=== PATIENT | female | born 1940 | race Caucasian/White ===

== ENCOUNTER 2017-03-03 19:13 | Inpatient (IN) ==
[2017-03-03] MEDS ORDERED: ZOFRAN IV ONE (20:58)
[2017-03-03] MEDS ORDERED: DILAUDID IV ONE ×2 (20:58→22:47)
[2017-03-03] MEDS ORDERED: DILAUDID IV PRN (21:50)
[2017-03-03 21:58] LABS: MANUAL DIFF NEEDED? NO
[2017-03-03 22:00] LABS: BASO% 0.3 % (0.0-0.8); EOS# 0.22 X1000 (0.0-0.7); HEMATOCRIT 33.3 % (37.0-47.0); IMM GRAN# 0.02 X1000 (0.0-0.04); IMM GRAN% 0.3 % (0.0-0.5); LYMPH# 1.36 X1000 (1.2-3.4); LYMPH% 18.6 % (20.5-51.1); MCH 27.1 PG (27-31); MONO# 0.53 X1000 (0.11-0.59); MONO% 7.2 % (1.7-9.3); MPV 10.9 FL (7.4-10.4); NEUT% 70.6 % (42.2-75.2); PLT 218 X1000 (130-400); RBC 4.06 XMIL (4.2-5.4)
[2017-03-03 22:29] LABS: URINE SOURCE CATH
[2017-03-03 22:31] LABS: ALBUMIN 3.7 g/dL (3.5-5.0); CALCIUM 9.9 mg/dL (8.8-10.2); POTASSIUM 3.3 mmol/L (3.5-5.1); TOTAL BILIRUBIN 0.19 mg/dL (0.20-1.00); TOTAL PROTEIN 6.2 g/dL (6.3-8.3)
[2017-03-03 22:43] LABS: BILIRUBIN URINE SMALL (NEGATIVE); BLOOD URINE NEGATIVE (NEGATIVE); COLOR YELLOW; GLUCOSE URINE NEGATIVE (NEGATIVE); LEUKOCYTES URINE SMALL (NEGATIVE); NITRITE URINE NEGATIVE (NEGATIVE); PROTEIN URINE 50 mg/dL (NEGATIVE); SP GRAVITY URINE 1.027; TURBIDITY URINE TURBID (CLEAR); UROBILINOGEN URINE 3 mg/dL (NORMAL)
[2017-03-03 22:54] LABS: UR EPITHELIAL CELLS <10 /HPF (<10); URINE MICRO REVIEW NEEDED? YES; URINE RBC <10 /HPF (<10); URINE WBC <10 /HPF (<10)
[2017-03-03 23:12] LABS: URINE BACTERIA 4+ /HPF; URINE CASTS NONE SEEN; URINE CRYSTALS CA OXALATE PRESENT; URINE CULTURE NEEDED? YES
[2017-03-04] MEDS ORDERED: TORADOL IM ONE (00:27)
[2017-03-04] MEDS ORDERED: LASIX PO PRN (00:27)
[2017-03-04] MEDS ORDERED: KLOR-CON PO ONE (00:33)
[2017-03-04] MEDS: ZOFRAN IV PRN ×2 (01:03→06:56)
[2017-03-04] MEDS: INDERAL PO SCH ×3 (01:04→20:28)
[2017-03-04] MEDS: OFIRMEV 1000 MG/ISOTONIC SOLN 1,000 MG/100 ML BOTTLE IV SCH ×4 (01:04→18:44)
--- NOTE | 2017-03-04 01:52 | HISTORY AND PHYSICAL ---
REASON FOR ADMISSION: Right ankle pain. PRIMARY CARE PHYSICIAN: Dr. Camara. HISTORY OF PRESENT ILLNESS: Ms. Mimi Metz is a 76-year-old lady with a past medical history of pernicious anemia, rheumatoid arthritis, lupus, Sjogren syndrome, hypertension, dyslipidemia, CVA, chronic pain syndrome, reflux disease, and rheumatoid lung. She was recently seen in the ER in the early hours of this morning because she was in a lot of pain in her back. She was given a Dilaudid shot and sent home. A few hours later, when she woke up, she tried to picker/puller a piece of paper, and she keeled forward, fell, and twisted her right ankle. Her noticed that she was on the floor, unable to get up, and in lot of pain. Called her neighbor, but neither of them could get her up, and they called 911 to bring her in. The patient tells me that when she keeled over, she did not hit her head, did not lose any consciousness. No antecedent, shortness of breath, or cardiorespiratory symptoms. Currently, her only complaint is pain in the right ankle, which is nonradiating, sharp, and intense. She has received a total of just over 1 mg of Dilaudid, and her pain is still at 8/10. REVIEW OF SYSTEMS: Twelve system review is negative. Positive findings only notable for heartburn and constipation. She also has chronic dyspnea, which has not worsened however. ALLERGIES: Hydrocodone, baclofen, Levaquin, sulfa, Neurontin, morphine, Lyrica, Imuran. HOME MEDICATIONS: She takes albuterol ProAir 2 puffs b.i.d., amitriptyline 25 mg at bedtime, ascorbic acid 250 mg daily, Symbicort 2 puffs b.i.d., Zyrtec 10 mg t.i.d., vitamin D3 5000 units daily, Colace t.i.d., folic acid 1 mg daily, Lasix 40 mg daily, hydrocodone 4 mg q.6 p.r.n., multivitamin tablets once a day, Ativan 1 mg t.i.d. p.r.n., meclizine 25 mg p.r.n., Prilosec 25 mg daily, oxycodone 10 mg q.6 p.r.n., MiraLAX 17 g daily, propranolol 40 mg b.i.d., ranitidine 75 mg daily, Senokot 8.6 mg b.i.d., Zoloft 200 mg at bedtime, Zocor 20 mg at bedtime. PAST SURGICAL HISTORY: Notable for 6 shoulder surgeries, bilateral knee surgery, C-spine surgery, enterocele repair, hysterectomy, and vaginal prolapse repair. SOCIAL HISTORY: Denies any drugs or illicit drugs. Lives in [place]. Lives with her spouse. FAMILY HISTORY: Notable for heart disease and diabetes. LABORATORY WORK: The patient has a right distal fracture of the tibia. Urinalysis: 4+ bacteria., Otherwise nil of note. Glucose 146, BUN 17, creatinine 1.0. White count 7000, hemoglobin 11, hematocrit 33, platelets 218,000, with normal differential. EKG shows normal sinus, with left axis deviation, LVH. PHYSICAL EXAMINATION: GENERAL: Chronically ill elderly woman, who is not in acute respiratory distress. She is A and O x 3. Normal mood and affect. She is in distress, however, from pain in her right ankle. Mood: She is slightly anxious, with a normal mood and affect. HEENT: Head is normocephalic, atraumatic. Eyes DIMAS, EOMI. Anicteric and not pale. ENT and oropharynx exam is grossly normal. No central cyanosis. VITAL SIGNS: Blood pressure is 134/74, heart rate 97, respirations 18, temperature 97.9. She is 97% on 3 L. NECK: Supple. No JVD or carotid bruit. CHEST: Decreased air entry in both lung che, with expiratory wheezes. CARDIOVASCULAR: First and second heart sounds heard. No gallops, murmurs, or rubs. Rhythm is regular. ABDOMEN: Slightly protuberant, soft. No focal areas of tenderness. No mass or organomegaly. Bowel sounds are hypoactive. RECTAL: Deferred at this time. EXTREMITIES: Patient has her right leg in an Checo bandage up to the knee for [id number]. She is able to wiggle her toes, but with extreme pain. Good capillary refill. Toes are not cold. Pulses are barely felt through the heavy Checo dressing. On the left lower extremity, she has good pulses. No edema. No clubbing or peripheral cyanosis. The patient has an intention tremor, consistent with essential tremor. NEUROLOGICAL: No focal deficits. SKIN: Intact. No breakdown, lesions, or erythema. MUSCULOSKELETAL: Exam is grossly normal, other than the aforementioned heavily bandaged right lower extremity. The patient has bilateral valgus hallux deformities of both feet. ASSESSMENT: 1. Right distal tibia fracture. 2. Rheumatoid lung. 3. Chronic respiratory failure, secondary to rheumatoid lung. 4. Sjogren syndrome. 5. Hypertension. 6. Dyslipidemia. 7. Chronic low back pain. 8. Osteoporosis. 9. Pernicious anemia. 10. Anemia. PLAN: At this time, Dr. Quintana of orthopedics has been consulted, and will see the patient in the a.m. for probable surgical intervention tomorrow. In the interim, we will control patient's pain the best we can, without inducing any heavy sedation. Continue with nebulizer treatments, O2 support. Otherwise, we will continue with patient's current home medications. No dramatic intervention from my standpoint, other than showing the patient is clinically stable for surgery. We will also treat the patient with Ofirmev for better pain control without heavy dependence on opiates, in this patient who has marginal respiratory reserve. cc: MD Samra Eckert MD
[2017-03-04] MEDS: PERCOCET-5 PO PRN ×3 (03:11→21:33)
[2017-03-04] MEDS: DUONEB (A & A) INH SCH ×5 (03:33→19:12)
[2017-03-04] MEDS: DILAUDID IV PRN ×4 (04:52→20:17)
--- NOTE | 2017-03-04 05:05 | EKG Report ---
Test Performed on : 03/03/2017 9:15:33 PM Test Reason : ankle fx Blood Pressure : / mmHG Vent. Rate : 086 BPM Atrial Rate : 086 BPM P-R Int : 148 ms QRS Dur : 078 ms QT Int : 354 ms P-R-T Axes : 047 -28 127 degrees QTc Int : 423 ms Normal sinus rhythm. Cannot rule out Anterior infarct , age undetermined ST \T\ T wave abnormality, consider lateral ischemia Abnormal ECG When compared with ECG of 20-FEB-2016 16:06, T wave inversion now evident in Lateral leads Unconfirmed Result
[2017-03-04] MEDS: PRILOSEC PO SCH (06:03)
[2017-03-04 06:36] LABS: MANUAL DIFF NEEDED? NO
[2017-03-04 06:40] LABS: BASO% 0.2 % (0.0-0.8); EOS# 0.32 X1000 (0.0-0.7); EOS% 5.2 % (0.0-10.0); HEMATOCRIT 31.7 % (37.0-47.0); HEMOGLOBIN 10.3 g/dL (12.0-16.0); LYMPH# 1.74 X1000 (1.2-3.4); MCH 26.9 PG (27-31); MCHC 32.5 g/dL (33-37); MCV 82.8 FL (81-99); MONO# 0.56 X1000 (0.11-0.59); MPV 11.4 FL (7.4-10.4); NEUT% 57.6 % (42.2-75.2); PLT 217 X1000 (130-400); RBC 3.83 XMIL (4.2-5.4)
[2017-03-04 06:52] LABS: AGAP 11; ALBUMIN 3.3 g/dL (3.5-5.0); ALKALINE PHOSPHATASE 70 U/L (32-104); BUN 18 mg/dL (8-22); CALCIUM 9.5 mg/dL (8.8-10.2); CHLORIDE 99 mmol/L (98-107); COSMO 280; GOT 11 U/L (10-30); GPT 14 U/L (10-36); POTASSIUM 3.3 mmol/L (3.5-5.1); SODIUM 139 mmol/L (136-145); TCO2 29 mmol/L (25-35); TOTAL BILIRUBIN 0.27 mg/dL (0.20-1.00); TOTAL PROTEIN 6.5 g/dL (6.3-8.3)
[2017-03-04] MEDS: MIRALAX PO SCH (08:32)
--- NOTE | 2017-03-04 08:32 | Diag Imaging Result Document ---
PROCEDURE NAME: ANKLE COMPLETE RIGHT - 03/03/2017 RIGHT ANKLE THREE VIEWS: FINDINGS: There is a spiral fracture through the distal shaft of the tibia with several millimeters of displacement. There are 1 or 2 fracture fragments. There is also a nondisplaced fracture to the distal fibula extending into the lateral malleolus. There is only mild soft tissue swelling. IMPRESSION: Fractures to the distal tibia and fibula.
[2017-03-04] MEDS: LIORESAL PO SCH ×3 (08:34→18:44)
[2017-03-04] MEDS: SENOKOT PO SCH ×2 (08:34→20:20)
[2017-03-04] MEDS: ATIVAN PO PRN ×2 (09:22→21:28)
[2017-03-04] MEDS: SYMBICORT 160/4.5 MICROGM INHALER INH SCH ×2 (09:39→19:12)
--- NOTE | 2017-03-04 12:32 | PROGRESS NOTE ---
DATE: 03/04/2017 SUBJECTIVE: Ms. Metz is a 76-year-old who was brought in. She is a patient of Dr. Samra Camara. PAST MEDICAL HISTORY: Pernicious anemia, rheumatoid arthritis, lupus, Sjogren's syndrome, hypertension, dyslipidemia, CVA, chronic pain syndrome. Reflux disease, rheumatoid lung. Recently seen in the emergency room early this morning because she was in lot of pain in her back. Given Dilaudid shot and sent home. A few hours later she woke up, tried to cloth picker a piece of paper and she fell forward, twisted her right ankle and suffered a fracture. So she has a right distal tibial fracture. EXAM: General: Today, she is awake, but quite a bit of pain still. Vital Signs: Temperature 98.2, pulse 74, respirations 18, blood pressure 96/52. Lungs: Clear in all lung che. Cardiovascular: Exam regular rate without murmur or S3. Abdomen: Soft. Skin: Warm and dry. LAB: White count 6210, hematocrit 31, platelet count 217,000. Sodium 139, potassium 3.3, chloride 99, bicarb 29, BUN 18, creatinine 0.9, blood sugar 107. Urinalysis, there are 4+ crystals. Calcium oxalate present. ASSESSMENT AND PLAN: 1. Right distal tibia fracture. 2. Rheumatoid lung history. 3. Chronic respiratory failure secondary to rheumatoid lung. 4. Sjogren syndrome. 5. Hypertension. 6. Dyslipidemia. 7. Chronic low back pain. 8. Osteoporosis. 9. Pernicious anemia. 10. Anemia. PLAN: I think for surgery today for internal fixation. Review of the orders. I do not see any changes at this point. cc: Neto Lincoln MD
--- NOTE | 2017-03-04 14:08 | CONSULTATION ---
DATE OF CONSULTATION: 03/04/2017 CHIEF COMPLAINT: Right ankle pain. HISTORY OF PRESENT ILLNESS: Ms. Mimi Metz is a 76-year-old female, who has recently undergone some back surgeries from [place]. She ended up falling at her house, twisting the ankle, and was brought to the emergency department. She was found to have a distal tibia fracture that was displaced. She was placed in a splint and then admitted to the floor per the hospitalist service. Most of her pain is at the right ankle; it is worse if she tries to move it at all, better with keeping it still. PAST MEDICAL HISTORY: Anemia, rheumatoid arthritis, lupus, Sjogren syndrome, hypertension, dyslipidemia, cerebrovascular accident, chronic pain syndrome, reflux. PAST SURGICAL HISTORY: Six shoulder surgeries, bilateral knee surgeries, cervical spine surgery, hysterectomy, and vaginal prolapse surgery. SOCIAL HISTORY: She denies any alcohol or drug use. FAMILY HISTORY: Notable for diabetes and heart problems. HOME MEDICATIONS: Per the medical record. ALLERGIES: Hydrocodone, baclofen, Levaquin, sulfa, Neurontin, morphine, Lyrica, and Imuran. REVIEW OF SYSTEMS: Positive for this right ankle pain and back pain. All other systems are essentially negative. PHYSICAL EXAMINATION: General: Ms. Metz is lying in bed in no acute distress this morning. Head and neck: Normocephalic, atraumatic. Respirations: Nonlabored. Cardiovascular: Regular rate. Abdomen: Nondistended. Extremities: Right lower extremity exam: Splint is clean, dry, and intact. She is able to move her toes very well in dorsiflexion and plantar flexion. She has good sensation to light touch to the toes and good capillary refill to the toes. RADIOGRAPHS: Right ankle radiograph shows displaced distal tibia fracture and looks like a nondisplaced distal fibula fracture. ASSESSMENT: Right distal tibia fracture and fibula fracture. PLAN: I did discuss with Ms. Metz that will need to fix this surgically. The tibia is not well aligned at this point. I went over with her the procedure, risks, benefits, potential complications. Risks include, but are not limited to, infection, wound healing problems, damage to nerves, arteries, veins, numbness, malunion, nonunion, hardware-related issues, continued pain, DVT and anesthesia-related risks. After discussing these with the patient, she expressed understanding and wished to proceed. We will plan on doing this tomorrow, so she will need to be n.p.o. after midnight tonight, and we will put her on the schedule for tomorrow to get this done. cc: Jj Martinez MD
--- NOTE | 2017-03-04 18:11 | Diag Imaging Result Document ---
PROCEDURE NAME: CHEST-PORTABLE - 03/04/2017 AP PORTABLE CHEST: There is a calcified node in the left hilum. There is a hiatal hernia. There has been no apparent change since 12/22/2016. IMPRESSION: Stable chest.
[2017-03-04] MEDS: ZOCOR PO SCH (20:20)
[2017-03-04] MEDS: ZOLOFT PO SCH (20:20)
[2017-03-05] MEDS: DUONEB (A & A) INH SCH ×5 (02:13→21:20)
--- NOTE | 2017-03-05 04:41 | PROVIDER DOCUMENTATION ---
This chart was entered by Gato Lockett Scribe, acting as scribe for Huy Padilla MD. HPI-Musculoskeletal Pain/Inj - GENERAL Stated Complaint: fall Time Seen by Provider: 03/03/17 19:19 Source: patient - HX OF PRESENT ILLNESS-MUSKULOSKELTAL Nature of Presenting Problem: Pt is a 76 yof who presents to ER via EMS after falling out of bed while trying to get up to throw away a piece of paper that was lying on the floor. Pt reports that she recently had back surgery and when she was getting out of bed, her RLE gave out on her. Pt complains of R ankle pain. 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 denies: fainted, lightheaded, slipped, tripped Symptoms prior to fall:: denies: fever/chills/sweaty, chest pain, rapid heart rate, cough, diarrhea, vomiting, GI bleed, dizzy/lightheaded, headache, seizure Loss of Consciousness: no loss of consciousness Injury Associated Symptoms: reports: joint pain, muscle aches, unable to bear weight, weakness, trouble walking. denies: arm pain, back/neck pain, chest pain , diaphoresis, dizziness, headaches, nausea, puncture wound, shortness of breath , sensory/motor loss, snap/crack/pop sensation, pain with inspiration, vomiting Review of Systems - Adult - REVIEW OF SYSTEMS - ADULT Constitutional: denies: chills, fever, fatique, night sweats, weight gain, weight loss Eyes: reports: no symptoms reported Ears, Nose, Mouth & Throat: reports: no symptoms reported Cardiovascular: reports: no symptoms reported Respiratory: reports: no symptoms reported Gastrointestinal: reports: no symptoms reported Genitourinary: reports: no symptoms reported Musculoskeletal: reports: bone pain, back pain (Chronic; Recent surgery), joint pain, joint swelling, muscle aches, muscle weakness. denies: frequent leg cramps, neck pain Integumentary: reports: no symptoms reported Neurological: denies: ataxia, dizziness/vertigo, headache/migraines, loss of balance, numbness, paresthesia, seizure, slurred speech, syncope, tremors Psychiatric: reports: no symptoms reported Endocrine: reports: no symptoms reported Hematologic/Lymphatic: reports: no symptoms reported Allergic/Immunologic: reports: no symptoms reported All Other Systems: Reviewed and Negative Past History - Adult - PAST MEDICAL HISTORY-ADULT Review of Records: reports: Nursing Assessment Review, Medications Reviewed Cardiovascular: reports: HTN, hyperlipidemia Respiratory: reports: asthma Gastrointestinal: reports: GERD Musculoskeletal: reports: arthritis, neck/back injury Neurological: reports: CVA Endocrine/Immune: reports: anemia, lupus - PRIOR SURGERIES/PROCEDURES Surgical/Procedure History: reports: hysterectomy, tonsillectomy, orthopedic ( extremity) (total knee replacement), back/neck - PRIOR HOSPITALIZATIONS Prior Hospitalizations: reports: none - IMMUNIZATION STATUS Childhood Immunizations: See Nurse Assessment Flu Vaccine: See Nurse Assessment - FAMILY HISTORY Family History: reviewed, not pertinent Physical Exam-Injury Related - Physical Exam-Injury Related Initial Vital Signs Reviewed: Yes General Appearance: appears well, alert, mild distress. negative: no apparent distress Eyes: PERRL/EOMI, pink conjunctivae, fundi clear, no AV nicking, pale conjunctivae, photophobia, sclera injected, scleral icterus Neck: non-tender, full range of motion, supple, normal inspection. negative: C- spine tenderness, decresed ROM, ecchymosis, limited range of motion, muscle spasm, pain on movement, swelling Respiratory: chest non-tender, lungs clear, normal breath sounds, no pleuratic chest pain, no respiratory distress, no accessory muscle use. negative: decreased breath sounds, accessory muscle use, wheezing Cardiovascular: normal peripheral pulses, regular rate, rhythm. negative: bradycardia, tachycardia, irregularly irregular Abdominal Exam: normal bowel sounds, non tender, soft, no organomegaly, no pulsatile mass. negative: tenderness Back Exam: normal inspection, no CVA tenderness, no vertebral tenderness. negative: CVA tenderness, decreased range of motion, ecchymosis, muscle spasm, swelling, vertebral tenderness Extremity: normal inspection, no pedal edema, no calf tenderness, normal capillary refill, swelling (Mild swelling to R ankle), tenderness (Tender ROM(R ankle); Tender R ankle on palpation). negative: normal range of motion, non- tender, normal gait, deformity, erythema, inflammation Integumentary: normal color, warm/dry. 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 negative: facial droop, focal weakness, motor weakness, sensory deficit Psych/Mental Status: normal mood/affect, normal thought content, normal thought process, oriented x 3 Progress - PLAN OF CARE/RESULTS Progress/Plan/Lab Results: Orders Category Date Time Status Admit - [facility] Routine AdmDCTranf 03/03/17 21:50 Ordered Activity - Strict Bedrest ORDERED Care 03/03/17 21:52 Active Tran Cath Insertion ORDERED Care 03/03/17 20:59 Active Saline Loc DIRECTED Care 03/03/17 21:50 Active Vital Signs Order ARRIVAL TO ROOM Care 03/03/17 21:50 Active Regular Diet Diet 03/03/17 21:53 Completed ANKLE COMPLETE RIGHT [RAD] Stat Exams 03/03/17 19:25 Completed CBC WITH ELECTRONIC DIFF [HEME] Stat Lab 03/03/17 21:50 Completed CMP [COMPREHENSIVE METABOLIC PANEL] [CHEM] Stat Lab 03/03/17 21:50 Completed UA NIMS W/REFLEX CULT [URINALYSIS] Stat Lab 03/03/17 22:20 Completed URINE CULTURE [RM] Routine Lab 03/03/17 23:12 Results URINE MANUAL MICROSCOPIC [URINALYSIS] Stat Lab 03/03/17 22:20 Completed Hydromorphone [Dilaudid] Med 03/03/17 22:47 Discontinued 0.5 mg IV NOW ONE Hydromorphone [Dilaudid] Med 03/03/17 20:58 Discontinued 1 mg IV NOW ONE Hydromorphone [Dilaudid] Med 03/03/17 21:50 Discontinued 1 mg IV Q2HR PRN Ondansetron [Zofran] Med 03/03/17 20:58 Discontinued 4 mg IV NOW ONE Ondansetron [Zofran] Med 03/03/17 21:50 Active 4 mg IV Q4H PRN PRN EKG [EKG] Stat Ther 03/03/17 20:58 Draft Transfer/Admit Order [TRANSFER] Routine Transfer 03/03/17 21:53 Completed 2045: Dr. Quintana (Ortho) paged Result Diagrams: 03/04/17 06:25 03/04/17 06:25 - EKG 1 Time of EKG reading by physician:: 21:15 EKG Read and Signed by:: Huy Padilla EKG Interpretation (*Must complete 3 of following elements*): Abnormal (Cannot rule out Anterior infarct, age undetermined; ST & T wave abnormality, consider lateral ischemia) - XRAY 1 XRAY: Right XRAY Study: Ankle Impression: See EMR Report XRAY Interpretation: Bimalleolar Fx - CONSULTS/PCP/HOSPITALIST Notification #1 *Consult/PCP/Hospitalist*: Dr. Quintana (Ortho) Time Discussed: 20:55 Consult Disposition: Will see in ED, Admit #2 Consult: Dr. Quintana Time Discussed: 21:41 Consult Disposition: other (Dr. Quintana called Dr. Padilla to sya he could not take pt, but Dr. Martinez (Ortho) will.) #3 Consult: Dr. Webber (Hospitalist) Time Discussed: 21:45 Consult Disposition: Admit Procedures - SPLINTING Right Lower Extremity Pre-Procedure Neurovascular Exam: Intact Pre-Fabricated Splint: Checo Wrap Splint Application (Hand-Made): Long (long leg (RLE)), Orthoglass, Stir-Up Applied By: skin diving teacher Assisted By: ED Nurse Post Procedure Neurovascular Exam: Intact (x2) Departure - Departure Time of Disposition Decision: 20:48 DIAGNOSIS: Bimalleolar fracture of right ankle Disposition: ADMITTED INPATIENT 09 Certified Medical Emergency: Emergent Condition: Stable - Critical Care Note This patient required my direct personal management.: Yes This chart was documented by the indicated scribe, (Gato Lockett Scribe) and accurately reflects the services I performed and decisions made by me, Huy Albarran MD, as attested by the provider's signature.
[2017-03-05] MEDS: PRILOSEC PO SCH (06:08)
[2017-03-05] MEDS ORDERED: MIRALAX PO SCH (09:00)
[2017-03-05] MEDS: SYMBICORT 160/4.5 MICROGM INHALER INH SCH ×2 (09:41→21:21)
[2017-03-05] MEDS: DILAUDID IV PRN ×3 (10:12→21:23)
--- NOTE | 2017-03-05 10:21 | PROGRESS NOTE ---
DATE: 03/05/2017 SUBJECTIVE: She is very lethargic able arouse just for a short time so I think we need to back down on sedation. She is breathing comfortably. OBJECTIVE: Vital Signs: Temperature 97.8 degrees, pulse 82. Respirations 16. Blood pressure 141/73. HEENT: The pupils are equal and round, CVP less than 6 cm. Lungs: Clear in all lung che. Cardiovascular: Regular rhythm and rate without murmur or S3. Good urine output. LABORATORY DATA: From yesterday, potassium 3.3, creatinine 0.9. ASSESSMENT AND PLAN: 1. Right distal tibia fracture. Pain control is very good. We are going to back down on her sedation. 2. Rheumatoid lung disease. Aware. 3. Chronic respiratory dysfunction secondary to a rheumatoid lung. 4. Sjogren's syndrome. 5. Hypertension. 6. Hyperlipidemia. 7. Chronic lower back pain. 8. Osteoporosis. 9. Pernicious anemia. REVIEW OF ORDERS: We need to cut down on the Dilaudid. I will give her 0.5 q.4 hours at the most. cc: Neto Lincoln MD
[2017-03-05] MEDS ORDERED: XYLOCAINE 1% ONE (10:48)
[2017-03-05] MEDS ORDERED: MARCAINE 0.5% ONE (10:48)
[2017-03-05] MEDS ORDERED: KEFZOL 1 GM/D5W 1 GM/50 ML IVPB ONE (10:55)
[2017-03-05] MEDS ORDERED: CLAVE SECONDARY SET 11953 ONE (10:55)
--- NOTE | 2017-03-05 11:32 | PROGRESS NOTE ---
DATE: 03/05/2017 SUBJECTIVE: Ms. Metz is lying in bed this morning. She says that she has been cold. She is covered up with a lot of blankets. OBJECTIVE: Right lower extremity exam, she is still able to move the toes very well. Good sensation to light touch to the toes. Splint is clean, dry, and intact. ASSESSMENT: Right distal tibia fracture. PLAN: We will plan on taking Ms Metz to the OR today for open reduction internal fixation right tibia and fibula. She is NPO now. She will be nonweightbearing right lower extremity. cc: Jj Martinez MD
[2017-03-05] MEDS ORDERED: DIPRIVAN 1% ONE (13:12)
[2017-03-05] MEDS ORDERED: EPHEDRINE ONE (14:38)
[2017-03-05] MEDS ORDERED: ZOFRAN ONE (14:38)
[2017-03-05] MEDS ORDERED: NEO-SYNEPHRINE ONE (14:38)
[2017-03-05] MEDS ORDERED: PIGGYBACK SET 7393 ONE (14:39)
[2017-03-05] MEDS ORDERED: LR 2,000 ML ONE (14:39)
[2017-03-05] MEDS ORDERED: XYLOCAINE-MPF 2% ONE (14:39)
[2017-03-05] MEDS ORDERED: ANESTHESIA PB SET 88 IN 5742 ONE (14:39)
[2017-03-05] MEDS ORDERED: NS 250 ML ONE (14:39)
[2017-03-05] MEDS ORDERED: EXTENSION SET 32 IN 4522 ONE (14:39)
[2017-03-05] MEDS: LIORESAL PO SCH ×3 (14:41→16:34)
[2017-03-05] MEDS: INDERAL PO SCH ×3 (14:41→21:24)
[2017-03-05] MEDS: MIRALAX PO SCH (14:41)
[2017-03-05] MEDS: SENOKOT PO SCH ×2 (14:42→21:23)
--- NOTE | 2017-03-05 16:38 | OPERATIVE NOTE ---
PROCEDURE DATE: 03/05/2017 PREOPERATIVE DIAGNOSES: 1. Right distal tibia fracture. 2. Right distal fibula fracture. POSTOPERATIVE DIAGNOSES: 1. Right distal tibia fracture. 2. Right distal fibula fracture. PROCEDURES: 1. Right open reduction internal fixation of distal tibial shaft fracture. 2. Right closed reduction treatment distal fibula fracture. SURGEON: Jj Martinez MD. HEAT TREATER APPRENTICE: BARRERA Rodriguez. ANESTHESIA: Spinal. TOURNIQUET TIME: 70 minute. BLOOD LOSS: About 10 mL. IMPLANT: Biomet medial locking plate for the distal tibia. DISPOSITION: To PACU, hemodynamically stable. INDICATION FOR PROCEDURE: Ms. Mimi Metz is a 76-year-old female who presented to the emergency department on 03/03/2019 and was diagnosed with a distal tibia fracture that is displaced. I discussed with her about surgical intervention. I went over with her and her and they expressed understanding and wished to proceed. DESCRIPTION OF THE PROCEDURE: Ms. Metz was identified in the preop holding area. The right leg was marked as the correct surgical site. She was then wheeled to the operating room, placed supine on the operating table. All bony prominences well padded. She was induced under spinal anesthesia and a little bit of MAC. Tourniquet was placed to the right thigh. Right lower extremity was then prepped with chlorhexidine, gluconate scrub, and then ChloraPrep, and draped in normal sterile fashion. Surgical pause was performed. We identified the correct patient, the correct side, and the correct procedure. Preop antibiotics were given which was IV Ancef. I started with an anteromedial incision. Dissection was carried down. The saphenous vein and nerve were retracted posteriorly out of the way. Easily came down on the fracture site and there was a very large cortical piece that was pretty much free on that medial segment and it was crushed down into the medullary canal area. So I reduced that out of there and then reduced my fracture with traction and some internal rotation and then provisionally fixed it with K-wires. Fluoroscopic imaging showed that we had a good reduction, AP and lateral views. So then placed a long medial plate submuscularly through that incision, up the shaft of the tibia, and provisionally pinned that in place as well. Fluoroscopic imaging was used to again which showed we had good reduction overall, good alignment, and good position of our plate, even on that lateral view. Then I placed locking screws distally and then some locking and nonlocking screws proximally. I had to make a separate incision a little bit higher so I could get the 4 screws on the very proximal end of the plate. Final images were taken which showed that we had good reduction of our fractures, good alignment, and good position of our plate and screws. I stressed it on that mortise view to look at the fibular fracture and nothing really gapped or widened on external rotation and stress test. I then closed the deep layer with 0 Vicryl, subcutaneous with 2-0 Vicryl, and the skin with nylon. Adaptic, 4 x 4s, ABD, soft roll, and posterior splint was applied. Tourniquet was let down. Patient had good capillary refill return to the toes. Splint will help hold that fibula in place with our closed reduction. The patient was then awoke from general anesthesia, moved to her own bed, and taken to the PACU in stable condition. Postoperatively patient will be nonweightbearing right lower extremity. She will be admitted back to the floor. cc: Jj Martinez MD
[2017-03-05] MEDS: PERCOCET-5 PO PRN ×2 (16:48→22:56)
[2017-03-05] MEDS: ZOFRAN IV PRN ×2 (16:48→21:31)
[2017-03-05] MEDS: ZOCOR PO SCH (21:23)
[2017-03-05] MEDS: ZOLOFT PO SCH (21:23)
[2017-03-05] MEDS: KEFZOL 1 GM/D5W 1 GM/50 ML IVPB IV SCH (22:48)
[2017-03-06] MEDS: DILAUDID IV PRN ×4 (01:39→17:22)
[2017-03-06] MEDS: DUONEB (A & A) INH SCH ×4 (02:39→21:01)
[2017-03-06] MEDS: ATIVAN PO PRN (03:13)
[2017-03-06] MEDS: PERCOCET-5 PO PRN ×2 (04:56→20:13)
[2017-03-06] MEDS: LOVENOX SUBQ SCH (05:05)
[2017-03-06] MEDS: KEFZOL 1 GM/D5W 1 GM/50 ML IVPB IV SCH (05:05)
[2017-03-06] MEDS: PRILOSEC PO SCH (06:51)
[2017-03-06] MEDS: ATIVAN IV PRN ×3 (09:10→18:55)
--- NOTE | 2017-03-06 09:10 | PROGRESS NOTE ---
DATE: 03/06/2017 SUBJECTIVE: Ms. Metz is postop day 1 from a right distal tibia ORIF. She is having some pain this morning. OBJECTIVE: Right Lower Extremity Examination: Splint is clean, dry, and intact. She is able to move her toes, dorsiflexion and plantarflexion. Good sensation to light touch to the toes. ASSESSMENT: Status post right open reduction and internal fixation of distal tibia. PLAN: It is going to be a little bit of a fine line of giving her narcotics for her pain but then also balancing her so that her dementia does not get worse. Discussed with the nurse. She is going to try to control her pain as best we can. We are going to continue to ice and elevate right lower extremity. She is nonweightbearing to the right lower extremity for 2 months. She will probably need rehab set up for her. I am okay with therapy getting her up but she is nonweightbearing to the right lower extremity. cc: Jj Martinez MD
--- NOTE | 2017-03-06 10:50 | PROGRESS NOTE ---
DATE: 03/06/2017 SUBJECTIVE: She has been complaining of pain. She states that she did not sleep much. She feels uncomfortable. She did eat some breakfast. PHYSICAL EXAMINATION: General: She is awake, alert, and oriented x3. Lungs: Breathing comfortably. Vital Signs: Afebrile, temperature 97.4 degrees, pulse 73, respirations 16, blood pressure 119/46. HEENT: Pupils are equal and round. Lungs: Are clear in all lung che. Cardiovascular Examination: Regular rhythm and rate without murmur or S3. Is and Os: Urine output was over 2600. LABS: No new lab from this morning. ASSESSMENT AND PLAN: 1. Dr. Martinez performed surgery yesterday, right distal tibia fracture, right distal fibular fracture. Right open reduction and internal fixation of distal tibia shaft fracture. Right close reduction treatment of distal fibular fracture. We will continue present medication. We will add some Ativan. I think there is some anxiety related to the pain. I do not want to oversedate her. 2. Rheumatoid lung disease, rheumatoid arthritis. Aware. 3. 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 4. Sjogren's syndrome. 5. Hypertension. 6. Hyperlipidemia. 7. Chronic lower back pain. 8. Osteoporosis. 9. Review of her current orders. I do not see any change at this point. We will ask social service to start looking for potential discharge plans. cc: Neto Lincoln MD
[2017-03-06] MEDS: SYMBICORT 160/4.5 MICROGM INHALER INH SCH ×2 (11:07→21:00)
[2017-03-06] MEDS: INDERAL PO SCH ×2 (11:31→20:22)
[2017-03-06] MEDS: MIRALAX PO SCH (11:31)
[2017-03-06] MEDS: LIORESAL PO SCH ×3 (11:32→17:42)
[2017-03-06] MEDS: SENOKOT PO SCH ×2 (11:32→20:13)
[2017-03-06] MEDS: ZOCOR PO SCH (20:13)
[2017-03-06] MEDS: ZOLOFT PO SCH (20:13)
[2017-03-07] MEDS: ZOFRAN IV PRN ×2 (00:34→06:30)
[2017-03-07] MEDS: DILAUDID IV PRN ×6 (00:34→21:59)
[2017-03-07] MEDS: PERCOCET-5 PO PRN (03:04)
[2017-03-07] MEDS: DUONEB (A & A) INH SCH ×4 (03:18→22:52)
[2017-03-07] MEDS: PRILOSEC PO SCH (06:30)
[2017-03-07] MEDS: LOVENOX SUBQ SCH (06:31)
[2017-03-07] MEDS: SYMBICORT 160/4.5 MICROGM INHALER INH SCH ×2 (09:58→22:52)
[2017-03-07] MEDS: INDERAL PO SCH ×3 (10:08→21:53)
[2017-03-07] MEDS: SENOKOT PO SCH ×2 (10:08→21:52)
[2017-03-07] MEDS: MIRALAX PO SCH (10:08)
[2017-03-07] MEDS: LIORESAL PO SCH ×3 (10:09→17:14)
--- NOTE | 2017-03-07 10:09 | PROGRESS NOTE ---
DATE: 03/07/2017 SUBJECTIVE: Ms. Metz is resting in bed this morning. Pain seems to be well controlled. OBJECTIVE: Right lower extremity exam, splint is clean, dry, and intact. She has good capillary refill to the foot and good warmth to the foot as well. ASSESSMENT: Status post open reduction internal fixation distal tibia. PLAN: Ms. Metz will still be nonweightbearing right lower extremity. I do want physical therapy though working with her and getting her up and out of bed. Then I will need to see her in a week in the clinic. cc: Jj Martinez MD
--- NOTE | 2017-03-07 13:07 | PROGRESS NOTE ---
DATE: 03/07/2017 Ms. Metz is doing better, awake and alert. She is eating well. Temp 97.6, pulse 58, respirations 17, blood pressure 99/49.HEENT: Pupils are equal, round. CVP less than 6 cm. Lungs: Clear in all lung che. Cardiovascular: Regular rhythm and rate without murmur or S3. Good urine output. LAB REVIEW: From the , hematology. ASSESSMENT AND PLAN: 1. Dr. Martinez performed surgery right distal tibial fracture, right distal fibular fracture, right open reduction internal fixation the right distal tibial shaft and closed reduction of the distal fibular fracture. Doing well in compression cast. 2. Rheumatoid lung disease, rheumatoid arthritis. Aware. Breathing comfortably. 3. COPD and rheumatoid lung. 4. Sjogren's syndrome. 5. Hypertension. 6. Hyperlipidemia. 7. Chronic lower back pain. I think she has had a recent compression fracture. History of osteoporosis. I think she will probably benefit the most from going to rehab. She will be here this weekend. Looking over her orders, she is on Zocor 20 mg a day. Zoloft 200 mg at bedtime. Senokot 1 b.i.d. Inderal 40 mg b.i.d. MiraLAX 17 g daily. She gets oxycodone 1/2 tablets for 7.5 mg q.6 hours p.r.n., and she still getting Dilaudid 0.5 mg q.4 hours p.r.n. Ativan 1 mg t.i.d. and p.r.n. She also has a 0.4 p.r.n. Prilosec 20 mg a day. Lioresal, baclofen 10 mg t.i.d. I have her on Lovenox 40 mg subcutaneous daily. Rehab. I will ask social service to help us looking for rehab. Continue physical evaluation, physical therapy. cc: Neto Lincoln MD
[2017-03-07] MEDS: ZOLOFT PO SCH (21:53)
[2017-03-07] MEDS: ZOCOR PO SCH (21:53)
[2017-03-08] MEDS: DILAUDID IV PRN ×5 (02:54→23:32)
[2017-03-08] MEDS: PERCOCET-5 PO PRN (03:29)
[2017-03-08] MEDS: DUONEB (A & A) INH SCH ×4 (03:29→22:48)
[2017-03-08] MEDS: LOVENOX SUBQ SCH (06:30)
[2017-03-08] MEDS: PRILOSEC PO SCH (06:30)
[2017-03-08] MEDS ORDERED: DUONEB (A & A) ONE (07:07)
[2017-03-08] MEDS: MIRALAX PO SCH (08:27)
[2017-03-08] MEDS: SENOKOT PO SCH ×2 (08:27→20:08)
[2017-03-08] MEDS: INDERAL PO SCH ×2 (08:27→20:17)
[2017-03-08] MEDS: SYMBICORT 160/4.5 MICROGM INHALER INH SCH ×2 (09:34→22:49)
[2017-03-08] MEDS: LIORESAL PO SCH ×3 (09:51→17:18)
--- NOTE | 2017-03-08 11:19 | PROGRESS NOTE ---
DATE: 03/08/2017 SUBJECTIVE: Ms. Metz is sitting up in her chair today. She has a back brace on. Feeling okay. OBJECTIVE: Right lower extremity exam, splint is clean, dry, and intact. She is able to move the toes very well, and she has good capillary refill to all the toes and good sensation to light touch to all the toes. ASSESSMENT: Status post open reduction internal fixation, distal tibia fracture. PLAN: Ms. Metz will need to be nonweightbearing right lower extremity still. Would do that for really at least about a 6 week period. I am okay with her being discharged whenever medically okay and I will need to see her back in clinic in about a week. cc: Jj Martinez MD
--- NOTE | 2017-03-08 13:07 | PROGRESS NOTE ---
DATE: 03/08/2017 SUBJECTIVE: Ms. Metz is asking for more for pain. She is still hurting. She is awake and alert, ready to have lunch. Right now, she is getting Dilaudid at 0.5 mg, I think, q.6 hours, so I may go up to a full milligram q.5 hours. OBJECTIVE: Vital Signs: Afebrile with temperature 98.6 degrees, pulse 70, respirations 20, blood pressure 108/65. HEENT: Pupils are equal and round. Neck: CVP less than 6 cm. Lungs: Clear in all lung che. Cardiovascular: Regular rhythm and rate, without murmur or S3. Abdomen: Soft. Skin: Warm and dry. ASSESSMENT AND PLAN: 1. Bimalleolar fracture, status post open reduction and internal fixation. Distal tibial fracture. She will need to be nonweightbearing right lower extremity still and probably for a 6-weeks period. Hope to get her to rehabilitation on Friday. Swelling seems to be going down. For pain, will try and increase her pain medicine, as she is still complaining of poor pain control. 2. Rheumatoid lung disease. Rheumatoid arthritis. 3. Chronic obstructive pulmonary disease. 4. Sjogren syndrome. 5. Hypertension. 6. Hyperlipidemia. 7. Chronic lower back pain. REVIEW OF HER ORDERS: I do not see anything to change. She is on Zoloft 200 mg a day, Zocor 20 mg at bedtime, Senokot 1 b.i.d., Inderal 40 mg b.i.d., polyethylene glycol (MiraLAX) 17 g daily, oxycodone 5 mg 1-/2 q.6, but she kind of refuses that. We are giving her hydromorphone or Dilaudid and I have increased that to 1 mg IV q.5 hours p.r.n. She gets Lasix 40 mg p.o. daily, budesonide 2 puffs b.i.d., and baclofen 10 mg t.i.d. cc: Neto Lincoln MD
[2017-03-08] MEDS: ZOLOFT PO SCH (20:08)
[2017-03-08] MEDS: ZOCOR PO SCH (20:08)
[2017-03-08] MEDS: ZOFRAN IV PRN (23:31)
[2017-03-09] MEDS: DUONEB (A & A) INH SCH ×4 (04:11→22:00)
[2017-03-09] MEDS: ZOFRAN IV PRN ×3 (04:30→18:00)
[2017-03-09] MEDS: DILAUDID IV PRN (04:30)
[2017-03-09] MEDS: PRILOSEC PO SCH (06:08)
[2017-03-09] MEDS: LOVENOX SUBQ SCH (06:08)
[2017-03-09] MEDS ORDERED: ULTRAM PO PRN (10:01)
[2017-03-09] MEDS: INDERAL PO SCH ×3 (10:10→22:11)
[2017-03-09] MEDS: SENOKOT PO SCH ×2 (10:10→22:06)
[2017-03-09] MEDS: MIRALAX PO SCH (10:11)
[2017-03-09] MEDS: LIORESAL PO SCH ×3 (10:11→17:59)
[2017-03-09] MEDS: SYMBICORT 160/4.5 MICROGM INHALER INH SCH ×2 (11:01→22:00)
--- NOTE | 2017-03-09 16:22 | PROGRESS NOTE ---
DATE: 03/09/2017 SUBJECTIVE: Ms. Metz is feeling better. Pain is under better control. Swelling has gone down. She is eating pretty good. OBJECTIVE: Vital signs: Temperature 97.9 degrees, pulse 68, respirations 17, blood pressure 115/58. HEENT: The pupils are equal, round. Lungs: Are clear in all lung che. Cardiovascular: Regular rhythm and rate without murmur or S3. Abdomen: Soft. Skin: Warm and dry. She feels like she is ready go to rehab tomorrow. LABORATORY: From the , I do not see any anything new. ASSESSMENT AND PLAN: 1. Bimalleolar fracture, status post open reduction, internal fixation distal tibial fracture. Needs nonweightbearing right lower extremity for probably a 6 week period. Plan to go to rehab tomorrow. Seems to be healing well. 2. Rheumatoid lung disease. Rheumatoid arthritis. 3. Chronic obstructive pulmonary disease. 4. Sjogren's syndrome. 5. Hypertension. 6. Hyperlipidemia. 7. Chronic back pain. Nutrition seems to be good, eating well. I reviewed orders. I do not see any change at this point. cc: Neto Lincoln MD
--- NOTE | 2017-03-09 17:04 | DISCHARGE SUMMARY ---
ADMISSION DATE: 03/03/2017 DISCHARGE DATE: 03/10/2017 HOSPITAL COURSE: 76-year-old past medical history of pernicious anemia, rheumatoid arthritis, lupus, Sjogren syndrome, hypertension, dyslipidemia, CVA, chronic pain syndrome, reflux syndrome, rheumatoid lung recently seen in the emergency room before this admission early hours because a lot of pain in her neck. 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 ALLERGIES: Hydrocodone, Levaquin, sulfa, Neurontin, morphine, Lyrica, Imuran. Patient was admitted to the hospital. Dr. Martinez was consulted on 03/04 right distal tibia fracture and fibula fracture and need to be fixed surgically. Took her to surgery 03/05/2017 right open reduction internal fixation distal tibia shaft fracture, right close reduction treatment distal fibula fracture. Done well postop swelling gone down. She did have quite a bit of pain we are going to try her on some Ultram, does not like the p.o. medicines they make her nauseated including the OxyIR so we had switched her try some Ultram hoping to get her to rehab on 03/10/2017. DISCHARGE MEDICATIONS: DuoNeb as needed, baclofen 10 mg p.o. t.i.d., Symbicort 160/4.5 two puffs b.i.d., Lasix 40 mg a day, Dilaudid 1 mg IV as needed, Ativan 1 mg t.i.d. p.r.n. anxiety, omeprazole 20 mg a day, Percocet we ordered a 7.5, q.6 p.r.n. but states it makes her nauseated, MiraLAX 17 g daily, Inderal 40 mg b.i.d., Zoloft 200 mg a day, simvastatin 20 mg at bedtime and then she has the Ultram 50 mg p.o. q.6 hours p.r.n. and will see how that does. cc: Neto Lincoln MD
[2017-03-09] MEDS: ZOLOFT PO SCH (22:05)
[2017-03-09] MEDS: ZOCOR PO SCH (22:06)
[2017-03-10] MEDS: LOVENOX SUBQ SCH (06:15)
[2017-03-10] MEDS: PRILOSEC PO SCH (06:15)
[2017-03-10] MEDS: LIORESAL PO SCH ×2 (08:47→13:07)
[2017-03-10] MEDS: SENOKOT PO SCH (08:47)
[2017-03-10] MEDS: INDERAL PO SCH (08:47)
[2017-03-10] MEDS: MIRALAX PO SCH (08:48)
[2017-03-10] MEDS: DUONEB (A & A) INH SCH (10:47)
[2017-03-10] MEDS: SYMBICORT 160/4.5 MICROGM INHALER INH SCH (10:48)
[2017-03-10 11:33] VITALS: BP 137/68
== END 2017-03-10 13:25 ==
LOC: ED 19:13 → 4N 23:34 → SUATTDRO 23:34
PROVIDERS: ATTEND Emergency Medicine

== ENCOUNTER 2017-04-30 07:44 | Inpatient (IN) ==
[2017-04-30] MEDS ORDERED: ATIVAN IV ONE (08:20)
[2017-04-30] MEDS ORDERED: ZOFRAN IV ONE (08:20)
--- NOTE | 2017-04-30 08:35 | PROVIDER DOCUMENTATION ---
HPI-Neurological Disorder - General Stated Complaint: seizure Time Seen by Provider: 04/30/17 08:19 Source: EMS Unable to obtain history due to:: urgency Allergies/Adverse Reactions: Patient Allergies Allergy/AdvReac Type Severity Reaction Status Date / Time hydrocodone bitartrate * Allergy Intermediate ITCHING Verified 04/30/17 08:54 [From Lortab] levofloxacin [From Levaquin] Allergy Unknown Unknown Verified 04/30/17 08:54 sulfamethoxazole Allergy Unknown Unknown Verified 04/30/17 08:54 [From Bactrim] trimethoprim [From Bactrim] Allergy Unknown Unknown Verified 04/30/17 08:54 baclofen AdvReac Intermediate confusion Verified 04/30/17 08:54 gabapentin [From Neurontin] AdvReac Intermediate hyperactivi Verified 04/30/17 08:54 ty methadone [Methadone] AdvReac Intermediate confusion Verified 04/30/17 08:54 morphine AdvReac Intermediate confusion Verified 04/30/17 08:54 pregabalin [From Lyrica] AdvReac Intermediate hallucinati Verified 04/30/17 08: 54 ons azathioprine [From Imuran] AdvReac Mild VOMITING Verified 04/30/17 08:54 azathioprine sodium * AdvReac Mild VOMITING Verified 04/30/17 08:54 [From Imuran] Home Medications: Home Medication List Medication Instructions Recorded Confirmed Last Taken Type Folic Acid 1 tab PO QPM 09/12/12 04/30/17 1 Day Ago History SIMVAstatin [Zocor] 20 mg PO QHS 09/12/12 04/30/17 1 Day Ago History Albuterol Sulfate [Proair Hfa] 8.5 gm IH DIRECTED 12/07/16 04/30/17 04/12/17 09:00 History Amitriptyline HCl 25 mg PO QHS 12/07/16 04/30/17 1 Day Ago History Budesonide/Formoterol Inhaler 2 puff INH RTBID 12/07/16 04/30/17 04/12/17 09:00 History [Symbicort 160/4.5 Microgm Inhaler] Cholecalciferol (Vitamin D3) 5,000 unit PO DAILY 12/07/16 04/30/17 1 Day Ago History [Vitamin D3] Ascorbic Acid [Vitamin C] 250 mg PO DAILY 12/19/16 04/30/17 1 Day Ago History Furosemide [Lasix] 40 mg PO DAILY PRN 12/19/16 04/30/17 04/12/17 09:00 History Iron,Carbonyl/Vit C/Vit B12/FA 100 tab PO DAILY 12/19/16 04/30/17 1 Day Ago History [Iron 100 Plus Tablet] Polyethylene Glycol 3350 [Miralax] 17 gm PO EVERY OTHER DAY 12/19/16 04/30/17 2 Days Ago History Sertraline HCl [Zoloft] 200 mg PO QHS 12/19/16 04/30/17 1 Day Ago History Lorazepam [Ativan] 1 mg PO TID PRN PRN #90 tablet 12/25/16 04/30/17 1 Day Ago Rx Oxycodone/APAP 5 mg/325 mg 1.5 each PO Q6H PRN PRN #40 tablet 03/10/17 04/30/17 1 Day Ago Rx [Percocet-5] Ofloxacin 0.3% Oph Solution 5 ml .SEE ORDER 04/30/17 1 Day Ago History [Ocuflox 0.3% Oph Solution] Polyvinyl Alcohol/Povidone/Pf 1 each OP DIRECTED 04/30/17 04/30/17 1 Day Ago History [Refresh Classic Eye Drops] Prednisolone 1% Oph Susp [Pred 1 drop .SEE ORDER TID 04/30/17 04/30/17 1 Day Ago History Forte 1% Oph Suspension] - History of Present Illness-Neuro Nature of Presenting Problem: seizure disorder in 76 year old. Patient is post-ictal and very anxious. She also had a witnessed seizure by the nurse. Patient has a history of chronic pain, and is coming off of her pain medications Severity: reports: mild Onset/Duration: reports: unsure Timing: reports: still present Context: reports: found unresponsive by family, seizure activity Character of Altered Mental Status: reports: disoriented, confused, combative, agitated, trouble concentrating, seizure activity Any recent trauma/injury?: reports: none Character of Deficits: reports: new weakness New weakness or altered sensation location:: reports: none Cognitive Baseline: poor alertness Gait Baseline: walks only with assistance Similar Symptoms Previously?: Yes Recently seen or treated by another doctor?: Yes - Seizure First time to have a seizure?: No Witnessed seizure?: Yes Episode details: reports: unknown duration Episode Frequency: occasional episodes Preceding symptoms/context:: changed medication or dosage Character of Seizure: reports: generalized shaking all over Post-ictal Symptoms: reports: confusion Seizure related injury: none Review of Systems - Adult - REVIEW OF SYSTEMS - ADULT ROS:: limited per condition Constitutional: reports: no symptoms reported Eyes: reports: no symptoms reported Ears, Nose, Mouth & Throat: reports: no symptoms reported Cardiovascular: reports: no symptoms reported Respiratory: reports: no symptoms reported Gastrointestinal: reports: no symptoms reported Genitourinary: reports: no symptoms reported Musculoskeletal: reports: no symptoms reported Integumentary: reports: no symptoms reported Neurological: reports: no symptoms reported Psychiatric: reports: no symptoms reported Endocrine: reports: no symptoms reported Hematologic/Lymphatic: reports: no symptoms reported Allergic/Immunologic: reports: no symptoms reported All Other Systems: Reviewed and Negative Past History - Adult - PAST MEDICAL HISTORY-ADULT Review of Records: reports: Old Records Reviewed, Nursing Assessment Review, Medications Reviewed, Social history reviewed & non-contributory. Major Childhood Illnesses: reports: denies history Cardiovascular: reports: HTN, hyperlipidemia Respiratory: reports: asthma Gastrointestinal: reports: GERD Obstetrical/Gynecological: reports: denies history Genitourinary: reports: denies history Musculoskeletal: reports: arthritis, neck/back injury Neurological: reports: CVA Endocrine/Immune: reports: anemia, lupus Other Conditions: reports: denies history - PRIOR SURGERIES/PROCEDURES Surgical/Procedure History: reports: hysterectomy, tonsillectomy, orthopedic ( extremity) (total knee replacement), back/neck - PRIOR HOSPITALIZATIONS Prior Hospitalizations: reports: none - IMMUNIZATION STATUS Childhood Immunizations: See Nurse Assessment Flu Vaccine: See Nurse Assessment - FAMILY HISTORY Family History: reviewed, not pertinent Physical Exam- Neurological - Physical Exam-Neuro Initial Vital Signs Reviewed: Yes General Appearance: moderate distress HENMT: normocephalic/atraumatic, moist mucous membranes, normal ENT inspection Head Injury: no evidence of injury Neck: non-tender, full range of motion Respiratory: chest non-tender, lungs clear, normal breath sounds Cardiovascular: normal peripheral pulses, regular rate, rhythm, no edema Abdominal Exam: normal bowel sounds, non tender, soft Lymphatic: no adenopathy Extremity: normal range of motion, non-tender, normal gait tenderizer tender Exam: normal hearing, normal speech Coordination/Gait: normal finger to nose, normal gait Motor/Sensory: no motor deficit, no sensory deficit, no pronator drift Neurologic: tenderizer tender II-XII nml as tested, grossly normal Integumentary: normal color, normal turgor Psych/Mental Status: normal mood/affect, normal thought content, normal thought process Progress - PLAN OF CARE/RESULTS Progress/Plan/Lab Results: Laboratory Results - last 24 hr 04/30/17 04/30/17 07:56 12:30 POC Glucose 186 H Magnesium 2.1 Orders Category Date Time Status Admit - [facility] Routine [id number] 04/30/17 12:54 Ordered Activity - Up with Assistance ORDERED Care 04/30/17 12:54 Active Apply Mechanical Device [QM] ORDERED Care 04/30/17 12:54 Active Cardiac Monitoring DIRECTED Care 04/30/17 08:21 Completed Cardiac Monitoring DIRECTED Care 04/30/17 10:35 Completed Finger Stick Blood Sugar (ED) DIRECTED Care 04/30/17 08:21 Completed IV Insertion ORDERED Care 04/30/17 10:35 Completed Intake and Output-Strict ORDERED Care 04/30/17 12:54 Active Notify MD of + Sepsis Screen NOW Care 04/30/17 10:35 Completed Nursing- Assist w/ IS as order ORDERED Care 04/30/17 12:54 Active Nursing- MD Consult Request ROUTINE Care 04/30/17 12:54 Completed Oxygen Therapy- ED Nursing DIRECTED Care 04/30/17 08:21 Completed Saline Loc NOW Care 04/30/17 08:21 Completed Vital Signs Order Q1H Care 04/30/17 12:54 Completed Z-Document. for Tele Applied ORDERED Care 04/30/17 12:54 Active Physician/Provider Consults Routine Cons 04/30/17 12:54 Ordered Social Service Consult Routine Cons 04/30/17 12:54 Active Heart Healthy Diet Diet 04/30/17 12:07 Active CHEST-PORTABLE [RAD] Stat Exams 04/30/17 08:21 Completed HEAD W/O CONTRAST [CT] Stat Exams 04/30/17 08:21 Completed MRA BRAIN W/O CONTRAST [MRI] Stat Exams 04/30/17 12:12 Completed MRA NECK W/O CONT [MRI] Stat Exams 04/30/17 12:12 Completed MRI BRAIN W/O CONTRAST [MRI] Stat Exams 04/30/17 12:12 Completed ABG [RESP] Routine Lab 04/30/17 08:50 Completed ALCOHOL BLOOD Stat Lab 04/30/17 08:35 Completed BLOOD CULTURE [BLDCUL] Stat Lab 04/30/17 11:41 Results CBC WITH DIFF [HEME] Routine Lab 05/01/17 06:55 Completed CBC WITH ELECTRONIC DIFF [HEME] Stat Lab 04/30/17 08:35 Completed CK PROFILE [SP CHEM] Routine Lab 05/01/17 06:55 Completed CK PROFILE [SP CHEM] Stat Lab 04/30/17 08:35 Completed COMPREHENSIVE METABOLIC PANEL [CHEM] Routine Lab 05/01/17 06:55 Completed COMPREHENSIVE METABOLIC PANEL [CHEM] Stat Lab 04/30/17 08:35 Completed LACTATE, PLASMA [CHEM] Stat Lab 04/30/17 08:35 Completed LACTATE, PLASMA [CHEM] Stat Lab 04/30/17 10:32 Completed MAGNESIUM [CHEM] Routine Lab 05/01/17 06:55 Completed MAGNESIUM [CHEM] Stat Lab 04/30/17 12:30 Completed PROTIME WITH INR [COAG] Routine Lab 05/01/17 06:55 Completed PROTIME WITH INR [COAG] Stat Lab 04/30/17 08:57 Completed PTT [COAG] Routine Lab 05/01/17 06:55 Completed PTT [COAG] Stat Lab 04/30/17 08:57 Completed TROPONIN T Routine Lab 05/01/17 06:55 Completed TROPONIN T Stat Lab 04/30/17 08:35 Completed TSH Routine Lab 05/01/17 06:55 Completed URINALYSIS W/POSS RFLX CULT-1 [URINALYSIS] Stat Lab 04/30/17 09:00 Completed URINE CULTURE [RM] Routine Lab 04/30/17 09:30 Results URINE DRUG SCREEN Stat Lab 04/30/17 09:00 Completed 0.9% Sodium Chloride Inj [Ns] 1,000 ml Med 04/30/17 10:05 Discontinued .ROUTE As Directed 0.9% Sodium Chloride Inj [Ns] 1,000 ml Med 04/30/17 12:54 Discontinued IV 85 mls/hr Acetaminophen [Tylenol] Med 04/30/17 12:54 Active 650 mg PO Q6H PRN PRN Ascorbic Acid [Vitamin C] Med 05/01/17 09:00 Active 250 mg PO DAILY Cholecalciferol (Vit D3) [Vitamin D] Med 05/01/17 09:00 Active 5,000 unit PO DAILY Folic Acid Med 04/30/17 21:00 Active 1 mg PO QPM Ipratropium Pelsor Neb [Atrovent Neb] Med 04/30/17 15:30 Active 0.5 mg INH RTQ4H Iron Carbonyl/Vit C/Vit B12/FA [Icar-C Plus] Med 05/01/17 09:00 Active 1 each PO DAILY Levalbuterol Neb [Xopenex Neb] Med 04/30/17 15:30 Active 1.25 mg INH RTQ4H Levetiracetam [Keppra] 500 mg Med 04/30/17 12:15 Discontinued 0.9% Sodium Chloride Inj [Ns] 100 ml IV NOW Levetiracetam [Keppra] 500 mg Med 05/01/17 01:00 Discontinued 0.9% Sodium Chloride Inj [Ns] 100 ml IV Q12H Lorazepam [Ativan] Med 04/30/17 12:14 Active 1 mg IV Q4H PRN PRN Lorazepam [Ativan] Med 04/30/17 08:20 Discontinued 2 mg IV NOW ONE Omeprazole [Prilosec] Med 05/01/17 07:00 Active 40 mg PO ACB Ondansetron [Zofran] Med 04/30/17 08:20 Discontinued 4 mg IV NOW ONE Ondansetron [Zofran] Med 04/30/17 12:54 Active 4 mg IV Q4H PRN PRN Oxycodone/APAP 5 mg/325 mg [Percocet-5] Med 04/30/17 12:54 Active 1.5 each PO Q6H PRN PRN Piperacil/Tazobact 3.375 gm/Ns [Zosyn 3.375 gm/Ns] Med 04/30/17 12:30 Active 3.375 gm in 50 ml IV Q6H Polyethylene Glycol 3350 [Miralax] Med 05/02/17 09:00 Active 17 gm PO EVERY OTHER DAY Polyvinyl Alcohol Eye Drops [Tearisol Oph Solution] Med 04/30/17 12:54 Active 0 ml BOTH EYES PRN PRN Potassium Chloride 20 Meq/Swi Med 04/30/17 12:27 Discontinued 20 meq in 100 ml IV ONCE Prednisolone 1% Oph Susp [Pred Forte 1% Oph Suspension] Med 04/30/17 13:00 Active 0 ml BOTH EYES TID SIMVAstatin [Zocor] Med 04/30/17 21:00 Active 20 mg PO QHS Aerosol Treatments Routine Oth 04/30/17 12:54 Completed Incentive Spirometer Routine Oth 04/30/17 12:54 Completed Oxygen Device Routine Oth 04/30/17 12:54 Completed Oxygen Device Stat Oth 04/30/17 10:35 Completed Pulse Oximetry Routine Oth 04/30/17 12:54 Completed Pulse Oximetry Stat Oth 04/30/17 08:21 Completed Telemetry [OM.EQ] Routine Oth 04/30/17 12:54 Active EKG [EKG] Routine Ther 05/01/17 08:00 Completed EKG [EKG] Stat Ther 04/30/17 08:21 Draft Physical Therapy Eval/Treatment [OM.PT] Routine Ther 04/30/17 12:54 Active Portable EEG, Awake & Drowsy Routine Ther 04/30/17 12:14 Completed Transfer/Admit Order [TRANSFER] Routine Transfer 04/30/17 12:05 Completed Result Diagrams: 05/01/17 06:55 05/01/17 06:55 Departure - Departure Date of Disposition Decision: 04/30/17 Time of Disposition Decision: 09:00 DIAGNOSIS: Seizure Disposition: ADMITTED INPATIENT 09 Certified Medical Emergency: Emergent Condition: Stable - Critical Care Note This patient required my direct & personal management of CC.: No Attestation - Physician/ YANELIS Attestation The physician spent face to face time with patient:: Yes Advanced Practice Provider documentation review:: The physician spent face to face time with this patient and agrees with all MLP documentation, treatment, and medical decision making by the MLP. See provider notes for further information.
[2017-04-30 08:45] LABS: MANUAL DIFF NEEDED? NO
[2017-04-30 08:55] LABS: ALLEN TEST YES; BE 3.1 mmoll (-3.0-3.0); BLOOD TYPE ARTERIAL; DRAW SITE R BRACHIAL; METHB 1.4 % (0.0-1.5); MODALITY CANNULA; O2(CT) 15.6 mL/dL (15.0-23.0); PO2(98.6) 111 mmHg (60-100); SAMPLE BLOOD; SAO2 99.1 % (95.0-100.0); THB 11.4 g/dL (11.5-17.4); pH(98.6) 7.36 (7.35-7.45)
[2017-04-30 08:57] LABS: PCO2(98.6) 52 mmHg (35-45)
[2017-04-30 09:02] LABS: BASO% 0.4 % (0.0-0.8); EOS# 0.03 X1000 (0.0-0.7); EOS% 0.4 % (0.0-10.0); HEMOGLOBIN 12.2 g/dL (12.0-16.0); IMM GRAN# 0.04 X1000 (0.0-0.04); IMM GRAN% 0.5 % (0.0-0.5); LYMPH# 1.62 X1000 (1.2-3.4); LYMPH% 22.2 % (20.5-51.1); MCH 28.3 PG (27-31); MCV 85.8 FL (81-99); MONO# 0.42 X1000 (0.11-0.59); MONO% 5.7 % (1.7-9.3); MPV 10.9 FL (7.4-10.4); NEUT% 70.8 % (42.2-75.2); PLT 275 X1000 (130-400); RBC 4.31 XMIL (4.2-5.4)
[2017-04-30 09:09] LABS: AGAP 20; ALBUMIN 4.1 g/dL (3.5-5.0); ALKALINE PHOSPHATASE 85 U/L (32-104); BUN 10 mg/dL (8-22); CALCIUM 9.6 mg/dL (8.8-10.2); CHLORIDE 100 mmol/L (98-107); CK PROFILE 19 U/L (24-173); COSMO 286; GOT 8 U/L (10-30); GPT 8 U/L (10-36); POTASSIUM 3.1 mmol/L (3.5-5.1); SODIUM 142 mmol/L (136-145); TCO2 22 mmol/L (25-35); TOTAL BILIRUBIN 0.43 mg/dL (0.20-1.00); TOTAL PROTEIN 7.3 g/dL (6.3-8.3)
[2017-04-30 09:18] LABS: URINE MICRO REVIEW NEEDED? NO; URINE SOURCE CATH
[2017-04-30 09:24] LABS: BILIRUBIN URINE NEGATIVE (NEGATIVE); BLOOD URINE LARGE (NEGATIVE); COLOR ORANGE; GLUCOSE URINE NEGATIVE (NEGATIVE); LEUKOCYTES URINE SMALL (NEGATIVE); NITRITE URINE POSITIVE (NEGATIVE); PROTEIN URINE 30 mg/dL (NEGATIVE); SP GRAVITY URINE 1.019; TURBIDITY URINE HAZY (CLEAR); UR EPITHELIAL CELLS <10 /HPF (<10); URINE BACTERIA 4+ /HPF; URINE CULTURE NEEDED? YES; URINE RBC TNTC /HPF (<10); UROBILINOGEN URINE NORMAL (NORMAL)
[2017-04-30 09:31] LABS: INR 1.06; PROTIME 11.2 Seconds (9.2-11.7); PTT 21.2 Seconds (22.0-36.0)
[2017-04-30 09:37] LABS: UR AMPHETAMINES QUAL NONE DETECTED (NONE DETECT); UR BARBITUATES QUAL NONE DETECTED (NONE DETECT); UR BENZODIAZEPIN QUAL NONE DETECTED (NONE DETECT); UR CANNABINOIDS QUAL NONE DETECTED (NONE DETECT); UR COCAINE QUAL NONE DETECTED (NONE DETECT); UR METHADONE QUAL NONE DETECTED (NONE DETECT); UR OPIATES QUAL PRESUMPTIVE POSITIVE (NONE DETECT); UR OXYCODONE QUAL NONE DETECTED (NONE DETECT); UR PCP QUAL NONE DETECTED (NONE DETECT)
--- NOTE | 2017-04-30 10:04 | Diag Imaging Result Doc PS360 ---
CHEST-PORTABLE - 04/30/2017 INDICATION: AMS TECHNIQUE: COMPARISON: 03/04/2017 FINDINGS: The lungs are clear of infiltrate. Stable large calcified granulomas of the left hilum. No focal infiltrates, pneumothorax, or pleural effusion. Heart size is top normal. Stable bilateral shoulder prostheses. IMPRESSION: No acute disease or change from prior. Electronically signed by Giorgio Cabrera 04/30/2017 10:02 AM
[2017-04-30] MEDS ORDERED: NS 1,000 ML ONE (10:05)
--- NOTE | 2017-04-30 10:21 | Diag Imaging Result Doc PS360 ---
HEAD W/O CONTRAST - 04/30/2017 INDICATION: AMS TECHNIQUE: A CT dose reduction protocol was used. 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 No intracranial mass or hemorrhage. The skull is intact. The sinuses, mastoids, and middle ears are clear. IMPRESSION: No acute disease or change from prior. Electronically signed by Giorgio Cabrera 04/30/2017 10:18 AM
--- NOTE | 2017-04-30 11:54 | EKG Report ---
Test Performed on : 04/30/2017 09:37:59 AM Test Reason : AMS Blood Pressure : / mmHG Vent. Rate : 089 BPM Atrial Rate : 089 BPM P-R Int : 166 ms QRS Dur : 076 ms QT Int : 382 ms P-R-T Axes : 045 -27 033 degrees QTc Int : 464 ms Normal sinus rhythm. Normal ECG When compared with ECG of 03-MAR-2017 21:15, No significant change was found Unconfirmed Result
[2017-04-30] MEDS ORDERED: ATIVAN IV PRN (12:14)
[2017-04-30] MEDS ORDERED: KEPPRA 500 MG in NS 100 ML IV ONE (12:15)
[2017-04-30] MEDS ORDERED: POTASSIUM CHLORIDE 20 MEQ/SWI 20 MEQ/100 ML IVPB IV ONE (12:27)
[2017-04-30] MEDS: ZOSYN 3.375 GM/NS 3.375 GM/50 ML IVPB IV SCH ×2 (12:50→20:32)
[2017-04-30] MEDS ORDERED: PERCOCET-5 PO PRN (12:54)
[2017-04-30] MEDS ORDERED: ZOFRAN IV PRN (12:54)
[2017-04-30] MEDS ORDERED: TYLENOL PO PRN (12:54)
[2017-04-30] MEDS: NS 1,000 ML IV SCH (14:00)
--- NOTE | 2017-04-30 14:29 | Diag Imaging Result Doc PS360 ---
MRI BRAIN W/O CONTRAST - 04/30/2017 INDICATION: new onset seizures COMPARISON: Head CT from earlier today FINDINGS: The exam is nondiagnostic due to severe patient motion artifact. There is a stable old right frontal lobe infarction. No obvious intracranial mass or hemorrhage. There is no acute disease. IMPRESSION: No acute disease or change from prior. Electronically signed by Giorgio Cabrera 04/30/2017 2:27 PM
[2017-04-30] MEDS: PRED FORTE 1% OPH SUSPENSION BOTH EYES SCH ×2 (14:30→18:12)
--- NOTE | 2017-04-30 14:30 | Diag Imaging Result Doc PS360 ---
MRA BRAIN W/O CONTRAST - 04/30/2017 INDICATION: new onset seizures TECHNIQUE: Noncontrast [id number] technique was used COMPARISON: None FINDINGS: The exam is severely degraded by patient motion artifact. No obvious aneurysm. There is significant loss and signal of the supraclinoid left internal carotid artery which may represent narrowing. The vertebrobasilar system appears normal. IMPRESSION: Possible narrowing of the supraclinoid left internal carotid artery. Electronically signed by Giorgio Cabrera 04/30/2017 2:28 PM
--- NOTE | 2017-04-30 14:31 | Diag Imaging Result Doc PS360 ---
MRA NECK W/O CONT - 04/30/2017 INDICATION: new onset seizures TECHNIQUE: Noncontrast [id number] technique was used COMPARISON: None FINDINGS: The exam is nondiagnostic due to severe patient motion artifact. There is no evidence of complete arterial occlusion. IMPRESSION: Nondiagnostic exam. Electronically signed by Giorgio Cabrera 04/30/2017 2:28 PM
--- NOTE | 2017-04-30 14:46 | HISTORY AND PHYSICAL ---
PRIMARY CARE PROVIDER: Dr. Camara. CHIEF COMPLAINT: Witnessed seizure by . HISTORY OF PRESENT ILLNESS: Ms. Mimi Metz is a 76-year-old female with a medical history of pernicious anemia, rheumatoid arthritis, lupus, Sjogren syndrome, hypertension, dyslipidemia, right CVA, rheumatoid lung, and chronic pain syndrome. She presents via EMS secondary to witnessed seizure by the and daughter. Currently, the is at the bedside and is answering questions. He states that she has never had a seizure before. She was recently in rehab, where she had been receiving Dilaudid and Percocet for right ankle surgery. She recently saw her pain doctor on 04/22/2017, who took her off her Percocet and Dilaudid. Apparently, he started her on hydrocodone. So, there is a question as to whether maybe there was some withdrawal that caused the seizures. According to the , at around 6 a.m., while they were in bed, he heard her making sounds that sounded like the seizure he had witnessed her having at 7 a.m. She had had bowel incontinence in the night and wanted to use the bathroom when she woke up at 7 a.m. When the daughter was assisting her to the bedside commode, apparently, she had another seizure with bowel and bladder incontinence. He said after the seizure she was confused and disoriented. He states that her seizure involved full body contraction along with bowel and bladder incontinence, but was unsure of how long the seizure lasted. EMS was called and she arrived somewhere around 8 a.m., where she had another seizure here and she had received Ativan. Head CT does show an old right frontal lobe infarct, but no acute findings. Her lactate is elevated at 2.4. Electrolyte fl[place], she has normal kidney function. Her potassium is a little low at 3.1 and her magnesium is normal at 2.1. She does show that she has a significant urinary tract infection and her drug screen is only positive for opiates. So, we will admit her to the ICU, order an EEG, MRI/MRA of the brain and neck, start her on Keppra and p.r.n. Ativan, consult Dr. Fierro, as this is a new onset of seizures, and keep her on seizure precautions. PAST MEDICAL HISTORY: Pernicious anemia, rheumatoid arthritis, lupus, Sjogren syndrome, hypertension, dyslipidemia, right frontal CVA, chronic pain syndrome, reflux, rheumatoid lung, corneal ulcers. PAST SURGICAL HISTORY: Six shoulder surgeries, bilateral knee surgery, cervical spine surgery, enterocele repair, hysterectomy, vaginal prolapse repair, right ankle and leg surgery, and back surgery. SOCIAL HISTORY: states no alcohol, tobacco, or illicit drug use. FAMILY HISTORY: Positive for heart disease and diabetes. PHYSICAL EXAMINATION: VITAL SIGNS: Temperature 97.8 degrees, heart rate 85, respiratory rate 18, blood pressure 118/60, and O2 saturation 99% on 2L. GENERAL: Mr. Metz is a 76-year-old, ill-appearing, female. She is in no acute distress, resting comfortably on her left side, but very lethargic and difficult to arouse at this time. HEENT: Atraumatic, normocephalic. Pupils equal, round, reactive to light. She tends to have almost a roving-type motion with her eyes, moving from left to right, but will not do extraocular movements. Mucous membranes are dry. NECK: No JVD or carotid bruits noted. CARDIOVASCULAR: S1 and S2. Regular rate and rhythm. No rubs, gallops, murmurs. PULMONARY: Clear to auscultation. Bilateral breath sounds. No accessory muscle use or work of breathing noted. GASTROINTESTINAL: Soft, nontender, nondistended. Positive bowel sounds x4. EXTREMITIES: No edema noted. Dorsalis pedal and radial pulses +2. NEUROLOGIC: Oriented to name only. Will follow some simple commands. She has equal strength on both sides. Very drowsy. LABORATORY DATA: White blood cells 7000, hemoglobin 12, hematocrit 37, platelet count 275,000. INR is 1.06. PTT is 21.2. ABG: pH 7.36, pCO2 of 52, PO2 of 111, bicarbonate 27, base excess 3, saturation 96%. Lactate 2.4, 5L nasal cannula. Sodium 142, potassium 3.1, BUN 10, creatinine 0.7, glucose 170, magnesium 2.1, bilirubin 0.43, AST 8, ALT 8. CK 19. Troponin less than 0.01. Urinalysis: Trace ketones, large blood, positive nitrites, small leukocytes, 10-20 white blood cells, too numerous to count red blood cells, 4+ bacteria. Urine drug screen positive for opiates, negative for alcohol. IMAGING: Head CT shows stable old right frontal lobe infarction. No acute findings. EKG: Normal sinus rhythm, rate 89, QTc is 464. Chest x-ray: No acute findings. ASSESSMENT AND PLAN: 1. New onset seizures. We will do EEG, order MRI and MRA of the brain and neck. Recently, her pain physician took her off Percocet and Dilaudid. There is question as to whether this could be withdrawal seizures. We will do p.r.n. IV Ativan, start her on Keppra 500 twice daily, and consult Dr. Fierro for further recommendations. 2. History of hypertension, stable. 3. Lupus. 4. Dyslipidemia. We are holding home medications for now. 5. Rheumatoid lung. Continue with nasal cannula. She keeps 2L of oxygen at home. 6. History of right cerebrovascular accident, no residuals. 7. Encephalopathy, but is likely a postictal state. 8. Deep venous thrombosis prophylaxis with SCDs. 9. Gastrointestinal prophylaxis with proton pump inhibitor. Dictated by LIGIA Valentin for Agustin Murcia MD cc: LIGIA Valentin MD Hiteshri S. Bhavsar, MD
[2017-04-30] MEDS: XOPENEX NEB INH SCH ×3 (15:55→23:03)
[2017-04-30] MEDS: ATROVENT NEB INH SCH ×3 (15:55→23:03)
[2017-04-30] MEDS: ZOCOR PO SCH (20:32)
[2017-04-30] MEDS: FOLIC ACID PO SCH (20:32)
[2017-04-30] MEDS: TEARISOL OPH SOLUTION BOTH EYES PRN (21:46)
[2017-05-01] MEDS ORDERED: KEPPRA 500 MG in NS 100 ML IV SCH (01:00)
[2017-05-01] MEDS: ZOSYN 3.375 GM/NS 3.375 GM/50 ML IVPB IV SCH ×4 (01:32→22:05)
[2017-05-01] MEDS: KEPPRA 1,000 MG in NS 100 ML IV SCH ×2 (01:32→12:08)
[2017-05-01] MEDS: NS 1,000 ML IV SCH (01:32)
[2017-05-01] MEDS: ATROVENT NEB INH SCH ×6 (03:21→22:37)
[2017-05-01] MEDS: XOPENEX NEB INH SCH ×6 (03:21→22:37)
--- NOTE | 2017-05-01 05:56 | CONSULTATION ---
DATE OF CONSULTATION: 04/30/2017 REASON FOR CONSULTATION: The patient is seen in consultation at the request of LIGIA Valentin, and Dr. Agustin Fitzpatrick for evaluation of seizures. HISTORY OF PRESENT ILLNESS: The history is taken from chart review, as the patient is altered, and there is no family currently available. The patient is a 76-year-old female who was admitted with a chief complaint of multiple seizures this morning. She has a history of a remote right frontal lobe infarct, rheumatoid arthritis, Sjogren syndrome, amongst other illnesses. Per report, the patient has never had a seizure before. It sounds as though she may have had a handful of seizures this morning, and most likely one during her sleep, as she had bowel incontinence during the night. The witnessed seizures were described as making some sounds and generalized shaking, with bowel and bladder incontinence, for an unknown duration. She was confused after the events. She had the last witnessed seizure which seemed to be around 8 a.m. in the emergency department, and she received Ativan. She has been loaded with 500 mg of Keppra IV, and has been started on 500 mg b.i.d. maintenance by the primary team. On admission, she had a noncontrasted head CT, brain MRI without contrast (technically limited), as well as MRA (also technically limited), which showed no acute findings. There was a note made of the old right frontal infarct. Her potassium was mildly low at 3.1. Electrolytes otherwise looked good. She did have a significant urinary tract infection, and her urinary drug screen was only positive for opiates, for which she has a prescription. There was mention of recent pain medication changes. It sounds as though Dilaudid and Percocet were discontinued and hydrocodone was started in their place. There was concern that perhaps her seizures could be caused by withdrawal from this. The patient has also had an EEG on admission. PAST MEDICAL HISTORY: Right infarct, rheumatoid arthritis, lupus, Sjogren's syndrome, pernicious anemia, hypertension, dyslipidemia, chronic pain syndrome, reflux, rheumatoid lung, corneal ulcers, shoulder surgeries, bilateral knee surgeries, cervical spine surgery, enterocele repair, hysterectomy, vaginal prolapse repair, right ankle and leg surgery, and back surgery. SOCIAL HISTORY: The denied that the patient used alcohol, tobacco, or illicit drugs. FAMILY HISTORY: Positive for heart disease and diabetes. ALLERGIES: In the record, are noted to hydrocodone, bitartrate, levofloxacin, sulfamethoxazole, trimethoprim, baclofen, gabapentin, methadone, morphine, pregabalin, azathioprine. CURRENT MEDICATIONS: Notable for folic acid, Atrovent, Xopenex. Keppra 500 mg IV q.12 hours scheduled. Lorazepam 1 mg IV q.4 hours p.r.n. seizures. Percocet. Zofran p.r.n. Antibiotics. Simvastatin. REVIEW OF SYSTEMS: Unable to be obtained due to the patient's altered mental status changes. PHYSICAL EXAMINATION: Vital Signs: She is afebrile, blood pressure 122/65, pulse 85, respirations 17, and 96% on 2 L nasal cannula. General: She is an elderly female, supine in bed, in no acute distress. She is asleep, and arouses to loud voice, but easily dozes back off. HEENT: Atraumatic, normocephalic. Sclera are anicteric. No redness. Mucous membranes are dry. Neck: Supple, with no meningismus, no carotid bruits. Cardiovascular: Regular rate and rhythm. No murmurs are appreciated. Lungs: Clear to auscultation anteriorly. She is not struggling to breathe. Abdomen: Soft, nontender, nondistended. Good bowel sounds. Extremities: She has intact pedal pulses. No edema. Neurologic: Mental status: She is lethargic, but does arouse to loud voice. She is able to attend briefly, but quickly drifts back to sleep. She knows her name and knows the President. She is not oriented to timing. She does follow some simple commands. Unable to participate in naming for repetition. Cranial nerves: PERRL, pupils are not mydriatic. They are approximately 3 mm both eyes, and reactive. With appropriate stimulation to arousal, she has a conjugate gaze, and I can get her to look in a horizontal direction with extraocular movement testing, but she is unable to follow the commands for further testing. Her face is symmetric. She has equal activation, with smile on command, and also to forced eye closure. Tongue is midline. Motor exam: Unable to cooperate with drift testing. Her strength appears equal in all extremities, and she is at least against gravity in the lower extremities, as she is able to lift them off the bed on command. The upper extremities are at least 4/ 5. Reflexes are reduced, 1+ symmetric. Absent at the ankles. Toes are mute. No clonus. Sensory exam: She responds to painful stimulus in all of her extremities. Unable to assess coordination and gait due to her mental status changes. DIAGNOSTICS: Noncontrasted head CT was personally reviewed, and there are no acute findings. There is an old right frontal infarct noted. MRI of the brain without contrast also personally reviewed, it is technically limited but shows encephalomalacia around the right frontal lobe from previous stroke. There are no definite acute findings on the MRI. There is atrophy. I'm unable to interpret the MRA of the brain and neck due to movement. The brain MRA by radiology report said possible narrowing of the supraclinoid left internal carotid artery, but again technically limited study. EKG showed normal sinus rhythm, with a QTc of 464 and a NM interval 166, result of normal EKG. A routine EEG was performed and this was personally reviewed today. It showed only [id number] generalized slowing. No epileptiform discharges or seizures were seen. Of note, she was in stage II sleep for the majority of the study, but did arouse at times. Chest x-ray was negative. Hematology was unremarkable. PT 11, INR 1.06. PTT 21. Lactate 2.4. Sodium 142, potassium 3.1, BUN 10, creatinine 0.7. GFR greater than 60. Glucose 170, calcium 9.6, magnesium 2.1. Liver function tests were not elevated. Her CK was 19, troponin was negative. The lactate was 2.5. Urinalysis showed protein of 30, trace ketones, large blood, positive nitrite, small leukocyte, 10-20 whites, too many to count reds, and 4+ bacteria. Toxicology showed presumptive positive for opiates. Alcohol was negative. ASSESSMENT AND PLAN: This is a 76-year-old female with a history of remote right frontal lobe infarct, multiple autoimmune diseases, and no previous history of seizures, who presents this morning with multiple repeated seizures in close proximity. It is not clear to me whether or not she got back to normal between seizures, though I suspect she may not have. Last seizure 8am and she was loaded with LEV and LZP.Her labs are notable for a significant urinary tract infection. 1. Multiple repeated seizures. Most likely partial onset with rapid secondary generalization. Her exam is nonfocal, and the imaging has not shown any definite acute findings , all of which is reassuring. She is afebrile and no current signs of meningismus. I would confirm with the family whether or not she was otherwise in her usual state of health before this all occurred (to see if you hear anything concerning for [employer] infection/inflammation) though this is less likely. The patient's remote right frontal infarct certainly could be an epileptogenic focus and her UTI lowers her seizure threshold in this patient who may have already had a propensity for seizure. I agree with the loading of Keppra and the dose of ativan administered. Given her multiple repeated generalized seizures and short time frame, I would recommend to increase the maintenance keppra dose to 1000 mg b.i.d., which I have done. If she turns out to not be tolerating this well, we can reduce the dose to 750 mg b.i.d., but most likely she will tolerate a higher dose. Okay to use p.r.n. Ativan 1 mg for seizure lasting longer than 2 minutes. There was some concern that perhaps opiate withdrawal may have a provoked her seizures, but I feel that this is unlikely. It is not common to have seizures from opiate withdrawal, and I am not seeing any current evidence of this with regards to her vital signs, as well as her pupillary size. Agree with treating the urinary tract infection and supplementing the potassium. Consider repeating brain MRI with and without contrast when she is able. Seizure precautions. Thank you for this consultation. We will follow along. cc: Hawa Alvarez MD MTDD
--- NOTE | 2017-05-01 06:03 | EEG REPORT ---
DATE: 04/30/2017 REFERRING PHYSICIANS: LIGIA Valentin, and Dr. Agustin Murcia. EEG #: [id number]. CLAIMS EXAMINER: Sascha Worley. BACKGROUND INFORMATION AND TECHNIQUE: A digitally recorded EEG was obtained with an additional channel for EKG. HISTORY OF PRESENT ILLNESS: This is a 76-year-old female with a history of right frontal stroke, several autoimmune diseases but no history of seizures, who presents with multiple seizures this morning. They are described as shaking all over with bowel and bladder incontinence, and postictal confusion. An EEG is ordered to detect evidence of seizures subclinical seizures. MEDICATION LIST: Notable for a dose of Ativan as well as Keppra. EEG FINDINGS: A posterior dominant alpha rhythm is notably absent. The background at maximal alertness consists primarily of theta slowing with less delta and some faster frequencies noted. No definite persistent focal slowing is appreciated. No epileptiform discharges and no seizures are seen. Hyperventilation was not performed. Photic stimulation did not induce a photic driving response. The patient is mostly in stage II sleep with sleep spindles and K complexes throughout the record. She does arouse to stimulation and has a reactive record. The EKG shows regular R-R interval. IMPRESSION AND CLINICAL CORRELATION: This is an abnormal routine EEG due to: 1. Mild to moderate generalized background slowing indicative of a mild to moderate encephalopathy. Generalized slowing is a nonspecific finding that can be seen in processes that diffusely affect the cerebrum including toxic, metabolic, pharmacologic, infectious and posthypoxic causes. For this patient, it may be a post-ictal state. 2. No epileptiform discharges or seizures are noted on this current study. This does not rule out an underlying seizure disorder. cc: MD Germaine Reyez CRNP [facility]
[2017-05-01] MEDS: TEARISOL OPH SOLUTION BOTH EYES PRN (06:09)
[2017-05-01] MEDS: PRILOSEC PO SCH (06:09)
--- NOTE | 2017-05-01 06:48 | EKG Report ---
Test Performed on : 05/01/2017 05:58:02 AM Test Reason : chest pain Blood Pressure : / mmHG Vent. Rate : 067 BPM Atrial Rate : 067 BPM P-R Int : 164 ms QRS Dur : 084 ms QT Int : 436 ms P-R-T Axes : 051 -22 060 degrees QTc Int : 460 ms Normal sinus rhythm. Cannot rule out Anterior infarct , age undetermined Abnormal ECG When compared with ECG of 30-APR-2017 09:37, (Unconfirmed) No significant change was found Confirmed by Carroll HAWKINS, Bartolo Mitchell ([id number]) on 05/01/2017 11:39:21 AM
[2017-05-01 07:02] LABS: MANUAL DIFF NEEDED? NO
[2017-05-01 07:07] LABS: EOS# 0.14 X1000 (0.0-0.7); EOS% 2.7 % (0.0-10.0); HEMATOCRIT 32.8 % (37.0-47.0); HEMOGLOBIN 10.7 g/dL (12.0-16.0); IMM GRAN# 0.09 X1000 (0.0-0.04); IMM GRAN% 1.7 % (0.0-0.5); LYMPH# 1.76 X1000 (1.2-3.4); LYMPH% 34.1 % (20.5-51.1); MCH 28.7 PG (27-31); MCHC 32.6 g/dL (33-37); MCV 87.9 FL (81-99); MONO# 0.44 X1000 (0.11-0.59); MONO% 8.5 % (1.7-9.3); MPV 10.4 FL (7.4-10.4); PLT 243 X1000 (130-400); RBC 3.73 XMIL (4.2-5.4)
[2017-05-01 07:16] LABS: INR 1.07; PROTIME 11.3 Seconds (9.2-11.7); PTT 19.8 Seconds (22.0-36.0)
[2017-05-01 07:33] LABS: AGAP 9; ALBUMIN 3.9 g/dL (3.5-5.0); ALKALINE PHOSPHATASE 74 U/L (32-104); BUN 9 mg/dL (8-22); CALCIUM 9.4 mg/dL (8.8-10.2); CHLORIDE 104 mmol/L (98-107); CK PROFILE 10 U/L (24-173); COSMO 285; GOT 5 U/L (10-30); GPT 6 U/L (10-36); POTASSIUM 3.4 mmol/L (3.5-5.1); SODIUM 144 mmol/L (136-145); TCO2 31 mmol/L (25-35); TOTAL BILIRUBIN 0.51 mg/dL (0.20-1.00); TOTAL PROTEIN 6.5 g/dL (6.3-8.3)
[2017-05-01] MEDS: VITAMIN C PO SCH (08:18)
[2017-05-01] MEDS: VITAMIN D PO SCH (08:19)
[2017-05-01] MEDS: ICAR-C PLUS PO SCH (08:19)
[2017-05-01] MEDS: PRED FORTE 1% OPH SUSPENSION BOTH EYES SCH ×3 (08:19→17:30)
--- NOTE | 2017-05-01 11:14 | PROGRESS NOTE ---
DATE: 05/01/2017 SUBJECTIVE: Patient is feeling okay. No major issues. OBJECTIVE: Blood pressure 119/64, heart rate of 18, respiratory rate of 18, temp of 97.6 degrees, 97% on 2 L.Cardiovascular: Regular rate and rhythm. Pulmonary: Bilateral breath sounds. Clear to auscultation. GI: Soft, nontender, nondistended. Bowel sounds are positive. LABORATORY DATA: MRI and MRA are unremarkable except MRA of the neck showed some slight narrowing. I am going to go ahead and do a carotid ultrasound just to better characterize the blood flow and we will follow clinically. PROBLEM LIST: 1. Seizure disorder. She is on Keppra and controlled. I am going to continue the Keppra. We will observe her for another 24 hours and see how she is doing. Anticipate discharge tomorrow if she is seizure free. Her other recommendations per Neurology. 2. COPD. She appears to be stable. Continue regular medications. 3. Lupus appears to be stable. I am going to go and check complement levels, just because cerebritis may be an issue. DISPOSITION: Anticipate discharge tomorrow. cc: Richard Carrasco MD
--- NOTE | 2017-05-01 11:54 | PROGRESS NOTE ---
DATE: 05/01/2017 Ms. Metz was seen by Dr. Alvarez for Neurology yesterday. She presented with several seizures. And seizures were controlled with levetiracetam and lorazepam. This morning, staff reports no seizures recognized since arrival in the ICU. She is awake, alert, attentive, and conversant. Speech is not dysarthric. She does not report any significant likely levetiracetam adverse effects with her current dose of 1000 mg q.12 hours. She has full visual che. She has shoulder joint problems bilaterally, more prominent on the left, but, allowing for that, I do not find definite focal neurologic deficit on limited bedside exam. Her history to me is that she was told 6 or 7 years ago at [facility] that she had had a stroke sometime in the past, but there is not history of a definite clinical event. She specifically denies ever having sudden unilateral weakness, numbness, or vision loss. There is no history of serious head injury. She does not use ethanol. She reports no recent medication changes. Her chemistry workup this admission does not show anything that likely would be associated with seizure or encephalopathy. Her EEG showed generalized slowing, but no definite epileptiform discharges. IMPRESSION: Recent onset seizure. In this age group, it is worrisome, usually attributed to previous stroke or head injury, but I am not sure that stroke history applies here. It would not be typical to have first seizure attributed to a stroke 6 or 7 years after the infarction. She may have had prior seizures beginning soon after the infarction, but her history does not support that possibility. At this point, she seems clinically stable and improved. She is tolerating current medicine regimen. No urgent suggestions today. cc: Jonathan Fierro III, MD [facility] CENTERDivina
[2017-05-01] MEDS: ZOCOR PO SCH (22:04)
[2017-05-01] MEDS: KEPPRA PO SCH (22:04)
[2017-05-01] MEDS: FOLIC ACID PO SCH (22:05)
[2017-05-02] MEDS: ZOSYN 3.375 GM/NS 3.375 GM/50 ML IVPB IV SCH ×2 (01:45→08:30)
[2017-05-02] MEDS: XOPENEX NEB INH SCH ×2 (03:10→07:34)
[2017-05-02] MEDS: ATROVENT NEB INH SCH ×2 (03:10→07:34)
[2017-05-02] MEDS: PRILOSEC PO SCH ×2 (05:57→06:23)
[2017-05-02 06:26] LABS: HEMOGLOBIN 9.6 g/dL (12.0-16.0); MCH 28.7 PG (27-31); MCV 89.6 FL (81-99); MPV 10.5 FL (7.4-10.4); RBC 3.35 XMIL (4.2-5.4)
--- NOTE | 2017-05-02 06:27 | Carotid Study ---
DATE: 05/01/2017 PROCEDURE: Carotid duplex imaging. REFERRING PHYSICIAN: Richard Carrasco MD INTERPRETING PHYSICIAN: Jv Vann MD TECH: [place] INDICATIONS: TIA. OBSERVED DATA RIGHT LEFT Brachial Blood Pressure Carotid Pulse Bruits: Carotid/Sub DIAGRAM OF ULTRASOUND IMAGING R L RIGHT INT EXT INT EXT LEFT Eber (cm/s) Eber (cm/s) Subclavian 82/2 Subclavian 108/0 CCA Proximal 60/10 CCA Proximal 60/7 CCA Distal Not measured CCA Distal 60/9 Bulb 66/12 Bulb 51/5 ICA Proximal 42/8 ICA Proximal 49/5 ICA Mid 48/9 ICA Mid 54/10 ICA Distal 50/11 ICA Distal 56/10 ECA 80/0 ECA 101/0 Vertebral 36/0 Vertebral 32/0 ICA/CCA Ratio 0.8 ICA/CCA Ratio 0.9 % Stenosis 0-39 % Stenosis 0-39 FINDINGS: No significant plaque is seen in either carotid system. cc: MD Richard Wang MD
[2017-05-02 06:35] LABS: AGAP 11; BUN 9 mg/dL (8-22); CALCIUM 9.1 mg/dL (8.8-10.2); CHLORIDE 106 mmol/L (98-107); COSMO 286; POTASSIUM 3.7 mmol/L (3.5-5.1); SODIUM 144 mmol/L (136-145); TCO2 27 mmol/L (25-35)
[2017-05-02 07:58] VITALS: BP 132/56
[2017-05-02] MEDS: VITAMIN D PO SCH (08:28)
[2017-05-02] MEDS: VITAMIN C PO SCH (08:28)
[2017-05-02] MEDS: ICAR-C PLUS PO SCH (08:30)
[2017-05-02] MEDS: KEPPRA PO SCH (08:30)
[2017-05-02] MEDS: PRED FORTE 1% OPH SUSPENSION BOTH EYES SCH (08:38)
[2017-05-02] MEDS ORDERED: MIRALAX PO SCH (09:00)
--- NOTE | 2017-05-02 16:20 | DISCHARGE SUMMARY ---
ADMISSION DATE: 04/30/2017 DISCHARGE DATE: 05/02/2017 ADMISSION DIAGNOSES: 1. New onset seizures. 2. Hypertension. 3. Systemic lupus erythematosus. 4. Hyperlipidemia. 5. Rheumatoid lung disease. 6. 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 7. Encephalopathy. DISCHARGE DIAGNOSES: 1. New onset seizures. 2. Hypertension. 3. Systemic lupus erythematosus. 4. Hyperlipidemia. 5. Rheumatoid lung disease. 6. 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 7. Encephalopathy. 8. Urinary tract infection. CONSULTATIONS: Dr. Hawa Alvarez and Dr. Jonathan Fierro with Neurology. DIAGNOSTIC PROCEDURES AND FINDINGS: Chest x-ray done on 04/30/2017 shows stable large calcified granulomas of the left hilum. No acute process. EKG done on 04/30/2017 shows normal sinus rhythm. Nonspecific ST changes. Head CT done on 04/30/2017 showed stable old right frontal lobe infarction. Nothing new or acute. Brain MRI done on 04/30/2017 shows no acute process. Stable right frontal lobe infarction. Brain MRA done on 04/30/2017 shows possible narrowing of the supraclinoid left internal carotid artery. Neck MRA done on 04/30/2017 shows nondiagnostic exam secondary to severe patient motion artifact. EEG done on 04/30/2017 shows mild to moderate generalized background slowing indicative of [id number] encephalopathy. Generalized slowing is a nonspecific finding that can be seen in a process that diffusely affects the cerebrum including toxic metabolic pharmacologic infectious or post hypoxic causes. For this patient, it may be a postictal state. No epileptiform discharge or seizures are noted on the current study. This does not rule out an underlying seizure disorder. Carotid Doppler study done on 05/01/2017 shows no significant plaque in either carotid system. HOSPITAL COURSE: This is Isaías is a 76-year-old female with multiple medical problems who presented with new onset seizure. This was a seizure that was witnessed by family members. She had recently been in rehab for right ankle surgery and had been on multiple narcotics and subsequently taken off of them appropriately. There was certainly a question of possible withdrawal seizure. At 6 a.m. on the morning of admission, the patient had witnessed seizure, she had bowel incontinence. Once the seizure had subsided, the patient was felt to be in a postictal state, 911 was called. The patient was brought to the ER. She was admitted to the ICU. Advanced imaging studies were ordered, head CT did not show anything acute. She did have old infarction noted, MRI and MRA of the head and neck were also ordered which did not show anything acute. Dr. Fierro saw the patient and placed her on Keppra than and ordered an EEG which again did not show anything acute. There was generalized slowing but no acute wave forms were noted. She did have a UTI growing greater than 100,000 count gram negative rods in her urine. She was placed on Zosyn and we will ultimately switched her to Omnicef for 4 more days while we follow up on the cultures. She has had no more seizures since she has been in the hospital and she is now stable for discharge home with home health. DISCHARGE MEDICATIONS: ProAir HFA as needed. Amitriptyline 25 mg p.o. at bedtime, vitamin C 250 mg daily. Budesonide formoterol inhaler as directed b.i.d., Omnicef 300 mg p.o. b.i.d. for 4 days. Vitamin D3 5000 units p.o. daily. Folic acid 1 tab p.o. q.p.m. Lasix 40 mg daily. Icar C 1 tab daily. Keppra 1000 mg p.o. b.i.d., Ativan 1 mg p.o. t.i.d. as needed for anxiety. Oxycodone 5 as needed for pain. MiraLAX 17 g as needed. Prednisolone 1% ophthalmic solution as directed. Zoloft 200 mg p.o. at bedtime. Zocor 20 mg p.o. at bedtime. DISCHARGE LABORATORY: WBC 7.07, hemoglobin 9.6, hematocrit 30, platelet count 210,000. Sodium 144, potassium 3.7, chloride 106, CO2 27, anion gap 11, BUN 9, creatinine 0.7, glucose 113, calcium 9.1. C3 and C4 complement factors within normal limits. PHYSICAL EXAMINATION: General: This is a chronically ill appearing, 76-year- old female, lying in hospital bed in no acute distress. Neurologic: Nonfocal. The patient is awake and oriented. HEENT: Head is atraumatic, normocephalic. Pupils are equal, round, reactive to light. Oral mucosa moist. Trachea is midline. Chest: Clear to auscultation. Cardiovascular: Regular rate and rhythm. S1-S2 is noted. Gastrointestinal: Soft, nondistended , nontender. Bowel sounds positive. Extremities: That it without edema, clubbing or cyanosis. Pulses palpable bilaterally. DISCHARGE DIET: Heart healthy. DISCHARGE ACTIVITY: Resume activity as tolerated. DISPOSITION: Patient is discharged home with home health. DISCHARGE INSTRUCTIONS: She is to follow up with Dr. Fierro as directed and her PCP within the month. She has been instructed not to drive or operate heavy machinery until cleared by Neurology. She is to continue all medications as directed and return to the ER or call 911 for worsening complaints or concerns. All questions have been DISCHARGE TIME: Greater than 35 minutes. Dictated by LIGIA Roberts for Richard Carrasco MD cc: LIGIA Roberts MD Sonya M. Soliman, MD Eston G. Norwood III, MD Samra Camara MD pt examined, agree with above APENOT MTDD
== END 2017-05-02 11:15 | disposition home health service (06) ==
LOC: ED 07:44 → SUATTDRO 13:33 → EDIPHOLD 13:33 → ICU 19:17 → 4N 05-01 14:06
PROVIDERS: ATTEND Internal Medicine

== ENCOUNTER 2017-05-05 08:36 | Inpatient (IN) ==
[2017-05-05] MEDS ORDERED: NS 1,000 ML IV ONE (08:49)
[2017-05-05 09:00] LABS: ALLEN TEST YES; BE -5.3 mmoll (-3.0-3.0); BLOOD TYPE ARTERIAL; DRAW SITE R RADIAL; METHB 1.2 % (0.0-1.5); O2(CT) 15.5 mL/dL (15.0-23.0); PCO2(98.6) 44 mmHg (35-45); PO2(98.6) 55 mmHg (60-100); SAMPLE BLOOD; SAO2 90.8 % (95.0-100.0); THB 12.5 g/dL (11.5-17.4); pH(98.6) 7.29 (7.35-7.45)
[2017-05-05] MEDS ORDERED: ATIVAN ONE (09:00)
[2017-05-05 09:02] LABS: MODALITY CANNULA
[2017-05-05] MEDS ORDERED: ATIVAN IV ONE (09:06)
--- NOTE | 2017-05-05 09:25 | Diag Imaging Result Doc PS360 ---
EXAM: CHEST-PORTABLE HISTORY: AMS TECHNIQUE: Portable upright COMPARISON: 04/30/2017 FINDINGS: The patient is rotated to the left. The lungs are well expanded. Heart is not enlarged. The vessels are not distended. No pneumonia. No pleural effusions identified. A calcified left hilar lymph nodes. There has been prior orthopedic surgery to each shoulder. IMPRESSION: Negative chest. Electronically signed by Ezio Trujillo 05/05/2017 9:23 AM
--- NOTE | 2017-05-05 09:32 | Diag Imaging Result Doc PS360 ---
EXAM: HEAD W/O CONTRAST HISTORY: AMS TECHNIQUE: Dose reduction protocol COMPARISON: 04/30/2017 FINDINGS: No parenchymal hemorrhage. No epidural or subdural hematoma. No subarachnoid hemorrhage. No mass identified on this noncontrasted exam. No hydrocephalus. Old right frontal infarct. There are chronic microvascular ischemic changes. No sinus opacification. IMPRESSION: No hemorrhage. Stable CT of the brain. Electronically signed by Ezio Trujillo 05/05/2017 9:29 AM
[2017-05-05 09:36] LABS: MANUAL DIFF NEEDED? NO
[2017-05-05 09:41] LABS: BASO% 0.4 % (0.0-0.8); EOS# 0.58 X1000 (0.0-0.7); EOS% 5.5 % (0.0-10.0); HEMATOCRIT 37.9 % (37.0-47.0); HEMOGLOBIN 12.6 g/dL (12.0-16.0); IMM GRAN# 0.05 X1000 (0.0-0.04); IMM GRAN% 0.5 % (0.0-0.5); LYMPH# 4.41 X1000 (1.2-3.4); LYMPH% 41.5 % (20.5-51.1); MCH 28.8 PG (27-31); MCHC 33.2 g/dL (33-37); MCV 86.7 FL (81-99); MONO# 0.81 X1000 (0.11-0.59); MONO% 7.6 % (1.7-9.3); MPV 11.2 FL (7.4-10.4); NEUT% 44.5 % (42.2-75.2); PLT 326 X1000 (130-400); RBC 4.37 XMIL (4.2-5.4)
[2017-05-05 09:48] LABS: INR 1.04; PTT 20.8 Seconds (22.0-36.0)
[2017-05-05 09:55] LABS: BILIRUBIN URINE NEGATIVE (NEGATIVE); BLOOD URINE NEGATIVE (NEGATIVE); COLOR YELLOW; GLUCOSE URINE 200 mg/dL (NEGATIVE); LEUKOCYTES URINE NEGATIVE (NEGATIVE); NITRITE URINE NEGATIVE (NEGATIVE); PROTEIN URINE 30 mg/dL (NEGATIVE); SP GRAVITY URINE 1.016; TURBIDITY URINE CLEAR (CLEAR); UR EPITHELIAL CELLS <10 /HPF (<10); URINE BACTERIA NEGATIVE /HPF; URINE CULTURE NEEDED? NO; URINE MICRO REVIEW NEEDED? NO; URINE RBC <10 /HPF (<10); URINE SOURCE CATH; URINE WBC <10 /HPF (<10); UROBILINOGEN URINE NORMAL (NORMAL)
[2017-05-05 10:03] LABS: AGAP 26; ALBUMIN 4.4 g/dL (3.5-5.0); ALKALINE PHOSPHATASE 92 U/L (32-104); BUN 9 mg/dL (8-22); CALCIUM 10.2 mg/dL (8.8-10.2); CHLORIDE 100 mmol/L (98-107); CK PROFILE 20 U/L (24-173); COSMO 293; GOT 7 U/L (10-30); GPT 7 U/L (10-36); POTASSIUM 3.8 mmol/L (3.5-5.1); SODIUM 146 mmol/L (136-145); TCO2 20 mmol/L (25-35); TOTAL BILIRUBIN 0.49 mg/dL (0.20-1.00); TOTAL PROTEIN 6.9 g/dL (6.3-8.3)
[2017-05-05 10:07] LABS: UR AMPHETAMINES QUAL NONE DETECTED (NONE DETECT); UR BARBITUATES QUAL NONE DETECTED (NONE DETECT); UR BENZODIAZEPIN QUAL NONE DETECTED (NONE DETECT); UR CANNABINOIDS QUAL NONE DETECTED (NONE DETECT); UR COCAINE QUAL NONE DETECTED (NONE DETECT); UR METHADONE QUAL NONE DETECTED (NONE DETECT); UR OPIATES QUAL NONE DETECTED (NONE DETECT); UR OXYCODONE QUAL NONE DETECTED (NONE DETECT); UR PCP QUAL NONE DETECTED (NONE DETECT)
--- NOTE | 2017-05-05 10:16 | PROVIDER DOCUMENTATION ---
This chart was entered by Angélica Riojas Scribe, acting as scribe for Quinten Lopez MD. HPI-Neurological Disorder - General Chief Complaint: Seizure Stated Complaint: seizure Time Seen by Provider: 05/05/17 08:51 Source: family (), EMS Allergies/Adverse Reactions: Patient Allergies Allergy/AdvReac Type Severity Reaction Status Date / Time hydrocodone bitartrate * Allergy Intermediate ITCHING Verified 05/05/17 10:09 [From Lortab] levofloxacin [From Levaquin] Allergy Unknown Unknown Verified 05/05/17 10:09 sulfamethoxazole Allergy Unknown Unknown Verified 05/05/17 10:09 [From Bactrim] trimethoprim [From Bactrim] Allergy Unknown Unknown Verified 05/05/17 10:09 baclofen AdvReac Intermediate confusion Verified 05/05/17 10:09 gabapentin [From Neurontin] AdvReac Intermediate hyperactivi Verified 05/05/17 10:09 ty methadone [Methadone] AdvReac Intermediate confusion Verified 05/05/17 10:09 morphine AdvReac Intermediate confusion Verified 05/05/17 10:09 pregabalin [From Lyrica] AdvReac Intermediate hallucinati Verified 05/05/17 10: 09 ons azathioprine [From Imuran] AdvReac Mild VOMITING Verified 05/05/17 10:09 azathioprine sodium * AdvReac Mild VOMITING Verified 05/05/17 10:09 [From Imuran] Home Medications: Home Medication List Medication Instructions Recorded Confirmed Last Taken Type Folic Acid 1 tab PO QPM 09/12/12 05/05/17 1 Day Ago History SIMVAstatin [Zocor] 20 mg PO QHS 09/12/12 05/05/17 1 Day Ago History Albuterol Sulfate [Proair Hfa] 8.5 gm IH DIRECTED 12/07/16 05/05/17 04/12/17 09:00 History Amitriptyline HCl 25 mg PO QHS 12/07/16 05/05/17 1 Day Ago History Budesonide/Formoterol Inhaler 2 puff INH RTBID 12/07/16 05/05/17 04/12/17 09:00 History [Symbicort 160/4.5 Microgm Inhaler] Cholecalciferol (Vitamin D3) 5,000 unit PO DAILY 12/07/16 05/05/17 1 Day Ago History [Vitamin D3] Ascorbic Acid [Vitamin C] 250 mg PO DAILY 12/19/16 05/05/17 1 Day Ago History Furosemide [Lasix] 40 mg PO DAILY PRN 12/19/16 05/05/17 04/12/17 09:00 History Iron,Carbonyl/Vit C/Vit B12/FA 100 tab PO DAILY 12/19/16 05/05/17 1 Day Ago History [Iron 100 Plus Tablet] Polyethylene Glycol 3350 [Miralax] 17 gm PO EVERY OTHER DAY 12/19/16 05/05/17 2 Days Ago History Sertraline HCl [Zoloft] 200 mg PO QHS 12/19/16 05/05/17 1 Day Ago History Lorazepam [Ativan] 1 mg PO TID PRN PRN #90 tablet 12/25/16 05/05/17 1 Day Ago Rx Oxycodone/APAP 5 mg/325 mg 1.5 each PO Q6H PRN PRN #40 tablet 03/10/17 05/05/17 1 Day Ago Rx [Percocet-5] Ofloxacin 0.3% Oph Solution 5 ml .SEE ORDER 4XDAY 04/30/17 05/05/17 1 Day Ago History [Ocuflox 0.3% Oph Solution] Polyvinyl Alcohol/Povidone/Pf 1 each OP DIRECTED 04/30/17 05/05/17 1 Day Ago History [Refresh Classic Eye Drops] Prednisolone 1% Oph Susp [Pred 1 drop .SEE ORDER TID 04/30/17 05/05/17 1 Day Ago History Forte 1% Oph Suspension] CefDINIR [Omnicef] 300 mg PO BID #8 capsule 05/02/17 05/05/17 Unknown Rx Levetiracetam [Keppra] 1,000 mg PO BID #60 tablet 05/02/17 05/05/17 Unknown Rx - History of Present Illness-Neuro Nature of Presenting Problem: Pt is 76 y/o F presents to the ED via EMS with seizures. 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 Pt's states Pt was recently admitted for seizure. Pt's states Pt is on keppra. Pt's states Pt is full code. Headache Location: denies: frontal, temporal, occipital, parietal, global Severity: reports: moderate Onset/Duration: reports: this morning Timing: reports: still present Context: reports: seizure activity Character of Altered Mental Status: reports: seizure activity Any recent trauma/injury?: reports: none Character of Deficits: denies: new weakness, altered sensation, vision problem/ glaucoma, impaired speech, impaired swallowing, decreased ability to stand, decreased ability to walk, falling New weakness or altered sensation location:: reports: none Cognitive Baseline: alert, oriented x3 Gait Baseline: other (bedridden) Associated Symptoms: reports: denies symptoms Similar Symptoms Previously?: Yes Recently seen or treated by another doctor?: Yes (recently admitted ) - Seizure First time to have a seizure?: No Witnessed seizure?: Yes How many seizure episodes?: 5 (4 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 per EMS and 1 in ED ) Episode details: reports: unknown duration Episode Frequency: occasional episodes Preceding symptoms/context:: none Character of Seizure: reports: other (unsure) Post-ictal Symptoms: reports: other (lethargic) Seizure related injury: none Review of Systems - Adult - REVIEW OF SYSTEMS - ADULT Constitutional: reports: no symptoms reported Eyes: reports: no symptoms reported Ears, Nose, Mouth & Throat: reports: no symptoms reported Cardiovascular: reports: no symptoms reported Respiratory: reports: no symptoms reported Gastrointestinal: reports: no symptoms reported Genitourinary: reports: no symptoms reported Musculoskeletal: reports: no symptoms reported Integumentary: reports: no symptoms reported Neurological: reports: seizure. denies: dizziness/vertigo, headache/migraines, syncope Psychiatric: reports: no symptoms reported Endocrine: reports: no symptoms reported Hematologic/Lymphatic: reports: no symptoms reported Allergic/Immunologic: reports: no symptoms reported All Other Systems: Reviewed and Negative Past History - Adult - PAST MEDICAL HISTORY-ADULT Review of Records: reports: Nursing Assessment Review, Medications Reviewed, Social history reviewed & non-contributory. Major Childhood Illnesses: reports: denies history Cardiovascular: reports: HTN, hyperlipidemia Respiratory: reports: asthma Gastrointestinal: reports: GERD Obstetrical/Gynecological: reports: denies history Genitourinary: reports: denies history Musculoskeletal: reports: arthritis, neck/back injury Neurological: reports: CVA, Seizures/Epilepsy Endocrine/Immune: reports: anemia, lupus Other Conditions: reports: denies history - PRIOR SURGERIES/PROCEDURES Surgical/Procedure History: reports: hysterectomy, tonsillectomy, orthopedic ( extremity) (total knee replacement), back/neck - PRIOR HOSPITALIZATIONS Prior Hospitalizations: reports: none - IMMUNIZATION STATUS Childhood Immunizations: See Nurse Assessment Flu Vaccine: See Nurse Assessment - FAMILY HISTORY Family History: reviewed, not pertinent - SOCIAL HISTORY Smoking: denies Substance Use: denies Living Situation: family Physical Exam- Neurological - Physical Exam-Neuro Initial Vital Signs Reviewed: Yes General Appearance: no apparent distress, lethargic. 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 Exam: PERRL Neurologic: other (unable to assess) Integumentary: normal turgor, warm/dry, pallor Psych/Mental Status: disoriented x 3 Progress - PLAN OF CARE/RESULTS Progress/Plan/Lab Results: Vital Signs - 8 hr 05/05/17 08:42 05/05/17 09:04 05/05/17 09:51 Temperature 97.9 F Pulse Rate 67 84 100 H Respiratory Rate 18 19 15 Blood Pressure 184/96 156/63 129/74 O2 Sat by Pulse Oximetry 98 97 95 Laboratory Results - last 24 hr 05/05/17 05/05/17 05/05/17 08:50 09:00 09:00 WBC RBC Hgb Hct MCV MCH MCHC RDW Std Deviation Plt Count MPV Immature Gran % (Auto) Neut % (Auto) Lymph % (Auto) Wake % (Auto) Eos % (Auto) Baso % (Auto) Immature Gran # (Auto) Neut # (Auto) Lymph # (Auto) Wake # (Auto) Eos # (Auto) Baso # (Auto) PT INR PTT (Actin FS) Specimen Type ARTERIAL Sample Site R RADIAL pH 7.29 L pCO2 44 pO2 55 L HCO3 20.6 Base Excess -5.3 L Oxyhemoglobin 88.2 L* ABG O2 Sat (Calculated) 15.5 ABG O2 Saturation 90.8 L ABG Carboxyhemoglobin 1.80 ABG Methemoglobin 1.2 Neto Test YES A-a O2 Difference 118.0 Total Hemoglobin 12.5 Lactate 8.10 H* Liter Flow 3.0 Blood Gas Modality CANNULA FiO2 % 32.0 Sodium 146 H Potassium 3.8 Chloride 100 Carbon Dioxide 20 L Anion Gap 26 BUN 9 Creatinine 0.7 Estimated GFR/1.73 m2 > 60 BUN/Creatinine Ratio 13 Glucose 173 H Calculated Osmolality 293 Calcium 10.2 Magnesium 2.0 Total Bilirubin 0.49 AST 7 L ALT 7 L Alkaline Phosphatase 92 Creatine Kinase 20 L Troponin T [id number]-[id number]-Skkgxcubqar Pept 157 Total Protein 6.9 Albumin 4.4 Globulin 2.5 Albumin/Globulin Ratio 1.8 Urine Opiates Screen Ur Oxycodone Screen Ur Methadone, Qual Ur Barbiturates Screen Ur Phencyclidine Scrn Ur Amphetamines Screen U Benzodiazepines Scrn Urine Cocaine Screen U Cannabinoids Screen Plasma/Serum Ethyl Alc 05/05/17 05/05/17 05/05/17 09:00 09:00 09:00 WBC 10.62 RBC 4.37 Hgb 12.6 Hct 37.9 MCV 86.7 MCH 28.8 MCHC 33.2 RDW Std Deviation 14.7 H Plt Count 326 MPV 11.2 H Immature Gran % (Auto) 0.5 Neut % (Auto) 44.5 Lymph % (Auto) 41.5 Wake % (Auto) 7.6 Eos % (Auto) 5.5 Baso % (Auto) 0.4 Immature Gran # (Auto) 0.05 H Neut # (Auto) 4.73 Lymph # (Auto) 4.41 H Wake # (Auto) 0.81 H Eos # (Auto) 0.58 Baso # (Auto) 0.04 PT 11.0 INR 1.04 PTT (Actin FS) 20.8 L Specimen Type Sample Site pH pCO2 pO2 HCO3 Base Excess Oxyhemoglobin ABG O2 Sat (Calculated) ABG O2 Saturation ABG Carboxyhemoglobin ABG Methemoglobin Neto Test A-a O2 Difference Total Hemoglobin Lactate Liter Flow Blood Gas Modality FiO2 % Sodium Potassium Chloride Carbon Dioxide Anion Gap BUN Creatinine Estimated GFR/1.73 m2 BUN/Creatinine Ratio Glucose Calculated Osmolality Calcium Magnesium Total Bilirubin AST ALT Alkaline Phosphatase Creatine Kinase Troponin T Gkv-[id number] Pept Total Protein Albumin Globulin Albumin/Globulin Ratio Urine Opiates Screen Ur Oxycodone Screen Ur Methadone, Qual Ur Barbiturates Screen Ur Phencyclidine Scrn Ur Amphetamines Screen U Benzodiazepines Scrn Urine Cocaine Screen U Cannabinoids Screen Plasma/Serum Ethyl Alc 05/05/17 05/05/17 09:00 09:44 WBC RBC Hgb Hct MCV MCH MCHC RDW Std Deviation Plt Count MPV Immature Gran % (Auto) Neut % (Auto) Lymph % (Auto) Wake % (Auto) Eos % (Auto) Baso % (Auto) Immature Gran # (Auto) Neut # (Auto) Lymph # (Auto) Wake # (Auto) Eos # (Auto) Baso # (Auto) PT INR PTT (Actin FS) Specimen Type Sample Site pH pCO2 pO2 HCO3 Base Excess Oxyhemoglobin ABG O2 Sat (Calculated) ABG O2 Saturation ABG Carboxyhemoglobin ABG Methemoglobin Neto Test A-a O2 Difference Total Hemoglobin Lactate Liter Flow Blood Gas Modality FiO2 % Sodium Potassium Chloride Carbon Dioxide Anion Gap BUN Creatinine Estimated GFR/1.73 m2 BUN/Creatinine Ratio Glucose Calculated Osmolality Calcium Magnesium Total Bilirubin AST ALT Alkaline Phosphatase Creatine Kinase Troponin T < 0.010 Slh-U-Mttjghdsnan Pept Total Protein Albumin Globulin Albumin/Globulin Ratio Urine Opiates Screen NONE DETECTED Ur Oxycodone Screen NONE DETECTED Ur Methadone, Qual NONE DETECTED Ur Barbiturates Screen NONE DETECTED Ur Phencyclidine Scrn NONE DETECTED Ur Amphetamines Screen NONE DETECTED U Benzodiazepines Scrn NONE DETECTED Urine Cocaine Screen NONE DETECTED U Cannabinoids Screen NONE DETECTED Plasma/Serum Ethyl Alc Orders Category Date Time Status Cardiac Monitoring DIRECTED Care 05/05/17 08:50 Active Finger Stick Blood Sugar (ED) DIRECTED Care 05/05/17 08:50 Active Tran Cath Insertion ORDERED Care 05/05/17 08:49 Active Oxygen Therapy- ED Nursing DIRECTED Care 05/05/17 08:50 Active Saline Loc NOW Care 05/05/17 08:50 Active CHEST-PORTABLE [RAD] Stat Exams 05/05/17 08:50 Completed HEAD W/O CONTRAST [CT] Stat Exams 05/05/17 08:50 Completed ABG [RESP] Routine Lab 05/05/17 08:50 Completed ALCOHOL BLOOD Stat Lab 05/05/17 09:00 Completed CBC WITH ELECTRONIC DIFF [HEME] Stat Lab 05/05/17 09:00 Completed CK PROFILE [SP CHEM] Stat Lab 05/05/17 09:00 Completed COMPREHENSIVE METABOLIC PANEL [CHEM] Stat Lab 05/05/17 09:00 Completed MAGNESIUM [CHEM] Stat Lab 05/05/17 09:00 Completed PRO B-NATRIURETIC PEPTIDE Stat Lab 05/05/17 09:00 Completed PROTIME WITH INR [COAG] Stat Lab 05/05/17 09:00 Completed PTT [COAG] Stat Lab 05/05/17 09:00 Completed TROPONIN T Stat Lab 05/05/17 09:00 Completed URINALYSIS W/POSS RFLX CULT-1 [URINALYSIS] Stat Lab 05/05/17 09:44 Ordered URINE DRUG SCREEN Stat Lab 05/05/17 09:44 Completed 0.9% Sodium Chloride Inj [Ns] 1,000 ml Med 05/05/17 08:49 Active IV 125 mls/hr Lorazepam [Ativan] Med 05/05/17 09:00 Discontinued 2 mg .ROUTE .STK-MED ONE Lorazepam [Ativan] Med 05/05/17 09:06 Discontinued 2 mg IV NOW ONE Pulse Oximetry Stat Oth 05/05/17 08:50 Active EKG [EKG] Stat Ther 05/05/17 08:50 Ordered Result Diagrams: 05/05/17 09:00 05/05/17 09:00 - REASSESSMENT Reassessment #1 Time Reassessed: 09:07 Status: other (Pt had one more seizure episode. IV established by now. 2mg IV Ativan given and suction done. Pt's seizing stopped andpPt will go to CT scan.) Reassessment #2 Time Reassessed: 10:15 Status: improving (Pt's seizure was controlled, but she is still disorientated.) - XRAY 1 XRAY Study: Chest Impression: Normal XRAY Interpretation: negative chest - CT/MRI 1 CT Study: Head Impression: Normal CT Results: no hemorrhage. stable CT of the brain - CONSULTS/PCP/HOSPITALIST Notification #1 *Consult/PCP/Hospitalist*: Hospitalist Time Discussed: 10:14 Consult Disposition: Will see in ED, Admit Departure - Departure Date of Disposition Decision: 05/05/17 Time of Disposition Decision: 10:15 DIAGNOSIS: Seizure, Hypoxia Disposition: ADMITTED INPATIENT 09 Certified Medical Emergency: Emergent Condition: Stable Referrals and Follow-Ups: Samra Camara MD [Primary Care Provider] - - Critical Care Note This patient required my direct & personal management of CC.: Yes Total Time (mins): 30 Critical Care Statement: This patient required my direct personal management to treat or rule out processes, the absence of which, could potentiallly result in sudden, clinically significant life or limb threatening deterioration. This chart was documented by the indicated scribe, (Angélica Riojas Scribe) and accurately reflects the services I performed and decisions made by , Quinten Lopez MD, as attested by the provider's signature.
[2017-05-05] MEDS ORDERED: ZOFRAN IV ONE (10:51)
[2017-05-05] MEDS ORDERED: CEREBYX IV ONE (11:42)
[2017-05-05] MEDS ORDERED: ATIVAN PO PRN (11:43)
[2017-05-05] MEDS ORDERED: PERCOCET-5 PO PRN (11:43)
[2017-05-05] MEDS ORDERED: LASIX PO PRN (11:43)
[2017-05-05] MEDS ORDERED: CEREBYX 1,000 MG in NS 50 ML IV ONE (12:00)
[2017-05-05] MEDS: OCUFLOX 0.3% OPH SOLUTION BOTH EYES SCH ×3 (13:46→20:19)
[2017-05-05] MEDS: PRED FORTE 1% OPH SUSPENSION BOTH EYES SCH ×2 (13:47→20:19)
--- NOTE | 2017-05-05 15:24 | HISTORY AND PHYSICAL ---
CHIEF COMPLAINT: Seizures. HISTORY OF PRESENT ILLNESS: Mrs. Metz is a 76-year-old female who was discharged from our service on Friday of last week after being admitted with new onset seizures. At that time she had a full neurologic workup and was seen by neurology. She was placed on Keppra and ultimately discharged home with home health. She was in her normal state of health until this morning when she had acute onset of grand mal seizures. Her witnessed these and called 911. Apparently she has had at least 4 seizures since onset this morning. Currently the patient is postictal and sedated with IV Ativan, so history from her is difficult; however , her is at the bedside and able to answer questions. The patient has had some post seizure nausea and vomiting and she is still complaining of nausea but no other acute symptoms. She is slightly confused as to who the president is but she does know where she is and what year it is and she follows commands without any overt focal deficits. An ABG was done in the ER and it did show she has hypoxia and rather profound lactic acidosis, likely secondary to seizures. As such, we are going to admit her to the ICU. PAST MEDICAL HISTORY: 1. Recent admission to our facility with new onset seizures. 2. Pernicious anemia. 3. Rheumatoid arthritis. 4. SLE. 5. Sjogren syndrome. 6. Hypertension. 7. Hyperlipidemia. 8. History of right frontal CVA. 9. Chronic pain. 10. Acid reflux. 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 12. Corneal ulcers. PAST SURGICAL HISTORY: Multiple shoulder surgeries, bilateral knee surgeries, cervical spine surgery, antrocele repair, hysterectomy, vaginal prolapse repair, right ankle and leg surgery, back surgery. SOCIAL HISTORY: No history of tobacco, alcohol, or drug use. FAMILY HISTORY: Significant for heart disease and diabetes. REVIEW OF SYSTEMS: Essentially unable to obtain. The patient is complaining of some nausea now but otherwise no complaints. HOME MEDICATIONS: ProAir HFA 8.5 g inhaled as directed, amitriptyline 25 mg at bedtime, vitamin C 250 mg daily, Symbicort 160/4.5 mcg 2 puffs inhaled b.i.d., Omnicef 300 mg p.o. b.i.d. for 1 more day, vitamin D3 5000 units p.o. daily, folic acid 1 mg q.p.m., Lasix 40 mg as needed, Icar C Plus 1 daily, Keppra 1000 mg p.o. b.i.d., Ativan 1 mg p.o. t.i.d. as needed, Ocuflox 0.3% ophthalmic solution 4 times a day, Percocet 5 as needed, MiraLAX 17 g daily, Refresh Classic eyedrops as directed, prednisolone eyedrops as directed, Zoloft 200 mg at bedtime, simvastatin 20 mg p.o. at bedtime. ALLERGIES: Hydrocodone, levofloxacin, trimethoprim, baclofen, gabapentin, methadone, morphine, Lyrica, Imuran. PHYSICAL EXAMINATION: VITAL SIGNS: Blood pressure 137/71, heart rate 103, respiratory rate is 18, O2 saturation 100% on 5 L nasal cannula, temperature is 97.6 degrees. GENERAL: This is an elderly and chronically ill-appearing, 76-year-old female, lying in hospital bed in no acute distress. NEUROLOGIC: The patient is postictal and sedated. She does open eyes to verbal stimulus. She is confused as to the president is but otherwise oriented. She follows commands without focal deficits. HEENT: Head is atraumatic and normocephalic. Her pupils are 3 mm bilaterally and sluggish to light response. Oral mucosa is moist. Trachea is midline. No JVD. CHEST: Clear to auscultation bilaterally. CV: Regular rate and rhythm. S1, S2 is noted. No murmurs, gallops, clicks, or rubs. GI: Soft, nondistended, nontender. Bowel sounds positive. EXTREMITIES: Without edema. Pulses are diminished and skin is cool but pink with good cap refill. DIAGNOSTIC DATA: Head CT shows nothing acute. Chest x-ray negative for acute process. WBC 10.62, hemoglobin 12.6, hematocrit 37.9, platelet count is 326,000. INR 1.04. ABG on 3 L, pH 7.29, CO2 44, O2 55, bicarb 20.6. Oxyhemoglobin 88.2, lactate is 8.1. Sodium 146, potassium 3.8, chloride 100, CO2 20, anion gap 26, BUN 9, creatinine 0.7, glucose 173, calcium 10.2, magnesium 2, bilirubin 0.49, AST 7, ALT 7, alkaline phosphatase 92. CK 20. Troponin negative. ProBNP 157. Albumin 4.4. UA is negative for UTI. Toxicology is negative. ASSESSMENT AND PLAN: 1. Recurrent seizures: We will go ahead and place the patient in the ICU and load her with Cerebyx and consult neurology. Follow neuro checks and have IV Ativan for any breakthrough seizures. As far as etiology of her seizures, it is a difficult to pinpoint at this time. Head CT does not show anything acute. She has no UTI. She is slightly hypoxic which could certainly be a causative factor. Again, we will ask for neurology's help. 2. Profound lactic acidosis: Secondary to seizures. We are going to hydrate and recheck lactic acid at 1 o'clock this afternoon. 3. Hypertension: Chronic and stable. Continue home medications. 4. Systemic lupus erythematosus: Chronic and stable. Will continue to monitor. 5. Hyperlipidemia: Chronic and stable. Continue home medications. 6. Rheumatoid lung disease: Continue her oxygen and aggressive pulmonary toilet with p.r.n. nebs. 7. Urinary tract infection: Resolved. Will discontinue any antibiotics. 8. Deep vein thrombosis prophylaxis with Lovenox. Further recommendations to follow. Dictated by LIGIA Roberts for Richard Carrasco MD cc: LIGIA Roberts MD pt examined, agree with above AP[facility]OT MTDD
[2017-05-05] MEDS: KEPPRA 1,500 MG in NS 100 ML IV SCH (16:06)
--- NOTE | 2017-05-05 16:06 | Diag Imaging Result Doc PS360 ---
EXAM: MRI BRAIN W W/O CONTRAST INDICATION: seizures COMPARISON: 04/30/2017 FINDINGS: There is no evidence of acute infarct. There is stable right frontal focal encephalomalacia. There is stable patchy T2/FLAIR hyperintensity in the periventricular and subcortical white matter suggesting mild to moderate microangiopathy. There is no discrete intracranial mass, mass effect, or intracranial hemorrhage. There is no evidence of abnormal intracranial enhancement. The surrounding soft tissues and bony structures are essentially unremarkable. IMPRESSION: Stable chronic changes as compared to the very recent previous study. No definite acute intracranial pathology. Electronically signed by Mario Mitchell 05/05/2017 4:04 PM
[2017-05-05] MEDS ORDERED: ZOFRAN IV PRN (17:11)
[2017-05-05] MEDS: SYMBICORT 160/4.5 MICROGM INHALER INH SCH (20:15)
[2017-05-05] MEDS: ELAVIL PO SCH (20:19)
[2017-05-05] MEDS: FOLIC ACID PO SCH (20:19)
[2017-05-05] MEDS: ZOLOFT PO SCH (20:20)
[2017-05-05] MEDS: ZOCOR PO SCH (20:20)
--- NOTE | 2017-05-05 20:31 | CONSULTATION ---
DATE OF CONSULTATION: 05/05/2017 REQUESTING PHYSICIAN: The patient is seen in consultation at the request of Dr. Tyrone Carrasco REASON FOR CONSULTATION: For evaluation of recurrent seizures. HISTORY OF PRESENT ILLNESS: The patient is a 76-year-old, female with a history of multiple autoimmune illnesses followed at [place], hypertension, hyperlipidemia, and history of a remote right frontal stroke who is readmitted today for recurrent seizures. She was admitted last week for new onset seizures and Keppra 1 g b.i.d. was initiated. She cleared up and was at her mental status baseline per the , and was subsequently discharged to home with home health. She did well and was in her usual state of health until this morning when she had a handful of generalized tonic clonic seizures per the who witnessed these events. He described them as shaking of the arms and legs bilaterally and seemingly was able to look at him during this event, although his description of the event was quite unclear. She was confused afterwards and had some nausea and vomiting. She was given lorazepam as well as loaded with 1 g of fosphenytoin on admission. She has not had any further seizures since that. Of note, prior to her seizures last week when they initially started, she was in her usual state of health as well. The does mention that she has had some problems with her memory for about six months to a year. She is forgetful and tells the same stories multiple times. She also forgets that they have done things such as say their bedtime prayers. She forgets that she is going to be having company one day. No fevers or chills. The says that she has been on narcotic medications for several years now. She was also taking Ativan regularly on a daily basis. Her outpatient physician had recently in the last 2-3 weeks discontinued the opiate medications that she was taking and replaced those with hydrocodone and in addition to that, he did not refill her Ativan prescriptions. So she has not been taking this since that time. PAST MEDICAL HISTORY: New onset seizures April 2017, pernicious anemia, remote right frontal stroke, rheumatoid arthritis, systemic lupus, Sjogren's, hypertension, hyperlipidemia, chronic pain, acid reflux, rheumatoid lung disease, corneal ulcers. PAST SURGICAL HISTORY: Multiple shoulder surgeries, bilateral knee surgery, cervical spine surgery, hysterectomy, vaginal prolapse repair, right ankle and leg surgery, back surgery. SOCIAL HISTORY: No tobacco, alcohol, or drugs. FAMILY HISTORY: Heart disease and diabetes. REVIEW OF SYSTEMS: Unable to obtain due to patient's mental status, although she had complained of nausea and had some vomiting after the seizures earlier per report. ALLERGIES: Hydrocodone. Levofloxacin. Trimethoprim. Baclofen. Gabapentin. Methadone. Morphine. Lyrica. Imuran. HOME MEDICATIONS: Reviewed in the chart. Of note, amitriptyline 25 mg at bedtime, Omnicef 300 mg p.o. b.i.d., folic acid 1 mg q.p.m., Lasix p.r.n., Keppra 1000 mg p.o. b.i.d., simvastatin 20 mg at night. The H and P, home medication notes that she is on Percocet and Ativan as needed though the tells me those were discontinued by her outpatient treating physician. PHYSICAL EXAMINATION: Vital Signs: She is afebrile, blood pressure 137-160/70s , pulse 84, respirations 19, 100% on 5 L nasal cannula. General: Elderly female, supine in bed with head of bed elevated. She is in no acute distress. She is drowsy, but arousable and able to follow commands. HEENT: Atraumatic, normocephalic. Sclerae are anicteric. No erythema. Mucous membranes are moist. Neck: Supple with no meningismus. Cardiovascular: Regular rate and rhythm. No murmurs are appreciated. Lungs: Clear to auscultation anteriorly. Abdomen: Soft, nontender, nondistended. Extremities: Intact pedal pulses. No edema. Neurologic: Mental status: She is sleeping comfortably, but arouses to voice and regards. She follows simple and 2- step commands. She knows left and right as well as digit distinction. She is a bit confused though in terms of orientation. She does not answer those questions. In fact, does not answer many questions. Cranial nerves: PERRL 3 mm OU. Conjugate gaze. Ocular movements appear to be intact, though testing is difficult at this time. Face is symmetric with equal activation. Motor examination: Strength appears to be equal in all extremities. She is at least against gravity to 4/5. Reflexes are reduced, 1+ symmetric, absent at the ankles. Toes are mute. Sensation appears intact to light touch in all extremities. Coordination and gait were difficult to assess due to her mental status. DIAGNOSTICS: Head CT was personally reviewed. No acute findings. There is an old right frontal infarct. Chest x-ray was negative. Hematology was unremarkable. PT 11 and INR 1.04. PTT 21. Her lactate was 8.1, sodium 146. Potassium 3.8. BUN 9, creatinine 0.7, glucose 173. Calcium 10. Magnesium 2. Liver function tests were not elevated. CK of 20. Troponin negative. Plasma lactate 1.5. Urinalysis was improved from her last hospitalization, showed protein of 30, glucose of 200. Ketones of 20. Toxicology was negative, including alcohol. ASSESSMENT AND PLAN: This is a 76-year-old, female with multiple autoimmune illnesses, remote right frontal infarct, hypertension, dyslipidemia, who is readmitted again with multiple generalized tonic-clonic seizures while on keppra monotherapy 1g bid. Head CT did not show any acute findings. 1. Multiple repeated seizures in the setting of remote right frontal infarct and recent urinary tract infection. Exam is nonfocal. Her mental status did clear up entirely before her recent discharge and was fine until this morning, making PROSTHODONTIST inflammation or infection unlikely. I agree with increasing Keppra to 1500 mg b.i.d. I would like to obtain an MRI of the brain with and without contrast for further evaluation. Her imaging studies last week were quite technically limited due to motion. I would also like to order a routine EEG to detect increased propensity for seizure. Her EEG last week was mostly in stage II sleep. There was some mention of her Ativan and in addition her opiate medications have been discontinued and switched respectively. While certainly abrupt discontinuation of benzodiazepine can cause seizures, that likely is not be responsible for why she is back at this time. Thank you for this consultation. We will follow. cc: Hawa Alvarez MD [facility]
[2017-05-05] MEDS: ATIVAN IV PRN (21:08)
[2017-05-06] MEDS: KEPPRA 1,500 MG in NS 100 ML IV SCH ×2 (03:27→15:55)
[2017-05-06 06:19] LABS: HEMATOCRIT 34.3 % (37.0-47.0); HEMOGLOBIN 11.4 g/dL (12.0-16.0); MCH 28.7 PG (27-31); MCHC 33.2 g/dL (33-37); MCV 86.4 FL (81-99); RBC 3.97 XMIL (4.2-5.4)
[2017-05-06 06:21] LABS: INR 1.06; PROTIME 11.2 Seconds (9.2-11.7)
[2017-05-06 06:52] LABS: AGAP 14; BUN 7 mg/dL (8-22); CALCIUM 9.6 mg/dL (8.8-10.2); CHLORIDE 103 mmol/L (98-107); COSMO 287; POTASSIUM 3.1 mmol/L (3.5-5.1); SODIUM 145 mmol/L (136-145); TCO2 28 mmol/L (25-35)
[2017-05-06] MEDS: SYMBICORT 160/4.5 MICROGM INHALER INH SCH ×2 (07:35→19:30)
[2017-05-06] MEDS: PRED FORTE 1% OPH SUSPENSION BOTH EYES SCH ×3 (07:56→20:10)
[2017-05-06] MEDS ORDERED: NS 0 ML ONE (07:57)
[2017-05-06] MEDS ORDERED: NS 250 ML ONE (08:09)
[2017-05-06] MEDS: LOVENOX SUBQ SCH (09:32)
[2017-05-06] MEDS: POTASSIUM CHLORIDE 40 MEQ/SWI 40 MEQ/100 ML IVPB IV SCH ×2 (09:32→11:21)
[2017-05-06] MEDS: OCUFLOX 0.3% OPH SOLUTION BOTH EYES SCH ×4 (09:32→20:11)
[2017-05-06] MEDS: ICAR-C PLUS PO SCH (09:33)
[2017-05-06] MEDS: VITAMIN C PO SCH (09:34)
[2017-05-06] MEDS: VITAMIN D PO SCH (09:34)
[2017-05-06] MEDS: NS 1,000 ML IV SCH ×2 (10:44→23:08)
--- NOTE | 2017-05-06 12:50 | PROGRESS NOTE ---
DATE: 05/06/2017 SUBJECTIVE: This patient is complaining of generalized pain, including headache. She does not have any neurological focalization. She is answering all my questions properly. She denies nausea, vomiting, diarrhea, or constipation. OBJECTIVE: LABORATORY: White cell count 6.6, hemoglobin 11.4, hematocrit 34.3, platelets 255,000. Sodium 145, potassium 3.1, chloride 103, bicarbonate 28, BUN 4, creatinine 0.6, glucose 97, calcium 9.6. ASSESSMENT AND PLAN: 1. Recurrent seizures. Neurology Department is on board. We did an MRI yesterday that did not show any acute intracranial pathology. Also, an EEG was performed, with pending results. Today, this patient is feeling better, just generalized soreness sore and headache. She is completely alert and oriented x3. She has been n.p.o. I will try first with ice chips to see how she does, but the nurse told me that she has been confused on and off. 2. Lactic acidosis secondary to seizures. Continue with hydration. 3. Hypertension this is chronic and stable. Continue with home medication. 4. Systemic lupus erythematosus, chronic and stable. Will monitor. 5. Hyperlipidemia. Continue home medication. 6. Rheumatoid lung disease. Continue with oxygen and aggressive pulmonary toilet. 7. Urinary tract infection, resolved. Antibiotics were discontinued already. 8. Deep vein thrombosis prophylaxis with Lovenox. 9. Hypokalemia. I will replace the potassium today. A PICC line has been placed. cc: Roland Gamble MD
--- NOTE | 2017-05-06 14:08 | EEG REPORT ---
DATE: 05/05/2017 REFERRING PHYSICIAN: Dr. Alvarez. EEG #: [id number]. GANG RIDER: Sascha Worley. BACKGROUND INFORMATION/TECHNIQUE: This digitally recorded EEG is obtained with 1 additional channel for EKG. HISTORY OF PRESENT ILLNESS: This is a 76-year-old female with a history of remote right frontal stroke, presenting with new onset seizures a week ago. She is readmitted again with multiple seizures. An EEG is ordered to detect evidence of subclinical seizures. MEDICATIONS: Keppra. Has gotten p.r.n. Ativan and a dose of phenytoin. EEG FINDINGS: A posterior dominant alpha rhythm is notably absent. The background consists of mixed frequency alpha, beta, and theta waves. At the start of the record there are very frequent bursts of generalized repetitive sharps, at times appearing pseudoperiodic. There are also a few rhythmic runs of repetitive sharp wave discharges, most prominent in the right frontocentral region; these runs are brief and do not clearly evolve. Just over half-way through the study there is a run of rhythmic sharps and sharp wave discharges again emanating from the right frontal region which appears to evolve and spread to all head regions before abruptly stopping; this may represent a subclinical seizure. Notably after this event the background clears significantly for the remainder of the study and shows no definite epileptiform discharges and just mild generalized slowing. Additionally, the engineering technician noted during the latter record that the patient seemed much more alert than at the start of the record. There is occasional focal slowing in the right frontal region. Hyperventilation was not performed. Photic stimulation did not alter the record. No definite drowsiness patterns and no stage II sleep observed. EKG shows regular R to R interval. IMPRESSION AND CLINICAL CORRELATION: Abnormal routine EEG in the awake state due to: 1. Bursts of epileptiform discharges as detailed above with 1 rhythmic run suspicious for a subclinical seizure emanating from the right frontal region. These findings are suggestive of cortical irritability and increased propensity for seizure. This was prominent in the first half of the study and cleared toward the end of the study, with engineering technician note of the patient' s level of alertness improving during that latter part of the study. It thus may have represented a postictal state with more frequent interictal epileptiform discharges during that time. 2. Focal slowing in the right frontal region. Focal slowing is suggestive of focal cortical and subcortical abnormality and is most likely related to the patient's remote right frontal infarct. 3. Mild generalized background slowing indicative of a mild encephalopathy. Generalized slowing is a nonspecific finding that can be seen in processes that diffusely affect the cerebrum, including toxic metabolic, posthypoxic, pharmacologic, and infectious etiologies. Clinical correlation is advised. cc: Hawa Alvarez MD MTDD
[2017-05-06] MEDS: ATIVAN PO SCH (20:04)
[2017-05-06] MEDS: ELAVIL PO SCH (20:05)
[2017-05-06] MEDS: ZOCOR PO SCH (20:06)
[2017-05-06] MEDS: FOLIC ACID PO SCH (20:06)
[2017-05-06] MEDS: ZOLOFT PO SCH (20:07)
--- NOTE | 2017-05-06 20:50 | PROGRESS NOTE ---
DATE: 05/06/2017 SUBJECTIVE: The patient is doing much better today. She is awake and alert. She is completely oriented and able to answer questions. Review of the nursing notes reveals that she did have 1 seizure close to midnight last night. Review of the chart shows that she got her 1st dose of 1500 mg Keppra at around 3 p.m. yesterday and she got her 2nd dose 12 hours later. Again prior to that, she had received phenytoin dose and Ativan on admission. No further seizure activity and she is much more alert now. The patient is able to provide more history saying that she was also taking Ativan 1 mg b.i.d. for the last 40 years for her anxiety. She ran out of this medication about a week ago. She had not really asked her physician to refill it. OBJECTIVE: Vital signs: She is afebrile, blood pressure 126/74, pulse 89, respirations 17, 100% on 3L nasal cannula. General: She is asleep supine in bed in no acute distress. She arouses to voice and easily regards me. She is talkative and able to answer my questions. HEENT: Normocephalic atraumatic. Mucous membranes are moist. Neck: Supple without meningismus. Cardiovascular: Regular rate and rhythm. No murmurs appreciated. Lungs: Clear to auscultation anteriorly. Neurologic exam: Mental status. She arouses easily to voice and regards. She is much more interactive today and appropriate. She is able to answer questions appropriately. She is completely oriented with the exception of today's date. She is able to follow simple commands as well as complex commands and knows left and right as well as digit distinction. Language is intact. Cranial nerves. PERRL, 3 mm each eye, conjugate gaze. Ocular movements appear intact. Face is symmetric with equal activation. Facial sensation is intact. Motor exam. Her strength appears equal in all extremities. She is at least 4/5. Sensation is intact to light touch throughout. DIAGNOSTICS: An EEG done yesterday was personally reviewed and read. It showed bursts of epileptiform discharges with 1 rhythmic burst that was suspicious for subclinical seizure emanating mostly from the right frontal region. There was some focal slowing of the right frontal region as well and some mild generalized background slowing. Toward the end of the record her background improved significantly. MRI of the brain with and without contrast was personally reviewed. There was no acute intracranial pathology. No intracranial enhancement. LAB WORK: Was reviewed. Of note, sodium 145, potassium 3.1, creatinine 0.6, BUN of 7. Her Keppra level has resulted in the low therapeutic window of 17 and this was taken on admission. ASSESSMENT AND PLAN: This is a 76-year-old female with remote right frontal stroke, multiple autoimmune illnesses and longstanding treatment with ativan which was recently abruptly discontinued who was readmitted with multiple seizures. Her mental status has again cleared and she is baseline. 1. Seizures. Keppra had been started at 1 g b.i.d. just last week. Her level on admission was in the low therapeutic range and the dose has been increased to 1500 mg b.i.d. since admission. She did have 1 seizure overnight. I think given her additional history today that we should put her back on Ativan 1 mg p.o. b.i.d. as she has been taking this for a very long time and this abrupt discontinuation may be contributing to her recent flurry of seizures last week and this week. Continue Keppra 1500 mg b.i.d. Let us monitor and see how she does. The MRI of the brain did not show any acute findings which is reassuring. Her EEG was abnormal with epileptiform discharges but this was taken shortly after her 1st dose of the higher 1500mg Keppra dose and her mental status has since cleared up. 2. Multiple autoimmune illnesses. She says she has previously been following for many years with a physician at [facility] but has not been able to go back for some time now just due to the difficult drive to get there. She may need to establish with a beef cattle grazier more locally. cc: Hawa Alvarez MD [facility]ED[facility]
[2017-05-07] MEDS: KEPPRA 1,500 MG in NS 100 ML IV SCH ×2 (03:38→15:53)
[2017-05-07 06:00] LABS: HEMATOCRIT 32.2 % (37.0-47.0); HEMOGLOBIN 10.3 g/dL (12.0-16.0); MCH 28.9 PG (27-31); MCV 90.4 FL (81-99); MPV 10.7 FL (7.4-10.4); RBC 3.56 XMIL (4.2-5.4)
[2017-05-07 07:06] LABS: AGAP 12; BUN 8 mg/dL (8-22); CHLORIDE 106 mmol/L (98-107); COSMO 283; POTASSIUM 3.6 mmol/L (3.5-5.1); SODIUM 143 mmol/L (136-145); TCO2 25 mmol/L (25-35)
[2017-05-07] MEDS: SYMBICORT 160/4.5 MICROGM INHALER INH SCH ×2 (08:15→19:01)
[2017-05-07] MEDS: VITAMIN D PO SCH (08:47)
[2017-05-07] MEDS: ICAR-C PLUS PO SCH (08:47)
[2017-05-07] MEDS: MIRALAX PO SCH (08:48)
[2017-05-07] MEDS: VITAMIN C PO SCH (08:48)
[2017-05-07] MEDS: ATIVAN PO SCH ×2 (08:48→20:32)
[2017-05-07] MEDS: OCUFLOX 0.3% OPH SOLUTION BOTH EYES SCH ×4 (08:48→20:35)
[2017-05-07] MEDS: LOVENOX SUBQ SCH (08:49)
[2017-05-07] MEDS: PRED FORTE 1% OPH SUSPENSION BOTH EYES SCH ×3 (08:54→20:35)
--- NOTE | 2017-05-07 09:58 | PROGRESS NOTE ---
DATE: 05/07/2017 SUBJECTIVE: As per the nurse and the , this patient was confused in the morning. At the moment of my evaluation, right now, this patient looks better. She is complaining of generalized pain but, compared with yesterday, it is not as strong. She has generalized weakness and for that I will ask for physical therapy. She denies nausea, vomiting, diarrhea, or constipation. No seizure activities for the past 24 hours. I will keep this patient one more day in the ICU because of her confusion. OBJECTIVE: Vital Signs: Temperature 98.1 degrees, pulse 73, respiratory rate 22 , blood pressure 141/69, oxygen saturation 97% on 2 L of nasal cannula. HEENT: Normocephalic. No trauma. PERRLA. Neck: Supple. No JVD. No masses. Central trachea. Chest clear to auscultation. No wheezing. No rales. Abdomen is soft, nontender, nondistended. No hepatosplenomegaly. Extremities: No edema. No clubbing. No cyanosis. Neurologic: The patient is alert and oriented x3. She has generalized weakness. She moves all 4 extremities. LABORATORY: WBC 5.1, hemoglobin 10.3, hematocrit 32.2, platelets 209,000. Sodium 143, potassium 3.6, chloride 106, bicarbonate 25. BUN 8, creatinine 0.5, glucose 92. Calcium 9. Magnesium 1.9. ASSESSMENT AND PLAN: 1. Recurrent seizures. Neurology Department is on board. We did an MRI yesterday that did not show any acute abnormality. EEG done a couple of days ago showed epileptiform discharges suspicious for subclinical seizures, probably coming from the right frontal region, focal slowing in the right frontal region likely related to the patient's remote right frontal infarct and mild generalized background slowing indicative of mild encephalopathy. The dose of Keppra is 1.5 g twice a day. We re-started this patient on Ativan 1 g q.12 hours. The reason behind that is that the patient has been taking these for at least 40 years and, as per the , she ran out of this medication between 7-10 days ago, and probably this is the cause of the seizures. 2. Hypertension. This is chronic and stable. Continue to monitor. 3. Hyperlipidemia. Continue with home medication. 4. SLE: chronic and stable. Will monitor. 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 6. Urinary tract infection, resolved. Antibiotics were discontinued already. 7. Deep vein thrombosis prophylaxis with Lovenox. 8. Hypokalemia, resolved. 9. Physical deconditioning. I will consult physical therapy. CRITICAL CARE TIME: 35 minutes. cc: Roland Gamble MD MTDD
[2017-05-07] MEDS ORDERED: VIMPAT PO ONE (12:10)
[2017-05-07] MEDS: NS 1,000 ML IV SCH (12:14)
--- NOTE | 2017-05-07 13:02 | PROGRESS NOTE ---
DATE: 05/07/2017 SUBJECTIVE: This morning the patient was noted to have several episodes of decreased responsiveness [id number]. She would be talking and more interactive one minute then she would have a glassy look to her eyes and just be sort of looking around the room but not answering questions and not verbally interacting and seemed dazed. She did this a handful of times in close proximity. She did stop and also got her 1 mg dose of oral Ativan that is scheduled. She has not had any further events. OBJECTIVE: Vital Signs: Afebrile. Blood pressure 116/66, pulse 72, respirations 19, 100% on 2 L nasal cannula. General Exam: She is supine in bed asleep. She is in no acute distress. HEENT: Normocephalic, atraumatic. Mucous membranes are moist. Neck: Supple with no meningismus. Cardiovascular: Regular rate and rhythm. No murmurs. Lungs: Clear to auscultation anteriorly. Extremities: Without edema. Well perfused. Neurologic Exam: Mental status: She is asleep. She arouses to voice plus tactile stimulation to the shoulder. She regards and answers questions. She is confused and sleepy. She knows where she is at, she knows the President. She knows the year and the month but does not know the date. She is able to follow simple commands. She also is able to tell her left from her right and digit distinction. Cranial nerves PERRL, 3 mm OU. Conjugate gaze with arousal. Face is symmetric with equal smile. Motor exam: I do not find any asymmetry today. Her strength is at least 4/5 and she is withdrawing to some painful stimulation. DIAGNOSTICS: She has an EKG from the with [place] interval of 154, QRS of 72. Her rate was 105 and was read as sinus tachycardia, left axis deviation, nonspecific ST-T wave abnormality. Her white count is 5.2, hemoglobin 10, hematocrit 32, platelets 209,000. Her chemistry panel looks good. Normal creatinine and BUN. Normal electrolytes. Liver enzymes a couple of days ago were not elevated. ASSESSMENT AND PLAN: This is a 76-year-old female, with a remote right frontal stroke, multiple autoimmune illnesses and longstanding treatment with Ativan which was abruptly discontinued about a week ago just prior to her admission last week. She was readmitted again with multiple repeated seizures. 1. Seizures. Concern for focal onset seizures this morning when she had the periods of spacing out. She is not having this now and she is quite sleepy but responsive, maybe postictal. Continue Keppra 1500 mg b.i.d. Will start Vimpat 100 mg b.i.d. with the 1st dose now. An EKG had a normal [place] interval. I would recheck the EKG in a few days or prior to her discharge to reassess the [place] interval. Continue her home Ativan dose of 1 mg p.o. b.i.d; I think this was at least contributing. It is reassuring that her mental status does return to baseline in between these episodes and there is no meningismus or fevers. Contrasted MRI did not show acute findings. 2. Multiple autoimmune illnesses. The patient may need to establish with a local outboard technician as she has been unable to follow up with her physician that she has seen for years which is at [facility]. cc: Hawa Alvarez MD MTDD
[2017-05-07] MEDS: LOTRIMIN 1% CREAM TOP SCH ×2 (15:13→20:35)
[2017-05-07] MEDS: VIMPAT PO SCH (20:33)
[2017-05-07] MEDS: FOLIC ACID PO SCH (20:34)
[2017-05-07] MEDS: ZOLOFT PO SCH (20:34)
[2017-05-07] MEDS: ELAVIL PO SCH (20:34)
[2017-05-07] MEDS: ZOCOR PO SCH (20:34)
[2017-05-08] MEDS: NS 1,000 ML IV SCH ×2 (01:20→14:55)
[2017-05-08] MEDS: KEPPRA 1,500 MG in NS 100 ML IV SCH ×2 (04:33→16:46)
[2017-05-08 06:11] LABS: AGAP 10; BUN 7 mg/dL (8-22); CALCIUM 8.7 mg/dL (8.8-10.2); CHLORIDE 107 mmol/L (98-107); COSMO 284; POTASSIUM 3.5 mmol/L (3.5-5.1); SODIUM 144 mmol/L (136-145); TCO2 27 mmol/L (25-35)
[2017-05-08 07:39] LABS: HEMATOCRIT 30.4 % (37.0-47.0); HEMOGLOBIN 10.1 g/dL (12.0-16.0); MCH 28.9 PG (27-31); MCHC 33.2 g/dL (33-37); MCV 87.1 FL (81-99); RBC 3.49 XMIL (4.2-5.4)
[2017-05-08] MEDS: ICAR-C PLUS PO SCH (08:25)
[2017-05-08] MEDS: VITAMIN C PO SCH (08:25)
[2017-05-08] MEDS: ATIVAN PO SCH ×2 (08:26→20:26)
[2017-05-08] MEDS: LOTRIMIN 1% CREAM TOP SCH ×2 (08:26→21:42)
[2017-05-08] MEDS: LOVENOX SUBQ SCH (08:26)
[2017-05-08] MEDS: VITAMIN D PO SCH (08:26)
[2017-05-08] MEDS: TEARISOL OPH SOLUTION OPH SCH ×2 (08:26→21:41)
[2017-05-08] MEDS: VIMPAT PO SCH ×2 (08:26→20:27)
[2017-05-08] MEDS: OCUFLOX 0.3% OPH SOLUTION BOTH EYES SCH ×4 (08:27→21:41)
[2017-05-08] MEDS: PRED FORTE 1% OPH SUSPENSION BOTH EYES SCH ×3 (08:27→21:41)
[2017-05-08] MEDS: SYMBICORT 160/4.5 MICROGM INHALER INH SCH ×2 (09:15→19:17)
--- NOTE | 2017-05-08 09:33 | PROGRESS NOTE ---
DATE: 05/08/2017 SUBJECTIVE: Yesterday, this patient had episodes of spacing out but not today. The Neurology Department evaluated the patient and they added one more medication, and it looks like this is working. She is completely alert and oriented x3. She is tolerating p.o.. Physical therapy has been consulted. Family members at the bedside, and I will transfer this patient to the medical floor. OBJECTIVE: Vital Signs: Temperature 97.8 degrees, pulse 69, respiratory rate 16, blood pressure 129/70. Oxygen saturation 100% on 2 L of nasal cannula. HEENT: head normocephalic. No trauma. PERRLA. Neck Supple. No JVD. No masses. Central trachea. Chest: Clear to auscultation. No wheezing. No rales. Abdomen soft, nontender, nondistended. No hepatosplenomegaly. Extremities: No edema. No clubbing. No cyanosis. Neurologic: The patient is alert and oriented x3. She moves all 4 extremities. She is answering all my questions. LABORATORY: WBC 4.5, hemoglobin 10.1, hematocrit 30.4. Sodium 144, potassium 3.5, chloride 107, bicarbonate 27. BUN 7, creatinine 0.4, glucose 91. Calcium 8.7. Magnesium 1.8. ASSESSMENT AND PLAN: 1. Recurrent seizures. The Neurology Department is on board. Yesterday, she had some episodes where she was spacing out. Esophagogastroduodenoscopy done 3 days ago showed epileptiform discharges. She was started on 1.5 g twice a day of Keppra. Also, yesterday, Neurology Department after evaluation started this patient on Vimpat. She is getting better. 2. Hypertension. This is chronic and stable. Continue to monitor. 3. Hyperlipidemia. Continue with home medication. 4. Systemic Lupus Erythematosus chronic and stable. Will monitor. 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 6. Urinary tract infection, resolved. Antibiotics where discontinue already. 7. Hypokalemia, resolved. 8. Physical deconditioning. Continue with physical therapy. CRITICAL CARE TIME: 35 minutes. cc: Roland Gamble MD
[2017-05-08] MEDS: ATIVAN IV PRN (13:11)
--- NOTE | 2017-05-08 14:18 | PROGRESS NOTE ---
DATE: 05/08/2017 PATIENT LOCATION: ICU bed 10. Ms. Metz is awake, alert, attentive. She seems a little bit ill at ease but has no specific complaints. She has not had shantel clinical seizure recently. She seems to be tolerating current management with Vimpat 100 mg b.i.d., started recently, and levetiracetam 1500 mg dose b.i.d. We discussed potential benzodiazepine tolerance, habituation, withdrawal symptoms and I encouraged her to be careful with those medicines. We will need to order EKG in a few days after starting Vimpat. If she has more episodes, we might need to consider referral for consideration of video EEG. cc: Jonathan Fierro III, MD
[2017-05-08] MEDS: ZOCOR PO SCH (20:26)
[2017-05-08] MEDS: FOLIC ACID PO SCH (20:26)
[2017-05-08] MEDS: ZOLOFT PO SCH (20:27)
[2017-05-08] MEDS: ELAVIL PO SCH (20:27)
[2017-05-09] MEDS: KEPPRA 1,500 MG in NS 100 ML IV SCH ×2 (03:19→15:12)
[2017-05-09] MEDS: NS 1,000 ML IV SCH ×2 (04:50→15:12)
[2017-05-09 06:02] LABS: MANUAL DIFF NEEDED? NO
[2017-05-09 06:09] LABS: BASO% 0.4 % (0.0-0.8); EOS# 0.33 X1000 (0.0-0.7); EOS% 7.2 % (0.0-10.0); HEMATOCRIT 30.5 % (37.0-47.0); HEMOGLOBIN 10.3 g/dL (12.0-16.0); LYMPH# 1.63 X1000 (1.2-3.4); LYMPH% 35.7 % (20.5-51.1); MCH 29.3 PG (27-31); MCHC 33.8 g/dL (33-37); MCV 86.9 FL (81-99); MONO# 0.35 X1000 (0.11-0.59); MONO% 7.7 % (1.7-9.3); MPV 10.8 FL (7.4-10.4); PLT 211 X1000 (130-400); RBC 3.51 XMIL (4.2-5.4)
[2017-05-09 07:11] LABS: AGAP 13; BUN 7 mg/dL (8-22); CALCIUM 9.1 mg/dL (8.8-10.2); CHLORIDE 106 mmol/L (98-107); COSMO 291; POTASSIUM 3.5 mmol/L (3.5-5.1); SODIUM 147 mmol/L (136-145); TCO2 28 mmol/L (25-35)
[2017-05-09] MEDS: SYMBICORT 160/4.5 MICROGM INHALER INH SCH ×2 (08:23→19:08)
[2017-05-09] MEDS: PRED FORTE 1% OPH SUSPENSION BOTH EYES SCH ×3 (09:10→20:39)
[2017-05-09] MEDS: MIRALAX PO SCH (09:16)
[2017-05-09] MEDS: ATIVAN PO SCH (09:16)
[2017-05-09] MEDS: VITAMIN D PO SCH (09:16)
[2017-05-09] MEDS: VIMPAT PO SCH ×2 (09:17→20:45)
[2017-05-09] MEDS: VITAMIN C PO SCH (09:18)
[2017-05-09] MEDS: ICAR-C PLUS PO SCH (09:18)
[2017-05-09] MEDS: LOVENOX SUBQ SCH (09:19)
[2017-05-09] MEDS: ATIVAN IV PRN ×2 (09:23→20:38)
[2017-05-09] MEDS ORDERED: VIMPAT PO ONE (09:49)
[2017-05-09] MEDS: LOTRIMIN 1% CREAM TOP SCH ×2 (10:07→20:38)
[2017-05-09] MEDS: OCUFLOX 0.3% OPH SOLUTION BOTH EYES SCH ×4 (10:07→20:38)
--- NOTE | 2017-05-09 11:11 | PROGRESS NOTE ---
DATE: 05/09/2017 SUBJECTIVE: Ms. Metz had some episodes overnight and this morning. As I entered her room, she had apparently just resolved an episode. Home Coordinator at the bedside reports patient was talking appropriately and seemed well, and then suddenly stopped talking, mouth drooped open, both eyes closed, not responding, no definite limb or facial movement for just a few minutes, and then she was awake and alert, but seemed to have trouble finding words. She recovered over several more minutes and seems back to baseline now. Right now, she reports no headache. She reports she is somehow aware that these episodes have occurred. She corrected the notary public when the notary public told me there was report of an episode overnight and the patient told me, "no, there were 2" episodes. OBJECTIVE: On exam now, she is awake, alert, and oriented completely. Speech is not dysarthric. Language function is intact on careful bedside testing. Remote and recent memory are good. She has full visual che. She did well on [id number] testing bilaterally. She has good power in the limbs. I did not test her gait. There is no meningismus. Head is unremarkable. IMPRESSION: Continued episodes suspicious for partial seizures. I am not absolutely convinced that these episodes are seizures, but history is consistent. She has levetiracetam 1500 mg b.i.d. and Vimpat 100 mg b.i.d. She has been getting lorazepam 1 mg b.i.d. scheduled and additional lorazepam doses when she has these episodes. Lab work shows WBC count continues to drift lower. Sodium 147, nothing else remarkable on chemistry profile. Urine drug screen was all negative on admission several days ago. Levetiracetam level was 17 on 05/05/2017, on admission, which is low in therapeutic range at reported 1000 mg b.i.d. dose then, and that dose has been increased since admission. I do not have any urgent suggestion. I will empirically increase her Vimpat dose and we can follow clinically. We might consider overnight EEG if episodes continue, but that will not be available in this hospital until next week. Thanks for allowing me to follow Ms. Metz. cc: MD KARMEN Burgos III
--- NOTE | 2017-05-09 15:28 | PROGRESS NOTE ---
DATE: 05/09/2017 SUBJECTIVE: This patient feels better today. As per the night nurse and as per her friend, this patient has been spacing out. Apparently, she is able to a stare at them and then come back to normal. The Neurology Department evaluated this patient. They increased prophylactically her Vimpat today. OBJECTIVE: Vital Signs: Temperature 97.7 degrees, pulse 88, respiratory rate 18, blood pressure 128/59, oxygen saturation 99% on 2L nasal cannula. HEENT: Head normocephalic. No trauma. PERRLA. Neck: Supple. No JVD. No masses. Central trachea. Chest: Clear to auscultation. No wheezing. No rales. Abdomen: Soft, nontender, nondistended. No hepatosplenomegaly. Extremities: No edema. No clubbing. No cyanosis. She has left ankle pain secondary to previous surgery. Neurological: The patient is alert and oriented x3. No focal deficits at the moment of my evaluation. She is answering all my questions. She is moving all 4 extremities. LABORATORY: WBC 4.5, hemoglobin 10.3, hematocrit 30.5, platelets 211,000. Sodium 147, potassium 3.5, chloride 106, bicarbonate 28, BUN 7, creatinine 0.4, glucose 102, calcium 9.1. ASSESSMENT AND PLAN: 1. Recurrent seizures. Neurology Department is on board. Will increased the dose of Vimpat today. We will continue to monitor and will continue with the same management. 2. Hypertension. This is chronic and stable. Continue to monitor. 3. Hyperlipidemia. Continue with home medication. 4. Systemic lupus erythematosus. This is chronic and stable. Will monitor. 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 6. Urinary tract infection. Resolved. Antibiotics were discontinued already. 7. Hypokalemia. Resolved. 8. Physical deconditioning. Continue with physical therapy. cc: Roland Gamble MD
[2017-05-09] MEDS: FOLIC ACID PO SCH (20:39)
[2017-05-09] MEDS: ZOCOR PO SCH (20:39)
[2017-05-09] MEDS: ELAVIL PO SCH (20:39)
[2017-05-09] MEDS: ZOLOFT PO SCH (20:39)
[2017-05-10] MEDS: ATIVAN PO SCH ×2 (02:17→08:24)
[2017-05-10] MEDS: NS 1,000 ML IV SCH ×4 (02:17→19:45)
[2017-05-10] MEDS: KEPPRA 1,500 MG in NS 100 ML IV SCH ×2 (06:00→16:31)
[2017-05-10] MEDS: SYMBICORT 160/4.5 MICROGM INHALER INH SCH ×2 (07:44→19:22)
[2017-05-10] MEDS: ICAR-C PLUS PO SCH (08:24)
[2017-05-10] MEDS: VIMPAT PO SCH ×2 (08:24→19:54)
[2017-05-10] MEDS: VITAMIN C PO SCH (08:24)
[2017-05-10] MEDS: VITAMIN D PO SCH (08:24)
[2017-05-10] MEDS: PRED FORTE 1% OPH SUSPENSION BOTH EYES SCH ×2 (08:25→14:20)
[2017-05-10] MEDS: LOTRIMIN 1% CREAM TOP SCH (08:25)
[2017-05-10] MEDS: OCUFLOX 0.3% OPH SOLUTION BOTH EYES SCH ×5 (08:25→19:48)
[2017-05-10] MEDS: LOVENOX SUBQ SCH (11:16)
--- NOTE | 2017-05-10 12:12 | PROGRESS NOTE ---
DATE: 05/10/2017 SUBJECTIVE: This patient feels better today. She is not walking because she has pain at the level of the right ankle. I talked to the nurse and also to the patient that she needs to walk. She has a boot and she has had previous surgery from that ankle. She can use a walker. No episodes of seizures today but apparently she had 2 episodes where she has been spacing out, and that was yesterday. Yesterday, also Neurology Department increased the dose of her seizure medication. I will keep an eye on her today and if tomorrow she is doing fine, I will send this patient home with strict followup by neurology as an outpatient. OBJECTIVE: Vital Signs: Temperature 98 degrees, pulse 69, respiratory rate 16, blood pressure 126/61, oxygen saturation 99% on 2 L of nasal cannula. HEENT: Normocephalic. No trauma. PERRLA. Neck: Supple. No JVD. No masses. Central trachea. Chest clear to auscultation. No wheezing. No rales. Abdomen is soft, nontender, nondistended. No hepatosplenomegaly. Cardiovascular: RRR. No murmurs. Extremities: No edema. No clubbing. No cyanosis. She has an old scar at the level of the right ankle and mildly painful to palpation. Mobilization of that ankle as well. Neurologic: At this moment, this patient is alert and oriented x3. No focal deficits. LABORATORY: WBC 4.5, hemoglobin 10.3, hematocrit 30.5, platelets 211,000. Sodium 147 potassium 3.5, chloride 106, bicarbonate 28. BUN 7, creatinine 0.4, glucose 102. Calcium 9.1. ASSESSMENT AND PLAN: 1. Recurrent seizures. Neurology Department increased the dose of the antiseizure medication yesterday. Vimpat. We will continue to monitor this patient on the medical floor. Hopefully tomorrow or Friday, she can be discharged. 2. Hypertension. This is chronic and stable. Continue to monitor. 3. Hyperlipidemia. Continue with home medication. 4. Systemic lupus Erythematosus. This is chronic and stable. We will monitor. 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 6. Urinary tract infection, resolved. Antibiotics were discontinued already. 7. Hyperbacteremia. She needs to increase the water intake. 8. Physical deconditioning. Continue physical therapy. cc: Roland Gamble MD
[2017-05-10] MEDS: ATIVAN IV PRN ×2 (16:14→18:56)
[2017-05-10] MEDS: ZOLOFT PO SCH (19:46)
[2017-05-10] MEDS: ELAVIL PO SCH (19:46)
[2017-05-10] MEDS: ZOCOR PO SCH (19:47)
[2017-05-10] MEDS: FOLIC ACID PO SCH (19:47)
[2017-05-11] MEDS: KEPPRA 1,500 MG in NS 100 ML IV SCH ×2 (03:33→16:30)
[2017-05-11] MEDS: ATIVAN PO SCH ×3 (03:34→21:28)
[2017-05-11] MEDS: ATIVAN IV PRN (03:34)
[2017-05-11] MEDS: FOLIC ACID PO SCH ×2 (03:34→21:26)
[2017-05-11] MEDS: ELAVIL PO SCH ×2 (03:34→21:27)
[2017-05-11] MEDS: NS 1,000 ML IV SCH ×2 (03:34→15:45)
[2017-05-11] MEDS: LOTRIMIN 1% CREAM TOP SCH ×3 (03:34→21:33)
[2017-05-11] MEDS: ZOCOR PO SCH ×2 (03:35→21:28)
[2017-05-11] MEDS: ZOLOFT PO SCH ×2 (03:35→21:27)
[2017-05-11] MEDS: OCUFLOX 0.3% OPH SOLUTION BOTH EYES SCH ×5 (03:35→21:33)
[2017-05-11] MEDS: VIMPAT PO SCH ×3 (03:35→21:26)
[2017-05-11] MEDS: PRED FORTE 1% OPH SUSPENSION BOTH EYES SCH ×4 (03:35→21:33)
[2017-05-11 06:20] LABS: MANUAL DIFF NEEDED? NO
[2017-05-11 06:43] LABS: BASO% 0.5 % (0.0-0.8); EOS# 0.38 X1000 (0.0-0.7); EOS% 8.7 % (0.0-10.0); HEMATOCRIT 31.4 % (37.0-47.0); HEMOGLOBIN 10.3 g/dL (12.0-16.0); IMM GRAN# 0.04 X1000 (0.0-0.04); IMM GRAN% 0.9 % (0.0-0.5); LYMPH# 1.74 X1000 (1.2-3.4); LYMPH% 39.6 % (20.5-51.1); MCH 28.5 PG (27-31); MCHC 32.8 g/dL (33-37); MCV 86.7 FL (81-99); MONO# 0.36 X1000 (0.11-0.59); MONO% 8.2 % (1.7-9.3); MPV 10.8 FL (7.4-10.4); NEUT% 42.1 % (42.2-75.2); PLT 211 X1000 (130-400); RBC 3.62 XMIL (4.2-5.4)
[2017-05-11 06:56] LABS: AGAP 8; BUN 9 mg/dL (8-22); CALCIUM 9.5 mg/dL (8.8-10.2); CHLORIDE 107 mmol/L (98-107); COSMO 284; POTASSIUM 3.6 mmol/L (3.5-5.1); SODIUM 143 mmol/L (136-145); TCO2 28 mmol/L (25-35)
[2017-05-11] MEDS: SYMBICORT 160/4.5 MICROGM INHALER INH SCH ×2 (08:19→19:22)
[2017-05-11] MEDS: LOVENOX SUBQ SCH (09:23)
[2017-05-11] MEDS: MIRALAX PO SCH (09:23)
[2017-05-11] MEDS: VITAMIN C PO SCH (09:23)
[2017-05-11] MEDS: ICAR-C PLUS PO SCH (09:23)
[2017-05-11] MEDS: TEARISOL OPH SOLUTION OPH SCH (09:23)
[2017-05-11] MEDS: VITAMIN D PO SCH (09:25)
--- NOTE | 2017-05-11 14:40 | PROGRESS NOTE ---
DATE: 05/11/2017 SUBJECTIVE: This patient is lying comfortably in bed. As per the patient, she had 2 episodes of seizures/spacing out today. Nobody witnessed that. Personally, I do not believe that this is seizure activity. Neurology Department is on board. We will continue to monitor this patient. Hopefully tomorrow they will re-evaluate this patient. Physical Therapy is on board. I have ordered that she needs to get out of bed and start walking. OBJECTIVE: Vital Signs: Temperature 97.6 degrees, pulse 71, respiratory rate 18, blood pressure 153/66, oxygen saturation 98% on 2 L of nasal cannula. HEENT: Normocephalic. No trauma. PERRLA. Neck: Supple. No JVD. No masses. Central trachea. Chest: Clear to auscultation. No wheezing. No rales. Abdomen: Soft, nontender, nondistended. No hepatosplenomegaly. Cardiovascular: Regular rhythm and rate. No murmurs. Extremities: No edema. No clubbing. No cyanosis. She has an old scar at the level of the right ankle and mildly painful to palpation in that area as well. Mobilization of this ankle is painful. Neurological: The patient is alert and oriented x3. No focal deficits. LABORATORY: WBC 4.3, hemoglobin 10.3, hematocrit 31.4, platelets 211,000. Sodium 143, potassium 3.6, chloride 107, bicarbonate 28, BUN 9, creatinine 0.5, glucose 98, calcium 9.5. ASSESSMENT AND PLAN: 1. Recurrent seizures. Neurology Department increased the dose of the antiseizure medication a couple of days ago and she seems to tolerate that, Vimpat. We will continue to monitor this patient on the medical floor. I do not think she is having real seizures. Maybe this is pseudoseizures, but Neurology Department he will re-evaluate this patient again. I will ask for an EKG for tomorrow morning, just to make sure that there are no changes. 2. Hypertension. This is chronic and stable. Continue to monitor. 3. Hyperlipidemia. Continue with home medication. 4. Systemic lupus erythematosus. This is chronic and stable. Continue to monitor. 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 6. Urinary tract infection, resolved, antibiotics were discontinued already. 7. Hypernatremia, resolved. 8. Physical deconditioning. Continue physical activity and physical therapy. cc: Roland Gamble MD
--- NOTE | 2017-05-11 19:16 | PROGRESS NOTE ---
DATE: 05/11/2017 SUBJECTIVE: Ms. Metz continues to have episodes raising a question of seizure. She had some episodes during the day today. Attentive is present at the bedside now and he witnessed some of this earlier behavior. He describes and demonstrates sudden cease in communication, not talking, eyes open, not clearly fixed stare, possibly eyes directing left and right, both arms extended at the elbow, held overhead, jerking "for 5 minutes" followed by a dazed appearance. She has continued that sluggish appearance throughout the day. We reviewed her lorazepam history. Benzodiazepine withdrawal may have been contributing to some of her earlier episodes but that should be well controlled now. We discussed the possibility that she may have episodes that are not true epileptic seizures. She has levetiracetam 1500 mg b.i.d. and Vimpat 200 mg b.i.d. on board now. We might consider adding a 3rd medicine or changing 1 of her current medicines to something else. I agree with earlier impression that episodes may not be seizures. She has EKG ordered since starting Vimpat. Further plans will depend on her clinical course. We might consider prolonged EEG, adding a 3rd AED, referral for other opinions. Thanks for allowing me to follow Ms. Metz. cc: MD KARMEN Burgos III
[2017-05-12] MEDS: KEPPRA 1,500 MG in NS 100 ML IV SCH ×2 (03:39→16:43)
[2017-05-12] MEDS: NS 1,000 ML IV SCH ×3 (03:39→18:23)
--- NOTE | 2017-05-12 06:55 | EKG Report ---
Test Performed on : 05/12/2017 06:22:48 AM Test Reason : F/U Blood Pressure : / mmHG Vent. Rate : 077 BPM Atrial Rate : 077 BPM P-R Int : 160 ms QRS Dur : 076 ms QT Int : 386 ms P-R-T Axes : 046 -21 090 degrees QTc Int : 436 ms Normal sinus rhythm. Normal ECG When compared with ECG of 05-MAY-2017 11:24, ST no longer depressed in Inferior leads Nonspecific T wave abnormality no longer evident in Inferior leads Nonspecific T wave abnormality no longer evident in Anterior leads Confirmed by Uzair Welch MD ([id number]) on 05/12/2017 9:18:49 AM
[2017-05-12] MEDS: SYMBICORT 160/4.5 MICROGM INHALER INH SCH ×2 (07:58→19:35)
[2017-05-12] MEDS: ATIVAN PO SCH ×2 (09:21→20:52)
[2017-05-12] MEDS: VIMPAT PO SCH ×2 (09:22→20:53)
[2017-05-12] MEDS: VITAMIN D PO SCH (09:22)
[2017-05-12] MEDS: ICAR-C PLUS PO SCH (09:22)
[2017-05-12] MEDS: VITAMIN C PO SCH (09:22)
[2017-05-12] MEDS: LOVENOX SUBQ SCH (09:22)
[2017-05-12] MEDS: OCUFLOX 0.3% OPH SOLUTION BOTH EYES SCH ×3 (09:24→20:54)
[2017-05-12] MEDS: PRED FORTE 1% OPH SUSPENSION BOTH EYES SCH ×3 (09:24→20:54)
[2017-05-12] MEDS: LOTRIMIN 1% CREAM TOP SCH ×2 (09:25→20:54)
--- NOTE | 2017-05-12 15:14 | PROGRESS NOTE ---
DATE: 05/12/2017 ROOM 358 Ms. Metz is sitting up, finishing her lunch, alert, bright, attentive. Her thought processes still seem a little bit slow. She has trouble finding words. She was using both arms and I do not see definite focal deficit in the limbs. She reports having 4 more episodes but has not witnessed a definite spell and he has been here through the morning. She had EKG 3 days after starting Vimpat and that is normal. I reviewed her other workup including brain MRI done with and without contrast from 05/05/2017 showing typical chronic changes but nothing focal or acute. EEG 05/05/2017 showed epileptiform discharges and right frontal slowing. I am not convinced that her recent problem is truly an epileptic seizure, but in light of the EEG findings and the definite change in her behavior, I think it would be reasonable to adjust her medications further. Current medicines are levetiracetam and Vimpat at typical top end dosing. She continues scheduled lorazepam 1 mg b.i.d. and she also has lorazepam 1 mg and 2 mg IV doses ordered as needed. Overall, I believe she has been getting about 4 mg of lorazepam daily. This raises the possibility that some of her befuddled state could be due to lorazepam intoxication, but that seems unlikely in light of her previous and chronic benzodiazepine use. Similarly, levetiracetam and Vimpat may contribute to altered mental state but that also seems unlikely. I will add oxcarbazepine and follow clinically. We may need to reduce or stop the levetiracetam or Vimpat if she shows evidence of medication toxicity after adding oxcarbazepine. We can titrate oxcarbazepine rapidly and follow her clinically. Lamotrigine would be a good choice but titration is so slow that I prefer oxcarbazepine today. Phenytoin may be an option if she requires parenteral dose. Thank you for allowing me to follow Ms. Metz. cc: MD KARMEN Burgos III
--- NOTE | 2017-05-12 16:10 | PROGRESS NOTE ---
DATE: 05/12/2017 SUBJECTIVE: This patient is lying comfortably in bed. No family members at the bedside. She is answering all my questions and she is alert and oriented x3. She has been sitting on a chair, but she is not walking too much. Today, she did not say anything about seizures or absent crisis. EKG was ordered and is normal, I do not see any significant changes compared with the previous one. Neurology department is following this patient. I will continue following their recommendations. Dr. Fierro states that he might consider prolonged EEG or he probably adding a third antiepileptic drug. For now, we will continue with the same management. OBJECTIVE: Vital Signs: Temperature 97.8, pulse 68, respiratory rate 16, blood pressure 129/56, oxygen saturation 99 on 2 L of nasal cannula. HEENT: Normocephalic. No trauma. PERRLA. Neck: Supple. No JVD. No masses. Central trachea. Chest: Clear to auscultation. No wheezing. No rales. Abdomen: Soft, nontender, nondistended. No hepatosplenomegaly. Extremities: No edema. No clubbing. No cyanosis. Cardiovascular: RRR. Neurological: The patient is alert and oriented x3. No focal deficits. She has mild tremors. LABORATORY: WBC 4.3, hemoglobin 10.3, hematocrit 31.4, platelets 211. Sodium 143, potassium 3.6, chloride 107, bicarbonate 28, BUN 9, creatinine 0.5. Glucose 98, calcium 9.5. ASSESSMENT AND PLAN: 1. Recurrent seizures. Neurology department increased the dose of Vimpat a few days ago. She is doing much better. She did not say anything about seizures today, but I do not think she is having real seizures though. Maybe pseudo-seizures. Neurology Department states that probably she will need a prolonged EEG or maybe a new anti-epileptic medication, but for now, will continue with the same management. I do believe that in 1 or 2 days, she can be discharged. 2. Hypertension. This is chronic and stable. Continue to monitor. 3. Hyperlipidemia. Continue with home medications. 4. Systemic lupus erythematosus. This is chronic and stable. Continue to monitor. 5. Urinary tract infection. Resolved. Antibiotics were discontinued already. 6. Hypernatremia resolved. 7. Physical deconditioning. Continue physical therapy. cc: Roland Gamble MD
[2017-05-12] MEDS: TRILEPTAL PO SCH ×2 (16:42→20:54)
[2017-05-12] MEDS: ZOLOFT PO SCH (20:52)
[2017-05-12] MEDS: FOLIC ACID PO SCH (20:52)
[2017-05-12] MEDS: ELAVIL PO SCH (20:53)
[2017-05-12] MEDS: ZOCOR PO SCH (20:53)
[2017-05-13] MEDS: KEPPRA 1,500 MG in NS 100 ML IV SCH ×2 (04:59→16:30)
[2017-05-13] MEDS: NS 1,000 ML IV SCH ×2 (05:00→16:31)
[2017-05-13 07:05] LABS: BASO% 0.4 % (0.0-0.8); EOS# 0.36 X1000 (0.0-0.7); EOS% 7.4 % (0.0-10.0); HEMATOCRIT 31.1 % (37.0-47.0); HEMOGLOBIN 10.3 g/dL (12.0-16.0); IMM GRAN# 0.02 X1000 (0.0-0.04); IMM GRAN% 0.4 % (0.0-0.5); LYMPH# 1.82 X1000 (1.2-3.4); LYMPH% 37.4 % (20.5-51.1); MANUAL DIFF NEEDED? NO; MCH 29.3 PG (27-31); MCHC 33.1 g/dL (33-37); MCV 88.4 FL (81-99); MONO# 0.42 X1000 (0.11-0.59); MONO% 8.6 % (1.7-9.3); NEUT% 45.8 % (42.2-75.2); PLT 208 X1000 (130-400); RBC 3.52 XMIL (4.2-5.4)
[2017-05-13 07:41] LABS: AGAP 10; BUN 11 mg/dL (8-22); CALCIUM 9.3 mg/dL (8.8-10.2); CHLORIDE 107 mmol/L (98-107); COSMO 286; POTASSIUM 3.8 mmol/L (3.5-5.1); SODIUM 144 mmol/L (136-145); TCO2 27 mmol/L (25-35)
[2017-05-13] MEDS: SYMBICORT 160/4.5 MICROGM INHALER INH SCH ×2 (07:54→19:38)
[2017-05-13] MEDS: VITAMIN C PO SCH (08:56)
[2017-05-13] MEDS: MIRALAX PO SCH (08:56)
[2017-05-13] MEDS: VITAMIN D PO SCH (08:56)
[2017-05-13] MEDS: LOVENOX SUBQ SCH (08:56)
[2017-05-13] MEDS: ICAR-C PLUS PO SCH (08:56)
[2017-05-13] MEDS: OCUFLOX 0.3% OPH SOLUTION BOTH EYES SCH ×5 (08:57→21:18)
[2017-05-13] MEDS: TRILEPTAL PO SCH ×2 (08:57→21:17)
[2017-05-13] MEDS: VIMPAT PO SCH ×2 (08:57→21:17)
[2017-05-13] MEDS: ATIVAN PO SCH ×2 (08:57→21:17)
[2017-05-13] MEDS: PRED FORTE 1% OPH SUSPENSION BOTH EYES SCH ×3 (08:58→21:18)
[2017-05-13] MEDS: LOTRIMIN 1% CREAM TOP SCH ×2 (09:04→21:18)
--- NOTE | 2017-05-13 13:28 | PROGRESS NOTE ---
DATE: 05/13/2017 Ms. Metz is awake and alert. She seems a little brighter to me today than when I saw her yesterday. She and family report she had an episode earlier today. Her and other family members at the bedside witnessed this. Again, they report she stopped talking, extended her arms overhead, had some rigidity and symmetric jerking in the arms for a minute or so. After this, she did not communicate as readily as before, and she seems back to baseline now. We added oxcarbazepine yesterday, and she seems to be tolerating that. That dose will be titrated aggressively in light of her continued spells. She continues Vimpat 200 mg b.i.d. and levetiracetam 1500 mg b.i.d. I do not see evidence of medication intoxication at this point. We can consider reducing dose on one of her older medicines as we titrate oxcarbazepine if she shows clinical evidence of toxicity. We discussed at length again my concern that some of these spells may not be epileptic seizures and, in that case, it could be that none of the spells are truly epileptic seizures. However, in light of the family's description of spells and the recent EEG findings, I think best management is to continue aggressive management with medicine to control seizures. Thanks for allowing me to follow Ms. Metz. cc: MD KARMEN Burgos III
--- NOTE | 2017-05-13 13:37 | PROGRESS NOTE ---
DATE: 05/13/2017 SUBJECTIVE: This is a 76-year-old, discharged from our service on Friday of the week before she came in. She came in on 05/05/2017 and she was admitted with new onset seizures. At the time she had full neurologic workup and seen by neurology and placed on Keppra and ultimately discharged home with home health in the normal state of health until the morning when she had acute onset of grand mal seizures. witnessed these and called 911 and presented to the emergency room. She was admitted to the hospital. Brain MRI on 05/05 were stable chronic changes compared with the very recent previous study. No definite changes. Neurology was consulted. Dr. Hawa Alvarez saw him and he had multiple repeated seizures in the setting of remote right frontal infarct and recently treated urinary tract infection. Last time his mental status did clear up entirely before his discharge, so we increased Keppra 1500 mg b.i.d., obtained an MRI of his head which was unrevealing. EEG last visit was mostly stage II sleep. There was some mention of Ativan and, in addition to her opiate medications, has been discontinued and switched respectively while serving disruption of discontinuation of causing seizures, although Dr. Alvarez did not feel like that was most likely responsible. OBJECTIVE: General: On exam today, she is awake and alert and oriented x3. Vital Signs: Afebrile with temp 98.5 degrees, pulse 87, respirations 16, blood pressure 136/56. Eyes: Pupils are equal, round. Lungs: Clear in all lung che Cardiovascular exam: Regular rhythm and rate without murmur or S3. Abdomen: Soft. Skin: Warm and dry. : Urine output 2000 mL. LABS: White count 4860, hematocrit 31, platelet count 208,000. Chemistry: Sodium 144, potassium 3.8, chloride 107, BUN 11, creatinine 0.5, calcium 9.3. ASSESSMENT AND PLAN: 1. Recurrent seizures. Appreciate neurology's help. We increased the dose of Vimpat a couple days ago. She is doing much better. Family felt like she had a little seizure this morning, very short lived, and these may be pseudoseizures. At some point, she may need a prolonged electroencephalogram. Continue present medication. 2. Hypertension. 3. Hyperlipidemia. 4. Systemic lupus erythematosus. 5. She was treated for urinary sediment. Question whether this was a true urinary tract infection. 6. Hypernatremia, which has resolved. 7. Her leg is healing. She is getting some physical therapy. cc: Neto Lincoln MD
[2017-05-13] MEDS: ZOLOFT PO SCH (21:16)
[2017-05-13] MEDS: TEARISOL OPH SOLUTION OPH SCH (21:17)
[2017-05-13] MEDS: ZOCOR PO SCH (21:17)
[2017-05-13] MEDS: ELAVIL PO SCH (21:17)
[2017-05-13] MEDS: FOLIC ACID PO SCH (21:17)
[2017-05-14] MEDS: KEPPRA 1,500 MG in NS 100 ML IV SCH ×2 (04:34→17:24)
[2017-05-14] MEDS: NS 1,000 ML IV SCH ×2 (04:49→17:28)
[2017-05-14] MEDS: SYMBICORT 160/4.5 MICROGM INHALER INH SCH ×2 (08:19→19:36)
--- NOTE | 2017-05-14 09:46 | PROGRESS NOTE ---
DATE: 05/14/2017 SUBJECTIVE: Ms. Metz is feeling better. She felt like she had a couple of seizures yesterday, very short lived. I do not know if these were witnessed. OBJECTIVE: Temperature 97.7 degrees, pulse 87, respirations 16, blood pressure 132/61. Eyes: Pupils are equal and round. Lungs are clear in all lung che. Cardiovascular: Regular rhythm and rate without murmur or S3. Abdomen is soft. Skin is warm and dry. I reviewed her labs from 05/13/2017, white count 4860, hematocrit 31, platelet count 208,000. Sodium 144, potassium 3.8, chloride 107. BUN 11, creatinine 0.45. ASSESSMENT AND PLAN: 1. Recurrent seizures. I appreciate neurology's help. Continue present. They have adjusted medication and increased dose of Vimpat. We will see how we do clinically and make sure we get her up and continue physical therapy. 2. Hypertension. Blood pressure well controlled. 3. Hyperlipidemia. 4. Systemic lupus erythematosus. 5. She has been treated for urinary sediment and presently on antibiotics. 6. Hypernatremia. 7. Her leg is healing. Continue physical therapy. I reviewed orders. I do not see any change at this point, and she has physical therapy ordered. cc: Neto Lincoln MD
[2017-05-14] MEDS: VIMPAT PO SCH ×2 (10:15→22:00)
[2017-05-14] MEDS: VITAMIN D PO SCH (10:16)
[2017-05-14] MEDS: ATIVAN PO SCH ×2 (10:16→22:00)
[2017-05-14] MEDS: ICAR-C PLUS PO SCH (10:18)
[2017-05-14] MEDS: TRILEPTAL PO SCH ×2 (10:19→22:00)
[2017-05-14] MEDS: PRED FORTE 1% OPH SUSPENSION BOTH EYES SCH ×3 (10:19→22:01)
[2017-05-14] MEDS: LOVENOX SUBQ SCH (10:19)
[2017-05-14] MEDS: OCUFLOX 0.3% OPH SOLUTION BOTH EYES SCH ×4 (10:19→22:01)
[2017-05-14] MEDS: VITAMIN C PO SCH (10:19)
--- NOTE | 2017-05-14 13:38 | PROGRESS NOTE ---
DATE: 05/14/2017 SUBJECTIVE: Ms. Metz is sleeping peacefully now. Business Support at bedside reports patient has been awake and alert through the day with no definite seizure or seizure-like episode. She was clearly tolerating her seizure medication regimen through the morning. I will not make any changes today. Further plans will depend on her clinical course. Thanks for allowing me to follow Ms. Metz. cc: Jonathan Fierro III, MD
[2017-05-14] MEDS: LOTRIMIN 1% CREAM TOP SCH ×2 (17:29→22:01)
[2017-05-14] MEDS: ZOCOR PO SCH (22:00)
[2017-05-14] MEDS: FOLIC ACID PO SCH (22:00)
[2017-05-14] MEDS: ZOLOFT PO SCH (22:00)
[2017-05-14] MEDS: ELAVIL PO SCH (22:00)
[2017-05-15] MEDS: KEPPRA 1,500 MG in NS 100 ML IV SCH ×3 (03:29→17:44)
[2017-05-15] MEDS: NS 1,000 ML IV SCH ×2 (05:07→17:44)
[2017-05-15] MEDS: TRILEPTAL PO SCH ×2 (10:07→21:19)
[2017-05-15] MEDS: VITAMIN C PO SCH (10:07)
[2017-05-15] MEDS: ATIVAN PO SCH ×2 (10:07→21:21)
[2017-05-15] MEDS: ICAR-C PLUS PO SCH (10:07)
[2017-05-15] MEDS: VITAMIN D PO SCH (10:08)
[2017-05-15] MEDS: VIMPAT PO SCH ×2 (10:08→21:18)
[2017-05-15] MEDS: OCUFLOX 0.3% OPH SOLUTION BOTH EYES SCH ×4 (10:12→21:19)
[2017-05-15] MEDS: LOVENOX SUBQ SCH (10:12)
[2017-05-15] MEDS: MIRALAX PO SCH (10:12)
[2017-05-15] MEDS: PRED FORTE 1% OPH SUSPENSION BOTH EYES SCH ×3 (10:13→21:19)
[2017-05-15] MEDS: LOTRIMIN 1% CREAM TOP SCH ×2 (10:13→21:21)
--- NOTE | 2017-05-15 13:55 | PROGRESS NOTE ---
DATE: 05/15/2017 SUBJECTIVE: Ms. Metz has no new complaint. She is sitting up doing some personal grooming, using arms and hands, holding a mirror. She is bright and alert. She was attentive and appropriate during conversation. She was more spontaneous today than in previous days. She and report no seizures or seizure-like episodes today. In light of her current stable course, I am reluctant to make any changes. I had thought we might titrate oxcarbazepine dose further and then consider tapering or stopping 1 of her other current medicines (levetiracetam, Vimpat). However, since she is stable now and has had such a protracted course, I think best management is to continue current regimen. Thanks for allowing me to follow Ms. Metz. cc: Jonathan Fierro III, MD MTDD
--- NOTE | 2017-05-15 17:44 | PROGRESS NOTE ---
DATE: 05/15/2017 SUBJECTIVE: Ms. Metz is eating lunch, eating well. No complaints. Feels much better. OBJECTIVE: Vital signs: Temperature 98.3 degrees, pulse 102, respirations 16, blood pressure 148/83. HEENT: Pupils are equal, round. Lungs: Clear in all lung che. Cardiovascular: Regular rhythm and rate without murmur or S3. Abdomen: Soft. Skin: Warm and dry. Intake and output: Urine output good. Her urine output yesterday was about 3600 mL. LAB: Reviewed from the 4th. ASSESSMENT AND PLAN: 1. Seems to be doing better. Dr. Jonathan Fierro is following. She is sitting up, doing some personal grooming. Using her arms and hands, holding a mirror. Bright and alert, appropriate, more spontaneous, so reluctant to make any changes. I thought we might titrate oxcarbazepine dose further and then consider tapering and stopping 1 of her other medications, either levetiracetam or Vimpat. Clinically improved. 2. Hypertension. Blood pressure well controlled. 3. Hyperlipidemia. 4. History of systemic lupus erythematosus. 5. We treated her for a potential urinary tract infection, urinary sediment. Doing much better. Getting stronger. Continue physical therapy. cc: Neto Lincoln MD
[2017-05-15] MEDS: SYMBICORT 160/4.5 MICROGM INHALER INH SCH (19:20)
[2017-05-15] MEDS: ZOCOR PO SCH (21:18)
[2017-05-15] MEDS: ZOLOFT PO SCH (21:18)
[2017-05-15] MEDS: ELAVIL PO SCH (21:19)
[2017-05-15] MEDS: FOLIC ACID PO SCH (21:19)
[2017-05-16] MEDS: KEPPRA 1,500 MG in NS 100 ML IV SCH (03:17)
[2017-05-16] MEDS: NS 1,000 ML IV SCH ×2 (03:22→05:31)
[2017-05-16] MEDS: PRED FORTE 1% OPH SUSPENSION BOTH EYES SCH ×2 (07:35→13:05)
[2017-05-16] MEDS: SYMBICORT 160/4.5 MICROGM INHALER INH SCH ×2 (08:01→20:25)
[2017-05-16] MEDS: VIMPAT PO SCH (09:34)
[2017-05-16] MEDS: VITAMIN D PO SCH (09:35)
[2017-05-16] MEDS: TRILEPTAL PO SCH (09:35)
[2017-05-16] MEDS: LOVENOX SUBQ SCH (09:35)
[2017-05-16] MEDS: ICAR-C PLUS PO SCH (09:35)
[2017-05-16] MEDS: VITAMIN C PO SCH (09:35)
[2017-05-16] MEDS: OCUFLOX 0.3% OPH SOLUTION BOTH EYES SCH ×4 (09:35→17:12)
[2017-05-16] MEDS: LOTRIMIN 1% CREAM TOP SCH (09:36)
[2017-05-16] MEDS: ATIVAN PO SCH (09:36)
--- NOTE | 2017-05-16 12:05 | PROGRESS NOTE ---
DATE: 05/16/2017 Ms. Metz is sitting up, awake and alert, attentive and spontaneous. She is a little bit more tremulous today. She reports having "a mild seizure" earlier but I do not think that was witnessed. We reviewed her current seizure medicine regimen. Again, in light of her stable course, I think the best plan today is to continue current doses and follow clinically. Thanks for asking me to see Ms. Metz. cc: Jonathan Fierro III, MD
--- NOTE | 2017-05-16 14:04 | PROGRESS NOTE ---
DATE: 05/16/2017 SUBJECTIVE: Ms Metz sitting up eating lunch. She is getting stronger, feels much better and talked about wanting to try and go home on Friday and today is Friday. OBJECTIVE: Vital signs: Remains afebrile temperature 97.8 degrees, pulse 75, respirations 16, blood pressure 146/62. HEENT: Pupils are equal, round. Lungs: Are clear in all lung che. Cardiovascular: Regular rhythm and rate without murmur or S3. Abdomen: Soft. Skin: Is warm and dry. No pedal edema. Urine output is over 2 L. LAB: Reviewed from before unremarkable. ASSESSMENT AND PLAN: 1. Not seen any further sign of seizures, possibly a mild seizure earlier. Will continue her current regimen and switch her to p.o. and see if we can get her home on Friday. Continue physical therapy. Appreciate Dr. Fierro's help. 2. Hypertension. 3. Hyperlipidemia. 4. History of systemic lupus erythematosus. 5. Treated her for urinary sediment possible urinary tract infection. I think we can stop her antibiotics at this time, actually I think they were already stopped, good. Will change Keppra to 1500 mg p.o. IV. Continue her Vimpat 200 mg b.i.d. cc: Neto Lincoln MD
[2017-05-17] MEDS: KEPPRA PO SCH ×3 (00:37→22:38)
[2017-05-17] MEDS: ELAVIL PO SCH ×2 (00:38→22:40)
[2017-05-17] MEDS: ZOCOR PO SCH ×2 (00:38→22:43)
[2017-05-17] MEDS: ZOLOFT PO SCH ×2 (00:38→22:39)
[2017-05-17] MEDS: VIMPAT PO SCH ×3 (00:39→22:38)
[2017-05-17] MEDS: ATIVAN PO SCH ×3 (00:39→22:40)
[2017-05-17] MEDS: TRILEPTAL PO SCH ×3 (00:39→22:40)
[2017-05-17] MEDS: PRED FORTE 1% OPH SUSPENSION BOTH EYES SCH ×4 (00:40→22:41)
[2017-05-17] MEDS: OCUFLOX 0.3% OPH SOLUTION BOTH EYES SCH ×5 (00:40→22:41)
[2017-05-17] MEDS: FOLIC ACID PO SCH ×2 (00:40→22:39)
[2017-05-17] MEDS: NS 1,000 ML IV SCH ×4 (00:42→18:10)
[2017-05-17] MEDS: LOTRIMIN 1% CREAM TOP SCH ×3 (00:42→22:42)
[2017-05-17] MEDS: SYMBICORT 160/4.5 MICROGM INHALER INH SCH ×2 (07:56→19:45)
[2017-05-17] MEDS: VITAMIN C PO SCH (09:45)
[2017-05-17] MEDS: LOVENOX SUBQ SCH (09:45)
[2017-05-17] MEDS: VITAMIN D PO SCH (09:45)
[2017-05-17] MEDS: MIRALAX PO SCH (09:45)
[2017-05-17] MEDS: ICAR-C PLUS PO SCH (09:46)
--- NOTE | 2017-05-17 13:58 | PROGRESS NOTE ---
DATE: 05/17/2017 SUBJECTIVE: She is eating her breakfast. She was very talkative. She seems to have kind of a flight of ideas, talking about her hearing aid, and notes a little more confusion. She remains afebrile. OBJECTIVE: Vital signs: Temperature 97.3 degrees, pulse 86, respirations 16, blood pressure 121/76. HEENT: Pupils are equal and round. Lungs: Clear in all lung che. Cardiovascular: Regular rhythm and rate, without murmur or S3. Abdomen: Soft. Skin: Warm and dry. LABORATORY: Reviewed the chemistries from 05/13/2017. I may check some more lab on her. ASSESSMENT AND PLAN: 1. She seems to be a little more confused and feels like she might have had a minor seizure this morning. This is how she is after a seizure, by his report, so will look over medication and see if any adjustments. 2. Hypertension. 3. Hyperlipidemia. 4. History of systemic lupus erythematosus. REVIEW OF ORDERS: We are treating her for possible urinary tract infection and we have stopped the antibiotic. Right now, she is on Zocor 20 mg at bedtime. She is on the Zoloft 200 mg at bedtime. She is on MiraLAX 17 g daily. She is getting oxycodone q.6 hours p.r.n. I think we will stop that. She is getting Trileptal 300 mg p.o. b.i.d., getting Ativan 1 mg b.i.d. and then Ativan p.r.n., as well. Keppra is at 1500 mg b.i.d., Vimpat is 200 mg b.i.d., iron is once a day. Lasix 40 mg daily, folic acid daily, so I am going to decrease the Zoloft down to 100 mg a day and stop the oxycodone. cc: Neto Lincoln MD
[2017-05-17] MEDS: VENTOLIN HFA INH PRN (16:26)
[2017-05-18] MEDS: SYMBICORT 160/4.5 MICROGM INHALER INH SCH ×2 (07:55→20:10)
[2017-05-18] MEDS: NS 1,000 ML IV SCH ×2 (07:57→21:01)
[2017-05-18] MEDS: KEPPRA PO SCH ×2 (08:14→20:39)
[2017-05-18] MEDS: TRILEPTAL PO SCH ×2 (08:14→20:39)
[2017-05-18] MEDS: VITAMIN C PO SCH (08:14)
[2017-05-18] MEDS: ICAR-C PLUS PO SCH (08:15)
[2017-05-18] MEDS: ATIVAN PO SCH ×2 (08:15→20:40)
[2017-05-18] MEDS: LOVENOX SUBQ SCH (08:16)
[2017-05-18] MEDS: PRED FORTE 1% OPH SUSPENSION BOTH EYES SCH ×3 (08:16→20:41)
[2017-05-18] MEDS: VITAMIN D PO SCH (08:16)
[2017-05-18] MEDS: OCUFLOX 0.3% OPH SOLUTION BOTH EYES SCH ×4 (08:16→20:40)
[2017-05-18] MEDS: VIMPAT PO SCH ×2 (08:16→20:39)
[2017-05-18] MEDS: LOTRIMIN 1% CREAM TOP SCH ×2 (08:17→20:40)
--- NOTE | 2017-05-18 11:06 | PROGRESS NOTE ---
DATE: 05/18/2017 SUBJECTIVE: Ms. Mimi Metz feels better, a little less anxious, a little more alert. Speech looks less pressured. feels like she is doing a little better. We had to adjust her medicine. I went down on her Zoloft. PHYSICAL EXAMINATION: Vital Signs: Temperature 98 degrees, pulse 89, respirations 18, blood pressure 130/69. CVP less than 6 cm. Lungs: Clear in all lung che. Cardiovascular Examination: Regular rhythm and rate without murmur or S3. Abdomen: Soft. Skin: Is warm and dry. Is and Os: Urine output was a little over 2 L. LAB: Reviewed from the 4th, pretty unremarkable, both electrolytes and CBC. ASSESSMENT AND PLAN: 1. 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 She seems to be less anxious. Her cognitive function improved after I decreased her Zoloft. I may decrease her Keppra as well and see how we do. 2. Hypertension. 3. Hyperlipidemia. 4. History of systemic lupus erythematosus. She is eating well and had a good appetite. We will check electrolytes and liver functions again. 5. I am going to see if we can go down on her Zoloft a little more to maybe 50 mg a day. She is taking Elavil 25 mg a day. Would like to get her Keppra down some but at this point, I am going to keep her 1500 mg b.i.d. She is on the Vimpat 200 mg b.i.d., getting fluids at 75 mL an hour, folic acid 1 mg a day. She is getting iron supplement. cc: Neto Lincoln MD
[2017-05-18] MEDS: ZOLOFT PO SCH (20:39)
[2017-05-18] MEDS: FOLIC ACID PO SCH (20:39)
[2017-05-18] MEDS: ELAVIL PO SCH (20:39)
[2017-05-18] MEDS: ZOCOR PO SCH (20:40)
[2017-05-19 06:24] LABS: AGAP 11; ALBUMIN 3.5 g/dL (3.5-5.0); ALKALINE PHOSPHATASE 86 U/L (32-104); BUN 8 mg/dL (8-22); CALCIUM 9.1 mg/dL (8.8-10.2); CHLORIDE 106 mmol/L (98-107); COSMO 283; GOT 7 U/L (10-30); GPT 6 U/L (10-36); POTASSIUM 3.4 mmol/L (3.5-5.1); SODIUM 143 mmol/L (136-145); TCO2 26 mmol/L (25-35); TOTAL BILIRUBIN 0.19 mg/dL (0.20-1.00); TOTAL PROTEIN 5.9 g/dL (6.3-8.3)
[2017-05-19] MEDS: SYMBICORT 160/4.5 MICROGM INHALER INH SCH ×2 (08:08→19:50)
[2017-05-19] MEDS: MIRALAX PO SCH (10:02)
[2017-05-19] MEDS: LOVENOX SUBQ SCH (10:03)
[2017-05-19] MEDS: LOTRIMIN 1% CREAM TOP SCH ×2 (10:03→22:00)
[2017-05-19] MEDS: PRED FORTE 1% OPH SUSPENSION BOTH EYES SCH ×3 (10:04→21:17)
[2017-05-19] MEDS: KEPPRA PO SCH ×2 (10:04→20:42)
[2017-05-19] MEDS: VITAMIN D PO SCH (10:04)
[2017-05-19] MEDS: ICAR-C PLUS PO SCH (10:04)
[2017-05-19] MEDS: VITAMIN C PO SCH (10:05)
[2017-05-19] MEDS: VIMPAT PO SCH ×2 (10:05→20:41)
[2017-05-19] MEDS: TRILEPTAL PO SCH ×2 (10:06→20:42)
[2017-05-19] MEDS: ATIVAN PO SCH ×2 (10:06→20:42)
[2017-05-19] MEDS: OCUFLOX 0.3% OPH SOLUTION BOTH EYES SCH ×4 (10:06→21:16)
[2017-05-19] MEDS ORDERED: KLOR-CON PO ONE (12:54)
[2017-05-19] MEDS: NS 1,000 ML IV SCH (14:53)
--- NOTE | 2017-05-19 15:19 | PROGRESS NOTE ---
DATE: 05/19/2017 SUBJECTIVE: Ms. Metz complained of dry mouth this a.m. OBJECTIVE: Vital signs: Temperature is 97.3 degrees axillary, heart rate 73, respirations 16, blood pressure 126/61, O2 is 97% on 2 L nasal cannula. General: Ms. Metz is a pleasant, 76- year-old female, sitting up in bed eating breakfast. No acute distress. HEENT: Atraumatic, normocephalic. PERRLA. Mucous membranes are dry. CV: S1, S2 appreciated. Regular rate and rhythm. Pulmonary: Bilateral breath sounds. Clear to auscultation. Abdomen: Soft, nontender, nondistended. Positive bowel sounds 4 quadrants. Skin: Warm, dry, and intact. LABORATORY: BMP showed a sodium of 143, potassium 3.4, BUN of 8, creatinine 0.5, blood glucose of 95. ASSESSMENT AND PLAN: 1. 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 Cognitive function has improved. Dr. Lincoln has made adjustments in her medications. Appears to be stable. Followed by Dr. Fierro with neurology. 2. Hypertension. Stable. 3. Hyperlipidemia. Continue home medications. 4. History of systemic lupus erythematosus. 5. Hypokalemia. On supplementation. Recheck a.m. labs. 6. Disposition. To rehab this week when bed available. Dictated by LIGIA Denise for Neto Lincoln MD cc: Neto Lincoln MD
[2017-05-19] MEDS: FOLIC ACID PO SCH (20:41)
[2017-05-19] MEDS: ZOLOFT PO SCH (20:42)
[2017-05-19] MEDS: ELAVIL PO SCH (20:42)
[2017-05-19] MEDS: ZOCOR PO SCH (20:43)
--- NOTE | 2017-05-19 23:10 | PROGRESS NOTE ---
DATE: 05/19/2017 SUBJECTIVE: The patient reports she thinks she had a couple of light seizures. She cannot describe them to me. They are not documented in the chart. Reviewing the nursing notes shows that on 05/10/2017 at 1830 the nurse was called into the room for seizure activity. She documented in detail the events that occurred. There was no activity when the nurse entered the room initially; however, a couple of minutes later the patient began staring at the ceiling and shaking her arms. The nurse stimulated the bottom of the patient's foot using her two fingers with minimal pressure and this stopped the activity. The vital signs were stable. In talking with the nurse verbally today she showed me what the shaking movements looked like and they appeared to me to be very light rhythmic shaking of both arms but not violent. Other than this, she only reports generalized pain. OBJECTIVE: Vital Signs: I reviewed. She is afebrile, blood pressure 130/64, pulse 93. General: She is sitting up in a chair, alert, bright, spontaneous and interactive. Lungs: There is no increased work of breathing. No coarse breath sounds are audible. Neuro: Mental status. She is awake and alert. She is still confused and her sentences are not completely coherent at times. Cranial nerves. Pupils equal and reactive. Conjugate gaze. Ocular movements appear full. Face symmetric with equal activation. She is moving all of her extremities equally and there is no obvious asymmetry. No obvious gross incoordination. MEDICATIONS: Reviewed. She has on oxcarbazepine 300 mg b.i.d., levetiracetam 1500 mg b.i.d., lacosamide 200 mg b.i.d. LABS: Sodium 143, potassium 3.4, renal function looks good. Calcium and magnesium are normal. Liver function tests are not elevated. ASSESSMENT AND PLAN: This is a 76-year-old female with a history of a remote right frontal stroke who presented this admission with recurrent seizures. These have been difficult to manage and she is now on three antiepileptic medications. There was some concern for benzodiazepine withdrawal as a contributing factor initially, given that she was on alf ativan at home and ran out of the medication just before she came in. She has been reporting some light seizures here and there but none of these has been documented in the chart. There has been some recent concerns for pseudoseizures that may be occurring in addition to epileptic seizures. I think at this point she is relatively stable on the current regimen and I would continue it. She is tolerating the medications. I think the patient would benefit from a second opinion and admission for video EEG monitoring which is not something that cannot be done here. cc: Hawa Alvarez MD MTDD
[2017-05-20] MEDS: NS 1,000 ML IV SCH ×3 (03:54→18:25)
[2017-05-20] MEDS: ICAR-C PLUS PO SCH (10:12)
[2017-05-20] MEDS: VITAMIN C PO SCH (10:12)
[2017-05-20] MEDS: ATIVAN PO SCH ×2 (10:13→21:08)
[2017-05-20] MEDS: VIMPAT PO SCH ×2 (10:13→21:08)
[2017-05-20] MEDS: VITAMIN D PO SCH (10:13)
[2017-05-20] MEDS: TRILEPTAL PO SCH ×2 (10:13→21:07)
[2017-05-20] MEDS: KEPPRA PO SCH ×2 (10:13→21:06)
[2017-05-20] MEDS: LOVENOX SUBQ SCH (10:14)
[2017-05-20] MEDS: LOTRIMIN 1% CREAM TOP SCH ×2 (10:14→21:10)
[2017-05-20] MEDS: OCUFLOX 0.3% OPH SOLUTION BOTH EYES SCH ×3 (10:15→21:12)
[2017-05-20] MEDS: PRED FORTE 1% OPH SUSPENSION BOTH EYES SCH ×2 (10:15→21:11)
--- NOTE | 2017-05-20 14:53 | PROGRESS NOTE ---
DATE: 05/20/2017 SUBJECTIVE: The patient is about the same. She reports that she had a few light seizures since yesterday. There is again nothing document in the chart and she says she does not think they are bad enough to report them. She recalls the events but she does not really readily describe them to me. She is still confused. OBJECTIVE: Vital signs were reviewed. She is afebrile. Blood pressure 116/58, pulse 73. General: No acute distress. She is sitting up in bed, eating lunch. Her is at bedside. Cardiovascular: Regular rate and rhythm. No murmurs. Lungs: Clear anteriorly. Extremities: Are without edema. Neurologic exam: Mental status: She is awake and alert. She is not oriented to most things but she does know her age and birthday, her name, her . She is able to discuss distant events. Her language is intact. Pupils are equal and reactive to light. Conjugate gaze. Ocular movements are intact. Face is symmetrical with equal activation. Tongue is midline. Palate elevates symmetrically. Shoulder shrug is full. Motor exam: She is moving all of her extremities equally. I do not see any obvious asymmetry. MEDICATIONS: Reviewed. Notable for lacosamide 200 p.o. b.i.d., levetiracetam 1500 mg p.o. b.i.d., oxycarbamazepine 300 mg p.o. b.i.d. LABS: There are no labs today but a sodium yesterday was within normal limits of 143. ASSESSMENT AND PLAN: This is a 76-year-old female, with history of remote right frontal stroke who was admitted with recurrent seizures. These were all new onset over the last few weeks and have been difficult to manage. She is currently on 3 antiepileptic medications. There was concern for benzodiazepine withdrawal at the start of all of this because she has been on long- term Ativan for decades and stopped abruptly. However she continued to have reports of refrigeration brazer/solderer seizures well after the time frame of Ativan withdrawal would have been over and there is some concern for pseudoseizures at this point, though not confirmed. She has been placed back on her home dose Ativan also. Since she is relatively stable on the current regimen I would continue it. Again I think that the patient would benefit from a second opinion and admission for video EEG monitoring at [facility] because this is not something that can be done here. This can be done as an outpatient. No further suggestions. cc: Hawa Alvarez MD
[2017-05-20] MEDS: SYMBICORT 160/4.5 MICROGM INHALER INH SCH ×2 (15:25→19:11)
--- NOTE | 2017-05-20 16:47 | PROGRESS NOTE ---
DATE: 05/20/2017 SUBJECTIVE: Ms. Metz she is less tremulous, seems to be a little more or less anxious. She is still eating well. OBJECTIVE: Vital signs: Temperature 97.5 degrees, pulse 72, respirations 16, blood pressure 116/58. Lungs: Clear in all lung che. Cardiovascular: Regular rhythm, rate without murmur or S3. Abdomen: Soft. Skin: Warm and dry. Urine output is 4.5 L. LAB: Reviewed from the 4th looks good, electrolytes from yesterday sodium 143, potassium 3.4, chloride 106, BUN 8, creatinine 0.5. ASSESSMENT AND PLAN: 76-year-old history remote right frontal stroke presented with recurrent seizures, these have been difficult to manage and she is now on 3 antiepileptic medications. There is some concern for the benzodiazepine withdrawal as continuing contributing factor initially given that she is on long-term Ativan, ran out of medications just before she came in. She is reporting some light seizures here, none of these have been documented well there has been recent concerns for pseudoseizures in addition to epileptic seizure. I have backed down on some medication including her Zoloft and she seems to be doing a little better overall. She is tolerating medication. She might benefit from 2nd opinion including admission for video EEG monitoring. At this point they would like to try and pursue I think going to rehab and so we will continue physical therapy. Blood pressures appear controlled. She has a history of systemic lupus erythematosus. Potassium has been replenished. She is down to 100 mg of Zoloft once a day and I may try and decrease that down to 50. Continue her other medications. Will supplement a little bit of potassium as well which will be done. cc: Neto Lincoln MD
[2017-05-20] MEDS: ELAVIL PO SCH (21:06)
[2017-05-20] MEDS: ZOLOFT PO SCH (21:07)
[2017-05-20] MEDS: ZOCOR PO SCH (21:07)
[2017-05-20] MEDS: FOLIC ACID PO SCH (21:07)
[2017-05-21] MEDS: SYMBICORT 160/4.5 MICROGM INHALER INH SCH ×2 (07:53→19:20)
[2017-05-21] MEDS: NS 1,000 ML IV SCH (08:14)
[2017-05-21] MEDS: ICAR-C PLUS PO SCH (08:17)
[2017-05-21] MEDS: TRILEPTAL PO SCH ×2 (08:17→21:33)
[2017-05-21] MEDS: KEPPRA PO SCH ×2 (08:17→21:32)
[2017-05-21] MEDS: VIMPAT PO SCH ×2 (08:17→21:31)
[2017-05-21] MEDS: MIRALAX PO SCH (08:17)
[2017-05-21] MEDS: ATIVAN PO SCH ×2 (08:18→21:33)
[2017-05-21] MEDS: LOVENOX SUBQ SCH (08:18)
[2017-05-21] MEDS: VITAMIN C PO SCH (08:18)
[2017-05-21] MEDS: VITAMIN D PO SCH (08:18)
[2017-05-21] MEDS: TEARISOL OPH SOLUTION OPH SCH (08:20)
[2017-05-21] MEDS: VENTOLIN HFA INH PRN (08:20)
[2017-05-21] MEDS: LOTRIMIN 1% CREAM TOP SCH ×2 (08:21→21:36)
[2017-05-21] MEDS: PRED FORTE 1% OPH SUSPENSION BOTH EYES SCH ×3 (08:21→21:35)
[2017-05-21] MEDS: OCUFLOX 0.3% OPH SOLUTION BOTH EYES SCH ×4 (08:21→21:35)
--- NOTE | 2017-05-21 13:57 | Diag Imaging Result Doc PS360 ---
EXAM: CHEST-PORTABLE INDICATION: dyspnea/cough TECHNIQUE: One view COMPARISON: 05/05/2017 FINDINGS: There has been interval placement of a right PICC line. The tip projects over the lower SVC a few centimeters superior to the atriocaval junction in the expected position. There is evidence of prior granulomatous disease, stable. The lungs are grossly clear. There is no discrete pleural fluid collection or pneumothorax. The cardiomediastinal silhouette and central vasculature are grossly unremarkable. IMPRESSION: Interval placement of right PICC line as described. No definite acute pathology, otherwise. Electronically signed by Mario Mitchell 05/21/2017 1:54 PM
[2017-05-21] MEDS ORDERED: KLOR-CON PO ONE (14:17)
[2017-05-21] MEDS ORDERED: ROBITUSSIN-DM PO ONE (14:30)
[2017-05-21 14:38] LABS: HEMATOCRIT 33.1 % (37.0-47.0); HEMOGLOBIN 11.2 g/dL (12.0-16.0); MCH 29.4 PG (27-31); MCHC 33.8 g/dL (33-37); MCV 86.9 FL (81-99); MPV 10.6 FL (7.4-10.4); RBC 3.81 XMIL (4.2-5.4)
[2017-05-21] MEDS ORDERED: ROCEPHIN 1 GM/NS 1 GM/50 ML IVPB IV SCH (14:45)
--- NOTE | 2017-05-21 14:52 | PROGRESS NOTE ---
DATE: 05/21/201 Ms. Metz is sitting up with her hair in rollers, alert, attentive, conversant. She has multiple complaints regarding medications, and she reports still having some episodes but no one witnessing these episodes has reported anything remotely like true epileptic seizure. We reviewed her current seizure medicine regimen which includes three drugs: Oxcarbazepine 300 mg b.i.d. started recently, Vimpat 200 mg b.i.d. for a few weeks, levetiracetam 1500 mg b.i.d. chronically. I encouraged her to follow through with plans for rehab and to consider allowing us to refer her to [facility] seizure clinic as an outpatient. was present and attentive and agreeable to that plan. My office will be glad to help with [facility] referral arrangements, if needed. cc: MD KARMEN Burgos III
[2017-05-21] MEDS: DUONEB (A & A) INH SCH ×3 (15:38→22:55)
[2017-05-21] MEDS: TESSALON PO SCH (16:01)
[2017-05-21] MEDS ORDERED: ROBITUSSIN-DM PO PRN (17:00)
--- NOTE | 2017-05-21 17:06 | PROGRESS NOTE ---
DATE: 05/21/2017 SUBJECTIVE: The patient is sitting up in a chair. She continues to have a persistent dry, hacking cough. OBJECTIVE: Vital Signs: Temperature 98 degrees, blood pressure 157/72, heart rate 98, respiration 20, O2 saturation 92% on 2 L nasal cannula. General: This is an elderly female sitting up in bed, in no acute distress. Head: Normocephalic, atraumatic. Heart: S1, S2. Normal. Tachycardic. Lungs: Clear bilaterally. No crackles, no rales. Abdomen: Positive bowel sounds. Soft, nontender, nondistended. Extremities: No edema. No cyanosis. No calf tenderness. Neuro: The patient is alert and oriented x3. LAB: White blood cell count 5.3, hemoglobin 11, hematocrit 33, platelets 217,000. ASSESSMENT AND PLAN: 1. Recurrent seizures. Continue on the current seizure medications as prescribed. The patient will be referred as outpatient to [facility] by Dr. Fierro. 2. Chronic cough. A chest x-ray was done today that revealed no evidence of pneumonia. We will start the patient on a cough suppressant and bronchodilator therapy. Continue with supplemental oxygen. 3. Situational depression. Continue on Zoloft. 4. Constipation. Stable. Continue on scheduled laxative therapy. 5. Deep vein thrombosis prophylaxis. Continue on Lovenox. 6. Disposition. The patient should be stable for discharge to rehab tomorrow. cc: Kristal Wood MD
[2017-05-21] MEDS: FOLIC ACID PO SCH (21:32)
[2017-05-21] MEDS: ZOCOR PO SCH (21:32)
[2017-05-21] MEDS: ZOLOFT PO SCH (21:33)
[2017-05-21] MEDS: ELAVIL PO SCH (21:33)
[2017-05-22] MEDS: DUONEB (A & A) INH SCH ×2 (03:10→07:28)
[2017-05-22 05:37] LABS: ALLEN TEST YES; BLOOD TYPE ARTERIAL; DRAW SITE R RADIAL; METHB 1.2 % (0.0-1.5); O2(CT) 14.3 mL/dL (15.0-23.0); PCO2(98.6) 49 mmHg (35-45); PO2(98.6) 107 mmHg (60-100); SAMPLE BLOOD; SAO2 99.5 % (95.0-100.0); THB 10.4 g/dL (11.5-17.4); pH(98.6) 7.39 (7.35-7.45)
[2017-05-22 05:39] LABS: MODALITY CANNULA
[2017-05-22 06:48] LABS: AGAP 10; BUN 10 mg/dL (8-22); CALCIUM 9.7 mg/dL (8.8-10.2); CHLORIDE 102 mmol/L (98-107); COSMO 280; POTASSIUM 4.3 mmol/L (3.5-5.1); SODIUM 141 mmol/L (136-145); TCO2 29 mmol/L (25-35)
[2017-05-22] MEDS: SYMBICORT 160/4.5 MICROGM INHALER INH SCH (07:28)
[2017-05-22] MEDS: TESSALON PO SCH (08:43)
[2017-05-22] MEDS: ATIVAN PO SCH (08:43)
[2017-05-22] MEDS: KEPPRA PO SCH (08:43)
[2017-05-22] MEDS: VITAMIN D PO SCH (08:43)
[2017-05-22] MEDS: VITAMIN C PO SCH (08:43)
[2017-05-22] MEDS: ICAR-C PLUS PO SCH (08:43)
[2017-05-22] MEDS: LOTRIMIN 1% CREAM TOP SCH (08:44)
[2017-05-22] MEDS: TRILEPTAL PO SCH (08:44)
[2017-05-22] MEDS: LOVENOX SUBQ SCH (08:44)
[2017-05-22] MEDS: VIMPAT PO SCH (08:44)
[2017-05-22] MEDS: PRED FORTE 1% OPH SUSPENSION BOTH EYES SCH (08:45)
[2017-05-22] MEDS: OCUFLOX 0.3% OPH SOLUTION BOTH EYES SCH (08:45)
[2017-05-22 09:04] VITALS: BP 141/85
--- NOTE | 2017-05-22 09:58 | DISCHARGE SUMMARY ---
ADMISSION DATE: 05/05/2017 DISCHARGE DATE: 05/22/2017 CONSULTATION: Dr. Hawa Alvarez with neurology. PERTINENT PROCEDURES: 1. Head CT showed no hemorrhage. Stable CT of the brain. 2. EEG showed burst of epileptiform discharges with recent round suspicious for subclinical seizures emanating from the right frontal region suggestive of cortical irritability and increase propensity for seizure. Focal slowing in the right frontal region. Mild generalized background slowing indicative of mild encephalopathy. Generalized slowing is nonspecific. That can be seen in the process that diffusely affects the cerebrum including toxic metabolic, post hypoxic, pharmacologic, and infectious etiology. 3. Brain MRI shows stable chronic changes compared to very recent previous studies. No definite acute intracranial pathology. DISCHARGE DIAGNOSES: 1. Recurrent seizures 2. Chronic cough 3. Situational depression 4. Constipation HOSPITAL COURSE: Briefly, Ms. Metz is a 76-year-old female who was discharged from our service recently prior to this admission. She was admitted for new onset seizures. At that time, she had a full neurological workup and was seen by neurology. She was placed on Keppra , ultimately discharged home with home health. She was in her normal state of health until the morning of her admission. She had acute onset of a grand mal seizure. Her witnessed these and called 911. Apparently she had at least 4 seizures since that morning of her admission. In the ED, the patient was in a postictal state and sedated with IV Ativan. Her was at the bedside to answer questions. She did have some post seizure nausea and vomiting and complained of nausea, but no other acute symptoms. She was slightly confused as to who the President was, but knew where she was and what the year was. She did follow commands without any overt focal deficits. ABG was done in the ED that showed hypoxia and profound lactic acidosis secondary to seizures. She was admitted to the ICU, continued on her IV Ativan drip. She was loaded with Cerebyx with a neurology consult. Her head CT did not show anything acute. She was started on supplemental O2. For her lactic acidosis, she was very well hydrated. She underwent an EEG, as well as a brain MRI. Neurology made medication adjustments and started her on Keppra and initiated back on her home Ativan. Her EEG was abnormal with epileptiform discharges. It was taken shortly after her first dose of higher Keppra dose. Her brain MRI was negative. She continued to have episodes where she would be talking and then suddenly stop talking. Her mouth would drop open and her eyes would close and she would not respond. There was no definite limb or facial movement, and it would last for just a few minutes and then she would wake up alert, but would seem to have trouble finding her words and would recover back to her baseline after several minutes. She seemed to have these episodes sporadically throughout her admission. She was stable enough to move out of the ICU to a regular room. As per Dr. Alvarez, her current seizures have been difficult to manage as she is now on 3 antiepileptic medications. There was initially some concern for benzodiazepine withdrawal as a continuing factor initially. Again, she was on long-term Ativan at home and ran out of medication just before she came in. She reported light seizure here, but then none had been documented in the chart. There had been some recent concerns for pseudoseizures that might be occurring in addition to epileptic seizures, and they felt at this point that the patient was stable on current regimen and continue it. She was tolerating her medications and thinks that the patient would benefit from a second opinion on admission for video EEG monitoring after rehab at [facility] as an outpatient. The patient is appropriate for discharge to rehab today. VITAL SIGNS: Temperature is 97.7 degrees, heart rate 71, respirations 20, blood pressure is 135/63, O2 is 100% on 2 L nasal cannula. DISCHARGE DIET: Regular. DISCHARGE MEDICATIONS: Please see discharge MAR. FOLLOWUP: The patient is being discharged to rehab where she will continue on her medication regimen. She will follow up at [facility] at their outpatient seizure clinic as indicated by Dr. Fierro. The patient can return to the ED for any worsening of symptoms. DISCHARGE TIME: Greater than 40 minutes. Dictated by LIGIA Denise for Kristal Wood MD cc: MD Samra Santos MD MTDD
== END 2017-05-22 11:23 ==
LOC: ED 08:36 → SUATTDRO 11:23 → ICU 11:23 → 3N 05-09 13:56
PROVIDERS: ATTEND Internal Medicine

== ENCOUNTER 2018-11-26 21:57 | Inpatient (IN) ==
[2018-11-26 23:11] LABS: URINE SOURCE CLEAN CATCH
[2018-11-26 23:15] LABS: UR EPITHELIAL CELLS <10 /HPF (<10); URINE BACTERIA NEGATIVE /HPF; URINE RBC TNTC /HPF (<10); URINE WBC 20-40 /HPF (<10)
[2018-11-26 23:16] LABS: BASO# 0.02 X1000 (0.0-0.2); BASO% 0.3 % (0.0-0.8); EOS# 0.22 X1000 (0.0-0.7); EOS% 3.7 % (0.0-10.0); HEMOGLOBIN 13.7 g/dL (12.0-16.0); LYMPH# 2.77 X1000 (1.2-3.4); LYMPH% 46.3 % (20.5-51.1); MCH 29.1 PG (27-31); MCHC 33.4 g/dL (33-37); MCV 87.2 FL (81-99); MONO# 0.61 X1000 (0.11-0.59); MONO% 10.2 % (1.7-9.3); MPV 11.1 FL (7.4-10.4); NEUT# 2.36 X1000 (1.4-6.5); NEUT% 39.5 % (42.2-75.2); PLT 202 X1000 (130-400); RDW 13.7 % (11.5-14.5); WBC 5.98 X1000 (4.8-10.8)
[2018-11-26 23:26] LABS: BILIRUBIN URINE NEGATIVE (NEGATIVE); BLOOD URINE LARGE (NEGATIVE); COLOR ORANGE; GLUCOSE URINE NEGATIVE (NEGATIVE); KETONE URINE NEGATIVE (NEGATIVE); LEUKOCYTES URINE SMALL (NEGATIVE); NITRITE URINE NEGATIVE (NEGATIVE); PH URINE 5.5; PROTEIN URINE 70 mg/dL (NEGATIVE); SP GRAVITY URINE 1.018; TURBIDITY URINE TURBID (CLEAR); UROBILINOGEN URINE NORMAL (NORMAL)
[2018-11-26 23:32] LABS: AGAP 13; ALBUMIN 4.5 g/dL (3.5-5.0); ALKALINE PHOSPHATASE 72 U/L (32-104); AMYLASE 59 U/L (20-200); BUN 24 mg/dL (8-22); CHLORIDE 107 mmol/L (98-107); COSMO 286; CREATININE 0.8 mg/dL (0.5-0.9); ESTIMATED GFR > 60; GLUCOSE 114 mg/dL (70-104); GOT 11 U/L (10-30); GPT 18 U/L (10-36); LIPASE 24 U/L (13-60); POTASSIUM 4.5 mmol/L (3.5-5.1); SODIUM 141 mmol/L (136-145); TCO2 21 mmol/L (25-35); TOTAL BILIRUBIN 0.39 mg/dL (0.20-1.00); TOTAL PROTEIN 6.8 g/dL (6.3-8.3)
[2018-11-26] MEDS ORDERED: ZOFRAN IV ONE (23:58)
[2018-11-26] MEDS ORDERED: TORADOL IV ONE (23:58)
[2018-11-27] MEDS ORDERED: FLOMAX PO ONE (03:38)
[2018-11-27] MEDS ORDERED: TYLENOL PO ONE (03:38)
[2018-11-27] MEDS ORDERED: NUBAIN ONE (03:45)
[2018-11-27] MEDS: NS 1,000 ML IV SCH ×2 (03:49→17:10)
[2018-11-27] MEDS: NUBAIN IV PRN ×2 (03:50→08:28)
[2018-11-27] MEDS: ZOFRAN IV PRN ×2 (05:43→18:51)
[2018-11-27] MEDS: TORADOL IV PRN (05:43)
--- NOTE | 2018-11-27 07:07 | HISTORY AND PHYSICAL ---
PRIMARY CARE PHYSICIAN: Dr. Camara. REASON FOR ADMISSION: Two month history of intermittent flank pain and dysuria. Ms. Mimi Metz is a 78-year-old lady last admitted by me in February of last year for hip fracture. Comes in today complaining of a 2 month history of persistent hematuria, intermittent left flank and suprapubic pain. She says that she also had intermittent nausea and vomiting, was on a daily basis. Denies any fever but was having chills. Denies any dysuria but has increasingly been having urinary urgency. She says sometimes the hematuria is shantel blood and sometimes it is mixed in the urine. She says the flank pain on the left side is burning, radiating down to her groin. She has no specific aggravating or alleviating factors with this. No diarrhea or any other associated gastrointestinal complaints. She denies any cardiorespiratory complaints. She reports that 2 weeks ago, she was treated for "urinary tract infection" by Dr. Mccullough but her symptoms have gotten worsen. She has come to get this evaluated further. REVIEW OF SYSTEMS: Notable for a rash for the last 3-4 months which is pruritic on the right flank and right shoulder area. No arthralgia or rash noted. ALLERGIES: Hydrocodone, quinolones, macrolides, Gabapentin, baclofen, morphine, sulfa, Imuran, Lyrica and methadone. PAST MEDICAL HISTORY: 1. History of possible mild dementia. 2. Rheumatoid arthritis. 3. Sjogren's disease. 4. Possible lupus. 5. Right frontal CVA. 6. Pernicious anemia. 7. Hypertension. 8. Hyperlipidemia. 9. Epilepsy. FAMILY HISTORY: Notable for heart disease and diabetes. LAB WORK: Urinalysis too numerous to count RBCs, 10-20 WBCs, large blood. Renal CT showed 7 mm stone in the left ureteral area and right ureteral stone estimated about 4 mm. Both ureters are displaying evidence of hydronephrosis per report given to the ER physician. No official report dictated. BUN is 24, creatinine 3.8, glucose 114. Amylase and lipase normal. White count 6,000, H and H 13 and 41, platelets 202,000 with normal differential. PRIOR SURGICAL HISTORY: 1. Left hip fracture repair last year. 2. Multiple knee surgeries. 3. C-spine surgeries. 4. Hysterectomy. 5. Vaginal prolapse repair. 6. Right ankle and knee surgery. 7. Back surgery. PHYSICAL EXAMINATION:GENERAL: Pleasant elderly woman who is alert and oriented to person, place and time which israel a significant improvement from when I last saw her. She has normal mood and affect with good attention span. HEENT: Head is normocephalic, atraumatic. Eyes PERRL, EOMI. She is anicteric and mildly pale. ENT and oropharyngeal exam is grossly normal. No central cyanosis. NECK: Supple. No JVD, carotid bruit or thyromegaly. CHEST: Clear when auscultated with good air entry in both lung che. CARDIOVASCULAR: First and second heart sounds heard. No gallops or rubs. The patient does have an ejection systolic murmur. Rhythm is regular. ABDOMEN: Full, soft with mild suprapubic tenderness. No rebound or guarding. No CVA tenderness. Bowel sounds normal. RECTAL: Deferred at this time. EXTREMITIES: There is 1+ pulse volume distally in all extremities. Rhythm is regular, symmetrical distally in all extremities. No edema, clubbing or peripheral cyanosis. NEUROLOGICAL: No focal deficits. SKIN: Patient has tiny ulcerations on her right shoulder which emanate from presumable rash the patient has scratched on. MUSCULAR: Grossly normal. ASSESSMENT: 1. Bilateral kidney stones with accompanying bilateral hydronephrosis. 2. Multiple rheumatological connective tissue disease disorders, i.e. SLE, lupus and Sjogren's. 3. Hypertension. 4. Hyperlipidemia. 5. Epilepsy. 6. Rheumatoid lung. PLAN: Dr. Muñoz, urologist, will be consulted to see patient for possible stone extraction or lithotripsy. Patient will be treated symptomatically in the interim regarding pain and nausea. I believe her rheumatological disorders may have precipitated or put her at risk for kidney stones. We will aggressively hydrate patient. No indication for antibiotic at this time and prophylactic antibiotics will be determined by Dr. Muñoz. Medication reconciliation list has not been done and needs to be addressed once it is in place. I strongly recommend the patient get her antiepilepsy drugs. I suspect she is on Vimpat, she was on Vimpat in 2017, but unfortunately, I do not know what she is on at this time. It should be high priority in this patient. cc: MD Samra Eckertr, MD
--- NOTE | 2018-11-27 07:51 | Diag Imaging Result Doc PS360 ---
EXAM: CT RENAL STONE SEARCH INDICATION: Left flank pain +gross hematuria TECHNIQUE: This exam was performed using automated exposure control, adjustment of mA or kV according to patient size, and/or use of iterative reconstruction technique. COMPARISON: 08/19/2017 FINDINGS: There is mild subsegmental atelectasis and/or scarring at the lung bases. The liver, gallbladder, spleen, pancreas, and adrenal glands are unremarkable. An IVC filter is in place. There appear to be two abutting obstructing stones in the proximal right ureter. Together, they measure up to 5.7 mm in the greatest axial dimensions. There is also an obstructing stone in the distal left ureter that measures up to 6.4 mm axially. There is bilateral moderate hydronephrosis. The urinary bladder is nondistended and is otherwise grossly unremarkable. There has been a prior hysterectomy. There is uncomplicated diverticulosis coli. There is no evidence of bowel obstruction. There is a moderate to large size hiatal hernia that is stable. The remainder of the GI tract is essentially unremarkable. 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 There has been vertebroplasty at the lower thoracic spine. IMPRESSION: 1.Obstructing stones in the proximal right ureter and the distal left ureter as described with bilateral moderate hydronephrosis. 2.Incidental/nonacute findings detailed above. Electronically signed by Mario Mitchell 11/27/2018 7:49 AM
--- NOTE | 2018-11-27 09:35 | CONSULTATION ---
CHIEF COMPLAINT: Hematuria and left lower quadrant pain. HISTORY OF PRESENT ILLNESS: Ms. Metz is a 78-year-old with a history of rheumatoid arthritis, Sjogren's disease, lupus, hypertension, hyperlipidemia, epilepsy, history of CVA , and myocardial infarction 25 or more years ago, who presents in evaluation for a 2 month history of persistent hematuria and intermittent left flank pain. The patient states that she developed hematuria and presented to her primary care doctor who treated her for a possible urinary tract infection. However, the patient has continued to have intermittent nausea and vomiting as well as gross hematuria. She denies any fevers, chills, or dysuria. She does state that she has felt like she has been going to the bathroom more frequently and has less control. She also complains of some left lower quadrant abdominal pain that seems to radiate into her groin area. She denies any changes in her bowel habits. Denies any chest pain, shortness of breath. The patient has a long history of rheumatologic diseases including lupus, Sjogren's, rheumatoid arthritis, has been managed for this off and on for over 20 years. The patient presents to the emergency room overnight and had a CT scan which showed bilateral obstructing stones with a creatinine of 0.8 and white blood cell count 5. She denies any anticoagulation or steroids. She does take an IV immunosuppression medication. It is uncertain what the name of that is as she does not remember. PAST MEDICAL HISTORY: 1. Rheumatoid arthritis. 2. Sjogren's syndrome. 3. Lupus. 4. History of CVA. 5. History of coronary artery disease status post [place] 25 years ago. 6. Hypertension. 7. Hyperlipidemia. 8. Epilepsy. PAST SURGICAL HISTORY: 1. Left hip fracture. 2. Multiple knee procedures. 3. C-spine surgery. 4. Hysterectomy. 5. Bilateral shoulder replacements. 6. Vaginal prolapse repair. 7. Right ankle and knee surgeries. 8. Back surgery. 9. Cystoscopy and lithotripsy in [place] approximately 20 years ago. ALLERGIES: 1. Hydrocodone. 2. Quinolones. 3. Macrolides. 4. Gabapentin. 5. Baclofen. 6. Morphine. 7. Sulfa. 8. Imuran. 9. Lyrica. 10. Methadone. MEDICATIONS: 1. Toradol 10 mg IV q.6 hours. 2. Nubain 5 mg IV q.4 hours. 3. Zofran 4 mg IV q.4 hours. 4. Normal saline at 100 mL an hour. The patient did not have the list of her home medications. REVIEW OF SYSTEMS: A 12 point review of systems was completed with pertinent positives and negatives in HPI to include hematuria, history of flank pain most prominent on the left side that radiates into her groin. History of rheumatologic diseases. She states she notices some eye itching. Denies any significant joint pain today. FAMILY HISTORY: Denies family history of kidney stones or malignancy. SOCIAL HISTORY: The patient does endorse previous alcohol and tobacco use. Denies illicit drug use. PHYSICAL EXAMINATION: VITAL SIGNS: Temperature 97.7 degrees, heart rate 55, blood pressure 123/41. Oxygen saturation 94% on room air. GENERAL: No acute distress. Resting comfortably in bed. HEENT: Normocephalic, atraumatic. Pupils equal, round, reactive to light. RESPIRATORY: Good respiratory effort without audible wheezing or rales. CARDIOVASCULAR: No evidence of lower extremity edema. S1 and S2 heart sounds. Regular rate and rhythm. ABDOMEN: Soft, nontender, nondistended. There is a small amount of left lower quadrant and CVA tenderness. : A small amount of suprapubic tenderness. EXTREMITIES: Moving all extremities without any obvious defects. NEUROLOGIC: Gross motor and sensory intact. SKIN: Small ulcerations present on the right shoulder from a prior rash or scratching of this area. No evidence of any other rashes. LABORATORIES: White blood cell count 5.98, hemoglobin 13.7, hematocrit 41.0, platelets 202,000. Sodium 141, potassium 4.5, chloride 107, bicarb 21, BUN 24, creatinine 0.8, calcium 9. CT of the abdomen pelvis: A stone search was performed, which showed bilateral obstructing stones, one in the proximal right ureter with mild to moderate hydronephrosis as well as a distal left ureteral stone leading to moderate hydronephrosis. Rest of her CT scan was relatively normal with no evidence of any other significant pathology. Her stone volumes are approximately 6 mm bilaterally. ASSESSMENT AND PLAN: Ms. Metz is a 78-year-old with lupus, rheumatoid arthritis, Sjogren syndrome, history of CVA, hypertension, hyperlipidemia, epilepsy, history of myocardial infarction 25 years ago, who presents in evaluation of bilateral obstructing stones. The patient overall has been doing well. She has a history of hematuria over the past 2 months, which is likely related to obstructing stones. Her infection count and creatinine all within normal limits, and her urinalysis showed a large amount of blood, negative for bacteria or nitrites. I anticipate that her blood is related to these obstructing stones. In talking with her I did recommend that she proceed and have a cystoscopy and bilateral ureteroscopy for stone removal. I would continue to keep her NPO at this time in preparation for the OR later this afternoon. Risks , benefits, and alternatives of surgery were discussed with the patient. The patient denies usage of anticoagulation. If her ureters are quite narrow, it may be difficult to get the ureteroscope up to the stones and I told her that I would just place a stent at that time and then have interval treatment of her stones. She described understanding and desired to proceed. We will plan for OR later this afternoon. cc: Olegario Muñoz MD MTDD
[2018-11-27] MEDS: ATIVAN IV PRN ×2 (11:02→17:51)
[2018-11-27] MEDS: DEMEROL IV PRN ×2 (12:21→17:04)
[2018-11-27] MEDS ORDERED: DIPRIVAN 1% ONE (13:37)
[2018-11-27] MEDS ORDERED: XYLOCAINE-MPF 2% ONE (13:44)
[2018-11-27] MEDS ORDERED: FENTANYL ONE (13:45)
[2018-11-27] MEDS ORDERED: KEFZOL 2 GM/D5W 2 GM/50 ML IVPB ONE (14:09)
[2018-11-27] MEDS: LR 1,000 ML IV SCH (17:51)
[2018-11-27 18:04] LABS: URINE SOURCE CLEAN CATCH
[2018-11-27 18:10] LABS: BILIRUBIN URINE NEGATIVE (NEGATIVE); BLOOD URINE LARGE (NEGATIVE); COLOR YELLOW; GLUCOSE URINE NEGATIVE (NEGATIVE); KETONE URINE NEGATIVE (NEGATIVE); LEUKOCYTES URINE MODERATE (NEGATIVE); NITRITE URINE NEGATIVE (NEGATIVE); PH URINE 5.5; PROTEIN URINE 30 mg/dL (NEGATIVE); SP GRAVITY URINE 1.023; TURBIDITY URINE HAZY (CLEAR); UROBILINOGEN URINE NORMAL (NORMAL)
[2018-11-27 18:19] LABS: UR EPITHELIAL CELLS <10 /HPF (<10); URINE BACTERIA NEGATIVE /HPF; URINE RBC <10 /HPF (<10)
[2018-11-27 18:35] LABS: URINE CRYSTALS CA OXALATE PRESENT
[2018-11-27] MEDS: KEFZOL 1 GM/D5W 1 GM/50 ML IVPB IV SCH (21:27)
[2018-11-28] MEDS: DEMEROL IV PRN ×7 (01:05→23:16)
[2018-11-28] MEDS: ZOFRAN IV PRN ×4 (01:08→16:26)
[2018-11-28] MEDS: ATIVAN IV PRN ×3 (02:06→14:10)
--- NOTE | 2018-11-28 02:35 | PROVIDER DOCUMENTATION ---
This chart was entered by Yesi Acevedo Scribe, acting as scribe for Humphrey Pineda MD. HPI-General Adult - General Chief Complaint: General Adult Stated Complaint: HEMATURIA, NAUSEA Time Seen by Provider: 11/26/18 23:50 Source: patient Allergies/Adverse Reactions: Patient Allergies Allergy/AdvReac Type Severity Reaction Status Date / Time hydrocodone bitartrate * Allergy Intermediate ITCHING Verified 11/26/18 22:50 [From Lortab] levofloxacin [From Levaquin] Allergy Unknown Unknown Verified 11/26/18 22:50 sulfamethoxazole Allergy Unknown Unknown Verified 11/26/18 22:50 [From Bactrim] trimethoprim [From Bactrim] Allergy Unknown Unknown Verified 11/26/18 22:50 baclofen AdvReac Intermediate confusion Verified 11/26/18 22:50 gabapentin [From Neurontin] AdvReac Intermediate hyperactivi Verified 11/26/18 22:50 ty methadone [Methadone] AdvReac Intermediate confusion Verified 11/26/18 22:50 morphine AdvReac Intermediate confusion Verified 11/26/18 22:50 pregabalin [From Lyrica] AdvReac Intermediate hallucinati Verified 11/26/18 22: 50 ons azathioprine [From Imuran] AdvReac Mild VOMITING Verified 11/26/18 22:50 azathioprine sodium * AdvReac Mild VOMITING Verified 11/26/18 22:50 [From Imuran] Home Medications: Home Medication List Medication Instructions Recorded Confirmed Last Taken Type Folic Acid 1 tab PO QPM 09/12/12 11/27/18 07/15/17 08:00 History Albuterol Sulfate [Proair Hfa] 8.5 gm IH DIRECTED 12/07/16 11/27/18 2 Days Ago History ~07/14/17 Budesonide/Formoterol Inhaler 2 puff INH RTBID 12/07/16 11/27/18 07/15/17 08:00 History [Symbicort 160/4.5 Microgm Inhaler] Cholecalciferol (Vitamin D3) 5,000 unit PO DAILY 12/07/16 11/27/18 07/15/17 08: 00 History [Vitamin D3] Polyvinyl Alcohol/Povidone/Pf 1 each OP DIRECTED 04/30/17 11/27/18 07/15/17 19:00 History [Refresh Classic Eye Drops] Lacosamide [Vimpat] 200 mg PO BID tablet 05/21/17 11/27/18 07/15/17 19:00 Rx Fluticasone 50 Mcg Nasal Asher 1 spray LD DAILY 07/07/17 11/27/18 07/15/17 08: 00 History [Flonase] Polyethylene Glycol 3350 [Miralax] 1 cap PO BID #1 powder 08/19/17 11/27/18 Unknown Rx Tizanidine HCl [Zanaflex] 4 mg PO Q6HR PRN #14 tablet 08/19/17 11/27/18 Unknown Rx ATORVAstatin [Lipitor] 40 mg PO QHS 02/16/18 11/27/18 Unknown History Acetaminophen [Tylenol] 1,000 mg PO Q8H tablet 02/20/18 11/27/18 Unknown Rx Chlorhexidine Gluconate [Peridex] 15 ml MT BID udc 02/20/18 11/27/18 Unknown Rx Docusate Sodium [Colace] 200 mg PO QHS capsule 02/20/18 11/27/18 Unknown Rx Enoxaparin [Lovenox] 40 mg SUBQ Q24H #14 syringe 02/20/18 11/27/18 Unknown Rx Ferrous Sulfate 325 mg PO WBREAKFAST tablet 02/20/18 11/27/18 Unknown Rx Lorazepam [Ativan] 1 mg PO TID PRN PRN #60 tablet 02/20/18 11/27/18 Unknown Rx Lorazepam [Ativan] 1 mg PO TID PRN PRN #90 tablet 02/20/18 11/27/18 Unknown Rx Magnesium Hydroxide [Milk of 30 ml PO DAILY PRN PRN udc 02/20/18 11/27/18 Unknown Rx Magnesia] Oxycodone I.r. [Oxy Ir] 5 mg PO Q3H PRN PRN #40 tablet 02/20/18 11/27/18 Unknown Rx - History of Present Illness -Gen Adult Nature of Presenting Problems: pt is a 78 yr old female presenting with 1 month hx of left flank pain-LLQ- groin and gross hematuria. pt denies any fever/chills, no dysuria. pt denies any other pain or complaints. Location of Pain/Injury: reports: other (left flank) Pain Radiation: reports: groin, LLQ Quality of Pain: reports: aching Severity: reports: moderate Onset/Duration: reports: other (1 month) Timing: reports: still present Context/Activities at Onset: reports: light activity Modifying Factors: improves with: nothing Associated Symptoms: reports: genitourinary problems. denies: back/neck pain, chest pain, fever/chills, nausea, vomiting Similar Symptoms Previously?: No Recently seen or treated by another doctor?: No Review of Systems - Adult - REVIEW OF SYSTEMS - ADULT Constitutional: denies: chills, fever, fatique Eyes: reports: no symptoms reported Ears, Nose, Mouth & Throat: reports: no symptoms reported Cardiovascular: reports: no symptoms reported Respiratory: reports: no symptoms reported Gastrointestinal: reports: abdominal pain. denies: diarrhea, nausea, vomiting Genitourinary: reports: flank pain, hematuria. denies: dysuria, frequency Musculoskeletal: denies: back pain, muscle aches, neck pain Integumentary: reports: no symptoms reported Neurological: denies: dizziness/vertigo, headache/migraines Psychiatric: reports: no symptoms reported Endocrine: reports: no symptoms reported Hematologic/Lymphatic: reports: no symptoms reported Allergic/Immunologic: reports: no symptoms reported All Other Systems: Reviewed and Negative Past History - Adult - PAST MEDICAL HISTORY-ADULT Review of Records: reports: Old Records Reviewed, Nursing Assessment Review, Medications Reviewed, Social history reviewed & non-contributory. Major Childhood Illnesses: reports: denies history Cardiovascular: reports: HTN, hyperlipidemia Respiratory: reports: asthma, other (home oxygen) Gastrointestinal: reports: GERD Obstetrical/Gynecological: reports: denies history Genitourinary: reports: other, chronic UTI's Musculoskeletal: reports: arthritis, chronic pain, neck/back injury, other fractures, orthopedic injury, osteoporosis Neurological: reports: CVA, Seizures/Epilepsy Endocrine/Immune: reports: anemia, lupus, RA Other Conditions: reports: denies history - PRIOR SURGERIES/PROCEDURES Surgical/Procedure History: reports: hysterectomy, tonsillectomy, orthopedic ( extremity) (total knee replacement), back/neck - PRIOR HOSPITALIZATIONS Prior Hospitalizations: reports: none - IMMUNIZATION STATUS Childhood Immunizations: See Nurse Assessment Flu Vaccine: See Nurse Assessment - FAMILY HISTORY Family History: reviewed, not pertinent - SOCIAL HISTORY Smoking: denies Substance Use: denies Living Situation: family Physical Exam-General - PHYSICAL EXAM-ADULT Initial Vital Signs Reviewed: Yes - CONSTITUTIONAL General Appearance: appears well, alert, no apparent distress - EYES Eyes: PERRL/EOMI - HEAD, EARS, NOSE, MOUTH & THROAT HENMT: normocephalic/atraumatic, moist mucous membranes, normal ENT inspection - NECK Neck: non-tender, full range of motion, supple, normal inspection - RESPIRATORY Respiratory: chest non-tender, lungs clear, normal breath sounds - CARDIOVASCULAR Cardiovascular: normal peripheral pulses, regular rate, rhythm, no edema - GASTROINTESTINAL (ABDOMEN) Abdominal Exam: normal bowel sounds, non tender, soft - LYMPHATIC Lymphatic: no adenopathy - MUSCULOSKELETAL Back Exam: normal inspection, no CVA tenderness, no vertebral tenderness Extremity: normal range of motion, non-tender, normal gait, normal inspection - SKIN Integumentary: normal color, normal turgor, warm/dry - NEUROLOGIC Neurologic: grossly normal, no motor/sensory deficits - PSYCHIATRIC Psych/Mental Status: normal mood/affect, normal thought content, normal thought process, oriented x 3 Progress - PLAN OF CARE/RESULTS Progress/Plan/Lab Results: Vital Signs - 8 hr 11/26/18 22:14 Temperature 97.9 F Pulse Rate 66 Respiratory Rate 18 Blood Pressure 128/63 O2 Sat by Pulse Oximetry 93 L Laboratory Results - last 24 hr 11/26/18 11/26/18 11/26/18 22:30 22:30 22:55 WBC 5.98 RBC 4.70 Hgb 13.7 Hct 41.0 MCV 87.2 MCH 29.1 MCHC 33.4 RDW Std Deviation 13.7 Plt Count 202 MPV 11.1 H Neut % (Auto) 39.5 L Lymph % (Auto) 46.3 Butler % (Auto) 10.2 H Eos % (Auto) 3.7 Baso % (Auto) 0.3 Neut # (Auto) 2.36 Lymph # (Auto) 2.77 Butler # (Auto) 0.61 H Eos # (Auto) 0.22 Baso # (Auto) 0.02 Sodium 141 Potassium 4.5 Chloride 107 Carbon Dioxide 21 L Anion Gap 13 BUN 24 H Creatinine 0.8 Estimated GFR/1.73 m2 > 60 BUN/Creatinine Ratio 30 Glucose 114 H Calculated Osmolality 286 Calcium 9.0 Total Bilirubin 0.39 AST 11 ALT 18 Alkaline Phosphatase 72 Total Protein 6.8 Albumin 4.5 Globulin 2.3 Albumin/Globulin Ratio 2.0 Amylase 59 Lipase 24 Urine Source CLEAN CATCH Urine Color ORANGE Urine Turbidity TURBID Urine pH 5.5 Ur Specific [place] 1.018 Urine Protein 70 A Ur Glucose (Stick) NEGATIVE Ur Ketones (Stick) NEGATIVE Urine Blood LARGE A Urine Nitrite NEGATIVE Urine Bilirubin NEGATIVE Urobilinogen Dipstick NORMAL Urine Leukocytes SMALL A Urine WBC (Auto) 20-40 A Urine RBC (Auto) TNTC A U Epithel Cells (Auto) <10 Urine Bacteria (Auto) NEGATIVE Orders Category Date Time Status Saline Loc DIRECTED Care 11/26/18 22:51 Active NPO Diet 11/26/18 22:[address] RENAL STONE SEARCH [CT] Stat Exams 11/26/18 23:58 Taken AMYLASE [CHEM] Stat Lab 11/26/18 22:30 Completed CBC WITH ELECTRONIC DIFF [HEME] Stat Lab 11/26/18 22:30 Completed COMPREHENSIVE METABOLIC PANEL [CHEM] Stat Lab 11/26/18 22:30 Completed LIPASE [CHEM] Stat Lab 11/26/18 22:30 Completed URINALYSIS W/POSS RFLX CULT [URINALYSIS] Stat Lab 11/26/18 22:55 Completed URINE CULTURE [RM] Routine Lab 11/26/18 23:36 Received Ketorolac [Toradol] Med 11/26/18 23:58 Discontinued 30 mg IV NOW ONE Ondansetron [Zofran] Med 11/26/18 23:58 Discontinued 4 mg IV NOW ONE Result Diagrams: 11/26/18 22:30 11/26/18 22:30 - CT/MRI 1 CT Study: Abdomen ( EXAM: CT RENAL STONE SEARCH INDICATION: Left flank pain + gross hematuria TECHNIQUE: This exam was performed using automated exposure control, adjustment of mA or kV according to patient size, and/or use of iterative reconstruction technique. COMPARISON: 08/19/2017 FINDINGS: There is mild subsegmental atelectasis and/or scarring at the lung bases. The liver, gallbladder, spleen, pancreas, and adrenal glands are unremarkable. An IVC filter is in place. There appear to be two abutting obstructing stones in the proximal right ureter. Together, they measure up to 5.7 mm in the greatest axial dimensions. There is also an obstructing stone in the distal left ureter that measures up to 6.4 mm axially. There is bilateral moderate hydronephrosis. The urinary bladder is nondistended and is otherwise grossly unremarkable. There has been a prior hysterectomy. There is uncomplicated diverticulosis coli. There is no evidence of bowel obstruction. There is a moderate to large size hiatal hernia that is stable. The remainder of the GI tract is essentially unremarkable. 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 There has been vertebroplasty at the lower thoracic spine. IMPRESSION: 1.Obstructing stones in the proximal right ureter and the distal left ureter as described with bilateral moderate hydronephrosis. 2.Incidental/nonacute findings detailed above. Electronically signed by Mario Mitchell 11/27/2018 7:49 AM) - CONSULTS/PCP/HOSPITALIST Notification #1 *Consult/PCP/Hospitalist*: Dr. Mittal spoke to Dr. Webber Time Discussed: 02:13 Consult Disposition: Admit (Accepted.) Departure - Departure Date of Disposition Decision: 11/27/18 Time of Disposition Decision: 02:14 DIAGNOSIS: Bilateral hydronephrosis, Bilateral ureteral calculi Disposition: ADMITTED INPATIENT 09 Certified Medical Emergency: Emergent Condition: Stable - Critical Care Note This patient required my direct & personal management of CC.: No Attestation - Physician/ YANELIS Attestation Patient care was provided by Advanced Practice Provider:: No The physician spent face to face time with patient:: Yes Advanced Practice Provider documentation review:: Supervising physician onsite and consulted in the evaluation and care of this patient. The physician did have a face to face encounter with the patient. This chart was documented by the indicated scribe, (Yesi Acevedo Scribe) and accurately reflects the services I performed and decisions made by me, Humphrey Pineda MD, as attested by the provider's signature.
[2018-11-28] MEDS: KEFZOL 1 GM/D5W 1 GM/50 ML IVPB IV SCH ×3 (05:02→21:42)
--- NOTE | 2018-11-28 05:41 | OPERATIVE NOTE ---
PROCEDURE DATE: 11/27/2018 PREOPERATIVE DIAGNOSES: 1. Bilateral ureteral stones. 2. Bilateral hydroureteronephrosis. 3. Hematuria. POSTOPERATIVE DIAGNOSES: 1. Left ureteral stone. 2. Right kidney stone. 3. Bilateral hydroureteronephrosis. 4. Hematuria. PROCEDURES PERFORMED: 1. Cystoscopy. 2. Bilateral ureteroscopy. 3. Bilateral retrograde pyelograms. 4. Laser lithotripsy and stone basket extraction. 5. Bilateral ureteral stent placement. SPECIMEN REMOVED: Bilateral urolithiasis. ANESTHESIA: LMA. DRAINS: A 6 x 24-cm left ureteral stent, a 6 x 26-cm right ureteral stent. SURGEON: Olegario Muñoz MD. ASSESSMENT DIRECTOR: None. COMPLICATIONS: None. BLOOD LOSS: 2 mL. OPERATIVE FINDINGS: The patient had a cable installation technician fluoroscopy which showed no evidence of obvious stones on the cable installation technician x-ray. The patient underwent a cystoscopy which was normal with normal urethra that was slightly narrow, without obvious stricture disease, no evidence of any mucosal abnormalities within the bladder. However, the patient did have multiple trabeculations, small cellules, as well as 2 relatively wide necked diverticulum on the right side of the bladder. Both ureteral orifices were visualized and were slightly lower in the bladder likely related to prior cystocele repair. Both had efflux of clear yellow urine. Bilateral retrograde pyelograms were performed which showed an obstructing defect in the distal left ureter at the previously seen CT scan evidence of stone. The rest of the kidney appeared to be hydronephrotic and dilated, the stone was approximately 2-3 cm from the ureteral orifice. On the right retrograde it showed a normal ureter; however, there was some hydroureteronephrosis with a filling defect in the proximal ureter. Ureteroscopy was performed on the left side which showed a stone which was broken up in several small pieces which were removed. No residual stone fragments were seen on the left and the ureteroscope was able to be passed all the way up to the ureteropelvic junction with no residual stone debris. I was also able to perform ureteroscopy on the right with no obvious stones present within the ureter. I was able to pass a flexible ureteroscope up into the kidney and visualized a stone present in the upper pole, which likely was a stone that was moved with either the retrograde or passing of the wires. This was systematically broken up and dusted into small pieces and the largest piece was removed for analysis. The rest of the pieces were smaller than the laser fiber and should pass adequately after being stented. The patient underwent bilateral ureteral stents uneventfully. INDICATION FOR PROCEDURE: Ms. Metz is a 78-year-old with a history of rheumatoid arthritis, lupus, and Sjogren syndrome, who presented to her primary care physician several times with hematuria and lower left flank pain. Concern arose for a possible urinary tract infection. The patient was treated with antibiotics; however, she continued to have gross hematuria. The patient's pain worsened yesterday and she presented to the emergency room where a CT scan was performed which showed bilateral obstructing ureteral stones with hydroureteronephrosis. Talking with the patient this morning it was recommended that she undergo cystoscopy and removal of bilateral stones with ureteroscopy, laser lithotripsy, stone basket extraction and placement of bilateral ureteral stent. Risks, benefits, and alternatives of the surgical procedure were discussed with the patient elected to proceed. DESCRIPTION OF PROCEDURE: After informed consent was obtained, the patient was brought to the operating room and placed on the operative table in supine position. She underwent general anesthesia and received preoperative antibiotics. She was then placed into a dorsal lithotomy position and was prepped and draped in the usual sterile fashion. A preoperative time-out was performed with all parties in agreement including anesthesia, surgical and nursing staff. At which time a cable installation technician fluoroscopy was performed with no evidence of any obvious stones seen within the kidneys or distribution of the ureters. She had evidence of prior cholecystectomy and replacement of disk within her back, at which time a 21-Armenian cystourethroscope was inserted through the urethra which was normal caliber with no evidence of any stricture disease, but her urethra was slightly narrowed, likely from prior cystocele and pelvic organ prolapse procedure. Entering into the bladder there was no evidence of any exposed mesh. The entirety of the bladder was inspected with no papillary lesions and no bladder stones. There was some evidence of trabeculations as well as small cellules and wide-mouth diverticulum present on the posterior wall was prominent on the right side. Each of these were inspected with no evidence of any papillary lesions present within each. Following this, open-ended ureteral catheter was then passed through the scope, flushed of all bubbles and the left ureteral orifice was cannulated and injected with Omnipaque which outlined a normal distal ureter with an obstructing defect present which led to proximal hydroureteronephrosis from this point. At this time the wire was then passed through the scope with a ZIPwire seen fluoroscopically to be visualized within the collecting system itself. The cystourethroscope was removed and a semi-rigid ureteroscope was then inserted. A PTFE wire then was required to be placed through the scope to cannulate the left ureteral orifice, this easily allowed entrance into the intravesical ureter and up to the location of the stone which was approximately 2-3 cm from the ureteral orifice. I was able to remove the wire and insert a 365micron laser fiber and broke this stone up into several small pieces which were removed with a TxCell basket and dropped into the bladder. Following complete removal of all the stone debris, the ureteroscope was passed all the way up into the ureteropelvic junction with no evidence of any stone debris present. This was removed which showed a normal ureter with no evidence of any trauma, with a small amount of edema present at the prior stone location. The ureteroscope was completely removed and the cystourethroscope was then backloaded over a wire, and a 6-Armenian x 24-cm stent was then passed over the wire and seen to curl fluoroscopically within the kidney and endoscopically visualized in the bladder. The bladder was then drained of all stone fragments and these were sent for analysis. Following this, the cystourethroscope was reinserted and open-ended catheter was then reinserted back through the scope, flushed of all bubbles, and then a right retrograde pyelogram was performed which showed a small filling defect present within the proximal right ureter with associated hydronephrosis. The wire was then placed through the open-ended catheter and seen to curl fluoroscopically within the kidney, at which time the cystoscope was completely removed. A semi-rigid ureteroscope was then inserted and then the right ureteral orifice was cannulized with a PTFE wire and allowed passage of the ureteroscope all the way up into the proximal ureter. No evidence of any stone was seen, and the stone may have been moved on shooting retrograde pyelogram or placement of wires. Two wires were left in place and a flexible scope was then passed over the ZIPwire and seen to go into the kidney. The wire was removed and the entirety of the kidney was inspected, and a stone was seen in the upper pole measuring approximately 6-7 mm in size. This was broken up systematically with the laser fiber using settings of 6 and 6 and escalating as necessary to dust the stone. The stone was dusted in small pieces with only 1 dominant fragment remaining, this was grabbed with a Tru basket and completely removed. Retrograde pyelogram was then performed through the scope to outline all the collecting system and each calyx was then evaluated with no evidence of any residual large stone fragments. The flexible ureteroscope was then slowly removed showing normal caliber ureter, no evidence of any significant trauma. This was completely removed and the cystourethroscope was then backloaded over the wire and a 6 x 26-cm stent was then passed easily and seen fluoroscopically to curl within the renal pelvis and endoscopically visualized in the bladder. The scope was then completely removed , the bladder was subsequently drained of all residual stone fragments, and both stents appear to be in appropriate position within the bladder. The strings were then cut short after being tied with several small knots. The patient was then awoken and was taken to recovery in stable condition. The patient will be monitored overnight in the hospital with plans to possibly discharge over the weekend. cc: Olegario Muñoz MD [facility]
[2018-11-28] MEDS: NS 1,000 ML IV SCH ×3 (06:32→19:53)
[2018-11-28 07:22] LABS: BASO# 0.01 X1000 (0.0-0.2); BASO% 0.2 % (0.0-0.8); EOS# 0.21 X1000 (0.0-0.7); EOS% 4.4 % (0.0-10.0); HEMATOCRIT 37.6 % (37.0-47.0); HEMOGLOBIN 12.3 g/dL (12.0-16.0); LYMPH# 1.66 X1000 (1.2-3.4); LYMPH% 34.9 % (20.5-51.1); MCHC 32.7 g/dL (33-37); MCV 88.7 FL (81-99); MONO% 8.4 % (1.7-9.3); NEUT# 2.47 X1000 (1.4-6.5); NEUT% 52.1 % (42.2-75.2); PLT 156 X1000 (130-400); RBC 4.24 XMIL (4.2-5.4); RDW 13.4 % (11.5-14.5); WBC 4.75 X1000 (4.8-10.8)
[2018-11-28 07:28] LABS: INR 0.99; PROTIME 13.9 Seconds (11.0-16.0)
[2018-11-28 07:29] LABS: PTT 24.1 Seconds (22.3-41.8)
[2018-11-28 07:47] LABS: ALB/GLOB RATIO 2.1; ALBUMIN 3.7 g/dL (3.5-5.0); CALCIUM 8.1 mg/dL (8.8-10.2); CREATININE 1.1 mg/dL (0.5-0.9); TOTAL BILIRUBIN 0.33 mg/dL (0.20-1.00); TOTAL PROTEIN 5.5 g/dL (6.3-8.3)
[2018-11-28] MEDS ORDERED: TEARISOL OPH SOLUTION BOTH EYES PRN (09:00)
[2018-11-28] MEDS ORDERED: VENTOLIN HFA INH PRN (09:00)
[2018-11-28] MEDS: FLOMAX PO SCH (09:03)
[2018-11-28] MEDS: FLONASE NAS SCH (10:30)
[2018-11-28] MEDS: LR 1,000 ML IV SCH (10:30)
[2018-11-28] MEDS: VIMPAT PO SCH ×2 (10:31→21:46)
[2018-11-28] MEDS: OXY IR PO PRN ×3 (10:31→18:13)
--- NOTE | 2018-11-28 10:51 | PROGRESS NOTE ---
DATE: 11/28/2018 SUBJECTIVE: Postop day 1 from cystoscopy, bilateral ureteroscopy with laser lithotripsy and stone basket extraction, bilateral retrograde pyelograms, and bilateral ureteral stent placement. She is complaining of pain all over including her upper extremities, back, her legs, and her head. She said that she feels unstable on her feet when she went to the bathroom earlier. She also describes urinary incontinence which sounds more likely urge incontinence per her description. She says she has no warning of when she needs to go to the bathroom. Described also feeling some low grade temperatures; however, her vital signs have all been stable. She states that her urine remains light pink color with no evidence of any clots. OBJECTIVE: Vital signs: Temperature is 97.6, heart rate 67, blood pressure 127 /52, oxygen saturation 95 on room air. General: Mild distress, alert and oriented x3. Respiratory: Good respiratory effort without audible wheezing or rales. Abdomen: Abdomen is soft , nondistended. There is some tenderness to palpation which is mild, most prominent on the left side in the lower abdomen. The patient has bilateral CVA tenderness that is mild. : No suprapubic tenderness. Vaginal exam shows no evidence of any exposed stents. Both of her strings are visualized coming from the urethra. The patient does have a slight cystocele grade 1. No evidence of any intervaginal or adnexal masses. Normal external genitalia. Musculoskeletal: Moving all extremities. DIAGNOSTIC DATA: White blood cell count is 4.75, hemoglobin 12.3, hematocrit 37.6, platelets 156. Sodium is 139, potassium 4, chloride 106, bicarb 24, BUN is 15, creatinine 1.1, glucose 105. ASSESSMENT AND PLAN: Ms. Metz is a 78 year old with history of lupus, rheumatoid arthritis, Sjogren's syndrome, CVA, hypertension, hyperlipidemia, epilepsy, prior myocardial infarction over 25 years ago, who presented to the emergency room with bilateral obstructing ureteral stones. She was taken to the operating room yesterday and underwent cystoscopy, bilateral ureteroscopy, lithotripsy and stone extraction and placement of bilateral ureteral stents. The patient overall seems to be doing well; however, she does complain of some pain this morning and feeling of lightheadedness when she ambulates. All of her vital signs have been normal. Her labs are also within normal limits. Creatinine is just slightly elevated at 1.1 from 0.8 on admission. She is making good urinary output. She does describe some urgency which is likely related to current stents. Her stents are not externalized through her urethra, and she does complain of some leakage of urine requiring Depends. In talking with her , she did have these symptoms prior to her surgery, and it was causing her some bother. I think once the stents are removed, this may improve, but we will continue to monitor in the outpatient setting. The patient has not used any pain medication. We will give her some oxycodone and see if that helps with her pain, as she takes this at home and has not received any during this admission. We will also give her some medication for bladder spasms as well as Pyridium to see if this helps with her symptoms. We will continue on antibiotics and follow up her urine culture. Urine culture was negative to date yesterday. We will continue to monitor inpatient at this time. Hopefully the patient may be able to go home tomorrow. cc: Olegario Muñoz MD [facility]
[2018-11-28] MEDS: SYMBICORT 160/4.5 MICROGM INHALER INH SCH ×2 (10:58→20:00)
[2018-11-28] MEDS: LEVSIN PO SCH ×2 (13:13→16:25)
[2018-11-28] MEDS: TORADOL IV PRN (13:14)
[2018-11-28] MEDS: PHENERGAN IV PRN ×3 (14:26→23:15)
--- NOTE | 2018-11-28 16:51 | PROGRESS NOTE ---
DATE: 11/28/2018 SUBJECTIVE: Patient reports feeling somewhat nauseated and intermittent flank pain as well. She reports that she gets relief with the medication that she is receiving. OBJECTIVE: Vital Signs: Temperature 96.0, heart rate 75, respiratory 17, blood pressure 134/69, O2 sat 91% on room air. General: This is a 78-year-old female lying in bed in no acute distress. Cardiovascular: S1, S2 heard. No murmurs, gallops or rubs. Regular rate and rhythm. Respiratory: Clear bilaterally to auscultation. No work of breathing or using accessory muscles. Abdomen: Soft. There is mild suprapubic tenderness noted. No rebound or guarding. No CVA tenderness. Bowel sounds present. No organomegaly. Extremities: No clubbing , cyanosis or edema. Peripheral pulses present in both legs. Neurologic: Patient alert oriented x 3. Moves 4 extremities. LABORATORY DATA: White cell count is 4.75, hemoglobin 12.3, hematocrit 37.6, platelets 156,000. BMP remarkable for creatinine 1.1. Microbiology shows urine culture that is positive for gram-negative rods. ASSESSMENT AND PLAN: 1. Bilateral obstructing ureteral stones status post ureteroscopy and cystoscopy with lithotripsy and stone extraction and placement of bilateral ureteral stents. The patient clinically reports is still hurting. The patient is being following by Dr. Muñoz from Urology, will follow recommendations. Urine culture is pending. 2. Hypertension. Blood pressure is under control. We will continue with same management. 3. Hyperlipidemia, will continue with home medications. 4. Epilepsy. Patient did not have any episodes of seizures. He will continue with the same management. 5. Disposition: The patient will be seen in the hospital for ureterolithiasis and will keep patient here until cleared by Urology. necessary. cc: Agustin Murcia MD MTDD
[2018-11-28] MEDS: FOLIC ACID PO SCH (21:45)
[2018-11-28] MEDS: LACRI-LUBE OPH OINT BOTH EYES SCH (21:45)
[2018-11-28] MEDS: LIPITOR PO SCH (21:45)
[2018-11-28] MEDS: COLACE PO SCH (21:45)
[2018-11-28] MEDS: SODIUM CHLORIDE 0.9% INJ PRN (23:16)
[2018-11-29] MEDS: LR 1,000 ML IV SCH ×2 (01:17→15:34)
[2018-11-29] MEDS: PHENERGAN IV PRN ×4 (03:55→19:49)
[2018-11-29] MEDS: DEMEROL IV PRN ×4 (03:55→19:49)
[2018-11-29] MEDS: SODIUM CHLORIDE 0.9% INJ PRN (03:55)
[2018-11-29] MEDS: KEFZOL 1 GM/D5W 1 GM/50 ML IVPB IV SCH (05:47)
[2018-11-29] MEDS: NS 1,000 ML IV SCH (06:29)
[2018-11-29] MEDS: SYMBICORT 160/4.5 MICROGM INHALER INH SCH ×2 (07:50→19:58)
--- NOTE | 2018-11-29 09:04 | PROGRESS NOTE ---
DATE: 11/29/2018 SUBJECTIVE: Postop day 2 from cystoscopy, bilateral ureteroscopy with lithotripsy and stone basket extraction, bilateral retrograde pyelograms, and bilateral ureteral stent placement. The patient continues to complain of some abdominal pain, most prominent on the left side, which is the same side that she had pain on preoperatively. She has remained afebrile, but feels very weak and sick to her stomach. She states that her urinary frequency and incontinence seem to be stable to maybe slightly improved. She does state that she still has some blood in her urine, without any obvious clot passage. Denies any symptoms of bladder spasms. She had a bowel movement yesterday, which was slightly liquidy. Tolerating minimal PO intake. OBJECTIVE: Vital Signs: Temperature 97.6, pulse rate 72, blood pressure 153/85 , oxygen saturation 93% on room air. General: Mild distress. Alert and oriented x3. Respiratory: Good respiratory effort, without audible wheezing or rales. Abdomen: Soft, nontender. A small amount of tenderness to palpation of the left abdomen into the left flank. No evidence of CVA tenderness. : No suprapubic tenderness. Musculoskeletal: Moving all extremities. ASSESSMENT AND PLAN: Ms. Metz is a 78-year-old with lupus, rheumatoid arthritis, Sjogren's syndrome, history of cerebrovascular accident, hypertension, hyperlipidemia, epilepsy, prior myocardial infarction, who presented as a consult for bilateral obstructing ureteral stones. She was taken to the operating room on Friday, and underwent ureteroscopy with removal of stones with laser lithotripsy and stone basket extraction, with placement of bilateral ureteral stents. The patient seems to be somewhat stable. However, she continues to have some fatigue and weakness. I think this possibly could be related to a urinary tract infection. The patient has been on antibiotics, but her urine culture from admission turned positive overnight, and has been shown to grow Proteus, which is relatively resistant to most antibiotics. Transitioned her this morning to Zosyn, and recommended Infectious Disease consult for home infusion of antibiotics. The patient has multiple antibiotic allergies, including levofloxacin and Bactrim, which her bacteria is sensitive to. The only intravenous options are amikacin, tobramycin, gentamicin , and Zosyn. The patient has remained afebrile with stable heart rate and blood pressure. Would see what Infectious Disease recommendations are regarding home antibiotics. Will continue to monitor. Reinforced the use of pain medications as necessary, as well as taking Pyridium and Levsin for bladder spasms. Will continue to monitor. Would continue with inpatient status as the patient will likely need to be set up for home infusions of antibiotics depending on ID recommendations. cc: Olegario Muñoz MD MTDD
[2018-11-29] MEDS: FERROUS SULFATE PO SCH (10:17)
[2018-11-29] MEDS: FLONASE NAS SCH (10:17)
[2018-11-29] MEDS: VIMPAT PO SCH ×2 (10:17→19:49)
[2018-11-29] MEDS: FLOMAX PO SCH (10:17)
[2018-11-29] MEDS: LEVSIN PO SCH ×3 (10:19→18:51)
[2018-11-29] MEDS: ZOSYN 3.375 GM in NS 50 ML IV SCH ×3 (10:29→19:50)
[2018-11-29 10:54] LABS: BASO# 0.01 X1000 (0.0-0.2); BASO% 0.2 % (0.0-0.8); EOS# 0.22 X1000 (0.0-0.7); EOS% 5.2 % (0.0-10.0); HEMATOCRIT 36.4 % (37.0-47.0); HEMOGLOBIN 11.6 g/dL (12.0-16.0); LYMPH# 1.19 X1000 (1.2-3.4); LYMPH% 28.1 % (20.5-51.1); MCH 29.1 PG (27-31); MCHC 31.9 g/dL (33-37); MCV 91.5 FL (81-99); MONO# 0.24 X1000 (0.11-0.59); MONO% 5.7 % (1.7-9.3); MPV 10.5 FL (7.4-10.4); NEUT# 2.58 X1000 (1.4-6.5); NEUT% 60.8 % (42.2-75.2); PLT 136 X1000 (130-400); RBC 3.98 XMIL (4.2-5.4); RDW 13.9 % (11.5-14.5); WBC 4.24 X1000 (4.8-10.8)
--- NOTE | 2018-11-29 11:10 | INFECTIOUS DISEASE CONSULT REP ---
DATE: 11/29/2018 CONCLUSION: The patient has a Proteus urinary tract infection. It is interesting to note that under the susceptibilities, there are many antibiotics of which the organism is resistant. However, when you look at the ALLISON for cefepime, ceftazidime, and ceftriaxone, it is well within the range of being susceptibility, yet the interpretation says that it is resistant. RECOMMENDATIONS: I agree with putting the patient on Zosyn. I talked to the microbiology lab and the qc lab technician is going to redo the susceptibility testing because of the fact that for three of the antibiotics, the ALLISON was well within the range of being susceptible yet the interpretation is that it is resistant. DISCUSSION: The patient has a symptomatic urinary tract infection. She tells me that she was having dysuria. She was having flank and low back pain. She did not have fever or shaking chills. Dr. Muñoz has performed the following procedures on the patient: He did cystoscopy, bilateral ureteroscopy, bilateral retrograde pyelograms, laser lithotripsy and stone basket extraction, and bilateral ureteral stent placement. The patient's diagnoses are left ureteral stone, right kidney stone, bilateral hydroureteronephrosis, and hematuria. REVIEW OF SYSTEMS: Eyes and Ears: She has decreased hearing but her vision is okay. Neck: She does not have any stiffness. Respiratory: She is not coughing or short of breath at rest. Cardiac: No chest pain or palpitations. GI: No nausea, vomiting, or diarrhea. Genitourinary: See present illness. Neurologic: No seizures. No loss of motor function. Endocrine: The patient does not have diabetes or thyroid disease. Integument: No rashes. KILN MECHANIC HISTORY: The patient is a 3, para 2, AB 1. She has had a hysterectomy. PREVIOUS HOSPITALIZATIONS AND OPERATIONS: She has had labor and deliveries, miscarriage, hysterectomy, replacement of her left and right shoulders, bilateral total knee arthroplasties, myocardial infarction. MEDICAL DISEASES: Positive for hypertension, systemic lupus, rheumatoid arthritis, Sjogren's syndrome, myocardial infarction, epilepsy, hyperlipidemia, stroke, and endometriosis. INFECTIOUS DISEASE HISTORY: Positive for pneumonia and UTI. FAMILY HISTORY: Positive for hypertension, myocardial infarction, stroke, and cancer. SOCIAL HISTORY: [place] She is . The patient does not smoke cigarettes, drink alcoholic beverages, or abuse drugs. The patient does not have any pets at home. ALLERGIES: She is allergic to the following medications: Hydrocodone, Levaquin, Bactrim, baclofen, Neurontin, methadone, morphine, Lyrica, Imuran. PHYSICAL EXAMINATION: Vital Signs: Temperature is 97.6 degrees, pulse 72, respirations 18, blood pressure 153/85. General: This is an ill-appearing, elderly female. She is in no acute distress, but she is very lethargic. Head, Eyes, Ears, Nose, and Throat: No drainage is noted from the nose or ears. The patient is arousable. When I looked at her tongue, there were no white patches on it. Neck: No meningismus. Lungs: Clear to auscultation. Cardiovascular: Heart rate was regular. Abdomen and Flanks: Soft and nontender. Neurologic: The patient is lethargic. She does not have a tremor. She did not move her extremities to verbal requests. Integument: No rash noted. Thank you for the consult. cc: Junaid Izaguirre MD
[2018-11-29 11:14] LABS: CALCIUM 9.2 mg/dL (8.8-10.2); CREATININE 1.1 mg/dL (0.5-0.9)
--- NOTE | 2018-11-29 12:00 | PROGRESS NOTE ---
DATE: 11/29/2018 SUBJECTIVE: The patient reports feeling still nauseated. We have changed Zofran for Phenergan and apparently that medication is working better. She has been complaining of mild low back pain. OBJECTIVE: Vital Signs: Temperature 97.6 degrees, heart rate 72, respiratory rate 18, blood pressure 153/85, O2 saturation 92% on room air. General examination: This is a chronically ill- looking, 78-year-old female lying in bed, in no acute distress. HEENT : Head is normocephalic, atraumatic. Cardiovascular: S1, S2 heard. No murmurs, gallops , or rubs. Regular rate and rhythm. Respiratory: Clear bilaterally to auscultation. No work of breathing or using accessory muscles. Abdomen: Soft, a little bit tender in the suprapubic area, but no rebound or guarding. No CVA tenderness. Bowel sounds present. No organomegaly. Extremities: No clubbing, cyanosis, or edema. Peripheral pulses present in both legs. Neurological: Patient alert oriented x3. Moves 4 extremities. LABORATORY DATA: White cell count 4.34, hemoglobin 11.6, hematocrit 36.4, platelets 136,000 with BMP remarkable for creatinine 1.1 and glucose is 170. The urine culture shows proteus. ASSESSMENT AND PLAN: 1. Bilateral obstructing ureteral stone status post ureteroscopy and cystoscopy with lithotripsy and stone extraction and placement of bilateral ureteral stents. Clinically , she continues to have to general malaise. At this point, Dr. Muñoz and I prefer to keep this patient in the hospital. We will follow recommendations. In the other hand patient had been on cefazolin, but that medication has been changed to Zosyn considering Proteus mirabilis bacteria isolated in urine culture so at this point, I think we are going to continue with the same medication and we have consulted Infectious Disease to help us in the management of this patient. 2. Hypertension. Blood pressure is under control. We will continue with same management. 3. Hyperlipidemia. We will continue home medications. 4. Disposition. At this time, patient is going to be kept in the hospital. We will see what Dr. Izaguirre has to say regarding the management of antibiotics. cc: MD KARMEN Reina
[2018-11-29] MEDS: LIPITOR PO SCH (19:49)
[2018-11-29] MEDS: FOLIC ACID PO SCH (19:49)
[2018-11-29] MEDS: COLACE PO SCH (19:49)
[2018-11-29] MEDS: LACRI-LUBE OPH OINT BOTH EYES SCH (19:51)
[2018-11-29] MEDS: ATIVAN IV PRN (22:06)
[2018-11-30] MEDS: PHENERGAN IV PRN ×4 (00:08→18:59)
[2018-11-30] MEDS: DEMEROL IV PRN ×5 (00:08→23:26)
[2018-11-30] MEDS: VIMPAT PO SCH ×3 (00:43→20:14)
[2018-11-30] MEDS: COLACE PO SCH ×2 (00:43→20:14)
[2018-11-30] MEDS: FOLIC ACID PO SCH ×2 (00:44→20:14)
[2018-11-30] MEDS: LIPITOR PO SCH ×2 (00:44→20:15)
[2018-11-30] MEDS: LACRI-LUBE OPH OINT BOTH EYES SCH (00:44)
[2018-11-30] MEDS: ZOSYN 3.375 GM in NS 50 ML IV SCH ×4 (03:30→20:13)
--- NOTE | 2018-11-30 06:26 | PROGRESS NOTE ---
DATE: 11/30/2018 SUBJECTIVE: Postop day 3 from cystoscopy, bilateral ureteroscopy with laser lithotripsy, stone extraction, bilateral retrograde pyelograms, and bilateral ureteral stent placement. The patient continues to complain of some abdominal pain, most prominent on the left side. However, it does appear to be slightly less than yesterday. She remains afebrile and feels "weak ". She states that she feels like her blood counts are low. She states that she feels like she is emptying her bladder to completion and continues to have a small amount of bleeding with urinations. Denies significant clot passage or symptoms of bladder urgency. She states that she had a bowel movement yesterday which was normal in consistency. Continues to have minimal p.o. intake. OBJECTIVE: Vital Signs: Temperature 97.5 degrees, heart rate 76, blood pressure 138/59, oxygen saturation 97% on room air. General: No acute distress. Resting comfortably in bed. Pulmonary: Good respiratory effort without any audible wheezing or rales. Nasal cannula in place. Cardiovascular: Regular rate and rhythm. Abdomen: Soft, nontender, slightly distended. : No suprapubic tenderness. No CVA tenderness. Microbiology: Proteus on her urine culture that is sensitive to amikacin, gentamicin, levofloxacin, tobramycin, Bactrim, and Zosyn. ASSESSMENT AND PLAN: Ms. Metz is a 78-year-old with a history of lupus, rheumatoid arthritis, Sjogren's syndrome, history of cerebrovascular accident, hypertension, hyperlipidemia, epilepsy, and prior myocardial infarction, who presents in consult for obstructing bilateral ureteral stones. She was taken to the operating room on Friday and underwent ureteroscopy with stone removal and placement bilateral stents. Overall, the patient seems to be doing slightly better today. She continues to complain of fatigue and weakness. The patient's urine culture is growing Proteus that is relatively resistant to oral antibiotic options and the other oral antibiotics she has allergies to. Currently on Zosyn. Remains afebrile with stable vital signs. Infectious disease has been following for consultation regarding possible home infusion antibiotics. Dr. Izaguirre is talking with microbiology about re-running the specimens to see if there are any others oral options for treatment. We will continue to monitor, treat with pain medication, Pyridium and Levsin as necessary. Would follow infectious disease recommendations. If they find a good alternative for her antibiotic, could potentially be discharged in the coming days. Likely plan to remove her stents tomorrow. cc: MD KARMEN Rosales
[2018-11-30 07:15] LABS: BASO# 0.01 X1000 (0.0-0.2); BASO% 0.2 % (0.0-0.8); EOS# 0.27 X1000 (0.0-0.7); EOS% 5.9 % (0.0-10.0); HEMATOCRIT 35.4 % (37.0-47.0); HEMOGLOBIN 11.3 g/dL (12.0-16.0); LYMPH# 1.65 X1000 (1.2-3.4); LYMPH% 36.3 % (20.5-51.1); MCH 29.1 PG (27-31); MCHC 31.9 g/dL (33-37); MCV 91.2 FL (81-99); MONO# 0.41 X1000 (0.11-0.59); MPV 10.8 FL (7.4-10.4); NEUT% 48.6 % (42.2-75.2); PLT 126 X1000 (130-400); RBC 3.88 XMIL (4.2-5.4); RDW 13.7 % (11.5-14.5); WBC 4.54 X1000 (4.8-10.8)
[2018-11-30 07:34] LABS: CALCIUM 9.4 mg/dL (8.8-10.2); POTASSIUM 4.1 mmol/L (3.5-5.1)
[2018-11-30] MEDS: SYMBICORT 160/4.5 MICROGM INHALER INH SCH ×2 (07:53→21:48)
[2018-11-30] MEDS: LR 1,000 ML IV SCH ×2 (09:36→18:12)
[2018-11-30] MEDS: LEVSIN PO SCH ×3 (09:36→18:12)
[2018-11-30] MEDS: FLONASE NAS SCH (09:37)
[2018-11-30] MEDS: FLOMAX PO SCH (09:37)
[2018-11-30] MEDS: FERROUS SULFATE PO SCH (09:37)
--- NOTE | 2018-11-30 09:50 | Diag Imaging Result Doc PS360 ---
EXAM: RETROGRADES 2 OR 3 FILMS 11/27/2018 HISTORY: BILAT RET/LASER LITH/SBE/STENT PLACEMENT TECHNIQUE: 32 images COMMENT: There is a filling defect in the lower portion of the left ureter. This was passed with a ureteroscope and a stent was placed. Stone fragments were apparently removed during the procedure. There are also filling defects in the upper ureter on the right side which were apparently removed and a stent was placed on the right by Dr. Muñoz. IMPRESSION: Bilateral stone extraction and stent placement. Electronically signed by Denis Crandall 11/30/2018 9:47 AM
--- NOTE | 2018-11-30 15:30 | PROGRESS NOTE ---
DATE: 11/30/2018 SUBJECTIVE: Patient reports continues to have hematuria today, actually since admission she has not had any. She started having blood in the urine today. She is still feeling some back pain. Denies any fever or chills. OBJECTIVE: Vital Signs: Temperature 97.6, heart rate 85, respiratory rate 18, blood pressure 125/52, O2 sat 95% on 2 L nasal cannula. General: This is a 78-year-old female lying in bed, in no acute distress. Cardiovascular: S1, S2 heard. No murmurs, gallops or rubs. Regular rate and rhythm. Respiratory: Clear bilaterally to auscultation. No work of breathing or using accessory muscles. Abdomen: Soft, a little bit tender on the suprapubic area. There is no rebound or guarding noted. No signs of peritoneal irritation. No CVA tenderness. Bowel sounds present. No organomegaly. Extremities: No clubbing, cyanosis or edema. Peripheral pulses present in both legs. Neurologic: Patient alert oriented x 3. Moves 4 extremities. LABORATORY DATA: White cell count 4.54, hemoglobin 11.3, hematocrit 35.4, platelets 126,000; with creatinine 1.0. ASSESSMENT AND PLAN: 1. Bilateral obstructing ureteral stone status post ureteroscopy and cystoscopy with lithotripsy and stone extraction and placement of bilateral ureteral stents. Clinically, she continues to have back pain. She requires more pain medications. So, at this point, we are going to add Ofirmev which is Tylenol IV 1 g IV q.6 hours as scheduled for at least 2-3 days and see if that can help with the pain on top of Demerol that she is receiving. Patient preferred to receive IV medication instead of p.o. She is not using OxyContin. Dr. Muñoz from Urology is also following this patient. We will follow recommendations. 2. Urinary tract infection secondary to Proteus. That is what the urine culture shows and unfortunately many of the antibiotics that we can use by mouth she is allergic and at this point she is on Zosyn. Dr. Izaguirre from Infectious Disease has been consulted. He is reviewing the urine culture. We will follow his recommendations. 3. Hypertension. Blood pressure is under control. We will continue with the same management. 4. Hyperlipidemia. We will continue home medications. 5. Disposition: At this time we are working on reviewing the urine culture to see if there is any oral medication that we can use for this patient. We are optimizing pain control for the kidney stones and we are ordering a renal ultrasound to check why this patient started having hematuria today again. cc: Agustin Murcia MD
[2018-11-30] MEDS: OFIRMEV 1000 MG/ISOTONIC SOLN 1,000 MG/100 ML BOTTLE IV SCH ×2 (18:12→21:05)
--- NOTE | 2018-11-30 19:51 | INFECTIOUS DISEASE PROGRESS NO ---
DATE: 11/30/2018 PRESENT ILLNESS: Ms. Metz has a Proteus mirabilis urinary tract infection with bilateral ureteral stones, hydroureteronephrosis and hematuria. MEDICATIONS: Today is day 1 of Zosyn 3.375 g IV every 6 hours. PHYSICAL EXAMINATION: Vital Signs: She has been afebrile. Temp is 97.6, pulse rate 85, respiratory rate 18, blood pressure 125/52, O2 sats 95% on 3 L nasal cannula. General: This is a chronically ill-appearing elderly female. She is sitting up on the side of the bed; currently in mild distress due to lower abdominal pain. HEENT: Atraumatic, normocephalic. Oral mucous membranes are pink and moist. She is edentulous. Conjunctivae are pale. Neck : Supple. Trachea is midline. Respiratory: Lung sounds are clear to auscultation bilaterally. Cardiovascular: Heart rate and rhythm are regular. Normal sinus rhythm on the monitor. Pedal and radial pulses are palpable bilaterally, +2. There is a mild right lower extremity edema noted. Abdomen: Soft, round and tender to the mid lower abdomen. Bowel sounds are active. Neurologic : She is awake, alert and oriented. Able to move extremities fairly well. She is getting up to the bedside commode with assistance. LABORATORY AND X-RAY: Today her white count is 4.54, hemoglobin 11.3, platelet count 126,000. Creatinine is 1. GFR is 54. Her previous urine culture did grow Proteus mirabilis. The most recent urine has shown no growth on the culture. No imaging reports today. ASSESSMENT AND PLAN: Ms. Metz has a Proteus urinary tract infection and has had interventions per. Dr. Muñoz. At this point, we will continue on her Zosyn. She has had a mild drop in her platelet count, so we will continue to follow it. If it continues to trend downward, we may have to stop and replace the Zosyn. There have been some mixups in the Microbiology Lab regarding her susceptibilities, and possible extended spectrum beta lactamase status, so we are awaiting revision of the report on her Proteus organism. These plans have been discussed with and recommended by Dr. Izaguirre. COMORBIDITIES: For Ms. Metz include that she is elderly with a history of systemic lupus, rheumatoid arthritis, coronary artery disease, stroke and epilepsy. Dictated by LIGIA Egan for Junaid Izaguirre MD This chart was documented by, LIGIA Egan and accurately reflects the services performed, treatment plan and medical decisions as attested by the providers signature Junaid Izaguirre MD. cc: Junaid Izaguirre MD [facility]
[2018-12-01] MEDS: DEMEROL IV PRN ×4 (02:43→20:14)
[2018-12-01] MEDS: ZOSYN 3.375 GM in NS 50 ML IV SCH ×4 (02:46→20:13)
[2018-12-01] MEDS: PHENERGAN IV PRN ×3 (03:04→20:14)
[2018-12-01] MEDS: SODIUM CHLORIDE 0.9% INJ PRN ×2 (03:05→20:15)
[2018-12-01] MEDS: OFIRMEV 1000 MG/ISOTONIC SOLN 1,000 MG/100 ML BOTTLE IV SCH ×4 (04:03→20:33)
[2018-12-01 08:15] LABS: BASO# 0.01 X1000 (0.0-0.2); BASO% 0.2 % (0.0-0.8); EOS% 6.4 % (0.0-10.0); HEMATOCRIT 32.1 % (37.0-47.0); HEMOGLOBIN 10.3 g/dL (12.0-16.0); LYMPH# 2.13 X1000 (1.2-3.4); LYMPH% 45.2 % (20.5-51.1); MCH 29.9 PG (27-31); MCHC 32.1 g/dL (33-37); MONO# 0.44 X1000 (0.11-0.59); MONO% 9.3 % (1.7-9.3); MPV 10.9 FL (7.4-10.4); NEUT# 1.83 X1000 (1.4-6.5); NEUT% 38.9 % (42.2-75.2); PLT 115 X1000 (130-400); RBC 3.45 XMIL (4.2-5.4); RDW 13.9 % (11.5-14.5); WBC 4.71 X1000 (4.8-10.8)
[2018-12-01 08:28] LABS: AGAP 9; BUN 17 mg/dL (8-22); CALCIUM 9.3 mg/dL (8.8-10.2); CHLORIDE 105 mmol/L (98-107); COSMO 283; CREATININE 0.9 mg/dL (0.5-0.9); ESTIMATED GFR > 60; GLUCOSE 98 mg/dL (70-104); POTASSIUM 4.2 mmol/L (3.5-5.1); SODIUM 141 mmol/L (136-145); TCO2 27 mmol/L (25-35)
[2018-12-01] MEDS: FLONASE NAS SCH (09:00)
[2018-12-01] MEDS: PYRIDIUM PO PRN (09:02)
[2018-12-01] MEDS: FERROUS SULFATE PO SCH (09:02)
[2018-12-01] MEDS: FLOMAX PO SCH (09:02)
[2018-12-01] MEDS: SYMBICORT 160/4.5 MICROGM INHALER INH SCH ×2 (09:03→20:46)
[2018-12-01] MEDS: LEVSIN PO SCH (09:04)
[2018-12-01] MEDS: ATIVAN IV PRN ×2 (09:04→15:37)
[2018-12-01] MEDS: VIMPAT PO SCH ×2 (09:09→20:14)
[2018-12-01] MEDS: LR 1,000 ML IV SCH ×2 (09:11→12:24)
[2018-12-01] MEDS: OXY IR PO PRN ×2 (09:12→15:36)
--- NOTE | 2018-12-01 18:16 | PROGRESS NOTE ---
DATE: 12/01/2018 SUBJECTIVE: As per the patient, she continues to have hematuria, she is complaining of lower abdominal pain and lower back. She denies fever or chills. She is a little bit somnolent but I believe she already received some pain medication, her at the bedside. Will continue to monitor. OBJECTIVE: Vital Signs: Temperature 97.6 pulse 64, respiratory rate 18, blood pressure 123/55, oxygen saturation 96 on 2 L of nasal cannula. HEENT: Head normocephalic. No trauma. PERRLA. Neck: Supple. No JVD. No masses. Central trachea. Chest: Clear to auscultation. No wheezing. No rales. Abdomen: Soft. Tenderness to palpation at the level of the suprapubic area. No rebound. No signs of peritoneal irritation. No CVA tenderness. Back: Lower back pain. Extremities: No edema. No clubbing. No cyanosis. Neurological: This patient is sleepy but arousable. She is oriented x3. She moves all 4 extremities but it looks like the left side is weaker compared with the right side and as per the patient this is chronic, maybe 4/5. LABORATORY: WBC 4.7, hemoglobin 10.3, hematocrit 32.1, platelets 115,000, sodium 141, potassium 4.2, chloride 105, bicarbonate 27, BUN 17, creatinine 0.9, glucose 98, calcium 9.3. ASSESSMENT AND PLAN: 1. Bilateral obstructing ureteral stone status post ureteroscopy and cystoscopy with lithotripsy and stone extraction and placement of bilateral lower enteral stents, clinically she continues to have back pain and lower abdominal pain, will continue with pain medication. Urology department following this patient closely. Will follow her recommendations. 2. Urinary tract infection secondary to Proteus, continue with [place], Infectious Disease Department on board. 3. Hypertension, stable. Continue with same management. 4. Hyperlipidemia. Continue home medication. 5. Disposition. Will continue with the same management for now, we will try to optimize her pain control, Urology Department following this patient. I will wait for urology recommendations, I will monitor the hemoglobin on a daily basis, it has decreased from 11.3 to 10.3 but she is getting also fluids. cc: Roland Gamble MD
[2018-12-01] MEDS: FOLIC ACID PO SCH (20:14)
[2018-12-01] MEDS: COLACE PO SCH (20:14)
[2018-12-01] MEDS: LIPITOR PO SCH (20:15)
[2018-12-01] MEDS: LACRI-LUBE OPH OINT BOTH EYES SCH (20:31)
--- NOTE | 2018-12-02 00:32 | INFECTIOUS DISEASE PROGRESS NO ---
DATE: 12/01/2018 PRESENT ILLNESS: Ms. Metz is being treated for a Proteus mirabilis urinary tract infection. She is status post cystoscopy, with multiple interventions done by Dr. Muñoz. MEDICATIONS: Today is day 2 of Zosyn 3.375 g IV every 6 hours. PHYSICAL EXAMINATION: Vital Signs: Temperature is 97.6 degrees, pulse rate 64 , respiratory rate 18, blood pressure 123/55, oxygen saturation 96% on 2 L nasal cannula. General : This is a chronically ill-appearing, elderly female. She is sitting in bed, currently in mild distress, with some mid lower abdominal pain. HEENT: Atraumatic, normocephalic. She is edentulous. Oral mucous membranes are pink and moist. Conjunctivae are pale. Neck: Supple. Trachea is midline. Cardiovascular: Heart rate and rhythm are regular. Normal sinus rhythm on the monitor. Radial and pedal pulses are palpable bilaterally. She has mild lower extremity edema noted. Respiratory: Lung sounds are clear to auscultation bilaterally. Abdomen: Soft , round, and tender to the mid, lower abdomen. Bowel sounds are active. Neurologic: She is awake, alert, and oriented, able to move her extremities fairly well, and get up to the bedside commode. LABORATORY AND X-RAY: Today, her white count is 4.71, hemoglobin 10.3, platelet count 115,000. Creatinine is 0.9. Estimated GFR is greater than 60. No imaging reports today. ASSESSMENT AND PLAN: Ms. Metz is being treated for a Proteus urinary tract infection. She is receiving Zosyn, which we will continue at this time. She is having a mild drop in her platelet count, but at this point, it looks as though Zosyn is one of the few things we can give her. After speaking with Micro, she does have an extended spectrum beta lactamase coordinating producer, which is not seen on the micro report, but has brought about a lot of resistance. We will continue to follow her CBC daily. The previous plans have been discussed with, and recommended by, Dr. Izaguirre. COMORBIDITIES: She is elderly, with a history of systemic lupus, rheumatoid arthritis, coronary artery disease, stroke, and epilepsy. Dictated by LIGIA Egan for Junaid Izaguirre MD This chart was documented by, LIGIA Egan and accurately reflects the services performed, treatment plan and medical decisions as attested by the providers signature Junaid Izaguirre MD. cc: Junaid Izaguirre MD MTDD
[2018-12-02] MEDS: LR 1,000 ML IV SCH ×5 (01:08→23:46)
[2018-12-02] MEDS: ZOSYN 3.375 GM in NS 50 ML IV SCH ×4 (02:31→20:40)
[2018-12-02] MEDS: OFIRMEV 1000 MG/ISOTONIC SOLN 1,000 MG/100 ML BOTTLE IV SCH ×4 (02:31→21:15)
[2018-12-02] MEDS: PYRIDIUM PO PRN (02:50)
[2018-12-02] MEDS: OXY IR PO PRN (02:50)
--- NOTE | 2018-12-02 07:24 | PROGRESS NOTE ---
DATE: 12/02/2018 SUBJECTIVE: No acute events overnight. The patient is resting comfortably in bed this morning. She continues to complain of some fatigue, but denies significant pain today. She continues to have some hematuria per her report. Voiding regularly and denies sensation of incomplete emptying. Denies any nausea or vomiting. She remains afebrile, and has been up out of bed several times yesterday. OBJECTIVE: Vital signs: Temperature 98.6, heart rate 67, blood pressure 139/71 , and oxygen saturation 98% on room air. General: No acute distress. Resting comfortably in bed. Alert and oriented x3. Respiratory: Good respiratory effort without audible wheezing or rales. Abdomen: Soft, nontender, and slightly distended this morning which appears to be stable from yesterday. : No suprapubic tenderness. No CVA tenderness. Pelvic: With the assistance of assistant chief nursing officer, I performed a pelvic exam today for removal of stents. After pulling her diaper down, one of the stents was externalized completely approximately 2 cm external her urethra. I removed this, and in the process of removing this stent the other stent also was removed. Both stents were intact with strings and curls present on both ends. Following this, the patient stated that she felt less pain. ASSESSMENT AND PLAN: Ms. Metz is a 78-year-old with history of lupus, rheumatoid arthritis, Sjgren's syndrome, prior cerebrovascular accident, hypertension, hyperlipidemia , epilepsy and prior myocardial infarction who presents in consultation regarding bilateral ureteral stones. The patient underwent cystoscopy with bilateral ureteroscopy, laser lithotripsy and stone extraction last Friday. The patient overall seems to be slowly improving. She continues to have some fatigue and tiredness, and previously complained of some left flank pain. However, she denies significant pain this morning on exam. I did remove her stents today as one of them was already externalized, and it was time for both to be removed. My hope is that this will help with her hematuria as well as the pain. Overall, she appears to be slightly improving and has been followed by infectious disease due to her ESBL urine culture with Proteus. Pham has rerun it, and continues to have resistance profile that would require IV antibiotics. We will continue with IV therapy with Zosyn until further recommendations by Infectious Disease. From a urologic standpoint, we will see if her hematuria improves after stents removed. We will continue to monitor. Please call with questions or concerns. cc: Olegario Muñoz MD [facility]
[2018-12-02 08:21] LABS: EOS# 0.25 X1000 (0.0-0.7); EOS% 4.4 % (0.0-10.0); HEMOGLOBIN 10.8 g/dL (12.0-16.0); LYMPH# 1.63 X1000 (1.2-3.4); MCH 29.3 PG (27-31); MCHC 31.8 g/dL (33-37); MCV 92.1 FL (81-99); MONO# 0.32 X1000 (0.11-0.59); MONO% 5.7 % (1.7-9.3); MPV 11.3 FL (7.4-10.4); NEUT# 3.43 X1000 (1.4-6.5); NEUT% 60.9 % (42.2-75.2); PLT 119 X1000 (130-400); RBC 3.69 XMIL (4.2-5.4); RDW 13.8 % (11.5-14.5); WBC 5.63 X1000 (4.8-10.8)
[2018-12-02] MEDS: ZOFRAN IV PRN ×2 (08:22→15:35)
[2018-12-02] MEDS: DEMEROL IV PRN ×2 (08:22→17:37)
[2018-12-02] MEDS: VIMPAT PO SCH ×2 (08:23→20:40)
[2018-12-02] MEDS: FLOMAX PO SCH (08:23)
[2018-12-02] MEDS: FERROUS SULFATE PO SCH (08:23)
[2018-12-02] MEDS: FLONASE NAS SCH (08:24)
[2018-12-02 08:30] LABS: AGAP 9; BUN 18 mg/dL (8-22); CALCIUM 9.1 mg/dL (8.8-10.2); CHLORIDE 102 mmol/L (98-107); COSMO 283; CREATININE 0.8 mg/dL (0.5-0.9); ESTIMATED GFR > 60; GLUCOSE 102 mg/dL (70-104); POTASSIUM 4.2 mmol/L (3.5-5.1); SODIUM 141 mmol/L (136-145); TCO2 30 mmol/L (25-35)
[2018-12-02] MEDS: SYMBICORT 160/4.5 MICROGM INHALER INH SCH ×2 (09:15→20:14)
[2018-12-02] MEDS: MIRALAX PO SCH ×2 (14:50→20:40)
--- NOTE | 2018-12-02 19:36 | PROGRESS NOTE ---
DATE: 12/02/2018 SUBJECTIVE: This patient is still having some hematuria. Hemoglobin has been stable. She is still complaining of lower abdominal pain and lower back pain, but compared with yesterday she feels better. She denies fever or chills. She is complaining of constipation. I will put this patient on twice a day MiraLAX. OBJECTIVE: Vital Signs: Temperature 97.9 degrees, pulse 86, respiratory rate 20, blood pressure 145/60, oxygen saturation 93 on 1.5 L nasal cannula. HEENT: Head normocephalic. No trauma. PERRLA. Neck: Supple. No JVD. No masses. Central trachea. Chest: Clear to auscultation. No wheezing. No rales. Abdomen: Soft. Some tenderness to palpation at the level of suprapubic area. No rebound. No signs of peritoneal irritation. No CVA tenderness. Back: Lower back pain mostly with movement. Extremities: No edema. No clubbing. No cyanosis. Neurological: The patient is sleepy, but arousable. She is oriented x3. She moves all 4 extremities. Her left side is weaker compared with the right side. As per the patient, this is chronic 3/5 to 4/5. LABORATORY: WBC 5.6, hemoglobin 10.8, hematocrit 34, platelets 119,000. Sodium 141, potassium 4.2, chloride 109, bicarbonate 30, BUN 18, creatinine 0.8, glucose 102, calcium 9.1. ASSESSMENT AND PLAN: 1. Bilateral obstructing ureteral stone status post ureteroscopy and cystoscopy with lithotripsy and stone extraction and placement of bilateral lower stents. She is doing better. Her pain is better. The stents tents have been removed today by Urology Department. We will continue following their recommendations. 2. Urinary tract infection secondary to Proteus. Continue with same management. Infectious Disease Department on board. 3. Hypertension, stable. 4. Hyperlipidemia. Continue with home medication. 5. Disposition. We will continue with the same management for now. We will try to optimize her pain management. Urology ?Department following this patient. We will continue following their recommendations. We will monitor the hemoglobin and hematocrit. 6. Constipation. I will add MiraLAX twice a day to her medications. cc: Roland Gamble MD
[2018-12-02] MEDS: LACRI-LUBE OPH OINT BOTH EYES SCH (20:40)
[2018-12-02] MEDS: FOLIC ACID PO SCH (20:40)
[2018-12-02] MEDS: COLACE PO SCH (20:40)
[2018-12-02] MEDS: LIPITOR PO SCH (20:40)
[2018-12-03] MEDS: ZOSYN 3.375 GM in NS 50 ML IV SCH ×4 (03:30→20:08)
[2018-12-03] MEDS: OFIRMEV 1000 MG/ISOTONIC SOLN 1,000 MG/100 ML BOTTLE IV SCH ×4 (04:00→21:58)
--- NOTE | 2018-12-03 05:05 | INFECTIOUS DISEASE PROGRESS NO ---
DATE: 12/02/2018 PRESENT ILLNESS: Ms. Metz has a Proteus mirabilis urinary tract infection and is status post cystoscopy with interventions done by Dr. Muñoz. MEDICATIONS: Today is day 3 of Zosyn 3.375 g IV every 6 hours. PHYSICAL EXAMINATION: Vital Signs: Temperature is 97.9 degrees, pulse rate 86 , respiratory rate 20, blood pressure 145/60, O2 saturation 95% on 2 L nasal cannula. General: This is an elderly, chronically ill-appearing female. She is sitting on the bedside commode, in no acute distress. She is having some constipation. HEENT: Atraumatic, normocephalic. Oral mucous membranes are pink and moist. She is edentulous. Conjunctivae are pale. Neck: Supple. Trachea is midline. Respiratory: Lung sounds are clear in the upper lobes. Mild rales noted in the bases and diminished. Cardiovascular: Heart rate is regular. Pedal and radial pulses are palpable bilaterally +2. There is some lower extremity edema noted. Abdomen: Soft, round, and mildly tender. Bowel sounds are active. Neurologic: She is awake, alert, and oriented and able to get up to the bedside commode independently. LABORATORY AND X-RAY: Today, her white count is 5.63, hemoglobin 10.8, platelet count 119,000. Creatinine is 0.8. Estimated GFR is greater than 60. Her urine previously grew Proteus mirabilis, and the most recent urine culture showed no growth. No imaging reports today. ASSESSMENT AND PLAN: Ms. Metz is status post cystoscopy with multiple interventions that have been done by Dr. Muñoz, including stone obliteration with laser lithotripsy and stone basket extraction. The patient continues to improve. Her platelet count is slightly low but is stable at this point. We will continue with the Zosyn as ordered. These plans have been discussed with and recommended by Dr. Izaguirre. COMORBIDITIES: for Ms. Metz include that she is elderly with a history of epilepsy, stroke, coronary artery disease, lupus, and rheumatoid arthritis. Dictated by LIGIA Egan for Junaid Izaguirre MD This chart was documented by, LIGIA Egan and accurately reflects the services performed, treatment plan and medical decisions as attested by the providers signature Junaid Izaguirre MD. cc: Junaid Izaguirre MD [facility]
[2018-12-03] MEDS: ZOFRAN IV PRN (05:33)
[2018-12-03] MEDS: DEMEROL IV PRN ×5 (05:33→21:57)
[2018-12-03 07:37] LABS: HEMATOCRIT 34.2 % (37.0-47.0); HEMOGLOBIN 10.8 g/dL (12.0-16.0)
[2018-12-03] MEDS: SYMBICORT 160/4.5 MICROGM INHALER INH SCH ×2 (07:45→21:10)
[2018-12-03] MEDS: MIRALAX PO SCH ×2 (09:19→20:08)
[2018-12-03] MEDS: FLOMAX PO SCH (09:20)
[2018-12-03] MEDS: FERROUS SULFATE PO SCH (09:20)
[2018-12-03] MEDS: FLONASE NAS SCH (09:59)
[2018-12-03] MEDS: VIMPAT PO SCH ×2 (10:16→20:08)
[2018-12-03] MEDS: LR 1,000 ML IV SCH (11:41)
[2018-12-03] MEDS: ATIVAN IV PRN ×2 (13:23→20:11)
--- NOTE | 2018-12-03 13:34 | PROGRESS NOTE ---
DATE: 12/03/2018 SUBJECTIVE: The patient is more comfortable today. Her stents were removed yesterday. She states that her pain is still there, but has improved after removal of stents. She denies any dysuria, and she states that her urine is getting less bloody now. She denies any clot passage, and when she does describe blood in the urine, it is a light pink, and she feels this has improved after removal of the stents. She also feels that her incontinence and frequency of urination have improved. OBJECTIVE: Vital signs: Temperature 97.6, heart rate 71, blood pressure 141/85 , oxygen saturation 95% on nasal cannula. General: No acute distress. Resting comfortably in bed. Respiratory: Good respiratory effort without audible wheezing or rales. Abdomen: Soft, nontender, nondistended. No CVA tenderness. Genitourinary: No suprapubic tenderness. DIAGNOSTIC DATA: Hemoglobin 10.8, hematocrit 34.2. ASSESSMENT AND PLAN: Ms Metz is a 78-year-old with a history of lupus, rheumatoid arthritis, Sjogren's syndrome, prior cerebrovascular accident, hypertension, hyperlipidemia , epilepsy, and prior myocardial infarction, who is postoperative from cystoscopy, bilateral ureteroscopy, laser lithotripsy, and stone extraction last Friday. The patient continues to improve. I removed her stents yesterday, and the patient states that her pain has improved significantly since then. She continues to have some reddish to pinkish urine. Denies any clot passage. The patient remains on IV Zosyn for her extended-spectrum beta-lactamase (ESBL) urine culture with Proteus. The patient has been followed by Infectious Disease who will dictate antibiotics at time of discharge. Overall, I think she is doing well. We will continue to monitor. Please call with questions or concerns. cc: Olegario Muñoz MD [facility]
[2018-12-03] MEDS: OXY IR PO PRN ×2 (16:33→20:10)
--- NOTE | 2018-12-03 17:02 | PROGRESS NOTE ---
DATE: 12/03/2018 SUBJECTIVE: The hematuria seems to be getting better. Now she is voiding some pinkish urine. Hemoglobin has been stable, same compared with yesterday. She is still complaining of lower abdominal pain and back pain. We will add alternate IV medication and p.o. medication for her pain. Continue with antibiotics. OBJECTIVE: Vital Signs: Temperature 97.5 degrees, pulse 80, respiratory rate 22, blood pressure 153/69, oxygen saturation 95% on nasal cannula. HEENT: Head normocephalic, no trauma. PERRLA. Neck: Supple. No JVD. No masses. Central trachea. Chest: Clear to auscultation. No wheezing. No rales. Abdomen: Soft. Some tenderness to palpation at the level of the suprapubic area. No rebound. No signs of peritoneal irritation. No CVA tenderness. Extremities: No edema. No clubbing. No cyanosis. Neurological: This patient is alert and oriented x3. She moves all 4 extremities, but she has generalized weakness. Her left side is weaker compared with the right side, maybe 3/5 to 4/5. DIAGNOSTIC DATA: Hemoglobin 10.8, hematocrit 34.2. ASSESSMENT AND PLAN: 1. Bilateral obstructing ureteral stone status post ureteroscopy and cystoscopy with lithotripsy and stone extraction and placement of bilateral lower stents which have been already removed 2 days ago. This patient is still complaining of pain. We will continue with the same management. The hematuria is getting better. Hemoglobin and hematocrit stable. 2. Urinary tract infection secondary to Proteus. Continue with same management. Infectious Disease department on board. 3. Hypertension, stable. 4. Hyperlipidemia. Continue with home medications. 5. Constipation. Continue with MiraLAX twice a day. DISPOSITION: We will continue with the same management for now. We will try to optimize her pain medication/management. Urology department following this patient. We will continue following their recommendations. cc: Roland Gamble MD
[2018-12-03] MEDS: COLACE PO SCH (20:09)
[2018-12-03] MEDS: LIPITOR PO SCH (20:09)
[2018-12-03] MEDS: FOLIC ACID PO SCH (20:09)
[2018-12-03] MEDS: LACRI-LUBE OPH OINT BOTH EYES SCH (20:10)
[2018-12-03] MEDS: ZANAFLEX PO PRN (21:57)
--- NOTE | 2018-12-04 00:37 | INFECTIOUS DISEASE PROGRESS NO ---
DATE: 12/03/2018 PRESENT ILLNESS: Ms. Metz has a Proteus urinary tract infection. She is status post cystoscopy with laser lithotripsy and stone basket extraction by Dr. Muñoz. Her stents were removed yesterday. MEDICATIONS: Today is day 4 of treatment with Zosyn 3.375 g IV every 6 hours. PHYSICAL EXAMINATION: Vital Signs: Temperature is 97.5 degrees, pulse rate 80 , respiratory rate 22, blood pressure 153/69, oxygen saturation is 95% on 2 L nasal cannula. General: This is a chronically ill-appearing, elderly female. She is lying in the bed currently, in no acute distress. HEENT: Atraumatic, normocephalic. Oral mucous membranes are pink and moist. Conjunctivae are pale. She is edentulous. Cardiovascular: Heart rate and rhythm are regular. Normal sinus rhythm on the monitor. Radial and pedal pulses are palpable and + 2 bilaterally. Respiratory: Lung sounds are clear to auscultation, diminished in the bases. Abdomen: Soft, round, and mildly tender to the mid lower abdomen. Bowel sounds are active. Neurologic: She is awake, alert, and oriented, able to move around independently in the bed. LABORATORY AND X-RAY: Today, her hemoglobin is 10.8. Otherwise, no blood work has been done today. No imaging reports. ASSESSMENT AND PLAN: Ms. Metz has a Proteus urinary tract infection, and continues to do better after receiving Zosyn and lithotripsy. For now, we will continue Zosyn, and recheck her blood work in the morning, including an INR for possible PICC line insertion. She has apparently been a difficult stick. Since she will need another 10 days of treatment, we will go ahead and order a PICC for tomorrow. These plans have been discussed with and recommended by Dr. Izaguirre. COMORBIDITIES: She is elderly, with a history of epilepsy, stroke, coronary artery disease, lupus, and rheumatoid arthritis. Dictated by LIGIA Egan for Junaid Izaguirre MD This chart was documented by, LIGIA Egan and accurately reflects the services performed, treatment plan and medical decisions as attested by the providers signature Junaid Izaguirre MD. cc: Junaid Izaguirre MD [facility]
[2018-12-04] MEDS: OXY IR PO PRN ×4 (01:21→23:43)
[2018-12-04] MEDS: ZANAFLEX PO PRN ×2 (02:35→12:46)
[2018-12-04] MEDS: ZOSYN 3.375 GM in NS 50 ML IV SCH ×4 (03:49→21:23)
[2018-12-04] MEDS: LR 1,000 ML IV SCH ×2 (03:49→15:43)
[2018-12-04] MEDS: OFIRMEV 1000 MG/ISOTONIC SOLN 1,000 MG/100 ML BOTTLE IV SCH ×4 (03:50→21:22)
[2018-12-04] MEDS ORDERED: NS 250 ML ONE (07:53)
[2018-12-04 08:01] LABS: BASO# 0.02 X1000 (0.0-0.2); BASO% 0.5 % (0.0-0.8); EOS# 0.29 X1000 (0.0-0.7); EOS% 7.8 % (0.0-10.0); HEMATOCRIT 31.3 % (37.0-47.0); HEMOGLOBIN 9.7 g/dL (12.0-16.0); LYMPH# 1.52 X1000 (1.2-3.4); MCH 29.1 PG (27-31); MONO# 0.35 X1000 (0.11-0.59); MONO% 9.4 % (1.7-9.3); MPV 10.7 FL (7.4-10.4); NEUT# 1.53 X1000 (1.4-6.5); NEUT% 41.3 % (42.2-75.2); PLT 109 X1000 (130-400); RBC 3.33 XMIL (4.2-5.4); WBC 3.71 X1000 (4.8-10.8)
[2018-12-04 08:10] LABS: INR 0.93; PROTIME 13.2 Seconds (11.0-16.0)
[2018-12-04 08:14] LABS: AGAP 7; BUN 16 mg/dL (8-22); CALCIUM 8.7 mg/dL (8.8-10.2); CHLORIDE 103 mmol/L (98-107); COSMO 284; CREATININE 0.9 mg/dL (0.5-0.9); ESTIMATED GFR > 60; GLUCOSE 92 mg/dL (70-104); POTASSIUM 4.2 mmol/L (3.5-5.1); SODIUM 142 mmol/L (136-145); TCO2 32 mmol/L (25-35)
[2018-12-04] MEDS: SYMBICORT 160/4.5 MICROGM INHALER INH SCH ×2 (09:30→19:30)
[2018-12-04] MEDS: MIRALAX PO SCH ×2 (10:27→20:26)
[2018-12-04] MEDS: VIMPAT PO SCH ×2 (10:28→20:25)
[2018-12-04] MEDS: FERROUS SULFATE PO SCH (10:28)
[2018-12-04] MEDS: FLOMAX PO SCH (10:28)
[2018-12-04] MEDS: FLONASE NAS SCH (10:29)
--- NOTE | 2018-12-04 13:58 | INFECTIOUS DISEASE PROGRESS NO ---
DATE: 12/04/2018 PRESENT ILLNESS: The patient has a Proteus urinary tract infection. She is status post laser lithotripsy and stone basket extraction by Dr. Muñoz. MEDICATIONS: The is the 5th day of treatment with Zosyn. PHYSICAL EXAMINATION: Vital Signs: Temperature is 97.7 degrees, pulse 70, respirations 18, blood pressure 120/63. General: This is an ill-appearing elderly female. She complained of pain in the lower right part of her back. Abdomen: Soft and nontender. Back: I palpated the area where the patient is having pain. It was not tender. The overlying skin looked normal. There was no mass appreciated. Neurologic: The patient is alert. She can move her extremities. There is no tremor. She was out walking earlier with the help of a walker. LAB AND X-RAY: CBC shows a white count of 3710, hemoglobin 9.7, and platelet count is 109,000. Creatinine is 0.9. GFR is greater than 60. ASSESSMENT AND PLAN: Patient has urinary tract infection. I plan to continue with Zosyn for 9 more days to complete a 14 day treatment course. COMORBIDITIES: She is elderly and she has a history of epilepsy, stroke, coronary artery disease, lupus, and rheumatoid arthritis. cc: Junaid Izaguirre MD
--- NOTE | 2018-12-04 14:01 | PROGRESS NOTE ---
DATE: 12/04/2018 SUBJECTIVE: This patient is still complaining of lower back pain, 08/19. Hemoglobin dropped a little bit from 10.8 to 9.7. BNP is normal. I will continue to monitor the hemoglobin and hematocrit. The hematuria seems to be resolving. She is voiding pinkish urine. OBJECTIVE: Vital Signs: Temperature 97.7, pulse 70, respiratory rate 18, blood pressure 120/63, oxygen saturation 95% on 2 L of nasal cannula. HEENT: Head normocephalic. No trauma. PERRLA. Neck supple. No JVD. No masses. Central trachea. Chest clear to auscultation. No wheezing. No rales. Abdomen soft. Some tenderness to palpation at the level of suprapubic area. No rebound. No signs of peritoneal irritation. No CVA tenderness. Lower back pain. Extremities: No edema. No clubbing. No cyanosis. Neurologic: Alert and oriented x3. She does have left- sided weakness 3 to 4/5 and some aphasia. LABORATORY: WBC 3.7, hemoglobin 9.7, hematocrit 31.3, platelet 109,000. Sodium 142, potassium 4.2, chloride 103, bicarbonate 32. BUN 16, creatinine 0.9 glucose 92, calcium 8.7. ASSESSMENT AND PLAN: 1. Bilateral obstructing lateral stone status post ureteroscopy and cystoscopy with lithotripsy and stone extraction and placement of bilateral lower stents which has been already removed 3 days ago. This patient is still complaining of lower abdominal pain, but I believe this is also chronic. Hemoglobin and hematocrit stable but decreased a little bit compared with yesterday. 2. Urinary tract infection secondary to Proteus. The plan is to go ahead and place a PICC line and received treatment for some more days at home. 3. Hypertension, stable. 4. Hyperlipidemia. Continue with home medication. 5. Constipation. Continue with MiraLAX twice a day. cc: Roland Gamble MD
[2018-12-04] MEDS: DEMEROL IV PRN ×2 (15:53→20:23)
[2018-12-04] MEDS: COLACE PO SCH (20:24)
[2018-12-04] MEDS: LACRI-LUBE OPH OINT BOTH EYES SCH (20:24)
[2018-12-04] MEDS: FOLIC ACID PO SCH (20:25)
[2018-12-04] MEDS: LIPITOR PO SCH (20:25)
[2018-12-04] MEDS: ATIVAN IV PRN (21:22)
[2018-12-05] MEDS: DEMEROL IV PRN ×6 (00:43→23:15)
[2018-12-05] MEDS: PHENERGAN IV PRN ×2 (00:52→23:15)
[2018-12-05] MEDS: OFIRMEV 1000 MG/ISOTONIC SOLN 1,000 MG/100 ML BOTTLE IV SCH ×4 (03:35→22:40)
[2018-12-05] MEDS: ZOSYN 3.375 GM in NS 50 ML IV SCH ×4 (03:35→22:40)
[2018-12-05] MEDS: OXY IR PO PRN ×5 (03:35→20:44)
[2018-12-05] MEDS: LR 1,000 ML IV SCH ×2 (05:18→11:01)
[2018-12-05 07:54] LABS: HEMATOCRIT 33.3 % (37.0-47.0); HEMOGLOBIN 10.6 g/dL (12.0-16.0)
[2018-12-05] MEDS: SYMBICORT 160/4.5 MICROGM INHALER INH SCH ×2 (08:06→19:10)
[2018-12-05] MEDS: MIRALAX PO SCH ×2 (10:23→20:43)
[2018-12-05] MEDS: FLOMAX PO SCH (10:24)
[2018-12-05] MEDS: FLONASE NAS SCH (10:24)
[2018-12-05] MEDS: FERROUS SULFATE PO SCH (10:24)
[2018-12-05] MEDS: VIMPAT PO SCH ×2 (10:24→20:43)
[2018-12-05] MEDS ORDERED: LASIX IV ONE (10:51)
[2018-12-05] MEDS: ATIVAN IV PRN ×2 (11:10→20:42)
--- NOTE | 2018-12-05 11:19 | Diag Imaging Result Doc PS360 ---
EXAM: CHEST-PORTABLE HISTORY: SOB TECHNIQUE: Portable chest single view COMPARISON: 02/16/2018 FINDINGS: The lungs are well expanded. There is a right-sided PICC line. The heart is mildly prominent. The vessels are distended. No consolidation. There is a moderate sized hiatal hernia. There calcified left hilar lymph nodes. No effusion identified. IMPRESSION: 1. Mildly prominent heart with mild vascular prominence. 2. Moderate sized hiatal hernia. Electronically signed by Ezio Trujillo 12/05/2018 11:16 AM
--- NOTE | 2018-12-05 13:08 | PROGRESS NOTE ---
DATE: 12/05/2018 SUBJECTIVE: This patient is complaining of shortness of breath and mild lower extremity edema. She is having tremors, but I believe it is because of anxiety. After talking to her and after she calmed down, she stopped the tremors. OBJECTIVE: Vital signs: Temperature is 97.6, pulse 85, respiratory rate 18, blood pressure 117/70, oxygen saturation 94% on 2 L of nasal cannula. HEENT: Head is normocephalic and atraumatic. PERRLA. Neck: Supple. No JVD. No masses. Central trachea. Chest: Clear to auscultation. Decreased breath sounds at the bases. Abdomen: Soft. Some tenderness to palpation at the level of the suprapubic area. No rebound. No signs of peritoneal irritation. No CVA tenderness. Trace to 1+ lower extremity edema. No clubbing, no cyanosis. Neurologic: The patient is alert and oriented x3. No focal deficits. She does have some left-sided weakness 3 to 4/5 with some aphasia which is old. Today she has some tremors but likely secondary to anxiety. DIAGNOSTIC DATA: Hemoglobin is 10.6, hematocrit 33.3. ASSESSMENT AND PLAN: 1. Bilateral obstructing ureteral stones, status post ureteroscopy and cystoscopy with lithotripsy and stone extraction and placement of bilateral lower stents which have been already removed 4 days ago. This patient is still complaining of back pain, but I believe this is chronic. She has been visiting a pain clinic before coming to the hospital. Hemoglobin and hematocrit stable. 2. Urinary tract infection secondary to Proteus. The plan is to go ahead and discharge this patient probably tomorrow or Friday with a PICC line which has already been placed. 3. Hypertension. Stable. 4. Hyperlipidemia. Continue with home medications. 5. Constipation. Continue with MiraLAX twice a day. 6. Anxiety. I will continue with anxiety medication as needed. cc: Roland Gamble MD
[2018-12-05] MEDS: LIPITOR PO SCH (20:44)
[2018-12-05] MEDS: COLACE PO SCH (20:44)
[2018-12-05] MEDS: FOLIC ACID PO SCH (20:44)
[2018-12-05] MEDS: LACRI-LUBE OPH OINT BOTH EYES SCH (20:44)
[2018-12-06] MEDS: OXY IR PO PRN ×3 (01:35→10:40)
[2018-12-06] MEDS: ZOSYN 3.375 GM in NS 50 ML IV SCH ×5 (03:27→21:34)
[2018-12-06] MEDS: OFIRMEV 1000 MG/ISOTONIC SOLN 1,000 MG/100 ML BOTTLE IV SCH ×5 (03:27→21:36)
[2018-12-06] MEDS: LR 1,000 ML IV SCH (03:45)
[2018-12-06] MEDS: DEMEROL IV PRN ×4 (04:17→16:18)
[2018-12-06] MEDS: SYMBICORT 160/4.5 MICROGM INHALER INH SCH ×2 (08:04→19:40)
[2018-12-06] MEDS: MIRALAX PO SCH ×2 (08:20→21:35)
[2018-12-06] MEDS: VIMPAT PO SCH ×2 (08:21→21:35)
[2018-12-06] MEDS: FERROUS SULFATE PO SCH (08:21)
[2018-12-06] MEDS: FLOMAX PO SCH (08:21)
[2018-12-06] MEDS: FLONASE NAS SCH (08:32)
[2018-12-06] MEDS: ATIVAN IV PRN ×2 (10:40→21:36)
--- NOTE | 2018-12-06 15:41 | PROGRESS NOTE ---
DATE: 12/06/2018 SUBJECTIVE: This patient is still complaining of lower back pain which is chronic. She looks anxious as well. No acute events overnight. OBJECTIVE: Vital Signs: Temperature 97.8, pulse 75, respiratory rate 16, blood pressure 147/69, and oxygen saturation 96% on 2 L of nasal cannula. HEENT: Head normocephalic. No trauma. PERRLA. Neck: Supple. No JVD. No masses. Central trachea. Chest: Clear to auscultation. No wheezing. No rales. Abdomen: Soft, nontender, and nondistended. No hepatosplenomegaly. Extremities: Trace to 1+ lower extremity edema. No clubbing. No cyanosis. Neurological: The patient is alert and oriented x3. No focal deficits. She has some left side weakness around 3 to 4/5 with some aphasia which is old. Today, she is having some mild tremors as well in the past yesterday that is likely secondary to anxiety. LABORATORY: No lab work done today. ASSESSMENT AND PLAN: 1. Bilateral obstructing ureteral stones, status post ureteroscopy and cystoscopy with lithotripsy, stone extraction and placement of bilateral lower stents which has been already removed five days ago. This patient is still complaining of back pain, but this is chronic. She has been followed in the pain clinic before coming to the hospital. Hemoglobin and hematocrit have been stable. 2. Urinary tract infection secondary to Proteus, likely this patient will be discharged tomorrow with a PICC line and IV medication. 3. Hypertension, stable. 4. Hyperlipidemia. Continue home medications. 5. Constipation. Continue with MiraLAX twice a day. 6. Anxiety. We will continue with medications as needed. cc: Roland Gamble MD
[2018-12-06] MEDS: COLACE PO SCH (21:35)
[2018-12-06] MEDS: LIPITOR PO SCH (21:35)
[2018-12-06] MEDS: FOLIC ACID PO SCH (21:36)
[2018-12-06] MEDS: LACRI-LUBE OPH OINT BOTH EYES SCH (23:15)
[2018-12-07] MEDS: OFIRMEV 1000 MG/ISOTONIC SOLN 1,000 MG/100 ML BOTTLE IV SCH ×4 (04:13→20:57)
[2018-12-07] MEDS: ZOSYN 3.375 GM in NS 50 ML IV SCH ×4 (04:13→20:57)
[2018-12-07] MEDS: OXY IR PO PRN ×2 (06:27→12:48)
[2018-12-07 07:21] LABS: HEMATOCRIT 31.4 % (37.0-47.0); HEMOGLOBIN 9.7 g/dL (12.0-16.0)
[2018-12-07] MEDS: SYMBICORT 160/4.5 MICROGM INHALER INH SCH ×2 (07:42→20:02)
[2018-12-07 07:49] LABS: AGAP 9; BUN 12 mg/dL (8-22); CALCIUM 8.9 mg/dL (8.8-10.2); CHLORIDE 105 mmol/L (98-107); COSMO 281; CREATININE 0.8 mg/dL (0.5-0.9); ESTIMATED GFR > 60; GLUCOSE 97 mg/dL (70-104); POTASSIUM 3.8 mmol/L (3.5-5.1); SODIUM 141 mmol/L (136-145); TCO2 27 mmol/L (25-35)
[2018-12-07] MEDS: FERROUS SULFATE PO SCH (09:58)
[2018-12-07] MEDS: FLOMAX PO SCH (09:58)
[2018-12-07] MEDS: VIMPAT PO SCH ×2 (09:59→20:58)
[2018-12-07] MEDS: MIRALAX PO SCH ×2 (10:00→20:58)
[2018-12-07] MEDS: LR 1,000 ML IV SCH (10:05)
[2018-12-07] MEDS: FLONASE NAS SCH (10:07)
[2018-12-07] MEDS: DEMEROL IV PRN ×3 (10:14→22:28)
[2018-12-07] MEDS: PHENERGAN IV PRN ×3 (10:14→22:27)
[2018-12-07] MEDS: ZANAFLEX PO PRN (12:48)
--- NOTE | 2018-12-07 18:46 | PROGRESS NOTE ---
DATE: 12/07/2018 SUBJECTIVE: This patient is still complaining of lower back pain but this is chronic, apparently also she was a little bit confused during the night but today she has been completely awake, alert and oriented x3, everything has been set up so this patient can be discharged. Antibiotics per Dr. Izaguirre and he wants to follow her up in 2 weeks, she also will follow up with Urology Department but she needs to call for an appointment. OBJECTIVE: Vital signs: Temperature 98.1 degrees, pulse 89, respiratory rate 19, blood pressure 156/59, oxygen saturation 97 on 2 L of nasal cannula. HEENT: Head normocephalic. No trauma. PERRLA. Neck: Supple. No JVD. No masses. Central trachea. Chest: Clear to auscultation. No wheezing, no rales. Abdomen: Soft, nontender, nondistended, no hepatosplenomegaly. Extremities: Trace to 1+ lower extremity edema. No clubbing, no cyanosis. Neurologic: The patient is alert and oriented x3. No focal deficits. She has some left-sided weakness around 3 to 4/5 and some aphasia which is old, she has sporadic tremors when she is anxious. LABORATORY: Hemoglobin 9.7, hematocrit 31.4. Normal BMP. ASSESSMENT AND PLAN: 1. Bilateral obstructing ureteral stones, status post ureteroscopy and cystoscopy with lithotripsy, stone extraction and placement of bilateral lower stents which has been already removed 6 days ago, this patient is still complaining of some back pain but this is chronic, she has been followed at the pain clinic before coming to the hospital and she has an appointment with them next month on the 12/16/2018, hemoglobin and hematocrit has been stable. No more hematuria. 2. Hematuria resolved. 3. Urinary tract infection secondary to Proteus, she will be discharged with a peripherally inserted central catheter line which is already placed, pending set up medications with [facility] so she can go home. Infectious disease department already placed the consult. 4. Hypertension stable. 5. Hyperlipidemia. Continue home medications. 6. Constipation. Continue with MiraLAX twice a day. 7. Anxiety. We will continue with medications as needed. cc: Roland Gamble MD
--- NOTE | 2018-12-07 19:00 | INFECTIOUS DISEASE PROGRESS NO ---
DATE: 12/07/2018 PRESENT ILLNESS: The patient is being treated for Proteus urinary tract infection. She is status post laser lithotripsy and stone basket extraction by Dr. Muñoz. MEDICATIONS: The patient has had the 5th day of treatment with Zosyn. PHYSICAL EXAMINATION: Vital Signs: Temperature is 99 degrees, pulse 90, respirations 18, blood pressure 150/60. General: This is an ill-appearing elderly female. She is in no acute distress, however. Head/eyes/ears/nose/throat: She can hear my spoken words and see near objects. Neck: No meningismus. Lungs: Clear to auscultation. Cardiovascular: Heart rate is regular. Abdomen: Soft and nontender. Neurologic: The patient is slightly lethargic today but she does move her extremities. There is no tremor. LAB AND X-RAY: There is no new radiographic study. The hemoglobin is 9.7, hematocrit is 31.4. The creatinine is 0.8. GFR is greater than 60. ASSESSMENT AND PLAN: The patient is being treated for urinary tract infection. I plan to treat with Zosyn for 10 more days and then have the patient seen in the office and repeat her urine culture and if it is negative, the PICC will be removed. I have also put in a consult for [employer], not only to supply the Zosyn but also to continue line care until the PICC is removed. COMORBIDITIES: The patient is elderly. She has had a history of epilepsy, stroke, coronary artery disease, lupus, and rheumatoid arthritis. She is on immunosuppressive medications. cc: Junaid Izaguirre MD
[2018-12-07] MEDS: COLACE PO SCH (20:58)
[2018-12-07] MEDS: LIPITOR PO SCH (20:58)
[2018-12-07] MEDS: FOLIC ACID PO SCH (20:58)
[2018-12-07] MEDS: LACRI-LUBE OPH OINT BOTH EYES SCH (21:05)
[2018-12-08] MEDS: DEMEROL IV PRN ×3 (03:28→16:02)
[2018-12-08] MEDS: PHENERGAN IV PRN ×2 (03:28→08:25)
[2018-12-08] MEDS: OFIRMEV 1000 MG/ISOTONIC SOLN 1,000 MG/100 ML BOTTLE IV SCH ×5 (03:47→16:05)
[2018-12-08] MEDS: ZOSYN 3.375 GM in NS 50 ML IV SCH ×3 (03:47→10:18)
[2018-12-08] MEDS: FLOMAX PO SCH (08:23)
[2018-12-08] MEDS: VIMPAT PO SCH (08:23)
[2018-12-08] MEDS: FERROUS SULFATE PO SCH (08:23)
[2018-12-08] MEDS: MIRALAX PO SCH (08:24)
[2018-12-08] MEDS: FLONASE NAS SCH (08:29)
[2018-12-08] MEDS: SYMBICORT 160/4.5 MICROGM INHALER INH SCH (08:36)
[2018-12-08] MEDS: LR 1,000 ML IV SCH (10:21)
[2018-12-08] MEDS: ZOFRAN IV PRN (11:37)
[2018-12-08 13:30] VITALS: BP 149/67
--- NOTE | 2018-12-08 14:15 | PROGRESS NOTE ---
DATE: 12/08/2018 SUBJECTIVE: Ms. Metz was admitted on 11/27/2018, followed by Dr two month history of intermittent flank pain and dysuria. This is a 78-year-old, last admitted February last year for hip fracture, complaining of two month history of persistent hematuria, intermittent left flank pain, suprapubic pain, also intermittent nausea and vomiting. PAST MEDICAL HISTORY: 1. History of possible mild dementia. 2. Rheumatoid arthritis. 3. Sjgren's syndrome. 4. Possible lupus. 5. Right frontal CVA. 6. Pernicious anemia. 7. Hypertension. 8. Hyperlipidemia. 9. Epilepsy. So, when she presented, found bilateral stones accompanied by bilateral hydronephrosis. She has had a history of multiple rheumatologic connective tissue disorders, including SLE, lupus, and Sjgren's. She has had a history of epilepsy, hypertension, and rheumatoid lung in the past. She is sitting up eating lunch, states she is feeling much better. OBJECTIVE: Temperature 98.7, pulse 84, respirations 18, blood pressure 149/67. Pupils are equal and round. Lungs are clear in all lung che. Cardiovascular: Regular rate and rhythm without murmur or S3. Urine output was 2000 mL. ASSESSMENT AND PLAN: 1. Bilateral obstructive ureter stones, status post ureteroscopy and cystoscopy with lithotripsy, stone extraction, and placement of bilateral lower stents, which have all been removed about seven days ago. Still complaining of some back pain but overall doing much better. She is followed at the pain clinic and is scheduled to be seen next month on 12/16/2018. Hemoglobin and hematocrit are stable. No more hematuria. 2. Hematuria, resolved. 3. Urinary tract infection. Proteus. She will be discharged with peripheral inserted intravenous line and set up for medications on home basis. 4. Hypertension. 5. Hyperlipidemia. 6. Constipation. 7. Anxiety. We are trying to set up her Zyvox at home. Right now the infusion is too expensive, so Dr. Izaguirre is going to be working with social service and will see how we do on that. cc: Neto Lincoln MD [facility]ENTER[facility]
[2018-12-08] MEDS ORDERED: INVANZ 1 GM/NS 1 GM/50 ML IVPB IV ONE (15:40)
--- NOTE | 2018-12-08 16:54 | INFECTIOUS DISEASE PROGRESS NO ---
DATE: 12/08/2018 PRESENT ILLNESS: Ms. Metz is being treated for Proteus urinary tract infection which is multidrug resistant. She is status post cystoscopy with lithotripsy and stone basket extraction done by Dr. Muñoz. MEDICATIONS: She has been receiving Zosyn 3.375 g IV every 6 hours. Today is day 9 of this medication. PHYSICAL EXAMINATION: Vital Signs: Temperature is 98.7 degrees, pulse rate 84 , respiratory rate 18, blood pressure 149/67, O2 saturation 95% on 2 L nasal cannula. General: This is a chronically ill-appearing, elderly female. She is sitting up in bed, currently in no acute distress. HEENT: Atraumatic, normocephalic. Oral mucous membranes are pink and moist. She is edentulous. Conjunctivae are pale. Neck: Supple. Trachea is midline. Cardiovascular: Heart rate is regular. Radial and pedal pulses are palpable bilaterally. She has pitting edema pretibially 2+ bilaterally. Respiratory: Lung sounds are generally clear and diminished in the bases. Abdomen: Soft, round and nontender. Bowel sounds are active. Neurologic: She is awake, alert, and oriented. She is able to get up independently to the bedside commode. Integumentary: Skin is warm and dry. PICC line in place to the right upper arm. Site is without edema, erythema, or drainage. LABORATORY AND X-RAY: None available today. ASSESSMENT AND PLAN: Ms. Metz was supposed to be discharged home on Zosyn. However, she could not afford to pay the co-pay through the infusion company, so the plan is for her to come into the hospital every day for ertapenem 1 g IV. She will have her first dose of ertapenem this afternoon and then will receive it again daily for the next 9 days. She states that she can make it in every day and will follow up with us in the office in 2 weeks. An appointment has already been scheduled. At that point, we will recheck her urine, and hopefully she will be clear. These plans have been discussed with and recommended by Dr. Izaguirre. COMORBIDITIES: For Ms. Metz include that she is elderly with history of epilepsy, stroke, coronary artery disease, lupus and rheumatoid arthritis. Dictated by LIGIA Egan for Junaid Izaguirre MD This chart was documented by, LIGIA Egan and accurately reflects the services performed, treatment plan and medical decisions as attested by the providers signature Junaid Izaguirre MD. cc: Junaid Izaguirre MD [facility]
--- NOTE | 2019-01-14 05:43 | DISCHARGE SUMMARY ---
ADMISSION DATE: 11/27/2018 DISCHARGE DATE: 12/08/2018 DISCHARGE DIAGNOSES: 1. Bilateral obstructing ureteral stone status post ureteroscopy and cystoscopy with lithotripsy, stone extraction and placement of bilateral lower stents, already removed. 2. Hematuria, resolved. 3. Urinary tract infection due to Proteus. 4. Hypertension. 5. Hyperlipidemia. 6. Constipation. 7. Anxiety. PROCEDURES PERFORMED: 1. Renal CT scan dated 11/26/2018. Impression, obstructing stone in the proximal right ureter and distal left ureter as described with bilateral moderate hydronephrosis. 2. Retrograde pyelogram dated 11/27/2018. Impression, bilateral stone extraction and stent placement, cystoscopy with bilateral ureteroscopy, bilateral retrograde pyelograms, laser lithotripsy and stone basket extraction, bilateral ureteral stent placement dated 11/27/2018. HOSPITAL COURSE: A 78-year-old female with a past medical history of rheumatoid arthritis, Sjogren disease, possible lupus, right frontal CVA, pernicious anemia, hypertension, hyperlipidemia, epilepsy, came and was admitted on 11/27/2017 complaining of 2-month history of persistent hematuria, intermittent left flank and suprapubic pain associated with intermittent nausea and vomiting that basically was on a daily basis. She denied fever but she was having chills. She denied dysuria but she was having urinary frequency/urgency. She states that sometimes the hematuria is shantel blood and sometimes it is just mixed with urine. She says the flank pain on the left side is burning, radiated down to her groin. She has no specific aggravating or alleviating factors, no diarrhea or any other associated gastrointestinal complaints. She denied any cardiorespiratory complaints. She reports 2 weeks ago she was treated for a urinary tract infection by Dr. Mccullough, but her symptoms have been worsened. The patient was admitted to the medical floor. The plan was to call the Urology Department. CT of the kidneys showed bilateral kidney stone with hydronephrosis, and basically Urology will do a possible stone extraction or lithotripsy. The patient was treated symptomatically. The patient was evaluated by Urology department, Dr. Muñoz, who did a cystoscopy, bilateral ureteroscopy with uroscopy, bilateral retrograde pyelograms, laser lithotripsy, and stone basket extraction, bilateral ureteral stent placement. The patient tolerated well the procedure. We checked her urine and it was positive for gram-negative rods, and then turns out to be Proteus, which was resistant to multiple medications, and also this patient has a history of multiple medication allergies, including Bactrim, levofloxacin. This patient was placed on IV fluids. She did have hematuria but it was getting more clear on a daily basis. Infectious Disease Department on board and this patient was has been placed on ceftriaxone. We tried to continue helping the patient with the pain that she was having, at some point, the stents were removed and she tolerated that. Also, this patient was complaining of anxiety, and sometimes when she was really anxious she was having some upper extremity tremors which were better after talking to the patient once she is more relaxed or calm. It looks like the only option to treat the patient at home was to place a PICC line and send her home with IV antibiotics, which we did. She was finally discharged on Zosyn to complete 14 days of treatment. At the moment of discharge, the patient was in a stable medical condition, tolerating p.o. DISCHARGE PHYSICAL EXAMINATION: Vital Signs: Temperature 98.7 degrees, pulse 84, respiratory rate 18, blood pressure 149/67, oxygen saturation 95% on nasal cannula. I examined this patient, the day before. HEENT: Head normocephalic. No trauma. PERRLA. Neck: Supple. No JVD. No masses. Central trachea. Chest: Clear to auscultation. No wheezing. No rales. Abdomen: Soft, nontender, nondistended. No hepatosplenomegaly. Extremities: Trace to 1+ extremity edema. No clubbing, no cyanosis. Neurological: The patient was alert and oriented x3 the day before discharge. No focal deficits. She has some left-sided weakness, around 3 to 4/5, and some aphasia which is old, but nothing new. She has been having some sporadic tremors when she is anxious. LABORATORY: On 12/07/2018 hemoglobin 9.7, hematocrit 31.4. Sodium 141, potassium 3.8, chloride 105, bicarbonate 27, BUN 12, creatinine 0.8. Glucose 97, calcium 8.9. DISCHARGE MEDICATIONS: 1. MiraLAX 17 g p.o. twice a day. 2. Tamsulosin 0.4 mg p.o. daily. 3. Folic acid 1 tablet p.o. daily. 4. Symbicort 160/4.5 mcg inhaler, 2 puff inhaler twice a day. 5. Albuterol sulfate 8.5 g every 8 hours as needed. 6. Vitamin D3 5000 units p.o. daily. 7. Refresh classic eyedrops 1 drop each as directed. 8. Vimpat 200 mg p.o. twice a day. 9. Flonase 1 spray intranasal daily. 10. Zanaflex 4 mg p.o. q.6 hours as needed. 11. Lipitor 40 mg p.o. at bedtime. 12. Tylenol 1000 mg every 8 hours. 13. Ferrous sulfate 325 mg with breakfast only. 14. Milk of magnesia 30 mL orally as needed for constipation. 15. Oxy IR 5 mg p.o. every 3 hours as needed for pain. 16. Docusate 200 mg p.o. at bedtime. 17. Lorazepam 1 mg p.o. 3 times a day as needed. cc: Roland Gamble MD
== END 2018-12-08 18:09 | disposition home health service (06) | DRG 660 ==
LOC: ED 21:57 → SUATTDRO 11-27 04:09 → 3N 11-27 04:09
PROVIDERS: ATTEND Emergency Medicine
CPT/HCPCS: 36569; 71010; 71045; 74176; 74420; 80048; 80053; 81001; 82150; 82360; 83690; 83735; 85014; 85018; 85025; 85610; 85730; 87077; 87088; 87186; 88300; 94640; 94761; 96361; 96374; 96375; 97110; 97162; 97165; 97530; 97535; 99285; A9270; J0131; J0690; J1335; J1885; J1940; J2060; J2175; J2300; J2405; J2543; J2550; J3010; J7030; J7050; J7120; Q9966; Q9967

== ENCOUNTER 2018-12-11 10:26 | Inpatient (IN) ==
[2018-12-11] MEDS ORDERED: ASPIRIN PO ONE (10:32)
[2018-12-11] MEDS ORDERED: ASPIRIN PR ONE (10:32)
--- NOTE | 2018-12-11 11:05 | EKG Report ---
Test Performed on : 12/11/2018 10:36:54 AM Test Reason : SOB Blood Pressure : / mmHG Vent. Rate : 066 BPM Atrial Rate : 066 BPM P-R Int : 170 ms QRS Dur : 088 ms QT Int : 422 ms P-R-T Axes : 068 -21 066 degrees QTc Int : 442 ms Normal sinus rhythm. Possible Left atrial enlargement Nonspecific ST abnormality Abnormal ECG When compared with ECG of 16-FEB-2018 14:51, T wave inversion no longer evident in Lateral leads Unconfirmed Result
[2018-12-11 11:07] LABS: BASO# 0.01 X1000 (0.0-0.2); BASO% 0.2 % (0.0-0.8); EOS# 0.01 X1000 (0.0-0.7); EOS% 0.2 % (0.0-10.0); HEMATOCRIT 30.6 % (37.0-47.0); HEMOGLOBIN 9.6 g/dL (12.0-16.0); IMM GRAN# 0.04 X1000 (0.0-0.04); IMM GRAN% 0.8 % (0.0-0.5); LYMPH# 0.92 X1000 (1.2-3.4); LYMPH% 17.5 % (20.5-51.1); MCH 28.9 PG (27-31); MCHC 31.4 g/dL (33-37); MCV 92.2 FL (81-99); MONO# 0.59 X1000 (0.11-0.59); MONO% 11.2 % (1.7-9.3); NEUT% 70.1 % (42.2-75.2); PLT 201 X1000 (130-400); RBC 3.32 XMIL (4.2-5.4); RDW 14.4 % (11.5-14.5); WBC 5.27 X1000 (4.8-10.8)
[2018-12-11 11:16] LABS: PTT 25.2 Seconds (22.3-41.8)
--- NOTE | 2018-12-11 11:19 | Diag Imaging Result Doc PS360 ---
EXAM: CHEST-2 VIEWS HISTORY: SOB TECHNIQUE: Chest two views COMPARISON: 12/05/2018 FINDINGS: The lungs are well expanded. The heart is not enlarged. The vessels are not distended. There has been partial clearing in the left lung base. No pleural effusions. There is a right-sided PICC line. There calcified left hilar lymph nodes. IMPRESSION: Mild interval improvement. Electronically signed by Ezio Trujillo 12/11/2018 11:17 AM
[2018-12-11 11:20] LABS: INR 1.05; PROTIME 14.5 Seconds (11.0-16.0)
[2018-12-11 11:47] LABS: AGAP 14; ALB/GLOB RATIO 2.1; ALKALINE PHOSPHATASE 65 U/L (32-104); BUN 10 mg/dL (8-22); CALCIUM 8.4 mg/dL (8.8-10.2); CHLORIDE 106 mmol/L (98-107); CK PROFILE 67 U/L (24-173); COSMO 286; CREATININE 0.6 mg/dL (0.5-0.9); ESTIMATED GFR > 60; GLUCOSE 109 mg/dL (70-104); GOT 12 U/L (10-30); GPT 13 U/L (10-36); POTASSIUM 3.1 mmol/L (3.5-5.1); SODIUM 144 mmol/L (136-145); TCO2 24 mmol/L (25-35); TOTAL PROTEIN 5.9 g/dL (6.3-8.3)
[2018-12-11 11:48] LABS: URINE SOURCE CLEAN CATCH
[2018-12-11 11:50] LABS: BILIRUBIN URINE NEGATIVE (NEGATIVE); BLOOD URINE SMALL (NEGATIVE); COLOR YELLOW; GLUCOSE URINE NEGATIVE (NEGATIVE); KETONE URINE 40 mg/dL (NEGATIVE); LEUKOCYTES URINE SMALL (NEGATIVE); NITRITE URINE NEGATIVE (NEGATIVE); PROTEIN URINE 30 mg/dL (NEGATIVE); SP GRAVITY URINE 1.022; TURBIDITY URINE HAZY (CLEAR); UROBILINOGEN URINE NORMAL (NORMAL)
[2018-12-11 11:51] LABS: UR EPITHELIAL CELLS <10 /HPF (<10); URINE BACTERIA NEGATIVE /HPF; URINE RBC <10 /HPF (<10); URINE WBC <10 /HPF (<10)
[2018-12-11] MEDS ORDERED: LASIX IV ONE (12:37)
[2018-12-11] MEDS ORDERED: ZOFRAN IV ONE (12:44)
--- NOTE | 2018-12-11 15:06 | PROVIDER DOCUMENTATION ---
This chart was entered by Angélica Riojas Scribe, acting as scribe for Tyrone Coleman MD. HPI-Respiratory General - General Chief Complaint: Shortness of Breath Stated Complaint: ALLERGIC REACTION Time Seen by Provider: 12/11/18 11:21 Source: patient Allergies/Adverse Reactions: Patient Allergies Allergy/AdvReac Type Severity Reaction Status Date / Time hydrocodone bitartrate * Allergy Intermediate ITCHING Verified 12/11/18 11:53 [From Lortab] levofloxacin [From Levaquin] Allergy Unknown Unknown Verified 12/11/18 11:53 sulfamethoxazole Allergy Unknown Unknown Verified 12/11/18 11:53 [From Bactrim] trimethoprim [From Bactrim] Allergy Unknown Unknown Verified 12/11/18 11:53 baclofen AdvReac Intermediate confusion Verified 12/11/18 11:53 gabapentin [From Neurontin] AdvReac Intermediate hyperactivi Verified 12/11/18 11:53 ty methadone [Methadone] AdvReac Intermediate confusion Verified 12/11/18 11:53 morphine AdvReac Intermediate confusion Verified 12/11/18 11:53 pregabalin [From Lyrica] AdvReac Intermediate hallucinati Verified 12/11/18 11: 53 ons azathioprine [From Imuran] AdvReac Mild VOMITING Verified 12/11/18 11:53 azathioprine sodium * AdvReac Mild VOMITING Verified 11/26/18 22:50 [From Imuran] Home Medications: Home Medication List Medication Instructions Recorded Confirmed Last Taken Type Folic Acid 1 tab PO QPM 09/12/12 11/27/18 07/15/17 08:00 History Albuterol Sulfate [Proair Hfa] 8.5 gm IH Q8H PRN 12/07/16 11/28/18 2 Days Ago History ~07/14/17 Budesonide/Formoterol Inhaler 2 puff INH RTBID 12/07/16 11/27/18 07/15/17 08:00 History [Symbicort 160/4.5 Microgm Inhaler] Cholecalciferol (Vitamin D3) 5,000 unit PO DAILY 12/07/16 11/27/18 07/15/17 08: 00 History [Vitamin D3] Polyvinyl Alcohol/Povidone/Pf 1 each OP DIRECTED 04/30/17 11/27/18 07/15/17 19:00 History [Refresh Classic Eye Drops] Lacosamide [Vimpat] 200 mg PO BID tablet 05/21/17 11/27/18 07/15/17 19:00 Rx Fluticasone 50 Mcg Nasal [place] 1 spray LD DAILY 07/07/17 11/27/18 07/15/17 08: 00 History [Flonase] Polyethylene Glycol 3350 [Miralax] 1 cap PO BID #1 powder 08/19/17 11/27/18 Unknown Rx Tizanidine HCl [Zanaflex] 4 mg PO Q6HR PRN #14 tablet 08/19/17 11/27/18 Unknown Rx ATORVAstatin [Lipitor] 40 mg PO QHS 02/16/18 11/27/18 Unknown History Acetaminophen [Tylenol] 1,000 mg PO Q8H tablet 02/20/18 11/27/18 Unknown Rx Chlorhexidine Gluconate [Peridex] 15 ml MT BID udc 02/20/18 11/27/18 Unknown Rx Docusate Sodium [Colace] 200 mg PO QHS capsule 02/20/18 11/27/18 Unknown Rx Ferrous Sulfate 325 mg PO WBREAKFAST tablet 02/20/18 11/27/18 Unknown Rx Magnesium Hydroxide [Milk of 30 ml PO DAILY PRN PRN udc 02/20/18 11/27/18 Unknown Rx Magnesia] Oxycodone I.r. [Oxy Ir] 5 mg PO Q3H PRN PRN #40 tablet 02/20/18 11/27/18 Unknown Rx Lorazepam [Ativan] 1 mg PO TID PRN PRN #20 tab 12/07/18 Unknown Rx Polyethylene Glycol 3350 [Miralax] 17 gm PO BID powder, packet 12/07/18 Unknown Rx Tamsulosin [Flomax] 0.4 mg PO DAILY #30 cap 12/07/18 Unknown Rx - History of Present Illness-Resp Nature of Presenting Problem: Patient is a 78 year old female who presents to the ED with shortness of breath. Patient states right side chest pain, diarrhea, nausea, vomiting and lower back pain. Patient's states symptoms started after patient received her first at home infusion. Patient's states patient was admitted for UTI and kidney stones for 15 days. Quality of Pain: reports: tightness Severity in ED: reports: mild Onset/Duration: reports: 3 days ago Timing: reports: still present, intermittent Cough Quality/Degree: reports: moderate Episode Frequency: frequent episodes Current Respiratory Medication Therapy: Initiated see nurses note Modifying Factors: improves with: nothing Associated Symptoms: reports: chest pain/soreness (right side chest pain), cough , shortness of breath Similar Symptoms Previously?: Yes (present for 3 days) Recently seen or treated by another doctor?: No Review of Systems - Adult - REVIEW OF SYSTEMS - ADULT Constitutional: reports: no symptoms reported Eyes: reports: no symptoms reported Ears, Nose, Mouth & Throat: reports: no symptoms reported Cardiovascular: reports: chest pain (right side). denies: heart murmur, orthopnea Respiratory: reports: cough, shortness of breath. denies: wheezing Gastrointestinal: reports: diarrhea, nausea, vomiting. denies: abdominal pain Genitourinary: reports: no symptoms reported Musculoskeletal: reports: back pain (lower). denies: joint pain, neck pain Integumentary: reports: no symptoms reported Neurological: reports: no symptoms reported Psychiatric: reports: no symptoms reported Endocrine: reports: no symptoms reported Hematologic/Lymphatic: reports: no symptoms reported Allergic/Immunologic: reports: no symptoms reported All Other Systems: Reviewed and Negative Past History - Adult - PAST MEDICAL HISTORY-ADULT Review of Records: reports: Nursing Assessment Review, Medications Reviewed, Social history reviewed & non-contributory. Major Childhood Illnesses: reports: denies history Cardiovascular: reports: HTN, hyperlipidemia, HI Respiratory: reports: asthma, other (home oxygen) Gastrointestinal: reports: GERD Obstetrical/Gynecological: reports: denies history Genitourinary: reports: other, chronic UTI's Musculoskeletal: reports: arthritis, chronic pain, neck/back injury, other fractures, orthopedic injury, osteoporosis Neurological: reports: CVA, dementia, Seizures/Epilepsy Endocrine/Immune: reports: anemia, lupus, RA Other Conditions: reports: denies history - PRIOR SURGERIES/PROCEDURES Surgical/Procedure History: reports: appendectomy, hysterectomy, tonsillectomy, orthopedic (extremity) (total knee replacement), back/neck - PRIOR HOSPITALIZATIONS Prior Hospitalizations: reports: none - IMMUNIZATION STATUS Childhood Immunizations: See Nurse Assessment Flu Vaccine: See Nurse Assessment - FAMILY HISTORY Family History: reviewed, not pertinent - SOCIAL HISTORY Smoking: denies Substance Use: denies Living Situation: family Physical Exam-General - PHYSICAL EXAM-ADULT Initial Vital Signs Reviewed: Yes - CONSTITUTIONAL General Appearance: alert, mild distress, other (ill in appearance) - EYES Eyes: PERRL/EOMI, pink conjunctivae - RESPIRATORY Respiratory: chest non-tender, decreased breath sounds (bilateral), rhonchi ( left base), wheezing (expiratory) - CARDIOVASCULAR Cardiovascular: normal peripheral pulses, regular rate, rhythm - GASTROINTESTINAL (ABDOMEN) Abdominal Exam: normal bowel sounds, non tender, soft - MUSCULOSKELETAL Extremity: non-tender, other (2 + pitting edema to bilateral lower extremities) - SKIN Integumentary: normal turgor, warm/dry, pallor - NEUROLOGIC Neurologic: grossly normal - PSYCHIATRIC Psych/Mental Status: normal mood/affect, oriented x 3 Progress - PLAN OF CARE/RESULTS Progress/Plan/Lab Results: Vital Signs - 8 hr 12/11/18 10:31 12/11/18 11:43 12/11/18 14:32 Temperature 97.7 F Pulse Rate 70 62 63 Respiratory Rate 22 24 18 Blood Pressure 162/84 153/71 163/78 O2 Sat by Pulse Oximetry 95 94 L 97 Laboratory Results - last 24 hr 12/11/18 12/11/18 12/11/18 10:57 10:57 10:57 WBC 5.27 RBC 3.32 L Hgb 9.6 L Hct 30.6 L MCV 92.2 MCH 28.9 MCHC 31.4 L RDW Std Deviation 14.4 Plt Count 201 MPV 10.0 Immature Gran % (Auto) 0.8 H Neut % (Auto) 70.1 Lymph % (Auto) 17.5 L [place] % (Auto) 11.2 H Eos % (Auto) 0.2 Baso % (Auto) 0.2 Immature Gran # (Auto) 0.04 Neut # (Auto) 3.70 Lymph # (Auto) 0.92 L [place] # (Auto) 0.59 Eos # (Auto) 0.01 Baso # (Auto) 0.01 PT INR PTT (Actin FS) D-Dimer, Quantitative Sodium 144 Potassium 3.1 L Chloride 106 Carbon Dioxide 24 L Anion Gap 14 BUN 10 Creatinine 0.6 Estimated GFR/1.73 m2 > 60 BUN/Creatinine Ratio 17 Glucose 109 H Calculated Osmolality 286 Calcium 8.4 L Total Bilirubin 0.30 AST 12 ALT 13 Alkaline Phosphatase 65 Creatine Kinase 67 Troponin T Oyt-K-Dbqbcuuhlle Pept 1088 H Total Protein 5.9 L Albumin 4.0 Globulin 1.9 Albumin/Globulin Ratio 2.1 Plasma Lactate Urine Source Urine Color Urine Turbidity Urine pH Ur Specific [place] Urine Protein Ur Glucose (Stick) Ur Ketones (Stick) Urine Blood Urine Nitrite Urine Bilirubin Urobilinogen Dipstick Urine Leukocytes Urine WBC (Auto) Urine RBC (Auto) U Epithel Cells (Auto) Urine Bacteria (Auto) 12/11/18 12/11/18 12/11/18 10:57 10:57 10:57 WBC RBC Hgb Hct MCV MCH MCHC RDW Std Deviation Plt Count MPV Immature Gran % (Auto) Neut % (Auto) Lymph % (Auto) Montgomery % (Auto) Eos % (Auto) Baso % (Auto) Immature Gran # (Auto) Neut # (Auto) Lymph # (Auto) Montgomery # (Auto) Eos # (Auto) Baso # (Auto) PT 14.5 INR 1.05 PTT (Actin FS) 25.2 D-Dimer, Quantitative 4.87 H Sodium Potassium Chloride Carbon Dioxide Anion Gap BUN Creatinine Estimated GFR/1.73 m2 BUN/Creatinine Ratio Glucose Calculated Osmolality Calcium Total Bilirubin AST ALT Alkaline Phosphatase Creatine Kinase Troponin T < 0.010 Wxh-P-Rbxypwkwbxy Pept Total Protein Albumin Globulin Albumin/Globulin Ratio Plasma Lactate Urine Source Urine Color Urine Turbidity Urine pH Ur Specific [place] Urine Protein Ur Glucose (Stick) Ur Ketones (Stick) Urine Blood Urine Nitrite Urine Bilirubin Urobilinogen Dipstick Urine Leukocytes Urine WBC (Auto) Urine RBC (Auto) U Epithel Cells (Auto) Urine Bacteria (Auto) 12/11/18 12/11/18 12/11/18 11:24 13:00 14:10 WBC RBC Hgb Hct MCV MCH MCHC RDW Std Deviation Plt Count MPV Immature Gran % (Auto) Neut % (Auto) Lymph % (Auto) [place] % (Auto) Eos % (Auto) Baso % (Auto) Immature Gran # (Auto) Neut # (Auto) Lymph # (Auto) [place] # (Auto) Eos # (Auto) Baso # (Auto) PT INR PTT (Actin FS) D-Dimer, Quantitative Sodium Potassium Chloride Carbon Dioxide Anion Gap BUN Creatinine Estimated GFR/1.73 m2 BUN/Creatinine Ratio Glucose Calculated Osmolality Calcium Total Bilirubin AST ALT Alkaline Phosphatase Creatine Kinase Troponin T < 0.010 Wkl-U-Fevyyvvhrad Pept Total Protein Albumin Globulin Albumin/Globulin Ratio Plasma Lactate 0.6 Urine Source CLEAN CATCH Urine Color YELLOW Urine Turbidity HAZY Urine pH 6.0 Ur Specific [place] 1.022 Urine Protein 30 A Ur Glucose (Stick) NEGATIVE Ur Ketones (Stick) 40 A Urine Blood SMALL A Urine Nitrite NEGATIVE Urine Bilirubin NEGATIVE Urobilinogen Dipstick NORMAL Urine Leukocytes SMALL A Urine WBC (Auto) <10 Urine RBC (Auto) <10 U Epithel Cells (Auto) <10 Urine Bacteria (Auto) NEGATIVE Orders Category Date Time Status Cardiac Monitoring DIRECTED Care 12/11/18 10:32 Active Oxygen Therapy- ED Nursing DIRECTED Care 12/11/18 10:32 Active Saline Loc NOW Care 12/11/18 10:32 Active CHEST-2 VIEWS [RAD] Stat Exams 12/11/18 10:32 Completed CBC WITH ELECTRONIC DIFF [HEME] Stat Lab 12/11/18 10:57 Completed CK PROFILE [SP CHEM] Stat Lab 12/11/18 10:57 Completed COMPREHENSIVE METABOLIC PANEL [CHEM] Stat Lab 12/11/18 10:57 Completed D-DIMER [COAG] Stat Lab 12/11/18 10:57 Completed LACTATE, PLASMA [CHEM] Stat Lab 12/11/18 13:00 Completed PRO B-NATRIURETIC PEPTIDE Stat Lab 12/11/18 10:57 Completed PROTIME WITH INR [COAG] Stat Lab 12/11/18 10:57 Completed PTT [COAG] Stat Lab 12/11/18 10:57 Completed TROPONIN T Stat Lab 12/11/18 10:57 Completed TROPONIN T Stat Lab 12/11/18 14:10 Completed URINALYSIS W/POSS RFLX CULT [URINALYSIS] Stat Lab 12/11/18 11:24 Completed URINE CULTURE [RM] Routine Lab 12/11/18 12:45 Received Aspirin Med 12/11/18 10:32 Discontinued 300 mg NH NOW ONE Aspirin Med 12/11/18 10:32 Discontinued 325 mg PO NOW ONE Furosemide [Lasix] Med 12/11/18 12:37 Discontinued 40 mg IV NOW ONE Ondansetron [Zofran] Med 12/11/18 12:44 Discontinued 8 mg IV NOW ONE CP/SOB/Palp >45 yrs of Age Stat Oth 12/11/18 10:32 Ordered EKG [EKG] Stat Ther 12/11/18 10:32 Draft Transfer/Admit Order [TRANSFER] Routine Transfer 12/11/18 14:33 Ordered Result Diagrams: 12/11/18 10:57 12/11/18 10:57 - EKG 1 Time of EKG reading by physician:: 10:36 EKG Read and Signed by:: Tyrone Coleman EKG Interpretation (*Must complete 3 of following elements*): Abnormal Rate: 66 Rhythm: normal sinus rhythm NH Interval: normal ST Wave: non-specific ST changes Comments: possible atrial enlargement - XRAY 1 XRAY Study: Chest Impression: See EMR Report (EXAM: CHEST-2 VIEWS HISTORY: SOB TECHNIQUE: Chest two views COMPARISON: 12/05/2018 FINDINGS: The lungs are well expanded. The heart is not enlarged. The vessels are not distended. There has been partial clearing in the left lung base. No pleural effusions. There is a right-sided PICC line. There calcified left hilar lymph nodes. IMPRESSION: Mild interval improvement. Electronically signed by Ezio Trujillo 12/11/2018 11: 17 AM 12/11/18 1117 Interpreting Physician: Ezio Trujillo MD Dictated Date/Time: 12/11/18 1116 cc: Tyrone Coleman MD; Jaclyn Lucero) - CONSULTS/PCP/HOSPITALIST Notification #1 *Consult/PCP/Hospitalist*: LIGIA Espana for Hospitalist Time Discussed: 13:52 Reason/Comments: Dr. Coleman consulted with Malorie about patient. Consult Disposition: Will see in ED, Admit Departure - Departure Date of Disposition Decision: 12/11/18 Time of Disposition Decision: 13:55 DIAGNOSIS: Weakness generalized, Failure to thrive Disposition: ADMITTED INPATIENT 09 Certified Medical Emergency: Emergent Condition: Stable Referrals and Follow-Ups: Jaclyn Lucero CRNP [Primary Care Provider] - - Critical Care Note This patient required my direct & personal management of CC.: No Attestation - Physician/ YANELIS Attestation Patient care was provided by Advanced Practice Provider:: No The physician spent face to face time with patient:: Yes Advanced Practice Provider documentation review:: Supervising physician onsite and consulted in the evaluation and care of this patient. The physician did have a face to face encounter with the patient. This chart was documented by the mindy langeibe, (Angélica Riojas Scribe) and accurately reflects the services I performed and decisions made by Jared rolon Alex T., MD, as attested by the provider's signature.
[2018-12-11] MEDS ORDERED: KLOR-CON PO ONE (15:32)
[2018-12-11] MEDS ORDERED: ZOFRAN IV PRN (15:59)
[2018-12-11] MEDS ORDERED: TYLENOL PO PRN (15:59)
[2018-12-11] MEDS ORDERED: DUONEB (A & A) INH PRN (15:59)
--- NOTE | 2018-12-11 18:13 | Diag Imaging Result Doc PS360 ---
EXAM: US ABDOMEN-COMPLETE 12/11/2018 HISTORY: abdominal pain, diarrhea TECHNIQUE: Abdominal ultrasound COMMENT: The pancreas is not well demonstrated. The portions of the head which are visible are within normal limits. The liver is grossly normal in appearance. The visualized portions of the aorta and inferior vena cava are within normal limits. There is antegrade flow in the portal vein. The gallbladder is clear and nontender. There is no evidence of biliary dilatation the common bile duct measuring 5 mm. The kidneys are without evidence of hydronephrosis or mass. The liver is at the upper limits of normal chest under 13 cm. There are no abnormal fluid collections. IMPRESSION: No evidence of acute disease. Electronically signed by Denis Crandall 12/11/2018 6:10 PM
--- NOTE | 2018-12-11 18:20 | Diag Imaging Result Doc PS360 ---
EXAM: CT ANGIOGRM PULMONARY ARTERIES 12/11/2018 HISTORY: elevated D dimer, SOB TECHNIQUE: This exam was performed using automated exposure control, adjustment of mA or kV according to patient size, and/or use of iterative reconstruction technique. COMMENT: 3-D MIPS were performed. There are small bilateral pleural effusions. There is a hiatal hernia. There is some atelectasis or pneumonia in the lower lobes and the posterior costophrenic sulci. There are calcified nodes in the left hilum. There is no evidence of filling defects in the pulmonary arteries. The aorta is normal in caliber without evidence of dissection. There is minimal fibrosis adjacent to the major fissure in the left upper lobe which was also present previously at the time of the examination of 07/26/2012. The aorta is normal in caliber and there is no evidence of dissection. IMPRESSION: No evidence of pulmonary emboli. Hiatal hernia. Minimal pleural effusions and basilar atelectasis. Electronically signed by Denis Crandall 12/11/2018 6:18 PM
[2018-12-11] MEDS: PROTONIX IV SCH (18:34)
[2018-12-11] MEDS: NS 1,000 ML IV SCH (18:34)
[2018-12-11] MEDS: ZOSYN 3.375 GM in NS 50 ML IV SCH (18:43)
--- NOTE | 2018-12-11 20:12 | HISTORY AND PHYSICAL ---
PCP: LIGIA Jon. CHIEF COMPLAINT: Abdominal pain, black diarrhea and shortness of breath. HISTORY OF PRESENT ILLNESS: Ms Metz is a 78-year-old female with a past medical history of Sjogren disease, lupus, who was recently admitted here in our hospital regarding pyelo and a multidrug resistant urinary tract infection. She was followed by Dr. Izaguirre and Dr. Muñoz. She underwent a cystoscopy with lithotripsy and stone basket extraction during that hospital stay. She was discharged on December 08 just 2 days ago. She was discharged at that time with a PICC line and has been receiving Zosyn at home given by her . She states that ever since her discharge 2 days ago, particularly after she receives her Zosyn dose, she experiences abdominal pain, black diarrhea and shortness of breath. She also complains of some swelling in her lower extremities and a productive cough, which she states has been worse since her discharge, as well as orthopnea. She does complain of some hematuria as well. She denies any chest pain and she denies fever. Her evaluation in the ER reveals a chest x-ray that shows mild interval improvement with partial clearing in the left lung base. No pleural effusion. Her EKG was normal sinus rhythm and her labs were for the most part unremarkable except elevated proBNP at 1088 and a potassium of 3.1. She will be admitted for further workup and evaluation considering her extensive history with multidrug resistant Proteus in her urine and decline since her discharge 2 days ago. PAST MEDICAL HISTORY: 1. History of possible mild dementia. 2. Rheumatoid arthritis. 3. Sjogren disease. 4. Possible lupus. 5. Right frontal CVA. 6. Pernicious anemia. 7. Hypertension. 8. Hyperlipidemia. 9. Epilepsy. 10. Asthma. PAST SURGICAL HISTORY: 1. Left hip fracture repair last year. 2. Multiple knee surgeries. 3. C-spine surgeries. 4. Hysterectomy. 5. Vaginal prolapse repair. 6. Right ankle and knee surgery. 7. Back surgery. 8. Status post cystoscopy with lithotripsy and stone basket extraction. SOCIAL HISTORY: She lives at home with her . She does have home health. She denies any alcohol, drug, or tobacco use. FAMILY HISTORY: Notable for heart disease and diabetes. REVIEW OF SYSTEMS: Fourteen point review of systems completed and negative except for those mentioned in the HPI. Her current symptoms include abdominal pain, black diarrhea, increase in shortness of breath, nausea and vomiting. HOME MEDICATIONS: Have not yet been reconciled. We will review once the nurse has reviewed her home medication list. ALLERGIES: Multiple drug allergies. 1. Lortab. 2. Levaquin. 3. Bactrim. 4. Baclofen. 5. Neurontin. 6. Methadone. 7. Morphine. 8. Lyrica. 9. Imuran. PHYSICAL EXAMINATION: VITAL SIGNS: Temperature 97.7 degrees, heart rate 62, respiratory rate 24, blood pressure 153/71, O2 saturation 94% on 2 L of nasal cannula. GENERAL: This is a chronically ill-appearing 78-year-old female lying in bed in no acute distress, answering questions appropriately. Her at the bedside. NEURO: She is alert and oriented without focal deficits. Strength is equal bilaterally. There is no facial asymmetry or drooping. Cranial nerves 2-12 grossly intact. HEENT: Head is atraumatic, normocephalic. Pupils are equal, round, reactive to light. Oral mucosa is dry. NECK: Her trachea is midline. There is no JVD. CHEST: Her lung sounds with some scattered rhonchi in the left lung base, respirations unlabored. She is on 2 L nasal cannula O2. CARDIOVASCULAR: Her rate and rhythm are regular. S1-S2 is noted. ABDOMEN: Soft, mildly tender to palpation. Bowel sounds are hypoactive. There is no CVA tenderness. EXTREMITIES: There is no edema. Capillary refill is brisk. Pedal pulses are 2 +. SKIN: Warm, dry, and intact. LABS: WBC 5.2, hemoglobin 9.6, hematocrit 30.6, platelets 201,000. PT 14.5, INR 1.05, PTT 25.2. Sodium 144, potassium 3.1, BUN 10, creatinine 0.6, glucose 109, AST 12, ALT 13, alkaline phosphatase 65. Troponin less than 0.01. ProBNP 1088. Urine. Small blood, small urine leukocytes. IMAGIN. Chest x-ray shows mild interval improvement, partial clearing in the left lung base. No pleural effusions. Right-sided PICC line. 2. EKG, normal sinus rhythm, nonspecific ST abnormality. ASSESSMENT AND PLAN: 1. Abdominal plain with complaints of melena. We will get a C diff and stool cultures, stool occult and abdominal ultrasound to further evaluate. She believes this is possibly due to reaction from antibiotics. Her hemoglobin and hematocrit are stable. 2. Shortness of breath. She does have an elevated proBNP and has complained of some lower extremity edema, although this is not present at the current time. She does complain of orthopnea as well as a productive cough. We will trend her troponins, 1st set is negative. We will get a echocardiogram and repeat her chest x-ray tomorrow and do an albuterol treatment currently, she states she does have asthma and she does have home oxygen although does not use it too often. She is on 2 L nasal cannula currently in the emergency room. 3. Urinary tract infection. Her previous culture grew Proteus and multidrug resistant infection. She has been treated by Dr. Izaguirre. She was discharged 2 days ago and has been receiving Zosyn via her peripherally inserted central catheter line at home. She is currently on day 12 of Zosyn. We will consult with Dr. Izaguirre for further antibiotic recommendations. 4. Hypokalemia. Her potassium is at 3.1. We will replace. 5. 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 6. Hypertension. We can resume her home medications. 7. Hyperlipidemia. We can resume her home medications. 8. Epilepsy. We will resume her home medications once reconciled. Further recommendations and evaluations to follow. 9. DVT prophylaxis. Hold anticoagulants pending stool occult. 10. GI prophylaxis. Protonix. Dictated by LIGIA Valadez for Roland Gamble MD. Patient seen and examined by me face to face, all the laboratory, images and vitals signs were reviewed, patient presented with diarrhea and black stools, she was recently discharge from this hospital a few days ago, she went home with IV antibiotics, we will hydrate the patient, we will rule out C DIFF colitis, occult blood in the stool and probably we will get Gastroenterology department to evaluate the patient, I will continue with antibiotics, ID has been consulted, she has periumbilical discomfort but physical exam otherwise stable, I agree with the SEISMIC PROSPECTING OBSERVER's assessment and plan, Roland Sauer MD. cc: LIGIA Jon MTD
[2018-12-11] MEDS: OXY IR PO PRN (21:26)
[2018-12-11] MEDS: ATIVAN PO PRN (21:26)
[2018-12-11] MEDS: VIMPAT PO SCH (21:26)
[2018-12-11] MEDS: FOLIC ACID PO SCH (21:26)
[2018-12-12] MEDS: ZOSYN 3.375 GM in NS 50 ML IV SCH ×5 (00:22→23:12)
[2018-12-12] MEDS: NS 1,000 ML IV SCH ×5 (02:59→23:30)
--- NOTE | 2018-12-12 03:44 | Extremity Venous Study ---
PROCEDURE NAME: Venous U/S Bilateral Legs - 12/11/2018 SHIPPING SUPPORT CLERK: Flavia Saunders RVT. REQUESTING PHYSICIANS: Roland Gamble MD. INDICATIONS: Elevated D-dimer, shortness of breath and edema. FINDINGS: Deep superficial veins bilateral lower extremities visualized along their course. All veins appear compressible forward flow and no evidence of intraluminal thrombus. SUMMARY: No deep or superficial venous thrombosis seen in the bilateral lower extremities. cc: Patrice Salazar MD
--- NOTE | 2018-12-12 04:16 | INFECTIOUS DISEASE PROGRESS NO ---
DATE: 12/11/2018 PRESENT ILLNESS: The patient was being treated at home with ertapenem for a multiple drug- resistant Proteus urinary tract infection. The patient tells me that she had developed anorexia and diarrhea, and had a temperature maximum of 100. I think it is possible the patient has Clostridium difficile diarrhea, also I think it is possible that the patient has an infection from her PICC. Possibly the patient is having some type of adverse reaction to ertapenem also. MEDICATIONS: As mentioned above the patient had been taking ertapenem for the past 3 days, and before that she was taking Zosyn. PHYSICAL EXAMINATION: Vital Signs: Temperature is 98 degrees, pulse 72, respirations 24, blood pressure 164/74. The patient weighs 183 pounds. General: This is an ill-appearing elderly female. She is in no acute distress. Head/eyes/ears/nose/throat: She can hear my spoken words and see near objects. Her tongue is not dry and I do not see any white patches on it. Neck: No stiffness. Lungs: Clear to auscultation. Cardiovascular: Heart rate is regular. Abdomen: Abdomen and flanks are soft and nontender. Neurologic: The patient is awake. She can move her extremities. There is no tremor. LABS AND X-RAY: The patient's CBC has a white count of 5270, hemoglobin 9.6, and platelet count 201,000. Creatinine is 0.6. Liver function studies are normal. Urinalysis shows no white cells or bacteria. Chest x-ray shows clearing of the right base. ASSESSMENT AND PLAN: The patient has been treated for a multiple drug-resistant Proteus urinary tract infection, this is day 9 of treatment and I have restarted Zosyn to complete a 14-day course. Also I have ordered blood cultures to look to see if there could be an infection coming from the PICC. I agree with the ordering of Clostridium difficile antigen and toxin in view of the fact that the patient had been given antibiotics and now has diarrhea. I also agree with obtaining an ultrasound of the abdomen since she is complaining of nausea and vomiting. COMORBIDITIES: Include she is elderly, she has a history of having lupus and rheumatoid arthritis. cc: Junaid Izaguirre MD
[2018-12-12 04:58] LABS: BASO# 0.01 X1000 (0.0-0.2); BASO% 0.2 % (0.0-0.8); EOS# 0.16 X1000 (0.0-0.7); EOS% 3.7 % (0.0-10.0); HEMATOCRIT 29.2 % (37.0-47.0); HEMOGLOBIN 9.2 g/dL (12.0-16.0); IMM GRAN# 0.03 X1000 (0.0-0.04); IMM GRAN% 0.7 % (0.0-0.5); LYMPH# 1.17 X1000 (1.2-3.4); LYMPH% 27.1 % (20.5-51.1); MCH 29.1 PG (27-31); MCHC 31.5 g/dL (33-37); MCV 92.4 FL (81-99); MONO# 0.49 X1000 (0.11-0.59); MONO% 11.3 % (1.7-9.3); NEUT# 2.46 X1000 (1.4-6.5); PLT 192 X1000 (130-400); RBC 3.16 XMIL (4.2-5.4); RDW 14.2 % (11.5-14.5); WBC 4.32 X1000 (4.8-10.8)
[2018-12-12 05:26] LABS: AGAP 11; ALB/GLOB RATIO 2.7; ALBUMIN 3.8 g/dL (3.5-5.0); ALKALINE PHOSPHATASE 56 U/L (32-104); BUN 6 mg/dL (8-22); CALCIUM 7.6 mg/dL (8.8-10.2); CHLORIDE 107 mmol/L (98-107); COSMO 286; CREATININE 0.6 mg/dL (0.5-0.9); ESTIMATED GFR > 60; GLUCOSE 88 mg/dL (70-104); GOT 8 U/L (10-30); GPT 11 U/L (10-36); MAGNESIUM 1.5 mg/dL (1.5-2.7); SODIUM 145 mmol/L (136-145); TCO2 27 mmol/L (25-35); TOTAL BILIRUBIN 0.24 mg/dL (0.20-1.00); TOTAL PROTEIN 5.2 g/dL (6.3-8.3)
--- NOTE | 2018-12-12 07:09 | Diag Imaging Result Doc PS360 ---
EXAM: CHEST-PORTABLE 12/12/2018 HISTORY: dyspnea TECHNIQUE: AP portable at 0559 COMMENT: There is a hiatal hernia. Compared to the previous study of 12/11/2018 Opacities seen previously over the left lower lobe have improved. IMPRESSION: Improved left lower lobe atelectasis and/or pneumonia. Electronically signed by Denis Crandall 12/12/2018 7:06 AM
[2018-12-12] MEDS: FLOMAX PO SCH (10:03)
[2018-12-12] MEDS: VIMPAT PO SCH ×2 (10:03→23:12)
[2018-12-12] MEDS: FERROUS SULFATE PO SCH (10:04)
[2018-12-12] MEDS: FLONASE NAS SCH (10:06)
[2018-12-12] MEDS ORDERED: CALMOSEPTINE OINTMENT TOP PRN (12:40)
[2018-12-12] MEDS: DUONEB (A & A) INH SCH ×3 (15:25→23:10)
[2018-12-12] MEDS: KLOR-CON PO SCH ×2 (17:10→23:11)
[2018-12-12] MEDS: PROTONIX IV SCH (17:10)
[2018-12-12] MEDS: SODIUM CHLORIDE 0.9% INJ SCH (17:10)
[2018-12-12] MEDS: ATIVAN PO PRN ×2 (17:11→23:12)
[2018-12-12] MEDS: IMODIUM PO PRN (17:11)
[2018-12-12] MEDS: FOLIC ACID PO SCH (23:12)
--- NOTE | 2018-12-12 23:54 | PROGRESS NOTE ---
DATE: 12/12/2018 SUBJECTIVE: The patient seems to be feeling a little bit better, but she is still having diarrhea even though we stopped the stool softeners. We checked for C. diff colitis and WBC in the stool, and it has been negative. I will put this patient on Imodium to see how she does. The physical exam showed also some wheezing bilaterally, scattered. I will add breathing treatment to this patient. OBJECTIVE: Vital Signs: Temperature 98.1 degrees, pulse 61, respiratory rate 16, blood pressure 138/66, oxygen saturation 97% on 2 L of nasal cannula. HEENT: Head normocephalic, no trauma. PERRLA. Neck: Supple. No JVD. No masses. Central trachea. Chest: Decreased breath sounds globally, with prolonged expiratory phase and faint expiratory wheezing bilaterally, scattered. Abdomen: Soft, nontender, nondistended. No hepatosplenomegaly. Extremities: No edema. No clubbing. No cyanosis. Neurological: The patient is alert and oriented x3. No focal neurological deficits. Some anxiety. LABORATORY: WBC 4.3, hemoglobin 9.2, hematocrit 29.2, platelets 192,000. Sodium 145, potassium 3, chloride 107, bicarbonate 27, BUN 6, creatinine 0.6, glucose 88, calcium 7.6. Magnesium 1.5. AST 8, ALT 11, alkaline phosphatase 56. Albumin 3.8. ASSESSMENT AND PLAN: 1. Abdominal pain with diarrhea and melena. Occult blood in the stool is positive. Once this patient is a little bit more stable, I will ask Gastroenterology Department to evaluate this patient, hopefully tomorrow. She is still having diarrhea. I have placed this patient on Imodium to see how she does. Hemoglobin and hematocrit have been stable. 2. Shortness of breath. She also complains of some lower extremity edema which is resolved today and elevated proBNP. She is still coughing a little bit. X-ray showed an improved left lower lobe atelectasis and/or pneumonia, no pleural effusion. 3. Urinary tract infection. We have been treating this patient with Zosyn. Infectious Disease Department on board. Her culture grew Proteus that is basically a multidrug resistant infection. She has a PICC line. We will continue with the same management. 4. Hypokalemia. I will give her 2 doses of potassium today, and I will monitor this in the morning. 5. Multiple dermatological connective tissue disorder, including lupus, Sjogren. Aware. 6. Hypertension. Continue home medication. 7. Hyperlipidemia. Continue with home medication. 8. Epilepsy. This patient has been placed back on her home medications as well. cc: Roland Gamble MD
[2018-12-13] MEDS: DUONEB (A & A) INH SCH ×5 (03:47→20:30)
[2018-12-13] MEDS: ZOSYN 3.375 GM in NS 50 ML IV SCH ×3 (05:03→18:08)
[2018-12-13 07:54] LABS: AGAP 13; ALB/GLOB RATIO 1.4; ALBUMIN 3.3 g/dL (3.5-5.0); ALKALINE PHOSPHATASE 53 U/L (32-104); BUN 3 mg/dL (8-22); CALCIUM 7.4 mg/dL (8.8-10.2); CHLORIDE 109 mmol/L (98-107); COSMO 285; CREATININE 0.4 mg/dL (0.5-0.9); ESTIMATED GFR > 60; GLUCOSE 93 mg/dL (70-104); GOT 8 U/L (10-30); GPT 11 U/L (10-36); POTASSIUM 3.2 mmol/L (3.5-5.1); SODIUM 145 mmol/L (136-145); TCO2 23 mmol/L (25-35); TOTAL BILIRUBIN 0.33 mg/dL (0.20-1.00); TOTAL PROTEIN 5.7 g/dL (6.3-8.3)
[2018-12-13] MEDS: IMODIUM PO PRN ×2 (08:39→15:34)
[2018-12-13] MEDS: FLONASE NAS SCH (08:39)
[2018-12-13] MEDS: FERROUS SULFATE PO SCH (08:39)
[2018-12-13] MEDS: FLOMAX PO SCH (08:39)
[2018-12-13] MEDS: VIMPAT PO SCH ×2 (08:39→20:19)
[2018-12-13] MEDS: ATIVAN PO PRN ×2 (08:39→15:34)
[2018-12-13 08:48] LABS: HEMATOCRIT 29.3 % (37.0-47.0); HEMOGLOBIN 9.4 g/dL (12.0-16.0); MCH 29.1 PG (27-31); MCHC 32.1 g/dL (33-37); MCV 90.7 FL (81-99); MPV 10.3 FL (7.4-10.4); PLT 209 X1000 (130-400); RBC 3.23 XMIL (4.2-5.4); RDW 14.1 % (11.5-14.5); WBC 4.23 X1000 (4.8-10.8)
[2018-12-13 08:53] LABS: BANDS 6 % (0-1); EOS 2 % (1-10); LYMPHS 28 % (21-51); SEGS 62 % (42-75)
--- NOTE | 2018-12-13 09:55 | ECHO REPORT ---
ORDER DATE: 12/11/2018 MEASUREMENTS: Left ventricular end-diastolic diameter 4.3, end-systolic diameter 2.7, septal thickness 1.0, posterior wall thickness 1.0, aortic root 3.8, left atrium 4.2. SUMMARY: 1. Technically difficult study due to limited acoustic window quality. Intravenous echocontrast agent Definity was utilized to enhance endocardial definition. 2. Aortic valve is trileaflet and opens normally on 2-dimensional images. Peak gradient across the aortic valve is 11 mmHg. Mitral and tricuspid valves are without evidence of structural abnormality. Pulmonic valve is not well demonstrated. There is trace tricuspid regurgitation and trace mitral regurgitation. The aortic root is normal in size. 3. Normal left ventricular dimensions demonstrated. Estimated left ventricular ejection fraction appears to be at least 65%. No regional wall motion abnormalities are evident. The left atrium is borderline enlarged. The right atrium and right ventricle are normal in size with grossly preserved right ventricular systolic function. 4. No pericardial effusion. 5. Appearance of inferior vena cava suggests normal central venous pressure. cc: Elias Hightower MD
[2018-12-13] MEDS: KLOR-CON PO SCH ×3 (11:16→20:28)
[2018-12-13] MEDS: OXY IR PO PRN (11:16)
--- NOTE | 2018-12-13 14:34 | PROGRESS NOTE ---
DATE: 12/13/2018 SUBJECTIVE: This patient is feeling a little bit better. She is still having a little bit of diarrhea, but compared with the admission, it is better. I checked her for C difficile colitis which is negative. Her potassium is low and I will replace it. Her proBNP is also trending down. Continue with the same management. OBJECTIVE: Vital Signs: Temperature 98.2 degrees, pulse 81 respiratory rate 18, blood pressure 161/66, oxygen saturation 98 on 2 L of nasal cannula. HEENT: Head normocephalic, no trauma. PERRLA. Neck: Supple. No JVD. No masses. Central trachea. Chest: Decreased breath sounds globally with prolonged expiratory phase and some faint expiratory wheezing bilaterally. Abdomen: Soft, nontender, nondistended. No hepatosplenomegaly. Extremities: No edema. No clubbing. No cyanosis. Neurological: The patient is alert and oriented x3. No focal neurological deficits. DIAGNOSTIC STUDIES: WBC 4.2, hemoglobin 9.4, hematocrit 29.3, platelets 209,000. Sodium 145, potassium 3.2, chloride 109, bicarbonate 23, BUN 3, creatinine 0.4, glucose 93, calcium 7.4, AST 8, ALT 11, alkaline phosphatase 53, albumin 3.3. ASSESSMENT AND PLAN: 1. Abdominal pain with diarrhea and melena. Occult blood in the stool is positive. This patient is more stable. I will ask Gastroenterology Department to evaluate this patient tomorrow. The diarrhea is getting better. I will continue with p.r.n. Imodium to see how she does. Hemoglobin and hematocrit are actually stable as well. 2. Possible upper gastrointestinal (GI) bleed. As above. 3. Shortness of breath. She is feeling better. I will continue with breathing treatment. IV fluid has been stopped already. I will ask for a new x-ray in the morning. 4. Urinary tract infection. We have treating this patient with [place]. Infectious Disease Department on board. Her culture showed Proteus which is basically a multidrug-resistant infection. She has a PICC line. We will continue with the same management. Actually she was discharged a few days ago due to this infection. 5. Hypokalemia. I will replace the potassium today again. 6. Multiple dermatological connective tissue disorder, including lupus, Sjogren's. Aware. 7. Hypertension. Continue with home medication. 8. Hyperlipidemia. Continue with the same management. 9. History of epilepsy. This patient has been placed back on her home medication. She is on Vimpat. No seizure activity during this hospitalization, I believe this patient is getting better, is still having some wheezing, but she is not complaining of shortness of breath. Her diarrhea also is getting better. We have a positive occult blood in the stool, but I believe she can get an upper endoscopy or lower endoscopy as an outpatient. I will ask for Gastroenterology evaluation in the morning. I believe she can be discharged in the next 48 hours. cc: Roland Gamble MD
[2018-12-13] MEDS: PROTONIX IV SCH (15:34)
[2018-12-13] MEDS: SODIUM CHLORIDE 0.9% INJ SCH (15:34)
[2018-12-13] MEDS: FOLIC ACID PO SCH (20:19)
[2018-12-14] MEDS: ZOSYN 3.375 GM in NS 50 ML IV SCH ×4 (01:01→17:29)
[2018-12-14] MEDS: DUONEB (A & A) INH SCH ×6 (05:38→23:30)
[2018-12-14 07:28] LABS: BASO# 0.01 X1000 (0.0-0.2); BASO% 0.2 % (0.0-0.8); EOS# 0.52 X1000 (0.0-0.7); EOS% 9.6 % (0.0-10.0); HEMATOCRIT 32.8 % (37.0-47.0); HEMOGLOBIN 10.5 g/dL (12.0-16.0); IMM GRAN# 0.04 X1000 (0.0-0.04); IMM GRAN% 0.7 % (0.0-0.5); LYMPH# 1.07 X1000 (1.2-3.4); LYMPH% 19.9 % (20.5-51.1); MCH 29.2 PG (27-31); MCV 91.1 FL (81-99); MONO# 0.42 X1000 (0.11-0.59); MONO% 7.8 % (1.7-9.3); MPV 10.1 FL (7.4-10.4); NEUT# 3.33 X1000 (1.4-6.5); NEUT% 61.8 % (42.2-75.2); PLT 248 X1000 (130-400); RDW 14.4 % (11.5-14.5); WBC 5.39 X1000 (4.8-10.8)
--- NOTE | 2018-12-14 07:36 | Diag Imaging Result Doc PS360 ---
EXAM: CHEST-PORTABLE HISTORY: dyspnea TECHNIQUE: Chest single view COMPARISON: 12/12/2018 FINDINGS: No change in the right-sided PICC line. There are mild increased interstitial markings in lungs. No consolidation. Questionable trace pleural fluid. There is a hiatal hernia. IMPRESSION: Mild increased interstitial markings which may represent mild pulmonary edema. E Electronically signed by Ezio Trujillo 12/14/2018 7:34 AM
[2018-12-14 07:49] LABS: AGAP 14; ALBUMIN 4.1 g/dL (3.5-5.0); ALKALINE PHOSPHATASE 64 U/L (32-104); BUN 5 mg/dL (8-22); CALCIUM 8.5 mg/dL (8.8-10.2); CHLORIDE 108 mmol/L (98-107); COSMO 284; CREATININE 0.5 mg/dL (0.5-0.9); ESTIMATED GFR > 60; GLUCOSE 105 mg/dL (70-104); GOT 7 U/L (10-30); GPT 12 U/L (10-36); POTASSIUM 3.8 mmol/L (3.5-5.1); SODIUM 144 mmol/L (136-145); TCO2 22 mmol/L (25-35); TOTAL BILIRUBIN 0.41 mg/dL (0.20-1.00); TOTAL PROTEIN 6.2 g/dL (6.3-8.3)
[2018-12-14] MEDS: ATIVAN PO PRN ×2 (10:24→20:53)
[2018-12-14] MEDS: FLOMAX PO SCH (10:24)
[2018-12-14] MEDS: IMODIUM PO PRN (10:24)
[2018-12-14] MEDS: FERROUS SULFATE PO SCH (10:24)
[2018-12-14] MEDS: VIMPAT PO SCH ×2 (10:24→20:53)
[2018-12-14] MEDS: OXY IR PO PRN ×2 (10:24→20:54)
[2018-12-14] MEDS: SODIUM CHLORIDE 0.9% INJ SCH ×2 (10:25→20:56)
[2018-12-14] MEDS: PROTONIX IV SCH ×2 (10:25→20:55)
[2018-12-14] MEDS: FLONASE NAS SCH (10:26)
--- NOTE | 2018-12-14 13:12 | GASTROENTEROLOGY CONSULTATION ---
DATE: 12/14/2018 REQUESTING PHYSICIAN: Dr. Slater. PRIMARY CARE DOCTOR: LIGIA Jon. REASON FOR CONSULTATION: Nausea, vomiting, anemia, and positive Hemoccult. HISTORY OF PRESENT ILLNESS: Ms. Metz is a 70-year-old female who was admitted on 12/11/2018 for abdominal discomfort in the periumbilical region along with nausea, vomiting, dark stools, and shortness of breath. The patient has a known history of lupus and Sjogren syndrome. She was recently admitted and treated for pyelonephritis and multi-drug resistant UTI. She is being followed by Dr. Izaguirre and Dr. Muñoz. During her past hospital stay she had a cystoscopy with lithotripsy and stone basket extraction with Dr. Muñoz. She was discharged home on IV antibiotics using a PICC line. She was receiving Zosyn at home. Per the patient, she has been having intermittent nausea and vomiting and diarrhea since being on antibiotics. Also complained of bloating in the abdomen, in the periumbilical region. She denies any vomiting blood or passing blood in the stools. She does complain of stools being dark. Her Hemoccult was positive. She has had an EGD and colonoscopy done but many years ago. She does not recall the results of the procedure. PAST MEDICAL HISTORY: Mild dementia, rheumatoid arthritis, Sjogren disease, possible glucose, right frontal CVA, pernicious anemia, hypertension, hyperlipidemia, epilepsy, asthma, UTI, and kidney stones. PAST SURGICAL HISTORY: Left hip fracture repair last year, multiple knee surgeries, C-spine surgery, hysterectomy, vaginal prolapse repair, right ankle and knee surgery, back surgeries, status post cystoscopy with lithotripsy and stone basket extraction. SOCIAL HISTORY: She lives at home with her . She does have home health. She denies any history of alcohol, tobacco, or illicit drug abuse. FAMILY HISTORY: Noncontributory. REVIEW OF SYSTEMS: Denies any current fevers, rigors, chills, chest pain, shortness of breath, dyspnea. Denies any vomiting blood. She does complain of nausea, vomiting, periumbilical abdominal pain/discomfort, and diarrhea which is dark in color. She had some shortness of breath on admission which has improved. She denies any neurologic complaints. She does have a recent history of UTI. ALLERGIES: Lortab, Levaquin, Bactrim, baclofen, Neurontin, methadone, morphine , Lyrica, Imuran. MEDICATIONS IN THE HOSPITAL: Oxycodone IR, Tylenol, albuterol/ipratropium, ferrous sulfate p.o. with breakfast, fluticasone, folic acid, Vimpat, Imodium, Ativan, menthol/zinc oxide, Zofran, Protonix, tamsulosin, Zosyn. DIET: She is currently on full liquid diet. PHYSICAL EXAMINATION: Vital Signs: Temperature 98.7 degrees, pulse rate of 81 , respiratory rate of 18, blood pressure 139/73, saturating 100% on nasal cannula. Body weight of 183 pounds, BMI of 30.5 kg/m2. General appearance: Moderately built, moderately nourished, lying in bed, in no acute distress. HEENT: Mild pallor. No icterus. Nasal cannula in place. Neck: Supple. Abdomen: Obese. Mild discomfort epigastrium. No rebound or guarding. Extremities: No cyanosis or clubbing. Neurologic: She is alert, awake, oriented to time, place, and person. LABS: Hemoglobin and hematocrit are 10.5 and 32.8, white count of 5.39, platelet count of 248,000. Sodium 140, potassium 3.8, chloride 108, bicarb 22, anion gap of 14, BUN of 5, creatinine 0.5, glucose of 105, calcium is 8.5. Total bilirubin is 0.41, AST 7 , ALT 12, alkaline phosphatase 64, total protein 6.2, albumin of 4.1. Blood culture x2 negative at 48 hours. Her stool studies show C. difficile antigen is negative, C. difficile toxin is negative. Chest x-ray done on 12/14/2018 showed mild increased interstitial markings which may represent mild pulmonary edema. She also had a pulmonary arteriogram which showed no evidence of pulmonary emboli, hiatal hernia. IMPRESSIONS: 1. Anemia. 2. Abdominal discomfort in the periumbilical region. 3. Nausea and vomiting. 4. Diarrhea. 5. Dark stools. 6. Obesity. RECOMMENDATIONS: We will keep her on a full liquid diet for now. We will increase Protonix to twice daily. We will start her on Carafate 1 g every 6 hours. We will keep her on iron supplementation. Will start her on Metamucil which will help bind the stool together to help prevent diarrhea. We will schedule her for an EGD tomorrow under anesthesia. The risks, benefits, indications, and alternatives of the procedure were discussed with the patient and all questions answered. The above plans were discussed with the patient and all questions were answered. Please call us with any further questions. cc: MD Richard Aly MD Lori Henry, CRNP MTDD
--- NOTE | 2018-12-14 13:17 | Diag Imaging Result Doc PS360 ---
EXAM: KUB ABDOMEN INDICATION: evaluate for constipation or obstruction TECHNIQUE: One view COMPARISON: 03/06/2016 FINDINGS: There are nonspecific bowel gas and stool patterns. There is no definite obstructive bowel pattern. There is no evidence of large volume free abdominal gas. There is no evidence of organomegaly. There is a stable IVC filter. IMPRESSION: Nonspecific abdomen. Electronically signed by Mario Mitchell 12/14/2018 1:14 PM
[2018-12-14] MEDS: CARAFATE LIQUID PO SCH ×2 (13:53→20:53)
[2018-12-14] MEDS ORDERED: VENTOLIN HFA INH PRN (15:05)
[2018-12-14] MEDS ORDERED: ZANAFLEX PO PRN (15:05)
--- NOTE | 2018-12-14 15:34 | PROGRESS NOTE ---
DATE: 12/14/2018 SUBJECTIVE: The patient has no major complaints. OBJECTIVE: Blood pressure is 153/78, heart rate of 80, respiratory 16, temperature is 98.7, oxygen sat 100% on 2 L. Cardiovascular: Regular rate and rhythm. Pulmonary: Bilateral breath sounds. Clear to auscultation. GI was soft, nontender, nondistended. Bowel sounds were positive. Extremities: No clubbing or cyanosis. Lymphatic exam: No peripheral edema. Neurologic: Nonfocal. Abdominal Exam: She is definitely distended. LABORATORY DATA: Her white count is 5, hemoglobin and hematocrit 10 and 32, which has actually increased. Platelets 248,000. BUN and creatinine are 5 and 0.5. PROBLEM LIST: 1. Anemia with possible gastrointestinal bleed. Reportedly Hemoccult positive. Her Clostridium difficile though was negative and her other stool studies are unremarkable at this point. Plan for I think EGD and colonoscopy tomorrow. Hemoglobin and hematocrit though is stable if not improved. 2. Dyspnea, not quite clear etiology. Her x-ray is really not that remarkable. She may have some interstitial pulmonary edema. We may give her a bit of Lasix. 3. Urinary tract infection which has previously been multidrug resistant and she is on Zosyn. 4. Hypokalemia that apparently is stable. 5. Mixed connective tissue disorder. Reportedly, she has lupus, Sjogren's, and rheumatoid, but she is not currently getting medications. 6. Epilepsy. She is on Vimpat; had a decent dose. DISPOSITION: I am just waiting on how she ends up doing over the next several days. Dr. Slater anticipates discharge tomorrow and it is pending her findings based on her endoscopy data. cc: Richard Carrasco MD
[2018-12-14] MEDS: CULTURELLE PO SCH (20:54)
[2018-12-14] MEDS: FOLIC ACID PO SCH (20:54)
[2018-12-14] MEDS ORDERED: MONISTAT-7 VAG CREAM VAG SCH (21:00)
[2018-12-14] MEDS ORDERED: LIPITOR PO SCH (21:00)
[2018-12-14] MEDS ORDERED: GYNE-LOTRIMIN VAGINAL CREAM VAG SCH (21:00)
--- NOTE | 2018-12-14 21:07 | INFECTIOUS DISEASE PROGRESS NO ---
DATE: 12/14/2018 PRESENT ILLNESS: Ms. Metz is being treated for a Proteus urinary tract infection. There is also a vaginal yeast infection. MEDICATIONS: She is receiving Zosyn 3.375 g IV every 6 hours. PHYSICAL EXAMINATION: Vital Signs: Temperature is 98.7, pulse rate 81, respiratory rate 18, blood pressure 151/81, O2 sats 100% on 2 L nasal cannula. General: This is a chronically ill- appearing, elderly female. She is sitting up in bed, currently in no acute distress. HEENT: Atraumatic, normocephalic. Oral mucous membranes are pink and moist. She is edentulous. Conjunctiva are pale. Neck: Supple. Trachea is midline. Cardiovascular: Heart rate and rhythm are regular. Normal sinus rhythm on the monitor. Radial and pedal pulses are palpable bilaterally. Respiratory: Lung sounds are clear to auscultation bilaterally. Abdomen: Soft, obese and mildly tender. Bowel sounds are active. Neurologic: She is awake, alert and oriented. Able to move all extremities with generalized weakness noted in the bed. Extremities: There is a PICC line in place to the right upper arm. Site without edema, erythema or drainage. LABORATORY AND X-RAY: Today her white count is 25.39, hemoglobin 10.5, platelet count 248,000. Creatinine is 0.5. Estimated GFR is greater than 60. Total bilirubin is 0.41, AST 7, ALT 12, alkaline phosphatase 64. Since admission, her urine has shown no growth and blood cultures have shown no growth after 48 hours. Her C difficile toxin and antigen were both negative. Abdominal x-ray today was a nonspecific abdomen. Chest x-ray showed mild increased interstitial markings that may represent mild pulmonary edema. ASSESSMENT AND PLAN: Ms. Metz is being treated for a Proteus urinary tract infection. She was being treated with Zosyn and sent home with ertapenem because her family did not want to administer the medication every 8 hours. She apparently did not do well and is now back with GI- type symptoms. Dr. Kramer is planning to do an EGD tomorrow. The patient is complaining of vaginal burning and dysuria. We will go ahead and order Miconazole cream at bedtime for the vaginal yeast and continue Zosyn as ordered. These plans have been discussed with and recommended by Dr. Izaguirre. COMORBIDITIES: For Ms. Metz include that she is elderly, with lupus and rheumatoid arthritis, Sjgren's, epilepsy and asthma. Dictated by LIGIA Egan for Junaid Izaguirre MD This chart was documented by, LIGIA Egan and accurately reflects the services performed, treatment plan and medical decisions as attested by the providers signature Junaid Izaguirre MD. cc: Junaid Izaguirre MD [facility]
[2018-12-15] MEDS: ZOSYN 3.375 GM in NS 50 ML IV SCH ×3 (00:50→12:58)
[2018-12-15] MEDS: CARAFATE LIQUID PO SCH ×4 (01:33→12:59)
[2018-12-15] MEDS: DUONEB (A & A) INH SCH ×4 (03:20→15:03)
[2018-12-15 07:41] LABS: AGAP 14; BUN 4 mg/dL (8-22); CALCIUM 8.9 mg/dL (8.8-10.2); CHLORIDE 109 mmol/L (98-107); COSMO 286; CREATININE 0.5 mg/dL (0.5-0.9); ESTIMATED GFR > 60; GLUCOSE 114 mg/dL (70-104); POTASSIUM 3.5 mmol/L (3.5-5.1); SODIUM 145 mmol/L (136-145); TCO2 22 mmol/L (25-35)
[2018-12-15 07:45] LABS: BASO# 0.02 X1000 (0.0-0.2); BASO% 0.5 % (0.0-0.8); HEMOGLOBIN 10.5 g/dL (12.0-16.0); LYMPH# 1.09 X1000 (1.2-3.4); LYMPH% 28.8 % (20.5-51.1); MCH 29.3 PG (27-31); MCHC 31.8 g/dL (33-37); MCV 92.2 FL (81-99); MONO# 0.34 X1000 (0.11-0.59); MPV 10.3 FL (7.4-10.4); PLT 256 X1000 (130-400); RBC 3.58 XMIL (4.2-5.4); RDW 14.6 % (11.5-14.5); WBC 3.79 X1000 (4.8-10.8)
[2018-12-15 08:00] LABS: BANDS 4 % (0-1); EOS 10 % (1-10); LYMPHS 32 % (21-51); MONO 8 % (1-9); SEGS 46 % (42-75)
[2018-12-15] MEDS ORDERED: CENTRUM SILVER PO SCH (09:00)
--- NOTE | 2018-12-15 09:41 | PROGRESS NOTE ---
DATE: 12/15/2018 SUBJECTIVE: This patient is lying comfortably in bed. She is not complaining of chest pain or shortness of breath, or abdominal pain today. The diarrhea is much better. She is scheduled for an EGD today. We will wait for recommendations. OBJECTIVE: Vital Signs: Temperature 98.1 degrees, pulse 67, respiratory rate 18, blood pressure 139/59, oxygen saturation 93 on room air. HEENT: Head normocephalic. No trauma. PERRLA. Neck: Supple. No JVD. No masses. Central trachea. Chest: Decreased breath sounds globally with prolonged expiratory phase, some crepitus at the bases. Abdomen: Soft, nontender, nondistended. No hepatosplenomegaly. Extremities: No edema. No clubbing. No cyanosis. Neurological Examination: The patient is alert and oriented x3. No focal deficits. Laboratory: WBC 3.7, hemoglobin 10.5, hematocrit 33, platelets 256,000. Sodium 145, potassium 3.5, chloride 109, bicarbonate 22, BUN 4, creatinine 0.5, glucose 114, calcium 8.9. ASSESSMENT AND PLAN: 1. Abdominal pain with diarrhea and melena. Occult blood in the stool is positive. This patient is stable. Gastroenterology department will do an esophagogastroduodenoscopy today, pending recommendations. 2. Possible upper gastrointestinal bleed, as above. 3. Shortness of breath. She is feeling better. Continue breathing treatments. Intravenous fluids have been stopped already. 4. Urinary tract infection. Continue following the recommendations of the infectious disease department. Continue with antibiotics. She feels better. She has a peripherally inserted central catheter line. 5. Hypokalemia, resolved. 6. Hypertension. Continue home medications. Stable. 7. 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 Aware. 8. History of epilepsy. Continue with home medications. She is on Vimpat. No seizure during this hospitalization. cc: Roland Gamble MD
[2018-12-15] MEDS: FERROUS SULFATE PO SCH (11:38)
[2018-12-15] MEDS: FLOMAX PO SCH ×2 (11:39→12:50)
[2018-12-15] MEDS: CULTURELLE PO SCH (11:39)
[2018-12-15] MEDS: FLONASE NAS SCH ×2 (11:39→12:51)
[2018-12-15] MEDS: PROTONIX IV SCH ×2 (11:39→12:52)
[2018-12-15] MEDS: VIMPAT PO SCH (11:40)
[2018-12-15] MEDS ORDERED: DIPRIVAN 1% ONE (11:43)
--- NOTE | 2018-12-15 14:38 | OPERATIVE NOTE ---
PROCEDURE DATE : 12/15/2018 PROCEDURE PERFORMED: Upper gastrointestinal endoscopy with biopsy. PROVIDER: Aung Root MD INDICATION: Nausea, vomiting, diarrhea, abdominal pain, anemia, positive fecal occult blood stools. MEDICATIONS: Monitored anesthesia care. DESCRIPTION OF PROCEDURE: Prior to the procedure, a history and physical was performed, and the patient's medication allergies were reviewed. The patient's tolerance to previous anesthesia was also reviewed. The risks and benefits of the procedure and the sedation options and risks were discussed with the patient. All questions were answered, and informed consent was obtained. After reviewing the risks and benefits, the patient was deemed in satisfactory condition to undergo the procedure. After informed consent was obtained, the endoscope was passed under direct visualization. Throughout the procedure, the patient's blood pressure, pulse and oxygen saturations were monitored continuously. Then a scope was introduced through the mouth and advanced to the second portion of the duodenum. Upper GI endoscopy was accomplished without difficulty. The patient tolerated the procedure well. COMPLICATIONS: No immediate complications. ESTIMATED BLOOD LOSS: Minimal. FINDINGS: A moderate size hiatal hernia was found in the esophagus. Stomach revealed mild striped erythema consistent with gastritis in the antrum. Random gastric biopsies were obtained to rule out H. pylori. Retroflexion in the stomach was noted to find a hiatal hernia. The first portion and second portion of duodenum were normal. IMPRESSION: 1. Moderate size hiatal hernia. 2. Mild gastritis. RECOMMENDATIONS: - Await pathology results - Resume diet - Transition IV PPI to once daily orally. - Recommend GI follow-up in 2 weeks to schedule outpatient colonoscopy for further evaluation of anemia - Will sign off. Please call with questions or concerns [facility]
[2018-12-15] MEDS ORDERED: MORPHINE IV ONE (18:06)
[2018-12-15] MEDS: OXY IR PO PRN (18:15)
[2018-12-15] MEDS: ATIVAN PO PRN (18:15)
[2018-12-15 19:40] VITALS: BP 167/79
--- NOTE | 2018-12-15 19:42 | INFECTIOUS DISEASE PROGRESS NO ---
DATE: 12/15/2018 PRESENT ILLNESS: The patient has been treated for Proteus urinary tract infection. She has completed 16 days of treatment and yet she still is complaining of severe back pain and dysuria. She does have a vaginal yeast infection which may be in part responsible for her dysuria. MEDICATIONS: The patient is receiving Zosyn. As mentioned above, the patient has had 16 days for treatment. PHYSICAL EXAMINATION: Vital Signs: Temperature is 98.1 degrees, pulse 107, respirations 16, blood pressure 152/77. General: This is a somewhat ill-appearing, elderly female. She is in no acute distress. Head, eyes, ears, nose, and throat: She can hear my spoken words and see near objects. She does not have any drainage coming from her ears or nose. She does not have any white patches in her mouth. Neck: No stiffness. Lungs: Clear to auscultation. Cardiovascular: Regular heart rate. Abdomen: Abdomen and flanks soft and nontender. Neurologic: The patient is awake. She can move her extremities. There is no tremor. Extremities: There is a PICC in the patient's right arm. The site is not erythematous or draining. LAB AND X-RAY STUDIES: Patient's CBC shows a white count of 3790, hemoglobin 10.5, platelet count is 256,000. Creatinine is 0.5. GFR is greater than 60. Blood and urine cultures are negative. Clostridium difficile toxin and antigen are negative. ASSESSMENT AND PLAN: Patient has completed treatment for her urinary tract infection. I am going to stop her Zosyn. I have put in a consult for Dr. Muñoz who operated on the patient during her last admission. Specifically, I am requesting him to see her because she continues to complain of severe dysuria. I have also ordered an x-ray of the patient's lumbar spine because she continues to complain of low back pain. COMORBIDITIES: She is elderly and she has lupus and rheumatoid arthritis and Sjogren syndrome and a history of epilepsy and asthma. cc: Junaid Izaguirre MD
[2018-12-15] MEDS ORDERED: DILAUDID IM ONE (21:33)
[2018-12-16] MEDS ORDERED: PROTONIX PO SCH (07:00)
--- NOTE | 2019-01-14 05:43 | DISCHARGE SUMMARY ---
ADMISSION DATE: 12/11/2018 DISCHARGE DATE: 12/15/2018 DISCHARGE DIAGNOSES: 1. Abdominal pain with diarrhea and melena. 2. Possible upper bleed. 3. Shortness of breath. 4. Urinary tract infection. 5. Hypokalemia. 6. Hypertension. 7. Multiple dermatological connective seizure disorders, including lupus and Sjogren syndrome. 8. History of epilepsy. PROCEDURES PERFORMED: 1. Chest x-ray dated 12/11/2018. Findings, the lungs are well expanded, the heart is not enlarged, the vessels are not distended, there has been partial tearing in the lung left lung base, no pleural effusion. There is a right-sided PICC line. There is calcified left hilar lymph nodes. Impression, mild interval improvement. 2. Echocardiogram dated 12/11/2018. Summary: Aortic valve is trileaflet and opens normally on 2- D images. The peak gradient across the aortic valve is 11 mmHg. Mitral and tricuspid valves are without evidence of a structural abnormality. Pulmonic valve is not well demonstrated. There is trace tricuspid regurgitation and trace mitral regurgitation, the aortic root is normal in size. Normal left ventricular dimensions demonstrated, estimated left ventricular ejection fraction appears to be at least 65%. No regional wall motion abnormalities are evident. The left atrium is borderline enlarged. The right atrium and right ventricle are normal in size with grossly preserved right ventricular systolic function. No pericardial effusion. Appearance of the inferior vena cava suggests normal central venous pressure. 3. CT angiogram of the chest dated 12/11/2018. Impression: No evidence of pulmonary emboli, hiatal hernia, minimal pleural effusion, and bibasilar atelectasis. 4. Extremity venous ultrasound dated 12/11/2018. Impression: No DVT or superficial venous thrombosis seen in the bilateral lower extremities. 5. Upper EGD dated 12/15/2018. Impression: Moderate size hiatal hernia, mild gastritis. 6. Abdominal ultrasound dated 12/11/2018. Impression: No evidence of acute disease. HOSPITAL COURSE: A 78-year-old, female with a past medical history of Sjogren syndrome, lupus. She was recently discharged from this hospital due to pyelonephritis and multiple drug- resistant urinary tract infection. She was followed by Dr. Izaguirre and Dr. Muñoz, she underwent a cystoscopy with lithotripsy and stone basket extraction during that hospital stay. She was discharged on December 08, 2 days prior to this admission. She has been readmitted on 12/11/2018. She was discharged with a PICC line and she has been getting Zosyn at home given by her but, apparently, she has been having abdominal pain, dark/black diarrhea, and shortness of breath. She also has been complaining of some swelling in her lower extremities and productive cough. She states has been worse since her discharge as well as orthopnea. She does complain of some hematuria as well. She denies any chest pain, and she denies fever. Her evaluation in the ER reveals a chest x-ray that showed mild interval improvement with partial clearing in the left lung base, no pleural effusion. EKG was normal sinus rhythm. Laboratory was basically unremarkable, except for elevated proBNP at 1088, and hypokalemia. She was admitted for further workup and evaluation considering her extensive history of multidrug resistant Proteus in her urine and decline since 2 days ago, the day she was discharged. Echocardiogram as well as abdominal ultrasound and CT angiogram did not show any acute abnormality. Since she has lower extremity edema, we did a lower extremity Doppler ultrasound to rule out DVT, and was actually negative. She had positive occult blood in the stool. Gastroenterology Department evaluated this patient. We basically continued with the same treatment that she was getting at home, Zosyn, and she was tolerating that here. The diarrhea was getting better as well as some shortness of breath that she has been complaining of. On 12/15/2018, this patient had an upper endoscopy done that showed mild gastritis and moderate- sized hiatal hernia. The patient has been evaluated during the course of this hospitalization by Dr. Izaguirre, who states that the treatment for her urinary tract infection has been completed, and the Zosyn has been stopped. He consulted Dr. Muñoz, who operated on the patient during her last admission, specifically he was requested to see the patient because she continues to have some complaints of dysuria. I do not think this patient was evaluated by Urology Department because that afternoon or probably evening, the patient decided to leave AMA. I am not quite sure about the reasons but, apparently, she was complaining of pain and Dilaudid was ordered IM by one of the nurse practitioners during the night and he refused to take it and decided to leave AMA. The personnel tried to convince her to stay and she gave multiple reasons to leave. Patient signed the AMA papers and left. Apparently, the patient left with the . PICC line was removed and dressing was applied. Again, this patient left AMA on 12/15/2017 at around 2323 hours. cc: Roland Gamble MD
== END 2018-12-15 23:26 | disposition left against medical advice (07) | DRG 378 ==
LOC: ED 10:26 → EDIPHOLD 15:12 → SUATTDRO 15:12 → 3N 15:42
PROVIDERS: ATTEND Internal Medicine
CPT/HCPCS: 71010; 71020; 71045; 71046; 71275; 74000; 74018; 76700; 80048; 80053; 81001; 82270; 82550; 83605; 83735; 83880; 84443; 84484; 85025; 85379; 85610; 85730; 87040; 87088; 87324; 87449; 88305; 88312; 93005; 93306; 93970; 94640; 94761; 99284; A9270; C8929; C9113; J1940; J2405; J2543; J7030; Q9957; Q9967; S0164

== ENCOUNTER 2019-05-09 18:37 | Inpatient (IN) ==
[2019-05-09] MEDS ORDERED: ASPIRIN PO ONE (20:05)
--- NOTE | 2019-05-09 20:53 | Diag Imaging Result Doc PS360 ---
CHEST-2 VIEWS - 05/09/2019 INDICATION: pna COMPARISON: 02/25/2019 FINDINGS: Stable hiatal hernia. The lungs are clear. Heart size is normal. No pneumothorax or pleural effusion. IMPRESSION: No acute disease or change from prior. Electronically signed by Giorgio Cabrera 05/09/2019 8:51 PM
--- NOTE | 2019-05-09 20:55 | Diag Imaging Result Doc PS360 ---
CT HEAD W/O CONTRAST - 05/09/2019 INDICATION: cva COMPARISON: 02/16/2018 FINDINGS: Stable old stroke at the lateral right frontal lobe. Stable mild cerebral white matter chronic microvascular disease. No intracranial mass or hemorrhage. The skull is intact. The sinuses are clear. IMPRESSION: No acute process. This exam was performed using automated exposure control, adjustment of mA or kV according to patient size, and/or use of iterative reconstruction technique Electronically signed by Giorgio Cabrera 05/09/2019 8:52 PM
[2019-05-09 21:59] LABS: BASO# 0.02 X1000 (0.0-0.2); BASO% 0.4 % (0.0-0.8); EOS# 0.18 X1000 (0.0-0.7); EOS% 3.8 % (0.0-10.0); HEMOGLOBIN 13.9 g/dL (12.0-16.0); LYMPH# 1.86 X1000 (1.2-3.4); LYMPH% 39.4 % (20.5-51.1); MCH 28.7 PG (27-31); MCHC 33.9 g/dL (33-37); MCV 84.5 FL (81-99); MONO# 0.45 X1000 (0.11-0.59); MONO% 9.5 % (1.7-9.3); MPV 10.6 FL (7.4-10.4); NEUT# 2.21 X1000 (1.4-6.5); NEUT% 46.9 % (42.2-75.2); PLT 194 X1000 (130-400); RBC 4.85 XMIL (4.2-5.4); RDW 13.8 % (11.5-14.5); WBC 4.72 X1000 (4.8-10.8)
[2019-05-09 22:10] LABS: INR 0.94; PROTIME 13.3 Seconds (11.0-16.0); PTT 24.6 Seconds (22.3-41.8)
[2019-05-09 22:21] LABS: AGAP 9; ALBUMIN 4.7 g/dL (3.5-5.0); ALKALINE PHOSPHATASE 78 U/L (32-104); BUN 18 mg/dL (8-22); CALCIUM 9.2 mg/dL (8.8-10.2); CHLORIDE 102 mmol/L (98-107); COSMO 283; CREATININE 0.7 mg/dL (0.5-0.9); ESTIMATED GFR > 60; GLUCOSE 96 mg/dL (70-104); GOT 8 U/L (10-30); GPT 16 U/L (10-36); SODIUM 141 mmol/L (136-145); TCO2 30 mmol/L (25-35); TOTAL BILIRUBIN 0.48 mg/dL (0.20-1.00)
[2019-05-09] MEDS ORDERED: DILAUDID IV ONE (22:34)
[2019-05-10] MEDS ORDERED: DILAUDID IV ONE (00:16)
--- NOTE | 2019-05-10 00:21 | PROVIDER DOCUMENTATION ---
This chart was entered by Vikki Prince Scribe, acting as scribe for Janelle Irby MD. HPI-General Adult - General Chief Complaint: Eye Complaint Stated Complaint: STROKE SYMPTOMS Time Seen by Provider: 05/09/19 18:55 Source: patient Allergies/Adverse Reactions: Patient Allergies Allergy/AdvReac Type Severity Reaction Status Date / Time hydrocodone bitartrate * Allergy Intermediate ITCHING Verified 12/11/18 15:03 [From Lortab] levofloxacin [From Levaquin] Allergy Unknown Unknown Verified 12/11/18 15:03 sulfamethoxazole Allergy Unknown Unknown Verified 12/11/18 15:03 [From Bactrim] trimethoprim [From Bactrim] Allergy Unknown Unknown Verified 12/11/18 15:03 baclofen AdvReac Intermediate confusion Verified 12/11/18 15:03 gabapentin [From Neurontin] AdvReac Intermediate hyperactivi Verified 12/11/18 15:03 ty methadone [Methadone] AdvReac Intermediate confusion Verified 12/11/18 15:03 morphine AdvReac Intermediate confusion Verified 12/11/18 15:03 pregabalin [From Lyrica] AdvReac Intermediate hallucinati Verified 12/11/18 15:03 ons azathioprine [From Imuran] AdvReac Mild VOMITING Verified 12/11/18 15:03 azathioprine sodium * AdvReac Mild VOMITING Verified 12/11/18 15:03 [From Imuran] Home Medications: Home Medication List Medication Instructions Recorded Confirmed Last Taken Type Folic Acid 1 tab PO QPM 09/12/12 12/11/18 12/10/18 History Albuterol Sulfate [Proair Hfa] 8.5 gm IH Q8H PRN 12/07/16 12/11/18 12/10/18 History Cholecalciferol (Vitamin D3) 5,000 unit PO DAILY 12/07/16 12/11/18 12/10/18 History [Vitamin D3] Lacosamide [Vimpat] 200 mg PO BID tablet 05/21/17 12/11/18 12/10/18 Rx Fluticasone 50 Mcg Nasal [place] 1 spray LD DAILY 07/07/17 12/11/18 12/10/18 History [Flonase] Tizanidine HCl [Zanaflex] 4 mg PO Q6HR PRN #14 tablet 08/19/17 12/11/18 12/10/18 Rx ATORVAstatin [Lipitor] 40 mg PO QHS 02/16/18 12/11/18 12/10/18 History Docusate Sodium [Colace] 200 mg PO QHS capsule 02/20/18 12/11/18 12/10/18 Rx Ferrous Sulfate 325 mg PO WBREAKFAST tablet 02/20/18 12/11/18 12/10/18 Rx Magnesium Hydroxide [Milk of 30 ml PO DAILY PRN PRN udc 02/20/18 12/11/18 12/10/18 Rx Magnesia] Oxycodone I.r. [Oxy Ir] 5 mg PO Q3H PRN PRN #40 tablet 02/20/18 12/11/18 12/10/18 Rx Lorazepam [Ativan] 1 mg PO TID PRN PRN #20 tab 12/07/18 12/11/18 12/10/18 Rx Polyethylene Glycol 3350 [Miralax] 17 gm PO BID powder, packet 12/07/18 12/11/18 12/10/18 Rx Tamsulosin [Flomax] 0.4 mg PO DAILY #30 cap 12/07/18 12/11/18 12/10/18 Rx Doxycycline Hyclate 100 mg PO BID #20 tab 03/01/19 Unknown Rx Mupirocin Cream [Bactroban Cream] 1 applicatn TOP TID #1 tube 03/01/19 Unknown Rx - History of Present Illness -Gen Adult Nature of Presenting Problems: Pt is 78/F presenting to ED w/ concern of having a stroke. PT sts that she has had strokes in the past. She sts that she has c/p, bilat jaw pain, SOb and says that her legs "feel funny" and her eyes are blurry, particularly the L one. Pt has several auto immune diseases including RA, Lupus and Stergens. Location of Pain/Injury: reports: face (jaw), chest, generalized Pain Radiation: reports: no radiation Quality of Pain: reports: aching Severity: reports: moderate Onset/Duration: reports: gradual Timing: reports: still present Context/Activities at Onset: reports: none Modifying Factors: improves with: nothing Associated Symptoms: reports: chest pain, cough, shortness of breath. denies: anxiety, headaches, nausea, vomiting Review of Systems - Adult - REVIEW OF SYSTEMS - ADULT Constitutional: reports: no symptoms reported. denies: chills, fever Eyes: reports: no symptoms reported Ears, Nose, Mouth & Throat: reports: no symptoms reported Cardiovascular: reports: chest pain Respiratory: reports: chronic cough Gastrointestinal: reports: no symptoms reported. denies: abdominal pain, diarrhea, nausea, vomiting Genitourinary: reports: no symptoms reported Musculoskeletal: reports: bone pain, joint pain Integumentary: reports: no symptoms reported Neurological: reports: no symptoms reported. denies: dizziness/vertigo, headache/migraines Psychiatric: reports: no symptoms reported Endocrine: reports: no symptoms reported Hematologic/Lymphatic: reports: no symptoms reported Allergic/Immunologic: reports: no symptoms reported All Other Systems: Reviewed and Negative Past History - Adult - PAST MEDICAL HISTORY-ADULT Review of Records: reports: Old Records Reviewed, Nursing Assessment Review, Medications Reviewed, Social history reviewed & non-contributory. Major Childhood Illnesses: reports: denies history Cardiovascular: reports: HTN, hyperlipidemia, [place] Respiratory: reports: asthma, other (home oxygen) Gastrointestinal: reports: GERD Obstetrical/Gynecological: reports: denies history Genitourinary: reports: other, chronic UTI's Musculoskeletal: reports: arthritis, chronic pain, neck/back injury, other fractures, orthopedic injury, osteoporosis Neurological: reports: CVA, dementia, Seizures/Epilepsy Endocrine/Immune: reports: anemia, lupus, RA Other Conditions: reports: denies history - PRIOR SURGERIES/PROCEDURES Surgical/Procedure History: reports: appendectomy, hysterectomy, tonsillectomy, orthopedic (extremity) (total knee replacement), back/neck - PRIOR HOSPITALIZATIONS Prior Hospitalizations: reports: none - IMMUNIZATION STATUS Childhood Immunizations: See Nurse Assessment Flu Vaccine: See Nurse Assessment - FAMILY HISTORY Family History: reviewed, not pertinent - SOCIAL HISTORY Smoking: denies, non-smoker Substance Use: none/never, none presently/history of abuse Alcohol Use Frequency: never Living Situation: family Physical Exam-General - PHYSICAL EXAM-ADULT Initial Vital Signs Reviewed: Yes - CONSTITUTIONAL General Appearance: appears well, alert, no apparent distress - EYES Eyes: PERRL/EOMI, pink conjunctivae - HEAD, EARS, NOSE, MOUTH & THROAT HENMT: normocephalic/atraumatic, moist mucous membranes, normal ENT inspection, TMs normal, pharynx normal - NECK Neck: non-tender, full range of motion, supple, normal inspection - RESPIRATORY Respiratory: lungs clear - CARDIOVASCULAR Cardiovascular: regular rate, rhythm, other (tenderness upon palpation) - GASTROINTESTINAL (ABDOMEN) Abdominal Exam: normal bowel sounds, non tender, soft - MUSCULOSKELETAL Back Exam: normal inspection, no CVA tenderness, no vertebral tenderness Extremity: normal range of motion, non-tender, normal gait, tenderness - SKIN Integumentary: normal color, warm/dry - NEUROLOGIC Neurologic: grossly normal Progress - PLAN OF CARE/RESULTS Progress/Plan/Lab Results: Vital Signs - 8 hr 05/09/19 18:42 Temperature 98.0 F Pulse Rate 81 Respiratory Rate 18 Blood Pressure 171/89 O2 Sat by Pulse Oximetry 94 L Result Diagrams: 05/09/19 21:47 05/09/19 21:47 - REASSESSMENT Reassessment #1 Time Reassessed: 22:35 Status: other (nonspecific pain, likely from her arhtritis, sjorgen syndrome arthritis. moprhine gave her psych issues. toradol severe hives, and gabapentin psych issues. dilaudid or demerol work for her. will try small dose of dilaudid.) Reassessment #2 Time Reassessed: 00:20 (still complain of persistent left eye and left sided weakness. will admit for CVA/TIA ) - EKG 1 Time of EKG reading by physician:: 18:51 EKG Read and Signed by:: Larry Ricci EKG Interpretation (*Must complete 3 of following elements*): Abnormal (Normal sinus rhythm, Left axis deviation, Abnormal ECG) Rate: 71 Rhythm: Sinus [place]: normal QRS: normal MA Interval: normal 2 Time of EKG reading by physician:: 21:33 EKG Read and Signed by:: Tyrone Coleman EKG Interpretation (*Must complete 3 of following elements*): Abnormal (Sinus rhythm with frequent prematrue ventricular complexes, Left axis deviation, Abnormal ECG) [place]: left QRS: normal MA Interval: normal - XRAY 1 XRAY: Bilateral XRAY Study: Chest Impression: Abnormal (FINDINGS: Stable hiatal hernia. The lungs are clear. Heart size is normal. No pneumothorax or pleural effusion. IMPRESSION: No acute disease or change from prior. Electronically signed by Giorgio Cabrera 05/09/2019 8:51 PM 05/09/192050 Interpreting Physician: Giorgio Cabrera MD Dictated Date/Time: 05/09/192049 cc: Janelle Irby MD; Jaclyn Lucero) - CT/MRI 1 CT Study: Head Impression: Normal (IMPRESSION: No acute process. This exam was performed using automated exposure control, adjustment of mA or kV according to patient size, and/or use of iterative reconstruction technique Electronically signed by Giorgio Cabrera 05/09/2019 8:52 PM 05/09/192051 Interpreting Physician: Giorgio Cabrera MD Dictated Date/Time: 05/09/192050 cc: Janelle Irby MD; Jaclyn Lucero) - CONSULTS/PCP/HOSPITALIST Notification #1 *Consult/PCP/Hospitalist*: Dr. Webber Time Discussed: 00:21 Consult Disposition: Admit Departure - Departure Date of Disposition Decision: 05/09/19 Time of Disposition Decision: 22:36 DIAGNOSIS: TIA (transient ischemic attack), Visual disturbance Disposition: HOME 01 Certified Medical Emergency: Emergent Condition: Stable Referrals and Follow-Ups: Jaclyn Lucero CRNP [Primary Care Provider] - - Critical Care Note This patient required my direct & personal management of CC.: No Attestation - Physician/ YANELIS Attestation Patient care was provided by Advanced Practice Provider:: No The physician spent face to face time with patient:: Yes Advanced Practice Provider documentation review:: Supervising physician onsite and consulted in the evaluation and care of this patient. The physician did have a face to face encounter with the patient. This chart was documented by the indicated scribe, (Vikki Prince Scribe) and accurately reflects the services I performed and decisions made by me, Janelle Irby MD, as attested by the provider's signature.
[2019-05-10] MEDS ORDERED: PERCOCET-5 PO ONE (03:09)
--- NOTE | 2019-05-10 05:22 | HISTORY AND PHYSICAL ---
ADDENDUM: REASON FOR ADMISSION: Two-day history of sharp chest pain. HISTORY OF PRESENT ILLNESS: Ms. Mimi Chase is a 70-year-old lady with past medical history of numerous autoimmune problems, coronary artery disease, hypertension. Comes in with a complaint of constant aching chest pain for the last 2 days with intermittent episodes of superimposed sharp pain. Admits to having some mild dyspnea. Says that she does have chronic chest pain which is very mild and tolerable but this pain has been escalating for the last 2 days. Also complains of some shortness of breath over the last 24 hours in her throat and in the middle of her in chest. In addition to this, she complains of intermittent blurry vision bilaterally. Also complains of burning sensation in her feet and legs which started today. No gross focal motor deficits. No palpitations or lightheadedness. She was given 0.5 of Dilaudid with no relief. LAB WORK: Troponin x2 was negative. EKG did not show any specific ST or T-wave changes suggestive of ischemia. Her D-dimer is greater than 20. CTA has been ordered. PHYSICAL EXAMINATION: VITAL SIGNS: Blood pressure 107/89, heart rate 81, respirations 18, temperature is 98. CHEST: Her exam is only notable for tenderness in the costochondral joints of her chest anteriorly. Otherwise chest is clear. No murmurs or rubs. Rhythm is regular. EXTREMITIES: No gross abnormalities noted. Normal pulse volume. ASSESSMENT: Atypical chest pain, probably musculoskeletal from underlying inflammatory rheumatological diseases, i.e. Sjogren's, rheumatoid, and lupus. We will also need to rule out the possibility of a pulmonary embolism in light of her underlying autoimmune disease, elevated D- dimer and high score per Wells criteria. Await CT report and if positive for pulmonary embolism will anticoagulate appropriately. Otherwise would recommend treating the patient for musculoskeletal chest pain while doing serial cardiac enzymes. Her intermittent visual blurriness seems somewhat vague at this point in time. However, we will do a sedimentation rate and make sure that she does not have any coexisting evidence of temporal arteritis, although clinically I do not feel any tenderness overlying the scalp. This test is nonspecific but needs to be considered in the etiology of patient's symptom of blurred vision. Since this painless intermittent blurry vision, this makes it unlikely to be optic neuritis. Consult Ophthalmology to evaluate her eyes later today. Consider NSAIDs for patient's chest wall pain. cc: José Luis Webber MD MTDD
[2019-05-10] MEDS ORDERED: ZOFRAN IV PRN (05:45)
[2019-05-10] MEDS ORDERED: TYLENOL PO PRN (05:49)
[2019-05-10 06:45] LABS: BASO# 0.02 X1000 (0.0-0.2); BASO% 0.5 % (0.0-0.8); EOS# 0.21 X1000 (0.0-0.7); EOS% 4.8 % (0.0-10.0); HEMATOCRIT 38.9 % (37.0-47.0); HEMOGLOBIN 13.2 g/dL (12.0-16.0); LYMPH# 1.99 X1000 (1.2-3.4); LYMPH% 45.2 % (20.5-51.1); MCH 28.9 PG (27-31); MCHC 33.9 g/dL (33-37); MCV 85.1 FL (81-99); MONO# 0.49 X1000 (0.11-0.59); MONO% 11.1 % (1.7-9.3); MPV 10.8 FL (7.4-10.4); NEUT# 1.69 X1000 (1.4-6.5); NEUT% 38.4 % (42.2-75.2); PLT 194 X1000 (130-400); RBC 4.57 XMIL (4.2-5.4); RDW 13.9 % (11.5-14.5)
--- NOTE | 2019-05-10 07:17 | EKG Report ---
Test Performed on : 05/10/2019 07:06:04 AM Test Reason : chest pain Blood Pressure : / mmHG Vent. Rate : 061 BPM Atrial Rate : 061 BPM P-R Int : 168 ms QRS Dur : 076 ms QT Int : 440 ms P-R-T Axes : 051 -38 054 degrees QTc Int : 442 ms Normal sinus rhythm. Left axis deviation Abnormal ECG When compared with ECG of 09-MAY-2019 21:33, (Unconfirmed) premature ventricular complexes. are no longer present Confirmed by Salazar HAWKINS, Neto Winkler ([id number]) on 05/10/2019 9:31:19 AM
[2019-05-10 07:21] LABS: AGAP 11; BUN 19 mg/dL (8-22); CHLORIDE 102 mmol/L (98-107); CK PROFILE 49 U/L (24-173); COSMO 283; CREATININE 0.7 mg/dL (0.5-0.9); ESTIMATED GFR > 60; GLUCOSE 114 mg/dL (70-104); MAGNESIUM 2.2 mg/dL (1.5-2.7); POTASSIUM 4.3 mmol/L (3.5-5.1); SODIUM 140 mmol/L (136-145); TCO2 27 mmol/L (25-35)
--- NOTE | 2019-05-10 07:44 | Diag Imaging Result Doc PS360 ---
EXAM: CT ANGIOGRM PULMONARY ARTERIES INDICATION: SOB,Chest Pain,Hx of PE and DVT TECHNIQUE: This exam was performed using automated exposure control, adjustment of mA or kV according to patient size, and/or use of iterative reconstruction technique. Thin section axial images and 3-D MIPS were obtained. COMPARISON: 12/11/2018 FINDINGS: There is no evidence of pulmonary embolism. There is no evidence of aortic dissection or aneurysm. There are bulky calcified mediastinal lymph nodes on the left indicating prior granulomatous disease. No significant mediastinal or hilar lymphadenopathy is appreciated, otherwise. There is mild patchy airspace consolidation at the posterior costophrenic angle on the right. Pneumonia cannot be excluded. There are mild peripheral subpleural fibrotic changes and/or subsegmental atelectasis throughout both lungs. This is similar to the previous study. There is no pleural fluid collection and no pneumothorax. There are a few calcified granulomata in the left lower lobe. There is a large stable hiatal hernia. An IVC filter is noted. Limited views of the upper abdomen are essentially unremarkable, otherwise. IMPRESSION: 1.Mild patchy airspace consolidation at the right posterior costophrenic angle suggesting possible pneumonia. 2.No evidence of pulmonary embolism. 3.Other incidental/nonacute findings detailed above. Electronically signed by Mario Mitchell 05/10/2019 7:42 AM
[2019-05-10] MEDS: INDERAL PO SCH ×2 (08:08→20:22)
--- NOTE | 2019-05-10 08:08 | EKG Report ---
Test Performed on : 05/09/2019 9:33:56 PM Test Reason : cp Blood Pressure : / mmHG Vent. Rate : 071 BPM Atrial Rate : 071 BPM P-R Int : 166 ms QRS Dur : 078 ms QT Int : 434 ms P-R-T Axes : 054 -36 045 degrees QTc Int : 471 ms Sinus rhythm. with frequent premature ventricular complexes. Left axis deviation Abnormal ECG When compared with ECG of 09-MAY-2019 18:51, (Unconfirmed) premature ventricular complexes. are now present Unconfirmed Result
--- NOTE | 2019-05-10 08:08 | EKG Report ---
Test Performed on : 05/09/2019 6:51:41 PM Test Reason : cp Blood Pressure : / mmHG Vent. Rate : 071 BPM Atrial Rate : 071 BPM P-R Int : 146 ms QRS Dur : 078 ms QT Int : 404 ms P-R-T Axes : 036 -31 039 degrees QTc Int : 439 ms Normal sinus rhythm. Left axis deviation Abnormal ECG When compared with ECG of 25-FEB-2019 13:07, No significant change was found Unconfirmed Result
[2019-05-10] MEDS: ZOLOFT PO SCH (08:09)
[2019-05-10] MEDS: VIMPAT PO SCH ×2 (08:14→20:23)
[2019-05-10] MEDS: LOVENOX SUBQ SCH (08:14)
[2019-05-10] MEDS: FLONASE NAS SCH (08:22)
[2019-05-10] MEDS ORDERED: OXY IR PO PRN (09:00)
--- NOTE | 2019-05-10 10:33 | HISTORY AND PHYSICAL ---
PRIMARY CARE PROVIDER: LIGIA Jon. STOREROOM KEEPER: Dr. Tyesha Juarez in [place], [place]. CHIEF COMPLAINT: Vision problems and chest pain. HISTORY OF PRESENT ILLNESS: Ms. Chase is a 78-year-old female with a past medical history most notable for numerous autoimmune disorders, which include rheumatoid arthritis, Sjogren's disease, and possible lupus. She also has other pertinent past medical history of coronary artery disease, hypertension, hyperlipidemia, and a right frontal CVA. The patient states that 2 days ago, she began having numerous symptoms, which included visual disturbance of blurry vision. The patient states that she has blurry vision in bilateral eyes. She also feels that in bilateral eyes, at times, it does feel like there is a curtain coming down over her vision, but this is not present all the time. Currently at this time, she is reporting just the blurry vision. She also has been reporting a 2-day history of chest pain. She reported to myself that the chest pain was heavy with a heavy pressure-type pain that was in the center of her chest, and did radiate to just under her bilateral breasts, as well as into her bilateral jaws. She reports to me that the pain had been constant since onset, and that it came on while she was lying down, resting. She also reports shortness of breath and a feeling that she states "is very hard for her to articulate, but it feels like her throat is closing up." The patient also stated that she felt like the sides of her jaws were swelling. She was pointing to the angle of her bilateral jaws, as well as the submandibular area. The patient denied any feeling as though her tongue with feeling thick. Her speech was clear and understandable. The patient does have chronic pain secondary to her rheumatoid arthritis as well as she does state that she had a reported history of some neuropathy as well. She is also reporting some burning-type sensation in her bilateral lower extremities and on the bottom of her feet. She reported that her legs were tender upon palpation, though this was not in the posterior or calf area. She denies any headache. She denies any abdominal pain, nausea, vomiting, or diarrhea. She denies any dysuria. She denies any hematochezia or melena. Upon speaking with the patient further, though it was not listed in her past medical history on previous history and physicals, the patient reports that she does have a history of having approximately two pulmonary embolisms, as well as DVTs in the past. She states she was on anticoagulants for a very long time, as well as on the CTA of pulmonary arteries we performed later on did show that she had a history of having a previous IVC filter as well. In the ER, the patient's laboratory results, which included her CBC, CMP, and cardiac enzymes were unremarkable. CK and troponin were within normal limits, though we did perform a D-dimer which was greater than 20. Given her history and reported complaints of chest pain and shortness of breath, we did order a CTA pulmonary arteries to be performed. This showed that there was an ill-defined consolidation in the lower aspect of the right lower lobe. Pneumonia versus pneumonitis was suspected. There was no pulmonary thromboembolism identified. There was a large hiatal hernia again noted. At this time, the patient will be admitted for further treatment and evaluation of her chest pain as well as visual disturbances. The patient does report a chronic, dry cough, but this is not of new onset and has not worsened. PAST MEDICAL HISTORY: 1. History of possible mild dementia. 2. Rheumatoid arthritis. 3. Sjogren's disease. 4. Possible lupus. 5. Right frontal CVA. 6. Pernicious anemia. 7. Hypertension. 8. Hyperlipidemia. 9. Epilepsy. 10. Asthma. 11. History of previous pulmonary embolism and deep venous thromboses, for which she states she was previously on anticoagulation therapy, though has not taken this for quite some time. She also does have a history of a previous IVC filter. 12. Coronary artery disease. 13. Osteoporosis. PAST SURGICAL HISTORY: 1. Left hip fracture repair. 2. Multiple knee surgeries. 3. C-spine surgery. 4. Hysterectomy. 5. Vaginal prolapse repair. 6. Right ankle and right knee surgery. 7. Status post hysteroscopy with lithotripsy and stone basket extraction. 8. EGD performed recently in 12/2018, for which she was being evaluated for possible GI bleed and melena, though there was no active bleeding reported on the EGD findings. There was a hiatal hernia and some mild gastritis noted. SOCIAL HISTORY: The patient lives at home with her . She denies any past or present tobacco, alcohol, or illicit drug use. 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 FAMILY HISTORY: Notable for heart disease and diabetes. REVIEW OF SYSTEMS: A 14-point review of systems was conducted with the patient, and all were negative, except for pertinent positives mentioned above in HPI. ALLERGIES: The patient has allergies to Lortab, Levaquin, Bactrim, baclofen, Neurontin, methadone, morphine, Lyrica, and Imuran. HOME MEDICATIONS: 1. ProAir HFA inhaler 8.5 grams inhaled every 8 hours p.r.n. minutes. 2. Atorvastatin 40 mg p.o. at bedtime. 3. Diphenhydramine 25 mg p.o. every 4 hours p.r.n. 4. Vitamin D2, 50,000 units p.o. every 7 day. 5. Flonase 1 spray nasally daily. 6. Folic acid 1 mg p.o. every p.m. 7. Vimpat 1 mg p.o. t.i.d. p.r.n. 8. OxyIR 5 mg p.o. every 3 hours p.r.n. for pain. 9. Ativan 1 mg p.o. t.i.d. p.r.n. for anxiety. 10. Propranolol 20 mg p.o. b.i.d. 11. Sertraline 100 mg p.o. daily. DIAGNOSTIC DATA: White blood cell count is 4720, hemoglobin 13.9, hematocrit 41, platelet count is 194,000. PT 13.3, INR 0.94, PTT 24.6. D-dimer is greater than 20. Sodium is 141, potassium 4, chloride 102, serum bicarb is 30, BUN 18, creatinine 0.7, GFR is greater than 60, glucose 96, calcium 9.2. Magnesium 2.2. Liver function tests within normal limits. First and second set of cardiac enzymes were negative. EKG showed sinus rhythm with frequent premature ventricular complexes and a left axis deviation at a rate of 71. Chest x-ray showed no acute disease or change from prior. CT head without contrast showed no acute process. There was a stable old stroke at the lateral right frontal lobe, and stable mild cerebral white matter chronic microvascular disease. There was no intracranial mass or hemorrhage. CT angiogram pulmonary artery showed an ill-defined consolidation in the lower aspect of the right lower lobe. This is to be suspected possible pneumonia versus pneumonitis. There was no pulmonary thromboembolism identified. There was a large hiatal hernia. There has been previous granulomatous exposure. There were chronic osseous changes. Please see full CT report for detailed findings. Also would like to note that on the CT report, the trachea and esophagus were noted to be unremarkable. There was no active adenopathy appreciated either. PHYSICAL EXAMINATION: VITAL SIGNS: Temperature 97.6 degrees, heart rate 62, respirations 18, blood pressure 126/64, with a MAP of 80, oxygen saturation is 96% on room air. GENERAL: Ms. Chase is a pleasant, 78-year-old, elderly, female. She was resting in the ER stretcher. She was in no acute distress. She was awake, alert, and able to answer questions appropriately. HEENT: Head is atraumatic, normocephalic. Pupils are equal, round, reactive to light, were 3 mm bilaterally and brisk. Oral mucosa was moist. Oropharynx was clear. NECK: Supple. Trachea midline. No carotid bruits noted upon auscultation. Given the patient's reported complaints of feeling like her throat was closing up and shortness of breath, I did assess her airway. The patient did not have any swelling noted to her tongue. She had no stridor noted as well. She had no lymphadenopathy or swelling noted upon assessment of her jaw, submandibular area, and neck, where she is reporting that she felt symptoms of this. CARDIOVASCULAR: The patient has S1, S2 present. No murmurs, gallops, or rubs appreciated, with a regular rate and rhythm. PULMONARY: The patient has symmetrical chest expansion bilaterally. Lung sounds are clear to auscultation in bilateral full che. ABDOMEN: Soft, nontender, nondistended. Bowel sounds are present in all 4 quadrants, were normoactive. EXTREMITIES: No cyanosis, clubbing, or edema noted. Pulse, motor, and sensory were intact in all extremities. Radial pulses and pedal pulses were 3+ bilaterally. The patient did report some tenderness upon palpation of her legs, though this was anteriorly and laterally. This was not along the posterior legs of either lower extremity. She did not have any swelling, erythema, or warmth noted, or increased swelling and one leg versus the other. INTEGUMENTARY: The patient's skin is pink, warm, and dry. NEUROLOGICAL: The patient is alert and oriented to person, place, time, and situation. She is able to move all extremities. She is reporting a burning-type sensation in her bilateral legs and the bottom of her feet. She has equal hand grasp bilaterally. There is no facial droop noted. There does not appear to be any focal neurological deficits noted at this time. ASSESSMENT AND PLAN: 1. Chest pain. At this time, the patient's chest pain does seem to be more musculoskeletal in nature. She is quite tender upon palpation of her chest wall. The patient denies any recent strenuous activity or falling and having any trauma to her chest area. Her initial two sets of cardiac enzymes have been negative. We will continue with a series of cardiac enzymes. Will repeat an electrocardiogram in the morning. She did receive a 325 mg aspirin. We will continue with the prescribed antihypertensive medications. We have placed a consult with Cardiology, and will await their evaluation and further recommendations for management. 2. Dyspnea. The patient was reporting dyspnea and the feeling that her throat was closing up. Upon exam, the patient was not having any respiratory distress. She has no swelling to lips or tongue. She has no stridor noted. Chest x-ray as well as CT angiogram pulmonary artery did not show any findings of a pulmonary embolism. It did note as well that the trachea and esophagus on her CT were unremarkable, and that there was no adenopathy appreciated. We will continue to monitor this closely. She has not had any fever, body aches, or chills. She does report a chronic cough that has not worsened. 3. Hypertension. Will continue with the prescribed antihypertensive medications. 4. Epilepsy. Will continue her Vimpat. 5. Reports of visual disturbances. The patient is reporting some bilateral blurry vision. She did report, at times, she has had a feeling that there is a curtain coming down over her eyes. She has had a history of stroke in the past, though her CT of the head without contrast did not show anything acute. We will continue to monitor this. She is having painless intermittent blurry vision. Given these findings, we have ordered a sedimentation rate to rule out any possible temporal arteritis. Unfortunately, we do not have Ophthalmology consultation available, though if findings are worrisome and the patient does need to have Ophthalmology consulted, the patient may have to be transferred to another facility if this was an emergent need, though we will continue to follow this closely. The patient will placed on the medical floor with telemetry. She will have vital signs every 4 hours. Will do strict intake and output, incentive spirometry. Will repeat a CBC and BMP in the morning, as well as cardiac enzymes as previously mentioned. We have placed her with venous thromboembolism prophylaxis of Lovenox 3 mg subcutaneously every 24 hours. Further orders and recommendations pending hospital course, diagnostic studies, and physician evaluations. Dictated by LIGIA Palm for José Luis Webber MD cc: José Luis Webber MD
[2019-05-10] MEDS ORDERED: MOTRIN PO ONE (11:36)
[2019-05-10] MEDS ORDERED: NS 1,000 ML IV SCH (15:45)
[2019-05-10] MEDS: PERCOCET-5 PO PRN (16:08)
[2019-05-10] MEDS: FLEXERIL PO PRN (16:08)
--- NOTE | 2019-05-10 16:22 | PROGRESS NOTE ---
DATE: 05/10/2019 INTERVAL HISTORY: Ms. Chase was admitted for sharp chest pain of about 2 days' duration and bilateral parotid pain of about 2 days' duration. She denies any nausea or vomiting. At the time of my evaluation, Salvatore Bailey is hyperverbal and appears anxious. She is tangential and talks a lot about her prior life experiences and medical history. Says that her chest pain is located in the precordial region without any exertional component and it is constant, sharp, and is hurting her a lot. She also requests IV pain medications. I discussed with her about muscle spasms, parotitis because of Sjogren syndrome. The patient's is at bedside. VITAL SIGNS: Temperature 97.3 degrees, pulse 57, respiratory rate 18, blood pressure 127/69, saturating 100% on 2 L nasal cannula. PHYSICAL EXAMINATION: General: Anxious-appearing, lady, not in any acute distress. HEENT: She has blepharitis of bilateral eyes. Oral cavity is dry. Lungs: Air entry bilaterally equal. No wheeze, rhonchi, crackles. Cardiovascular: S1, S2 normal. No murmur, rub, or gallop. She has tenderness over the precordial region. However, when I diverted her attention, she did not appear to have any pain. Abdomen: Soft, nontender. No hepatosplenomegaly. Extremities: She has mild bilateral lower extremity edema and she complains of pain in bilateral lower extremities. Neurologic: She is alert. She is oriented x3. Her pupils are bilaterally equal, reactive to light. Extraocular movement is intact bilaterally. She is able to count finger from 1 meter distance both eyes and is able to watch TV. She is able to raise both upper and lower extremities above ground level. LABS: Suggestive of normal CBC essentially. Elevated D-dimer. She does have normal kidney function. Her sedimentation rate has been normal. C-reactive protein was also normal. Troponins were negative x3. MICROBIOLOGY: No new microbiological data. IMAGING: No new imaging. ASSESSMENT AND PLAN: 1. Atypical chest pain, likely musculoskeletal. Start patient on cyclobenzaprine and Percocet that she claims to be taking at home. She had an echocardiogram in 2019 which was unremarkable and stress test in 2016 which was negative. Cardiology team has been consulted. I will appreciate further recommendations. 2. Bilateral jaw pain. This could just be in the setting of her Sjogren's syndrome. I will start her on intravenous fluids to hydrate her and encourage her to take p.o. intake. I will obtain records from outpatient provider regarding the treatment she is on for rheumatoid arthritis or SLE. 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 3. History of the right frontal cerebrovascular accident and seizures. Continue her on high-dose atorvastatin. She is not listed to be on aspirin. I will continue her home lacosamide and sertraline. 4. Others. Continue home folic acid, propranolol. She does have a prior history of multiple DVTs, PE, nephrolithiasis. I will follow-up repeat D-dimer tomorrow. She does not have temporal tenderness or elevated inflammatory markers to suggest temporal arteritis. She previously did not tolerate steroids because of avascular necrosis and will not take steroids. 5. Disposition. I will continue to monitor the patient. Give her some intravenous fluid resuscitation. Follow up with Cardiology. Plan of care discussed with the patient and her at bedside. All of their questions have been answered. cc: Jose L Hatch MD
--- NOTE | 2019-05-10 17:28 | CARDIOLOGY CONSULTATION ---
DATE: 05/10/2019 IMPRESSION: 1. Chest pain, very atypical for myocardial ischemia. 2. Rheumatologic disorder with rheumatoid arthritis, Sjogren syndrome, and possible lupus. 3. Hypertension. 4. Hyperlipidemia. 5. History of previous deep vein thrombosis/pulmonary embolus. Chest CT scan negative for pulmonary embolus. 6. Asthma. 7. Status post inferior vena cava filter. RECOMMENDATIONS: 1. Echocardiography. 2. Screen for coronary artery disease with Lexiscan myocardial perfusion study. HISTORY: This 78-year-old white female with past history of rheumatologic disorder with rheumatoid arthritis/Sjogren syndrome/possible lupus, hypertension, hyperlipidemia, and previous DVT/PE was admitted through the emergency room for evaluation of chest pain. She describes constant chest pain, dull in character for several days. She can identify no precipitating or relieving factors, other than that, discomfort hurts "when you touch it." She was told more than 20 years ago that she had had a heart attack, but she has not required any further follow-up with a pediatric speech therapist. CORONARY RISK FACTORS: Include hypertension, hyperlipidemia. She is a nonsmoker. PAST MEDICAL HISTORY: 1. Rheumatologic disorder with rheumatoid arthritis, Sjogren syndrome, and possible lupus. 2. Hypertension. 3. Hyperlipidemia. 4. Previous cerebrovascular accident. 5. Previous pulmonary embolus/DVT. 6. Dementia. 7. Asthma. PAST SURGICAL PROCEDURES: Include IVC filter, left hip fracture, knee arthroscopic procedure, hysterectomy, cervical spine surgery, right ankle and right knee surgeries, lithotripsy for kidney stone, and repair of vaginal prolapse. ALLERGIES: She has multiple drug allergies as listed. MEDICATIONS: As listed. SOCIAL HISTORY: She is and lives in [place], [place]. She has never smoked. She does not use alcohol. FAMILY HISTORY: Negative for premature coronary artery disease. There is family history of coronary artery disease with older age of clinical onset. REVIEW OF SYSTEMS: Pulmonary: Noncontributory beyond the history of present illness. Gastrointestinal: Noncontributory beyond the history of present illness. Constitutional: Noncontributory beyond the history of present illness. Remainder of review of systems noncontributory beyond history of present illness with 14 total systems reviewed. PHYSICAL EXAMINATION: Physical examination reveals an anxious-appearing older white female in no distress. Blood pressure 127/69, heart rate 57. HEENT: Extraocular muscles appear to be intact. Mucous membranes are moist. Neck is supple without jugular venous distention. There are no carotid bruits. Chest is clear to auscultation. Cardiac exam reveals a regular rate and rhythm without appreciable murmur, rub, or gallop. Abdomen is soft. Bowel sounds are normal. Extremities are without edema. Pedal pulses are palpable bilaterally. Neurologic exam reveals her to be alert and fully oriented. Speech is fluent. She moves all 4 extremities equally well. Skin is warm and dry. Psychiatric exam reveals her to be anxious. DIAGNOSTIC STUDIES: A 12-lead EKG demonstrates sinus rhythm with occasional premature ventricular complex and left axis deviation. Laboratory data includes sodium 142, potassium 4.3, chloride 102, carbon dioxide 27, BUN 19, creatinine 0.7, glucose 114, magnesium 2.2. Pro B-natriuretic peptide level 63. CPK 47 with followup CPKs of 49 and 62, troponin T less than 0.01 with follow-up troponin Ts of less than 0.01 and less than 0.01. Chest CT angiogram reports no evidence of pulmonary embolus. cc: Elias Hightower MD
[2019-05-10] MEDS: LIPITOR PO SCH (20:22)
[2019-05-10] MEDS: FOLIC ACID PO SCH (20:23)
--- NOTE | 2019-05-10 20:24 | ECHO REPORT ---
ORDER DATE: 05/10/2019 INDICATION: Chest pain. FINDINGS: 1. The right atrium appears normal in size. 2. Trace tricuspid regurgitation. RV systolic pressure of 30. 3. Normal RV size and systolic function. 4. No significant pulmonic insufficiency. 5. Normal left atrial size. 6. No mitral valve prolapse. Trace mitral regurgitation. No evidence of mitral stenosis. 7. Normal LV size, end-diastolic dimension of 3.8. Normal wall thicknesses with a posterior and interventricular septal wall thickness of 1 cm each. Normal LV systolic function. Estimated EF of 65% with normal wall motion. 8. Aortic valve opens well. It is trileaflet. No evidence of stenosis or insufficiency. 9. Aorta appears normal in visualized segments. 10. No pericardial effusion seen. 11. This is an extremely limited study. Patient was uncooperative with the examination. cc: MD Lori Lazaro PA
[2019-05-10] MEDS: ATIVAN PO PRN (20:48)
[2019-05-11] MEDS ORDERED: LEXISCAN ONE (08:54)
--- NOTE | 2019-05-11 10:45 | Extremity Venous Study ---
PROCEDURE NAME: Venous U/S Bilateral Legs - 05/10/2019 PROCEDURE: Bilateral lower extremity venous ultrasound. DATE OF STUDY: 05/10/2019. EXAM FOR COMPARISON: 12/11/2018. INDICATION: Elevated D-dimer, pain all over, and shortness of breath. REQUESTING PHYSICIAN: BARRERA Parker. FINDINGS: Deep and superficial veins bilateral lower extremities visualized along their course. All vessels appear compressible in forward flow, and no evidence of intraluminal thrombus. SUMMARY: No deep or superficial venous thrombosis seen in bilateral lower extremities. cc: MD Lori Peng PA
[2019-05-11] MEDS: INDERAL PO SCH ×2 (11:42→21:06)
[2019-05-11] MEDS: ZOLOFT PO SCH (11:43)
[2019-05-11] MEDS: LOVENOX SUBQ SCH (11:43)
[2019-05-11] MEDS: FLONASE NAS SCH (11:44)
[2019-05-11] MEDS: MYCOSTATIN POWDER TOP SCH ×2 (11:45→21:07)
[2019-05-11] MEDS: VIMPAT PO SCH ×2 (11:48→21:05)
--- NOTE | 2019-05-11 14:54 | Diag Imaging Result Document ---
PROCEDURE NAME: MYOCARDIAL PERF SCAN, STR/REST - 05/11/2019 PROCEDURE: Lexiscan sestamibi interpretation. SUMMARY: The patient was administered 13.3 mCi of technetium-99m sestamibi, after which resting cardiac images were obtained. The patient was subsequently administered Lexiscan 0.4 mg intravenously after which the heart rate went from 58 beats per minute to 79 beats per minute. The blood pressure went from 129/81 to 150/74. With Lexiscan, the patient denied chest discomfort. Following the administration of Lexiscan, the patient was administered 39.0 mCi of technetium-99m sestamibi, after which gated stress cardiac images were obtained. Baseline ECG demonstrates sinus rhythm and mild nonspecific T-wave abnormality. With Lexiscan, there were no diagnostic ST-segment changes. SPECT images were reconstructed in the short, horizontal long and vertical long axis. Review of these images demonstrated homogeneous uptake of radiopharmaceutical, both stress and resting images. Gated images demonstrated calculated left ventricular ejection fraction of 82% with symmetrical wall motion/thickening. CONCLUSIONS: 1. Adequate response to Lexiscan. 2. Clinically negative for chest pain. 3. Electrocardiographically, there were no diagnostic ST-segment changes on electrocardiogram following administration of Lexiscan. 4. Normal Lexiscan sestamibi images. cc: MD Lori Dodd PA
[2019-05-11] MEDS: PERCOCET-5 PO PRN (15:39)
--- NOTE | 2019-05-11 16:51 | CARDIOLOGY PROGRESS NOTE ---
DATE: 05/11/2019 SUBJECTIVE: Patient continues with some atypical sharp chest discomfort as before, although symptoms seem to have improved somewhat. OBJECTIVE: Blood pressure 118/51, heart rate 64, oxygen saturation 98% on room air. There is no significant jugular venous distension, and chest is clear to auscultation bilaterally. Cardiac exam reveals a regular rate and rhythm without appreciable murmur, rub, or gallop. There is no evidence of peripheral edema. DIAGNOSTIC STUDIES: Echocardiography performed yesterday demonstrates normal left ventricular ejection fraction. There is no pericardial effusion. Lexiscan myocardial perfusion study today is normal. IMPRESSION: 1. Atypical chest pain. No objective evidence of myocardial ischemia or inducible myocardial ischemia on noninvasive testing. I suspect chest discomfort is likely noncardiac. Chest symptoms may potentially related to her rheumatologic disorder. 2. Rheumatologic disorder with rheumatoid arthritis, Sjogren syndrome, and possible lupus. 3. Hypertension. 4. Hyperlipidemia. 5. History of previous deep vein thrombosis/pulmonary embolus. Chest CT scan negative for pulmonary embolus. 6. Asthma. 7. Status post inferior vena cava filter. RECOMMENDATIONS: 1. Patient reassured with results of negative Lexiscan myocardial perfusion study and echocardiography. 2. No further cardiovascular suggestions. The patient appears to be clinically stable from a cardiovascular standpoint to go home. I will see further as an inpatient on an as-needed basis. cc: Elias Hightower MD
--- NOTE | 2019-05-11 17:27 | PROGRESS NOTE ---
DATE: 05/11/2019 INTERVAL HISTORY: The patient's stress test was negative. She denies any more chest pain. She denies blurriness of vision. She continues to have bilateral jaw pain which has been bothering her, which did not get better after intravenous fluids. I discussed with her about parotitis. I also discussed with her about osteonecrosis of jaw which can happen after denosumab or Prolia therapy. OBJECTIVE: Vital Signs: Temperature 97.6 degrees, pulse 64, respirations 16, blood pressure 120/55, saturating 98% room air. General: Does not appear in acute distress. Oral cavity is moist. Air entry bilaterally equal. No wheeze, rhonchi, or crackles. S1, S2 normal. No murmur, rub, gallop. Abdomen is soft, nontender. No lower extremity edema. She does not have any chest wall tenderness. She does have bilateral parotid jaw angle tenderness. DIAGNOSTIC STUDIES: Nuclear Medicine stress test did not detect any acute pathology. ASSESSMENT AND PLAN: 1. Atypical chest pain. Nuclear Medicine stress test was negative for any cardiac origin of the chest pain which has already resolved. It was just a musculoskeletal pain. She is on muscle relaxants. 2. Bilateral jaw pain did not get better after intravenous fluids. I will get CT scan facial bones to rule out osteonecrosis of jaw, which can happen on denosumab therapy. 3. History of right frontal cerebrovascular accident and seizures. Continue high-dose atorvastatin, lacosamide, and sertraline. 4. Others: Continue home folic acid and propranolol for essential hypertension and anemia. Her elevated D-dimer has unclear significance, considering CT PE and bilateral lower extremity have been unremarkable for deep venous thrombosis or pulmonary embolism. DISPOSITION: If the CT scan facial bones is negative, my plan is to discharge her home today. Plan of care discussed with the patient and at bedside. All their questions have been answered. cc: Jose L Hatch MD
[2019-05-11] MEDS: FLEXERIL PO PRN (21:06)
[2019-05-11] MEDS: FOLIC ACID PO SCH (21:06)
[2019-05-11] MEDS: ATIVAN PO PRN (21:06)
[2019-05-11] MEDS: LIPITOR PO SCH (21:06)
[2019-05-12 08:09] VITALS: BP 114/57
--- NOTE | 2019-05-12 08:51 | Diag Imaging Result Doc PS360 ---
CT MAXILLOFACIAL(SINUS) W/O CO - 05/11/2019 INDICATION: Evaluate for osteonecrosis of jaw and parotitis TECHNIQUE: COMPARISON: 05/09/2019 FINDINGS: The bones are intact and normally mineralized. The patient has no teeth. The sinuses, mastoids, and middle ears are clear. The temporal mandibular joints are normal bilaterally. The parotid glands and other soft tissues are clear. There is an unusually long styloid process on the left side. This extends all the way to the hyoid bone and in fact articulates with the hyoid. 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 No acute disease. Electronically signed by Giorgio Cabrera 05/12/2019 8:49 AM
[2019-05-12] MEDS: VIMPAT PO SCH (09:11)
[2019-05-12] MEDS: INDERAL PO SCH ×2 (09:11→09:20)
[2019-05-12] MEDS: FLONASE NAS SCH (09:11)
[2019-05-12] MEDS: ZOLOFT PO SCH (09:12)
[2019-05-12] MEDS: MYCOSTATIN POWDER TOP SCH (09:12)
[2019-05-12] MEDS: LOVENOX SUBQ SCH (09:12)
[2019-05-12] MEDS: PERCOCET-5 PO PRN (10:23)
--- NOTE | 2019-05-12 22:51 | DISCHARGE SUMMARY ---
ADMISSION DATE: 05/10/2019 DISCHARGE DATE: 05/12/2019 DISCHARGE DISPOSITION: Home. DISCHARGE CONDITION: The patient is hemodynamically stable. Denies any chest pain, shortness of breath or blurring of vision. Her jaw pain is still there but is better. Her CT scan is negative for any parotitis or jawbone necrosis. DISCHARGE DIAGNOSES: 1. Atypical chest pain with negative nuclear medicine stress test. 2. Bilateral jaw pain of unclear etiology. 3. Severe anxiety. 4. Elevated D-dimer of unclear significance. OTHER DIAGNOSES: 1. 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 2. History of anxiety. 3. 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 4. 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 5. History of right frontal cerebrovascular accident. 6. History of seizure. 7. Essential hypertension. 8. Hyperlipidemia. 9. Asthma. 10. 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 11. Obstructive sleep apnea. 12. Migraine. 13. Depression. 14. Fragility fractures. 15. Osteoporosis. DISCHARGE MEDICATIONS: Atorvastatin 40 mg at nighttime; diphenhydramine 25 mg every 6 hours as needed for itching; fluticasone 50 mcg nasal spray, 1 spray daily; folic acid 1 tablet p.o. in the nighttime; albuterol sulfate 8.5 g inhaled every 8 hours as needed for shortness of breath; propranolol 20 mg p.o. b.i.d.; sertraline 100 mg daily; ergocalciferol 50,000 units every 7 days; lorazepam 1 mg t.i.d. as needed for anxiety; hydromorphone 1 mg every 8 hours as needed for pain, 10 tablets have been prescribed to be taken for pain more than 7/10; lacosamide 200 mg p.o. b.i.d.; she is also on infusions of monoclonal antibody Actemra, which is tocilizumab for rheumatoid arthritis; she is also on denosumab infusion for osteoporosis. PHYSICAL EXAMINATION: At the time of discharge, temperature 97.7 degrees, pulse 63, respiratory rate 18, blood pressure 114/57, saturating 96% on room air. On physical examination she does not appear in any acute distress. Oral cavity is moist. Air entry bilaterally equal. No wheeze, rhonchi, crackles. S1, S2 normal. No murmur or gallop. Abdomen is soft, nontender. No lower extremity edema. She does complain of some bilateral jaw pain, and the CT scan imaging is negative for an avascular necrosis of jaw bone or parotitis. LABORATORY DATA: Significant labs at the time of discharge: WBC 4.4, hemoglobin 13.2, platelets 194,000. D-dimer more than 20. Normal electrolytes with BUN 19, creatinine 0.7. Troponins are negative x3. 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 She came in with chief complaint of chest pain. Her chest pain was located in the center of the chest since about 2 days duration, which was getting worse on inspiration, radiating to bilateral breasts as well as bilateral jaw, constant in nature. On admission her EKG had sinus rhythm with frequent premature ventricular complexes and left axis deviation. Her troponins were negative. Cardiology evaluated and the patient underwent nuclear medicine myocardial perfusion scan, which did not detect any inducible ischemia or diagnostic ST or T changes. It was thought that her chest pain was musculoskeletal and she was prescribed opioid medications for chest pain, since muscle relaxants did not help and the patient refused to take NSAID medication. While inside the hospital, the patient was also found to have elevated D-dimer more than 20. She underwent extremity venous study of bilateral lower extremities and pulmonary arteriogram to rule out pulmonary embolism, which did not detect any evidence of DVT or pulmonary embolism. It was thought that the elevated D-dimer could be a nonspecific finding. She also kept on complaining of bilateral jaw pain. Initially thought that it could be in the setting of her self-reported history of Sjogren syndrome, and there was also a concern for avascular necrosis of the jaw, considering she was on denosumab infusions. CT scan of facial bones was performed, which did not detect any parotitis or jaw necrosis. She was discharged on opioid medications for that and reassured, though the CT scan did detect congenital elongated styloid process on the left. DIAGNOSTIC DATA: 1. Imaging during hospital admission: Head CT on arrival had stable old stroke at the lateral right frontal lobe; stable mild cerebral white matter chronic microvascular ischemic changes. 2. Chest x-ray on admission had no acute disease. 3. Pulmonary arteriogram on 05/10 had mild patchy air-space infiltrate on the right costophrenic angle; however, the patient did not have any leukocytosis, shortness of breath or significant cough. There was no evidence of pulmonary embolism. 4. Extremity venous study on 05/10 had no deep or superficial venous thrombosis of bilateral lower extremities. 5. Myocardial perfusion scan did not have any evidence of inducible myocardial ischemia. 6. Maxillofacial CT had extremely long styloid process on the left side which was congenital. The patient was advised to follow up with her regular doctor. More than 30 minutes were spent on this patient. All of her questions were answered satisfactorily. cc: Jose L Hatch MD
== END 2019-05-12 13:20 | disposition home health service (06) | DRG 313 ==
LOC: ED 18:37 → SUATTDRO 05-10 04:53 → 3N 05-10 04:53
PROVIDERS: ATTEND Internal Medicine
CPT/HCPCS: 70450; 70486; 71020; 71046; 71275; 78452; 80048; 80053; 82550; 83735; 83880; 84484; 85025; 85379; 85610; 85651; 85730; 86140; 93005; 93010; 93017; 93306; 93970; 94761; 94799; 96374; 96376; 99285; A9270; A9500; C8924; J1170; J1650; J2785; J7030; Q9956; Q9967

== ENCOUNTER 2019-08-15 01:10 | Inpatient (IN) ==
[2019-08-15] MEDS ORDERED: PERCOCET-5 PO ONE (02:22)
[2019-08-15] MEDS ORDERED: MORPHINE IV ONE (03:40)
--- NOTE | 2019-08-15 03:47 | PROVIDER DOCUMENTATION ---
HPI-General Adult - General Chief Complaint: Neck Pain Stated Complaint: SEVERE NECK PAIN Time Seen by Provider: 08/15/19 02:09 Source: patient, family Allergies/Adverse Reactions: Patient Allergies Allergy/AdvReac Type Severity Reaction Status Date / Time hydrocodone bitartrate * Allergy Intermediate ITCHING Verified 12/11/18 15:03 [From Lortab] levofloxacin [From Levaquin] Allergy Unknown Unknown Verified 12/11/18 15:03 sulfamethoxazole Allergy Unknown Unknown Verified 12/11/18 15:03 [From Bactrim] trimethoprim [From Bactrim] Allergy Unknown Unknown Verified 12/11/18 15:03 baclofen AdvReac Intermediate confusion Verified 12/11/18 15:03 gabapentin [From Neurontin] AdvReac Intermediate hyperactivi Verified 12/11/18 15:03 ty methadone [Methadone] AdvReac Intermediate confusion Verified 12/11/18 15:03 morphine AdvReac Intermediate confusion Verified 12/11/18 15:03 pregabalin [From Lyrica] AdvReac Intermediate hallucinati Verified 12/11/18 15:03 ons azathioprine [From Imuran] AdvReac Mild VOMITING Verified 12/11/18 15:03 azathioprine sodium * AdvReac Mild VOMITING Verified 12/11/18 15:03 [From Imuran] Home Medications: Home Medication List Medication Instructions Recorded Confirmed Last Taken Type Folic Acid 1 tab PO QPM 09/12/12 05/10/19 12/10/18 History Albuterol Sulfate [Proair Hfa] 8.5 gm IH Q8H PRN 12/07/16 05/10/19 12/10/18 History Lacosamide [Vimpat] 200 mg PO BID tablet 05/21/17 05/10/19 12/10/18 Rx Fluticasone 50 Mcg Nasal Buna 1 spray LD DAILY 07/07/17 05/10/19 12/10/18 History [Flonase] ATORVAstatin [Lipitor] 40 mg PO QHS 02/16/18 05/10/19 12/10/18 History Lorazepam [Ativan] 1 mg PO TID PRN PRN #20 tab 12/07/18 05/10/19 12/10/18 Rx Diphenhydramine HCl 25 mg PO Q6H PRN PRN 05/10/19 05/10/19 Unknown History Ergocalciferol (Vitamin D2) 50,000 unit PO Q7D 05/10/19 05/10/19 Unknown History [Vitamin D2] Propranolol HCl 20 mg PO BID 05/10/19 05/10/19 Unknown History Sertraline HCl 100 mg PO DAILY 05/10/19 05/10/19 Unknown History Hydromorphone [Dilaudid] 1 mg PO Q8H PRN #10 tab 05/11/19 Unknown Rx - History of Present Illness -Gen Adult Nature of Presenting Problems: Pt presents s/p fall, 1 week ago, pt fell back and hit the back of her head, no loc, pt now complaining of neck pain, pt has been ambulatory for the last week, pt has pmh of neck surgeries done at [place], pt denies f/c, lennon, cp, sob, cough, ap, n/v/d. Pt is lying in bed in no acute distress. Location of Pain/Injury: reports: neck Pain Radiation: reports: no radiation Quality of Pain: reports: sharp Severity: reports: moderate Onset/Duration: reports: 1 week ago Timing: reports: still present Context/Activities at Onset: reports: none Modifying Factors: improves with: nothing Associated Symptoms: reports: denies symptoms Similar Symptoms Previously?: No Recently seen or treated by another doctor?: No Review of Systems - Adult - REVIEW OF SYSTEMS - ADULT Constitutional: reports: no symptoms reported Eyes: reports: no symptoms reported Ears, Nose, Mouth & Throat: reports: no symptoms reported Cardiovascular: reports: no symptoms reported Respiratory: reports: no symptoms reported Gastrointestinal: reports: no symptoms reported Genitourinary: reports: no symptoms reported Musculoskeletal: reports: see HPI Integumentary: reports: no symptoms reported Neurological: reports: no symptoms reported Psychiatric: reports: no symptoms reported Endocrine: reports: no symptoms reported Hematologic/Lymphatic: reports: no symptoms reported Allergic/Immunologic: reports: no symptoms reported All Other Systems: Reviewed and Negative Past History - Adult - PAST MEDICAL HISTORY-ADULT Review of Records: reports: Old Records Reviewed, Nursing Assessment Review, Medications Reviewed, Social history reviewed & non-contributory. Major Childhood Illnesses: reports: denies history Cardiovascular: reports: HTN, hyperlipidemia, [place] Respiratory: reports: asthma, other (home oxygen) Gastrointestinal: reports: GERD Obstetrical/Gynecological: reports: denies history Genitourinary: reports: other, chronic UTI's Musculoskeletal: reports: arthritis, chronic pain, neck/back injury, other fractures, orthopedic injury, osteoporosis Neurological: reports: CVA, dementia, Seizures/Epilepsy Endocrine/Immune: reports: anemia, lupus, RA Other Conditions: reports: denies history - PRIOR SURGERIES/PROCEDURES Surgical/Procedure History: reports: appendectomy, hysterectomy, tonsillectomy, orthopedic (extremity) (total knee replacement), back/neck - PRIOR HOSPITALIZATIONS Prior Hospitalizations: reports: none - IMMUNIZATION STATUS Childhood Immunizations: See Nurse Assessment Flu Vaccine: See Nurse Assessment - FAMILY HISTORY Family History: reviewed, not pertinent Physical Exam-General - PHYSICAL EXAM-ADULT Initial Vital Signs Reviewed: Yes - CONSTITUTIONAL General Appearance: appears well - EYES Eyes: PERRL/EOMI - HEAD, EARS, NOSE, MOUTH & THROAT HENMT: normocephalic/atraumatic - NECK Neck: tender midline - RESPIRATORY Respiratory: lungs clear, no respiratory distress, no accessory muscle use - CARDIOVASCULAR Cardiovascular: regular rate, rhythm - GASTROINTESTINAL (ABDOMEN) Abdominal Exam: non tender, soft - LYMPHATIC Lymphatic: no adenopathy - MUSCULOSKELETAL Back Exam: normal inspection Extremity: normal range of motion - SKIN Integumentary: normal color - NEUROLOGIC Neurologic: grossly normal - PSYCHIATRIC Psych/Mental Status: normal mood/affect Progress - PLAN OF CARE/RESULTS Progress/Plan/Lab Results: Vital Signs - 8 hr 08/15/19 01:14 Temperature 98.0 F Pulse Rate 90 Respiratory Rate 16 Blood Pressure 143/73 O2 Sat by Pulse Oximetry 94 L Orders Category Date Time Status CERVICAL SPINE COMPLETE [RAD] Stat Exams 08/15/19 01:[address] HEAD/C-SPINE W/O CONTRAST [CT] Stat Exams 08/15/19 02:21 Taken Morphine Med 08/15/19 03:40 Discontinued 4 mg IV NOW ONE Oxycodone/APAP 5 mg/325 mg [Percocet-5] Med 08/15/19 02:22 Discontinued 2 each PO NOW ONE Departure - Departure Date of Disposition Decision: 08/15/19 Time of Disposition Decision: 05:46 DIAGNOSIS: Cervical spine fracture Qualifiers: Encounter type: initial encounter Cervical vertebra fracture level: C3 Fracture type: closed Fracture morphology: unspecified fracture morphology Fracture alignment: nondisplaced Qualified Code(s): S12.201A - Unspecified nondisplaced fracture of third cervical vertebra, initial encounter for closed fracture Disposition: ADMITTED INPATIENT 09 Certified Medical Emergency: Emergent Condition: Stable Referrals and Follow-Ups: Jaclyn Lucero CRNP [Primary Care Provider] - - Critical Care Note This patient required my direct & personal management of CC.: No Attestation - Physician/ YANELIS Attestation Patient care was provided by Advanced Practice Provider:: No The physician spent face to face time with patient:: Yes Advanced Practice Provider documentation review:: Supervising physician onsite and consulted in the evaluation and care of this patient. The physician did have a face to face encounter with the patient.
[2019-08-15] MEDS ORDERED: DILAUDID IV PRN (07:00)
[2019-08-15] MEDS ORDERED: PERCOCET-5 PO PRN (07:01)
[2019-08-15] MEDS ORDERED: NS 1,000 ML IV SCH (07:15)
--- NOTE | 2019-08-15 07:16 | HISTORY AND PHYSICAL ---
CHIEF COMPLAINT: Neck pain. 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 Unclear as to when the surgery was. During the conversation, it seems to be anywhere from a week ago to a month ago. States she has been ambulatory. She still has trouble swallowing. She apparently fell sometime over the last week to 10 days. She does take pain medications at home. Notes the pain medications are not helping her neck pain. Therefore, she eventually presented to the ER. ALLERGIES: 1. Hydrocodone causing itching. 2. Levaquin. 3. Bactrim. 4. Baclofen. 5. Neurontin causing hyperactivity. 6. Methadone causing confusion. 7. Morphine causing confusion, but she was given morphine in the ER without any issues. 8. Lyrica causing hallucinations. 9. Imuran causing vomiting. MEDICATIONS: I do not have an accurate medication list. The patient has apparently been taking Percocet at home but she states this is not effective enough. PAST MEDICAL HISTORY: 1. Hypertension. 2. Hyperlipidemia. 3. Known coronary artery disease. 4. Asthma. 5. Chronic hypoxic respiratory failure on home O2. 6. Chronic reflux. 7. Chronic UTIs. 8. Chronic neck and back pain. 9. Osteoporosis. 10. History of dementia. 11. History of stroke. 12. Seizure. 13. She has history of anemia, lupus and rheumatoid arthritis. PAST SURGICAL HISTORY: 1. Appendectomy. 2. Hysterectomy. 3. Tonsillectomy. 4. She has had a total knee replacement. 5. Has had neck surgery. 6. She has also recently undergone surgery for Gooding syndrome. FAMILY HISTORY: Noncontributory. SOCIAL HISTORY: Patient lives at home. She denies smoking or drinking. Does not use illicit substances. REVIEW OF SYSTEMS: As noted above. Patient notes that she chronically has trouble swallowing secondary to Gooding syndrome. However, she does not seem to understand the difference between pain with swallowing and true dysphagia. Unable to elicit which is the case. She denies any fevers, chills. Does have a chronic cough which has not changed. She has recently fallen. States that this happens on a regular basis. Denies headaches, blurred vision, change in vision. Denies focalized weakness. Denies skin rashes. Denies vomiting, diarrhea, constipation, melena, hematochezia. Denies any dysuria, urinary frequency. PHYSICAL EXAMINATION: VITAL SIGNS: Reviewed, temperature 98 degrees, pulse 90, respiratory 16, BP 143/73, saturation 94% on room air. GENERAL: Patient is awake, alert. She appears to be in no respiratory distress. HEENT: Normocephalic. NECK: Supple. CARDIOVASCULAR: Regular rate. No appreciable murmurs. CHEST: Clear, nonlabored. ABDOMEN: Soft, nondistended. EXTREMITIES: She is noted to move all extremities. SKIN: Warm dry no rashes. NEUROLOGIC: She has no focal deficits. She is awake, alert and appears oriented other than time. She is confused on when she had surgery. ASSESSMENT: 1. Recent fall with neck pain. 2. Cervical neck pain. 3. Chronic pain. 4. History of dementia. 5. Chronic neck and back pain. 6. Hypertension. 7. Hyperlipidemia. 8. Chronic hypoxic respiratory failure. 9. Known coronary artery disease. 10. Chronic reflux. PLAN: We are going to admit patient to the hospital for observation given the fact that she has recently fallen. She does have some changes on her C-spine. Neurosurgery feels that this was secondary to her recent surgery. They recommend watching her and checking an MRI, which we will hopefully be able to do in the morning. We are going to admit the patient to the hospital, restart her home medications once a full list is made available and will follow. cc: Nav Barrios MD
--- NOTE | 2019-08-15 07:46 | Diag Imaging Result Doc PS360 ---
CERVICAL SPINE COMPLETE - 08/15/2019 INDICATION: fall TECHNIQUE: Five views COMPARISON: 09/23/2013 FINDINGS: Alignment is anatomic. Vertebral body heights are preserved. No fracture or subluxation. There is moderate to advanced multilevel degenerative disc disease at all the levels from C3-C7. There are several metallic screws in the right-sided facets at all levels from C4-T1. These are stable from prior. There is mild bilateral multilevel facet hypertrophy. Soft tissues are clear. IMPRESSION: Advanced cervical spondylosis. No acute injury. No change from prior. Electronically signed by Giorgio Cabrera 08/15/2019 7:44 AM
--- NOTE | 2019-08-15 08:03 | Diag Imaging Result Doc PS360 ---
CT HEAD/C-SPINE W/O CONTRAST - 08/15/2019 INDICATION: head injury/pain COMPARISON: 05/09/2019, 06/07/2019 FINDINGS: Head CT: Stable old infarction at the right frontal lobe. Stable mild periventricular white matter chronic microvascular ischemia. No intracranial mass or hemorrhage. There is an old nondisplaced right nasal bone fracture. Stable surgical changes of the maxillary sinuses. The sinuses, mastoids, and middle ears are clear. Cervical spine: There are stable posterior arch defects mainly at the left side involving C4-C6. There are also small defects on the right side at C4 and C5. These appear well corticated. There are some stable metallic screws side of posterior facet joints on the right side of the cervical spine at C4-C7. There is advanced multilevel facet degeneration. There is also moderately advanced multilevel disc degeneration at all the levels from C4-C7. No central canal stenosis. Old side plate at the right clavicle. IMPRESSION: 1. Several stable bony defect in the posterior neural arches of C4-C6. Most likely surgical. No compression fractures. No subluxations. 2. No acute injury to the head. This exam was performed using automated exposure control, adjustment of mA or kV according to patient size, and/or use of iterative reconstruction technique Electronically signed by Giorgio Cabrera 08/15/2019 8:01 AM
[2019-08-15] MEDS: ZOFRAN IV PRN ×2 (16:15→21:50)
[2019-08-15] MEDS ORDERED: SEROQUEL PO ONE (16:39)
[2019-08-15 17:11] LABS: AGAP 13; ALB/GLOB RATIO 1.5; ALBUMIN 4.3 g/dL (3.5-5.0); ALKALINE PHOSPHATASE 71 U/L (32-104); BUN 15 mg/dL (8-22); CALCIUM 8.9 mg/dL (8.8-10.2); CHLORIDE 103 mmol/L (98-107); COSMO 278; CREATININE 0.8 mg/dL (0.5-0.9); ESTIMATED GFR > 60; GLUCOSE 156 mg/dL (70-104); GOT 8 U/L (10-30); GPT 11 U/L (10-36); MAGNESIUM 2.1 mg/dL (1.5-2.7); POTASSIUM 3.7 mmol/L (3.5-5.1); SODIUM 137 mmol/L (136-145); TCO2 21 mmol/L (25-35); TOTAL BILIRUBIN 0.58 mg/dL (0.20-1.00); TOTAL PROTEIN 7.2 g/dL (6.3-8.3)
[2019-08-15 17:13] LABS: BASO# 0.02 X1000 (0.0-0.2); BASO% 0.3 % (0.0-0.8); EOS# 0.32 X1000 (0.0-0.7); EOS% 5.1 % (0.0-10.0); HEMATOCRIT 38.7 % (37.0-47.0); HEMOGLOBIN 12.8 g/dL (12.0-16.0); IMM GRAN# 0.02 X1000 (0.0-0.04); IMM GRAN% 0.3 % (0.0-0.5); LYMPH# 1.47 X1000 (1.2-3.4); LYMPH% 23.5 % (20.5-51.1); MCHC 33.1 g/dL (33-37); MCV 87.6 FL (81-99); MONO# 0.48 X1000 (0.11-0.59); MONO% 7.7 % (1.7-9.3); MPV 10.7 FL (7.4-10.4); NEUT# 3.95 X1000 (1.4-6.5); NEUT% 63.1 % (42.2-75.2); PLT 233 X1000 (130-400); RBC 4.42 XMIL (4.2-5.4); RDW 13.1 % (11.5-14.5); WBC 6.26 X1000 (4.8-10.8)
--- NOTE | 2019-08-15 17:36 | Diag Imaging Result Doc PS360 ---
KUB ABDOMEN - 08/15/2019 INDICATION: nausea, ? constipation COMPARISON: 12/14/2018 FINDINGS: There is a nonobstructive bowel gas pattern. No free air or abdominal calcifications. There is no constipation. IMPRESSION: No acute disease. Electronically signed by Giorgio Cabrera 08/15/2019 5:34 PM
[2019-08-15] MEDS: DILAUDID IV PRN ×2 (18:49→21:49)
[2019-08-15] MEDS ORDERED: PHENERGAN IV PRN (19:57)
[2019-08-15] MEDS ORDERED: SODIUM CHLORIDE 0.9% INJ PRN (19:57)
[2019-08-15] MEDS ORDERED: ATIVAN IV PRN (20:28)
[2019-08-15] MEDS ORDERED: ATIVAN ONE (20:29)
[2019-08-15] MEDS ORDERED: DESYREL PO SCH (21:00)
[2019-08-15] MEDS ORDERED: ZOLOFT PO SCH (21:00)
[2019-08-15] MEDS ORDERED: SEROQUEL PO SCH (21:00)
--- NOTE | 2019-08-15 21:04 | PROGRESS NOTE ---
DATE: 08/15/2019 SUBJECTIVE: The patient has been evaluated at the bedside. A CAT call was performed. As per the nurse, she found the patient unresponsive and with muscle contraction and probably small jerking movement At the level of the upper extremities. When I evaluated this patient, she was basically unresponsive as well and snoring, likely postictal state. She did not receive Ativan or any other drugs before because she was waking up and she was able to move all 4 extremities and seat by herself. She was able to say her name as well. It looks like she had probably an episode in the afternoon as well. She is not on any kind of seizure medication at home. I will transfer this patient to the PVC unit. I will put this lady on Ativan as needed as well and as per the admitting physician, this patient was admitted to the hospital for observation given the fact that she has recently fallen, she does have some changes in her C-spine. She had a neck surgery done at [place]. Neurosurgery feels that the C-spine changes was recently due to her recent surgery. They recommended watching her and checking an MRI, I will also consult Neurology Department to evaluate this patient. This seems to be seizure for me. I will start this patient on Keppra. cc: Roland Gamble MD
[2019-08-15] MEDS: KEPPRA 500 MG/NS 500 MG/100 ML IVPB IV SCH (21:48)
[2019-08-15] MEDS: PRILOSEC PO SCH (21:48)
[2019-08-16 02:22] LABS: URINE SOURCE CLEAN CATCH
[2019-08-16 02:46] LABS: BILIRUBIN URINE NEGATIVE (NEGATIVE); COLOR YELLOW; GLUCOSE URINE NEGATIVE (NEGATIVE); TURBIDITY URINE CLEAR (CLEAR); UR EPITHELIAL CELLS <10 /HPF (<10); URINE BACTERIA NEGATIVE /HPF; URINE RBC <10 /HPF (<10); URINE WBC <10 /HPF (<10)
[2019-08-16 02:47] LABS: BLOOD URINE NEGATIVE (NEGATIVE); KETONE URINE 10 mg/dL (NEGATIVE); LEUKOCYTES URINE NEGATIVE (NEGATIVE); NITRITE URINE NEGATIVE (NEGATIVE); PROTEIN URINE TRACE mg/dL (NEGATIVE); SP GRAVITY URINE 1.023; UROBILINOGEN URINE NORMAL (NORMAL)
[2019-08-16] MEDS: DILAUDID IV PRN ×4 (04:26→16:41)
[2019-08-16 06:13] LABS: HEMOGLOBIN 11.5 g/dL (12.0-16.0); MCH 29.3 PG (27-31); MCHC 32.9 g/dL (33-37); MCV 89.1 FL (81-99); MPV 10.7 FL (7.4-10.4); RBC 3.93 XMIL (4.2-5.4); RDW 13.1 % (11.5-14.5); WBC 7.58 X1000 (4.8-10.8)
[2019-08-16 06:36] LABS: AGAP 12; ALB/GLOB RATIO 1.6; ALBUMIN 4.1 g/dL (3.5-5.0); ALKALINE PHOSPHATASE 62 U/L (32-104); BUN 13 mg/dL (8-22); CALCIUM 8.5 mg/dL (8.8-10.2); CHLORIDE 106 mmol/L (98-107); COSMO 284; CREATININE 0.7 mg/dL (0.5-0.9); ESTIMATED GFR > 60; GLUCOSE 106 mg/dL (70-104); GOT 7 U/L (10-30); GPT 10 U/L (10-36); MAGNESIUM 2.2 mg/dL (1.5-2.7); POTASSIUM 3.5 mmol/L (3.5-5.1); SODIUM 142 mmol/L (136-145); TCO2 24 mmol/L (25-35); TOTAL BILIRUBIN 0.46 mg/dL (0.20-1.00); TOTAL PROTEIN 6.7 g/dL (6.3-8.3)
[2019-08-16] MEDS: PRILOSEC PO SCH (07:17)
[2019-08-16] MEDS: KEPPRA 500 MG/NS 500 MG/100 ML IVPB IV SCH (09:53)
--- NOTE | 2019-08-16 10:12 | Diag Imaging Result Doc PS360 ---
EXAM: MRI CERVICAL SPINE W/CONTRAST INDICATION: S/P surgery, fall, Metcalfe syndrome TECHNIQUE: COMPARISON: CT cervical spine dated 08/15/2019. No prior MRI of the cervical spine is available for comparison. FINDINGS: The osseous marrow signal is essentially unremarkable. The cervical spinal cord signal is unremarkable. There is minimal metallic susceptibility artifact associated with the soft tissues posterior to the lower cervical spine indicating a prior surgery. Segmental analysis of the cervical spine is detailed below. C1-2: Sagittal images at this level reveal mild degenerative changes. The central canal and neuroforamina appear to be widely patent. C2-3: There is a broad-based disc osteophyte complex with a more prominent left lateralizing component. There is moderate central canal stenosis with mild impingement of the spinal cord. The cord exhibits normal signal. The neuroforamina appear to be patent. C3-4: There is a broad-based disc osteophyte complex and mild facet hypertrophy. This is causing moderate central stenosis with mild compression of the spinal cord. There is also mild foraminal stenosis. C4-5: There is a small broad-based disc osteophyte complex that is causing mild to moderate effacement of the ventral thecal sac. There is near contact with the ventral surface of the spinal cord but there is no significant cord compression. Neuroforamina appear to be patent. C5-6: There is a broad-based disc osteophyte complex with a superimposed small left paracentral disc protrusion. There is effacement of the ventral thecal sac and near contact with the ventral surface of the spinal cord. There is minimal flattening of the left side of the spinal cord suggesting some contact when in a standing position. No high-grade cord compression is appreciated. The neuroforamina appear to be patent. C6-7: There is a right paracentral disc protrusion that is effacing the ventral thecal sac with near contact with the ventral surface of the spinal cord to the right of midline. There is mild flattening of the right side of the spinal cord indicating some contact when in a standing position. An uncovertebral osteophyte is causing mild right foraminal narrowing. C7-T1: There is a small right lateralizing disc protrusion causing minimal effacement of the right paracentral ventral thecal sac. There is no evidence of cord compression. Neuroforamina appear to be patent. IMPRESSION: Multilevel degenerative arthropathy throughout the cervical spine as detailed level by level above. This is probably most significant at C2-3 C3-4. Electronically signed by Mario Mitchell 08/16/2019 10:10 AM
--- NOTE | 2019-08-16 10:24 | Diag Imaging Result Doc PS360 ---
EXAM: MRI BRAIN W/WO CONTRAST INDICATION: Seizures COMPARISON: 05/05/2017 FINDINGS: There is stable focal encephalomalacia involving the right frontal lobe. There is patchy T2/FLAIR hyperintensity in the periventricular and subcortical white matter suggesting moderate microangiopathy, stable. There is no evidence of acute infarct. There is stable mild diffuse brain atrophy. There is no discrete intracranial mass, mass effect, or intracranial hemorrhage. There is no evidence of abnormal intracranial enhancement. The surrounding soft tissues and bony structures are essentially unremarkable. IMPRESSION: Stable right frontal encephalomalacia and moderate white matter microangiopathy. No definite acute intracranial pathology. Electronically signed by Mario Mitchell 08/16/2019 10:21 AM
[2019-08-16] MEDS ORDERED: VIMPAT PO SCH (10:30)
--- NOTE | 2019-08-16 11:31 | PROGRESS NOTE ---
DATE: 08/16/2019 INTERVAL HISTORY: The patient had an episode of what appears to be a tonic-clonic seizure, especially affecting upper extremities, yesterday late evening, and she also had a postictal state, after which she was transferred to PVC unit, and she was started on Keppra. It looks like the patient has been on lacosamide, which she did not receive yesterday, which I have started today. SUBJECTIVE: She is feeling fine. Denies any chest pain, shortness of breath. She complains of some discomfort in the neck because of cervical brace. I discussed with her about awaiting MRI results before taking it off. I also discussed with her and her about following up with her pain doctor. OBJECTIVE: Current Vital Signs: Temperature of 98.1 degrees, pulse 91, respiratory rate 18, blood pressure 130/79, saturating 98% on 3 L nasal cannula. General: Does not appear in any acute distress. HEENT: Oral cavity is moist. Lungs: Air entry bilaterally equal. No wheeze, rhonchi, crackles. Cardiovascular: S1, S2 normal. No murmur or gallop. Abdomen: Soft, nontender. Extremities: No lower extremity edema. Skin: She has a right-sided anterior neck scar for the surgery on her neck in 07/2019. Neurologic: She is alert and oriented x3. IMAGING AND LABORATORY DATA: Labs suggestive of normocytic anemia, normal platelet count, normal electrolytes. No positive microbiological data. Brain MRI had stable right frontal encephalomalacia and moderate white matter microangiopathy, without any acute intracranial pathology. Cervical spine MRI had multilevel degenerative arthropathy throughout the cervical spine, most significant at C2, C3, C4. ASSESSMENT AND PLAN: 1. Recent fall with neck pain with history of multilevel degenerative cervical spine arthropathy, now stable. I will continue her on intravenous hydromorphone, and will switch her to oral medications today. 2. History of seizure and episode of tonic-clonic seizure on 08/15/2019. At home, she was listed to be taking lacosamide, which I will resume. I will appreciate Neurology recommendation about discontinuing Keppra versus continuing it. I will also keep her on intravenous lorazepam. 3. History of severe anxiety. I will continue her sertraline, quetiapine, and trazodone. I am awaiting final medication reconciliation. 4. Others. 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 5. Disposition. I am awaiting Neurology recommendation. Based on that, I will plan discharge in the next 24 hours if she does not have any more seizure episodes. Plan of care discussed with her and her . I also discussed with them about outpatient followup with the pain medication doctor. cc: Jose L Hatch MD
--- NOTE | 2019-08-16 15:20 | DISCHARGE SUMMARY ---
ADMISSION DATE: 08/15/2019 DISCHARGE DATE: 08/16/2019 TRANSFER DISPOSITION: Likely [facility], for neurosurgical evaluation. CURRENT CONDITION: Hemodynamically stable. Alert, oriented x3. She has a cervical neck brace. She is complaining of some tingling in bilateral hands. However, no upper or lower extremity weakness. No urinary or bowel incontinence. DISCHARGE DIAGNOSES: 1. Recent fall with excruciating neck pain. 2. Cervical spinal cord mild compression based on MRI at the level of C3, C4. 3. Multilevel degenerative disease affecting C2-C3, C5-C6, C6-C7, and C7-T1 levels. 4. Seizure, tonic-clonic, on 08/15/2019. 5. Severe anxiety. OTHER DIAGNOSES: 1. History of rheumatoid arthritis, on monthly infusions of tocilizumab. 2. 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 3. 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 4. History of right frontal cerebrovascular accident in the past. 5. History of seizure. 6. Essential hypertension. 7. Hyperlipidemia. 8. Asthma. 9. Migraine. 10. Depression. 11. Osteoporosis and fragility fractures. CURRENT MEDICATIONS: Currently, the patient is on: 1. Lacosamide 200 mg b.i.d. 2. Levetiracetam 500 mg intravenous every 12 hours. 3. Atorvastatin 40 mg at nighttime. 4. Fluticasone 50 mcg nasal spray daily. 5. Folic acid 1 mg in the evening time. 6. Sertraline 100 mg daily. 7. Lorazepam 1 mg every 4 hours as needed for breakthrough seizures. 8. Hydromorphone 0.5 mg every 3 hours as needed for neck pain. 9. Promethazine 12.5 mg IV every 4 hours as needed for nausea and vomiting. 10. Omeprazole 40 mg b.i.d. CURRENT VITAL SIGNS: Temperature of 98.1 degrees, pulse 82, respiratory rate 22, blood pressure 139/62, saturating 97% on 2 L nasal cannula. PHYSICAL EXAMINATION: The patient does not appear in any acute distress. Oral cavity is moist. Lungs: Air entry bilaterally equal. No wheeze, rhonchi, or crackles. Cardiovascular: S1, S2 normal. No murmur, rub, or gallop. Abdomen: Soft, nontender. No lower extremity edema. She is alert and oriented x3. Her sensation is 5/5 in upper and lower extremities. Her power is 5/5 in both upper and lower extremities. She is only complaining of tingling of bilateral hands. SIGNIFICANT LABS DURING HOSPITAL ADMISSION AND DISCHARGE: WBCs 7.5, hemoglobin 11.5, platelets 222,000. BUN 13, creatinine 0.7, GFR more than 60, blood sugar 106. SIGNIFICANT MICROBIOLOGY: None. SIGNIFICANT IMAGING DURING HOSPITAL ADMISSION: Her head and cervical spine CT had severe stable bony defects in the posterior neural arches of C4 to C6, most likely surgical. No compression fractures. No subluxations. No acute injury to the head. Cervical spine MRI on August 16 has detected, at C2-C3 level, there is broad-based disk osteophyte complex with more prominent left lateralizing component. There is moderate central canal stenosis with mild impingement of spinal cord. The cord exhibits normal signal. The neural foramina appeared to be patent. At C3-C4 level, there is a broad-based disk osteophyte complex and mild facet hypertrophy. This is causing moderate central stenosis with mild compression of the spinal cord. There is also mild foraminal stenosis. At C4-C5, there is a small broad-based disk osteophyte complex that is causing mild to moderate effacement of ventral thecal sac. There is near contact with the ventral surface of the spinal cord but there is no significant cord compression. Neural foramina appear to be patent. At C5-C6 level, there is broad-based disk osteophyte complex with superimposed small left paracentral disk protrusion with effacement of ventral thecal sac and near contact with the ventral surface of the spinal cord. There was minimal flattening of the left side of the spinal cord suggesting some contact. When in a standing position, no high-grade cord compression was appreciated. Neural foramina appeared to be patent. At C6-C7 level, there was a right paracentral disk protrusion which was effacing the ventral thecal sac with near contact with the ventral surface of the spinal cord to the right of midline. There was mild flattening of the right side of the spinal cord, indicating some contact when in a standing position. Uncovertebral osteophyte is causing mild right foraminal narrowing. At C7-T1 level, there was small right lateralizing disk protrusion causing minimal effacement of the right paracentral ventral thecal sac. There was no evidence of cord compression. Neural foramina appeared to be patent. HOSPITAL COURSE SUMMARY: Ms. Chase is a 78-year-old, lady with a history of severe anxiety and chronic pain who presented on 08/15/2019 with a chief complaint of neck pain. Apparently, the patient had surgery at [facility] for [place] syndrome on the right side of her neck and she has been ambulatory since then. However, she did have some trouble swallowing. About 7 days prior to presentation, she fell down. The circumstances of this were unclear, when she shouted her out, who responded. Since then, her neck pain started getting worse and the pain medication she was prescribed was not helping her so she decided to come to the emergency room. She was admitted for further management. While inside the hospital, she had developed an episode of tonic-clonic seizure which lasted for about 3 minutes or so. Apparently, the patient was not started on her lacosamide by that time. She was started on lacosamide and Keppra. Brain MRI and a cervical spine MRI were ordered. On the next day, the patient was alert and oriented. She was started on lacosamide and Keppra. The brain MRI as well as MRI of the cervical spine did detect multilevel cervical spine degenerative changes and there were impingements of the spinal cord with mild compression, especially at the level of C3-C4, so [facility] neurosurgery team was contacted. The patient will be transferred over to [facility] and they would evaluate her for the need for surgical intervention. If there is no surgical intervention needed, she will be transferred back to [facility]. Plan of care was discussed with the patient. Her questions were answered. Her was at bedside. More than 30 minutes were spent discharging this patient. cc: Jose L Hatch MD
[2019-08-16 17:03] VITALS: BP 149/78
[2019-08-16] MEDS: ZOFRAN IV PRN (19:25)
== END 2019-08-16 19:30 | disposition short-term general hospital (02) | DRG 92 ==
LOC: ED 01:10 → SUATTDRO 01:11 → 4N 01:11 → 2N 20:54
PROVIDERS: ATTEND Internal Medicine